=== PATIENT | female | born 1935 | race Caucasian/White ===

== ENCOUNTER → 2016-11-12 | Outpatient (CLI) | payer MEDICARE ==
[~2016-11-12] MED LIST: ALPR.25 PO; ALPR0.25 PO; AMLO10 PO; AMOX500C PO; COMMODE 3:1; CYCL1TAB29 PO; DEXA4TAB PO; FLUC100T41 PO; GLIM2TAB PO; GLYB1TAB51 PO; HYDR-3583 PO; LEVO.1 PO; LEVO100T5 PO; LORTA5 PO; MICO2%V VAGINAL; MISC-105; NEUR300C PO; OXYC1TAB36 PO; PANT20 PO; WALKER ROLLING; [UNRECOGNIZED DRUG - CODE] PO
[2016-11-12 12:52] LABS: HEMATOCRIT 41.4 % (35.0-46.0); MEAN CELL VOLUME 88.4 FL (80.0-100.0); MEAN CORPUSCULAR HEMOGLOBIN 29.4 PG (27.0-34.0); MEAN CORPUSCULAR HGB CONC 33.2 % (32.0-36.0); PLATELET COUNT 278 TH/MM3 (150-450); RED BLOOD COUNT 4.68 MIL/MM3 (4.00-5.30); RED CELL DISTRIBUTION WIDTH 17.2 % (11.6-17.2); REVIEW FLAG FINAL
[2016-11-12 13:25] LABS: HEMOGLOBIN A1a 1.7 %; HEMOGLOBIN A1b 0.9 %; HEMOGLOBIN Ao 84.4 %; HEMOGLOBIN F 1.2 %; HEMOGLOBIN LA1C 1.9 %; HEMOGLOBIN P3 4.1 %
[2016-11-12 13:26] LABS: ALKALINE PHOSPHATASE 100 U/L (45-117); ALT (GPT) 78 U/L (10-53); ANION GAP 11 MEQ/L (5-15); AST (GOT) 54 U/L (15-37); BICARBONATE 26.5 MEQ/L (21.0-32.0); BLOOD UREA NITROGEN 38 MG/DL (7-18); CHLORIDE 99 MEQ/L (98-107); FREE T4 1.29 NG/DL (0.76-1.46); GLOMERULAR FILTRATION RATE 39 ML/MIN (>89); GLUCOSE,FASTING 70 MG/DL (74-99); HDL CHOLESTEROL 38.6 MG/DL (40.0-60.0); LDL CHOLESTEROL 134 MG/DL (0-99); LDL CHOLESTEROL DIRECT 160 MG/DL (0-99); POTASSIUM 4.6 MEQ/L (3.5-5.1); SODIUM (NA) 136 MEQ/L (136-145); TOTAL BILIRUBIN ADULT 0.3 MG/DL (0.2-1.0)
== END ==
LOC: PLAB 09:35
PROVIDERS: ATTEND Family Medicine
DX: E11.9 Type 2 diabetes mellitus without complications (principal); E78.2 Mixed hyperlipidemia; I10 Essential (primary) hypertension; E03.8 Other specified hypothyroidism
CPT/HCPCS: 36415; 80053; 80061; 83036; 83721; 84439; 84443; 85027

== ENCOUNTER 2016-11-18 10:21 | Emergency (ER) | payer MEDICARE ==
[~2016-11-18 10:21] MED LIST changes: -ALPR0.25 PO; -AMLO10 PO; -AMOX500C PO; -CYCL1TAB29 PO; -DEXA4TAB PO; -GLIM2TAB PO; -HYDR-3583 PO; -LEVO100T5 PO; -NEUR300C PO; -OXYC1TAB36 PO; -PANT20 PO; -[UNRECOGNIZED DRUG - CODE] PO
[2016-11-18 10:23] VITALS: BP 225/99; PULSE 100; RESP 20; TEMP 97.2; O2SAT 97
[2016-11-18] MEDS ORDERED: [UNRECOGNIZED DRUG - CODE] PO (10:29)
[2016-11-18] MEDS ORDERED: ALPR0.25 PO (10:29)
[2016-11-18] MEDS ORDERED: AMOX500C PO (10:29)
[2016-11-18] MEDS ORDERED: LEVO100T5 PO (10:29)
[2016-11-18] MEDS ORDERED: GLIM2TAB PO (10:29)
[2016-11-18] MEDS ORDERED: HYDR-3583 PO (10:29)
[2016-11-18] MEDS ORDERED: CYCL1TAB29 PO (11:08)
[2016-11-18] MEDS ORDERED: OXYC1TAB36 PO (11:08)
--- NOTE | 2016-11-18 11:08 | PD ---
HPI Chief Complaint: Back/ Neck Pain or Injury Time Seen by Provider: 10:51 Travel History International Travel<30 days: No Contact w/Intl Traveler<30days: No Traveled to known affect area: No History of Present Illness HPI Patient presents with complaints of lower back pain. Reports a history of fractures. States she fell out of bed approximately 3 weeks ago and was evaluated and placed on pain medication for relief. Reports evaluation at [facility] for spinal injection which only worked approximately 36 hours. Reports worsening lower back pain with left sciatic pain since last night. States she is out of her pain medications. She does ambulate with a walker. She does have care available at home and family in town. PFSH Past Medical History Arthritis: Yes Asthma: No Autoimmune Disease: Yes (NON HODGKINS LYMPHOMA ) Anxiety: Yes Depression: Yes Heart Rhythm Problems: No Cancer: Yes (NON-HODGKINS LYMPHOMA) Cardiovascular Problems: No High Cholesterol: No Chemotherapy: Yes Chest Pain: No Congestive Heart Failure: No COPD: No Cerebrovascular Accident: No Diabetes: Yes Patient Takes Glucophage: Yes Diminished Hearing: No Endocrine: Yes GERD: No Genitourinary: Yes Hepatitis: No Hiatal Hernia: No Hypertension: Yes Immune Disorder: Yes Implanted Vascular Access Dvce: Yes Kidney Stones: No Medical other: Yes (BROKEN LEFT ARM) Musculoskeletal: Yes Neurologic: No Psychiatric: Yes Reproductive: No Respiratory: No Migraines: No Radiation Therapy: Yes Seizures: No Sickle Cell Disease: No Sleep Apnea: No Ulcer: No Menopausal: Yes Tubal Ligation: Yes Past Surgical History Abdominal Surgery: Yes (APPENDECTOMY) AICD: No Appendectomy: Yes Arteriovenous Shunt: No Body Medical Devices: LEFT HIP SCREWS Cardiac Surgery: No Ear Surgery: No Endocrine Surgery: No Eye Surgery: Yes (BILATERAL CATARACTS) Genitourinary Surgery: Yes (BLADDER LIFT x2 with mesh last 2009) Gynecologic Surgery: Yes (tubal ) Insulin Pump: No Joint Replacement: No Neurologic Surgery: No Oral Surgery: Yes (TONSILECTOMY) Pacemaker: No Thoracic Surgery: Yes (PORT PLACEMENT AND REMOVAL) Tonsillectomy: Yes Other Surgery: Yes (RIGHT CHEST WALL PORT IN AND OUT) Social History Alcohol Use: No Tobacco Use: No Substance Use: No Allergies-Medications (Allergen,Severity, Reaction): Coded Allergies: Sulfa (Unverified Allergy, Severe, Hives, 11/18/16) *MDRO Multi-Drug Resistant Organism (Unverified Adverse Reaction, Unknown , 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 Reported Meds & Prescriptions Reported Meds & Active Scripts Active Flexeril (Cyclobenzaprine HCl) 10 Mg Tab 5-10 Mg PO TID PRN Oxycodone-Acetaminophen 10-325 mg Tab 1 Tab PO Q6H PRN Reported Methenamine 1 Pow Pow 1 Gm PO Levothyroxine (Levothyroxine Sodium) 100 Mcg Tab 100 Mcg PO DAILY Hydrocodone-Acetaminophen 10-325 mg Tab 1 Tab PO Q4H PRN Glimepiride 2 Mg Tab 2 Mg PO DAILY Take with breakfast or first main meal Amoxicillin 500 Mg Cap 500 Mg PO PRN Alprazolam 0.25 Mg Tab 0.25 Mg PO Q4H PRN Review of Systems General / Constitutional: No: Fever Eyes: No: Visual changes HENT: No: Headaches Cardiovascular: No: Chest Pain or Discomfort Respiratory: No: Shortness of Breath Gastrointestinal: No: Abdominal Pain Genitourinary: No: Dysuria Musculoskeletal: Positive: Pain Skin: No Rash Neurologic: No: Weakness Psychiatric: No: Depression Endocrine: No: Polydipsia Hematologic/Lymphatic: No: Easy Bruising Physical Exam Narrative GENERAL: Well-nourished, well-developed patient. SKIN: Warm and dry. HEAD: Normocephalic. EYES: No scleral icterus. No injection or drainage. NECK: Supple, trachea midline. No JVD or lymphadenopathy. CARDIOVASCULAR: Regular rate and rhythm without murmurs, gallops, or rubs. RESPIRATORY: Breath sounds equal bilaterally. No accessory muscle use. GASTROINTESTINAL: Abdomen soft, non-tender, nondistended. MUSCULOSKELETAL: No cyanosis, or edema. BACK: Nontender without obvious deformity. No CVA tenderness. Examination lumbar sacral spine reveals midline tenderness with bilateral paraspinous pain radiating to the left gluteus negative straight leg raise Data Data Last Documented VS Vital Signs Date Time Temp Pulse Resp B/P Pulse Ox O2 Delivery O2 Flow Rate FiO2 11/18/16 11:50 74 20 154/98 98 11/18/16 10:23 97.2 Orders Oxycodone-Acetamin 10-325 Mg (Percocet 1 (11/18/16 11:15) Cyclobenzaprine (Flexeril) (11/18/16 11:15) MDM Medical Decision Making Medical Screen Exam Complete: Yes Emergency Medical Condition: Yes Differential Diagnosis Spinal stenosis, lumbar sacral degenerative disc disease, left sciatic pain Narrative Course Assessment and plan discussed with patient at bedside. Patient received oral pain medication and muscle relaxer with improvement of pain. Visualized ambulating with a walker Diagnosis Primary Impression: Left sciatic nerve pain Patient Instructions: Narcotic given in the ED, General Instructions Additional Instructions: Encouraged nonsteroidal anti-inflammatories warm heat gentle stretching strengthening and massage. Encouraged follow-up with PCP for further pain control, consider physical therapy Med/Other Pt SpecificInfo: Prescription(s) given Scripts Cyclobenzaprine (Flexeril)10 Mg Tab5-10 Mg PO TID PRN (MUSCLE SPASM) #20 TAB Ref 0 Prov:Higinio Romero MD 11/18/16 Oxycodone-Acetaminophen 10-325 mg Tab1 Tab PO Q6H PRN (PAIN) #20 TAB Ref 0 Prov:Higinio Romero MD 11/18/16 Disposition: 01 DISCHARGE HOME Condition: Good Higinio Romero MD Nov 18, 2016 11:08
[2016-11-18] MEDS ORDERED: CYCLOBENZAPRINE HCL 10 MG TAB PO ONE (11:15)
[2016-11-18] MEDS ORDERED: oxyCODONE/ACETAMINOPHEN 10 MG/325 MG TAB PO ONE (11:15)
[2016-11-18 11:50] VITALS: BP 154/98; PULSE 74; RESP 20; O2SAT 98
== END 2016-11-18 12:38 | disposition home or self-care (01) ==
LOC: PHED 10:21
DX: M54.32 Sciatica, left side (principal); E11.9 Type 2 diabetes mellitus without complications; I10 Essential (primary) hypertension
CPT/HCPCS: 99283

== ENCOUNTER 2016-11-21 09:28 | Inpatient (IN) | payer MEDICARE ==
[2016-11-21] VITALS (7 sets, daily range): BP systolic 130–219; BP diastolic 73–98; PULSE 82–98; RESP 16–20; TEMP 97.7–98.8; O2SAT 97–100
[~2016-11-21] VITALS: Ht 157.5 cm; Wt 56.0 kg
[~2016-11-21 09:28] MED LIST changes: -ALPR.25 PO; +ALPR0.25 PO; +AMOX500C PO; -COMMODE 3:1; +CYCL1TAB29 PO; -FLUC100T41 PO; +GLIM2TAB PO; -GLYB1TAB51 PO; +HYDR-3583 PO; -LEVO.1 PO; +LEVO100T5 PO; -LORTA5 PO; -MICO2%V VAGINAL; -MISC-105; +OXYC1TAB36 PO; -WALKER ROLLING; +[UNRECOGNIZED DRUG - CODE] PO
[2016-11-21] MEDS ORDERED: AMOX500C PO (09:39)
[2016-11-21 10:16] LABS: BASOPHIL % 0.6 % (0.0-2.0); EOSINOPHIL # 0.4 TH/MM3 (0-0.4); EOSINOPHIL % 6.1 % (0.0-4.0); HEMATOCRIT 40.2 % (35.0-46.0); LYMPH % 13.3 % (9.0-44.0); LYMPHOCYTE # 0.8 TH/MM3 (1.0-4.8); MEAN CELL VOLUME 89.7 FL (80.0-100.0); MEAN CORPUSCULAR HEMOGLOBIN 29.6 PG (27.0-34.0); MONO % 13.1 % (0.0-8.0); NEUT % 66.9 % (16.0-70.0); PLATELET COUNT 240 TH/MM3 (150-450); RED BLOOD COUNT 4.48 MIL/MM3 (4.00-5.30); RED CELL DISTRIBUTION WIDTH 17.4 % (11.6-17.2); WHITE BLOOD COUNT 5.9 TH/MM3 (4.0-11.0)
[2016-11-21 10:17] LABS: HEMO FLAGS AUTO DIFF
[2016-11-21 10:18] LABS: APTT (PATIENT) 28.5 SEC (24.3-30.1)
[2016-11-21 10:25] LABS: ACETAMINOPHEN LESS THAN 2.0 MCG/ML (10.0-30.0); ANION GAP 10 MEQ/L (5-15); BICARBONATE 22.3 MEQ/L (21.0-32.0); BLOOD UREA NITROGEN 29 MG/DL (7-18); CHLORIDE 102 MEQ/L (98-107); GLOMERULAR FILTRATION RATE 45 ML/MIN (>89); POTASSIUM 4.4 MEQ/L (3.5-5.1); SODIUM (NA) 134 MEQ/L (136-145)
--- NOTE | 2016-11-21 10:27 | PD ---
HPI Chief Complaint: Pain: Acute or Chronic Time Seen by Provider: 09:38 Travel History International Travel<30 days: No Contact w/Intl Traveler<30days: No Traveled to known affect area: No History of Present Illness HPI 81-year-old female complains of low back pain and left hip pain. Since states that she fell 4 days ago. 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 Patient has been evaluated by radiology oncologist and her personal physician and has been taking pain medications at home. Patient was seen in emergency room 2 days ago for acute exacerbation of left hip left leg pain. Patient was given prescription for oxycodone 10, dispensed 20 pills. Patient has been taking the medication without relief of the pain. Patient has 2 tablets of oxycodone left this morning. Patient denies any bladder or bowel control problem. Patient denies any focal weakness and numbness of the leg. Injury or medical record, patient was seen by radiology oncologist, pain management and her personal physician for back pain and left leg pain. Patient had MRI and PET scan done recently of the lumbar spine MRI shows new order to severe compression fracture deformity of L5 vertebral body with mass effect on S1 nerve root. New mild compression fracture deformity T12. Disc disease and central canal stenosis at L4-L5 level. PFSH Past Medical History Arthritis: Yes Asthma: No Autoimmune Disease: Yes (NON HODGKINS LYMPHOMA ) Anxiety: Yes Depression: Yes Heart Rhythm Problems: No Cancer: Yes (NON-HODGKINS LYMPHOMA) Cardiovascular Problems: Yes High Cholesterol: No Chemotherapy: Yes Chest Pain: No Congestive Heart Failure: No COPD: No Cerebrovascular Accident: No Diabetes: Yes Patient Takes Glucophage: No Diminished Hearing: No Endocrine: Yes GERD: No Genitourinary: Yes Hepatitis: No Hiatal Hernia: No Hypertension: Yes Immune Disorder: Yes Implanted Vascular Access Dvce: Yes Kidney Stones: No Medical other: Yes (BROKEN LEFT ARM) Musculoskeletal: Yes Neurologic: No Psychiatric: Yes Reproductive: No Respiratory: No Migraines: No Radiation Therapy: Yes Seizures: No Sickle Cell Disease: No Sleep Apnea: No Ulcer: No Tetanus Vaccination: > 5 Years Influenza Vaccination: Yes ?: Not Menopausal: Yes Tubal Ligation: Yes Past Surgical History Abdominal Surgery: Yes (APPENDECTOMY) AICD: No Appendectomy: Yes Arteriovenous Shunt: No Body Medical Devices: LEFT HIP SCREWS Cardiac Surgery: No Ear Surgery: No Endocrine Surgery: No Eye Surgery: Yes (BILATERAL CATARACTS) Genitourinary Surgery: Yes (BLADDER LIFT x2 with mesh last 2009) Gynecologic Surgery: Yes (tubal ) Insulin Pump: No Joint Replacement: No Neurologic Surgery: No Oral Surgery: Yes (TONSILECTOMY) Pacemaker: No Thoracic Surgery: Yes (PORT PLACEMENT AND REMOVAL) Tonsillectomy: Yes Other Surgery: Yes (RIGHT CHEST WALL PORT IN AND OUT) Social History Alcohol Use: No Tobacco Use: No Substance Use: No Allergies-Medications (Allergen,Severity, Reaction): Coded Allergies: Sulfa (Verified Allergy, Severe, Hives, 11/21/16) *MDRO Multi-Drug Resistant Organism (Verified Adverse Reaction, Unknown, ) 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 Reported Meds & Prescriptions Reported Meds & Active Scripts Active Oxycodone-Acetaminophen 10-325 mg Tab 1 Tab PO Q6H PRN Reported Amoxicillin 500 Mg Cap 500 Mg PO BID Levothyroxine (Levothyroxine Sodium) 100 Mcg Tab 100 Mcg PO DAILY Glimepiride 2 Mg Tab 2 Mg PO DAILY Take with breakfast or first main meal Alprazolam 0.25 Mg Tab 0.25 Mg PO Q4H PRN Review of Systems General / Constitutional: No: Fever Eyes: No: Visual changes HENT: No: Headaches Cardiovascular: No: Chest Pain or Discomfort Respiratory: No: Shortness of Breath Gastrointestinal: No: Abdominal Pain Genitourinary: No: Dysuria Musculoskeletal: No: Pain Skin: No Rash Neurologic: No: Weakness Psychiatric: No: Depression Endocrine: No: Polydipsia Hematologic/Lymphatic: No: Easy Bruising Physical Exam Narrative GENERAL: Well-nourished, well-developed patient. SKIN: Focused skin assessment warm/dry. HEAD: Normocephalic. EYES: No scleral icterus. No injection or drainage. NECK: Supple, trachea midline. No JVD or lymphadenopathy. CARDIOVASCULAR: Regular rate and rhythm without murmurs, gallops, or rubs. RESPIRATORY: Breath sounds equal bilaterally. No accessory muscle use. GASTROINTESTINAL: Abdomen soft, non-tender, nondistended. MUSCULOSKELETAL: No cyanosis, or edema. Patient has ordered tenderness on palpation of the left hip joint. Full range of motion the left hip. BACK: Patient has moderate tenderness on palpation mid to low lumbar area, without obvious deformity. No CVA tenderness. Neurologic exam: Patient is awake and alert oriented 3. Patient has no obvious focal neurological deficit. Data Data Last Documented VS Vital Signs Date Time Temp Pulse Resp B/P Pulse Ox O2 Delivery O2 Flow Rate FiO2 11/21/16 09:42 17 100 Room Air 11/21/16 09:30 98 11/21/16 09:30 98.0 219/98 Orders Complete Blood Count With Diff (11/21/16 09:38) Basic Metabolic Panel (Bmp) (11/21/16 09:38) Prothrombin Time / Inr (Pt) (11/21/16 09:38) Act Partial Throm Time (Ptt) (11/21/16 09:38) Iv Access Insert/Monitor (11/21/16 09:38) Ecg Monitoring (11/21/16 09:38) Oximetry (11/21/16 09:38) Tylenol (Acetaminophen) (11/21/16 09:38) Ct Hip W/O Contrast (11/21/16 ) Ct Lumb Spine W/O Contrast (11/21/16 ) Morphine Inj (Morphine Inj) (11/21/16 10:30) Ondansetron Inj (Zofran Inj) (11/21/16 10:30) Labs Laboratory Tests Test 11/21/16 09:41 White Blood Count 5.9 TH/MM3 Red Blood Count 4.48 MIL/MM3 Hemoglobin 13.2 GM/DL Hematocrit 40.2 % Mean Corpuscular Volume 89.7 FL Mean Corpuscular Hemoglobin 29.6 PG Mean Corpuscular Hemoglobin 33.0 % Concent Red Cell Distribution Width 17.4 % Platelet Count 240 TH/MM3 Mean Platelet Volume 8.1 FL Neutrophils (%) (Auto) 66.9 % Lymphocytes (%) (Auto) 13.3 % Monocytes (%) (Auto) 13.1 % Eosinophils (%) (Auto) 6.1 % Basophils (%) (Auto) 0.6 % Neutrophils # (Auto) 4.0 TH/MM3 Lymphocytes # (Auto) 0.8 TH/MM3 Monocytes # (Auto) 0.8 TH/MM3 Eosinophils # (Auto) 0.4 TH/MM3 Basophils # (Auto) 0.0 TH/MM3 CBC Comment AUTO DIFF Prothrombin Time 11.0 SEC Prothromb Time International 1.0 RATIO Ratio Activated Partial 28.5 SEC Thromboplast Time Sodium Level 134 MEQ/L Potassium Level 4.4 MEQ/L Chloride Level 102 MEQ/L Carbon Dioxide Level 22.3 MEQ/L Anion Gap 10 MEQ/L Blood Urea Nitrogen 29 MG/DL Creatinine 1.17 MG/DL Estimat Glomerular Filtration 45 ML/MIN Rate Random Glucose 161 MG/DL Calcium Level 9.8 MG/DL Acetaminophen Level LESS THAN 2.0 MCG/ML MDM Medical Decision Making Medical Screen Exam Complete: Yes Emergency Medical Condition: Yes Differential Diagnosis Differential diagnosis including fracture, dislocation, HNP, Narrative Course 81-year-old female with acute exacerbation of low back pain and left hip and left leg pain. History of recurrent follicular non-Hodgkin's lymphoma with sore last mass and fracture of lumbar spine. Diagnosis Primary Impression: Acute exacerbation of chronic low back pain Additional Impression: Fracture of lumbar spine Qualified Code: S32.050A - Closed wedge compression fracture of fifth lumbar vertebra, initial encounter Hermilo Napier MD Nov 21, 2016 10:27
[2016-11-21] MEDS ORDERED: ONDANSETRON HCL 4 MG/2 ML VIAL IV PUSH ONE (10:30)
[2016-11-21] MEDS ORDERED: MORPHINE SULFATE 4 MG/ML INJ IV PUSH ONE (10:30)
[2016-11-21] MEDS ORDERED: GLUCAGON 1 MG/ML VIAL OTHER PRN (10:45)
[2016-11-21] MEDS ORDERED: ONDANSETRON HCL 4 MG/2 ML VIAL IV PUSH PRN (10:45)
[2016-11-21] MEDS ORDERED: HYDROmorphone HCL PF 1 MG/ML VIAL IV PUSH PRN (10:45)
[2016-11-21] MEDS ORDERED: DEXTROSE 50% IN WATER 50 ML VIAL(D50) IV PUSH PRN (10:45)
[2016-11-21 10:55] LABS: BANDS 10 % (0-6); BASOPHILS 1 % (0-2); EOSINOPHILS 1 % (0-4); NEUTROPHIL # MANUAL DIFF 4.1 TH/MM3 (1.8-7.7); POLYS (SEG NEUTROPHILS) 60 % (16-70); WBC DIFF SAMPLE 100
[2016-11-21 10:56] LABS: PLATELET ESTIMATE SMEAR NORMAL (NORMAL); PLATELET MORPHOLOGY NORMAL (NORMAL); SCAN/DIFF FINAL DIFF MANUAL
[2016-11-21] MEDS: INSULIN ASPART SUPPLEMENTAL SCALE SQ SCH ×2 (11:00→15:57)
--- NOTE | 2016-11-21 11:18 | RADRPT ---
EXAM DATE/TIME: 11/21/2016 10:19 [facility] COMPARISON: No previous studies available for comparison. INDICATIONS : Fall 2 days ago. Left hip and back pain. RADIATION DOSE: 35.86 CTDIvol (mGy) MEDICAL HISTORY : Cardiovascular disease. Diabetes, Non-Hodgkin's lymphoma SURGICAL HISTORY : Appendectomy. Tubal ligation. ENCOUNTER: Initial ACUITY: 2 days PAIN SCALE: 5/10 LOCATION: Bilateral back TECHNIQUE: Volumetric scanning of the lumbar spine was performed. Multiplanar reconstructions in the sagittal, coronal and oblique axial planes were performed. Using automated exposure control and adjustment of the mA and/or kV according to patient size, radiation dose was kept as low as reasonably achievable t o obtain optimal diagnostic quality images. FINDINGS: CT scan was performed in an individual who fell two days ago. There is marked anterior wedging of T12, L4 and L5. I have no prior images available to know whether this is acute or chronic. MRI could be used to help ascertain this. T12-L1: Mild interspace ridging is present, neural foramina adequate. L1-L2: There is generalized disc bulging present. There is mild bilateral neural foramina encroachment. L2-L3: Mild interspace ridging is present, neural foramina adequate. L3-L4: There is mild canal stenosis. There is minimal bilateral neural foramina encroachment. L4-L5: Vacuum disc is evident with generalized disc bulging and degenerative changes in the facets. L5-S1: There is an area of destruction in the transverse process of L5 suspicious for a neoplastic process. Extensive osteopenia is present with generalized disc bulging. Degenerative changes are present in t he facets. Degenerative changes are seen in both SI joints. There is mild spinal stenosis. . CONCLUSION: 1. Destructive process involving the transverse process of L5 suspicious for neoplastic process. Th is could be biopsied percutaneously. Quinton Robison MD FACR on November 21, 2016 at 11:07 Board Certified Radiologist. This report was verified electronically.
--- NOTE | 2016-11-21 11:32 | RADRPT ---
EXAM DATE/TIME: 11/21/2016 10:19 [facility] COMPARISON: No previous studies available for comparison. INDICATIONS : Fall 2 days ago. Left hip and back pain. RADIATION DOSE: 13.62 CTDIvol (mGy) MEDICAL HISTORY : Cardiovascular disease. Diabetes, Non-Hodgkin's lymphoma SURGICAL HISTORY : Appendectomy. Tubal ligation. ENCOUNTER: Initial ACUITY: 2 days PAIN SCALE: 4/10 LOCATION: Left pelvis TECHNIQUE: Volumetric scanning of the hip was performed. Using automated exposure control and adjustment of the mA and/or kV according to patient size, radiation dose was kept as low as reasonably achievable to o btain optimal diagnostic quality images. 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 Patient has troch nails bilaterall y. This is causing moderate artifact. I do not see an obvious fracture or bony destruction. There is a n abnormal transverse process of L5 on the left suspicious for neoplastic process. Findings have been discussed with Dr. Napier on today's date. CONCLUSION: I do not see hip fracture although troch nails make conclusion of subtle fracture very difficult. Pl ease see above discussion. Quinton Robison MD FACR on November 21, 2016 at 11:24 Board Certified Radiologist. This report was verified electronically.
[2016-11-21] MEDS ORDERED: ACETAMINOPHEN 325 MG TAB PO PRN (12:00)
--- NOTE | 2016-11-21 12:05 | HHI.HP ---
[facility] Service [facility] Primary Care Physician Corey Das MD Admission Diagnosis lumbar spine fracture. Intractable pain. Diagnoses: (1) Fracture of lumbar spine Diagnosis: Principal Chief Complaint: low back pain Travel History International Travel<30 Days: No Contact w/Intl Traveler <30 Da: No Traveled to Known Affected Are: No History of Present Illness patient is a 81 y/o female with history of non-hodgkin's lymphoma who presented to ER with low back pain. she says that she fell about a month ago and started to have some flip pain at the time. she says that her pain has been getting worse since then. she was seen by neurosurgery about a week ago and is supposed to have a neurosurgery follow-up this week.she was seen in ER few days ago and was discharged with pain medications and muscle relaxant. she says that the pain got worse despite taking the pain medications. she had a recent f/u with her radiation oncologist and had a PET-scan and MRI of the lumbar spine which revealed T12/ L5 fracture. she says that the pain started in the back and ' shoots down' to the left leg. she has some weakness of the left leg. she denies any urine or stool incontinence. Review of Systems Constitutional: DENIES: Fever, Weight loss, Chills, Night Sweats Eyes: DENIES: Blurred vision, Diplopia, Vision loss, Double Vision Ears, nose, mouth, throat: DENIES: Tinnitus, Vertigo, Throat pain, Epistaxis Respiratory: DENIES: Apneas, Cough, Snoring, Wheezing, Hemoptysis, Sputum production, Shortness of breath Cardiovascular: DENIES: Chest pain, Palpitations, Syncope, Dyspnea on Exertion , PND, Lower Extremity Edema, Orthopnea, Claudication Gastrointestinal: DENIES: Abdominal pain, Black stools, Bloody stools, Constipation, Diarrhea, Nausea, Vomiting, Difficulty Swallowing, Anorexia Genitourinary: DENIES: Urinary frequency, Urgency, Hematuria, Dysuria Musculoskeletal: COMPLAINS OF: Back pain, DENIES: Joint pain, Muscle aches, Stiffness, Joint Swelling Integumentary: DENIES: Rash Neurologic: DENIES: Abnormal gait, Headache, Localized weakness, Paresthesias, Seizures, Speech Problems, Tremor, Poor Balance Psychiatric: DENIES: Anxiety, Confusion, Mood changes, Depression, Hallucinations, Agitation, Suicidal Ideation, Homicidal Ideation, Delusions Past Family Social History Past Medical History lymphoma diabetes mellitus hypothyroidism Past Surgical History appendectomy tubal ligation Reported Medications Amoxicillin 500 Mg Cap 500 Mg PO BID Levothyroxine (Levothyroxine Sodium) 100 Mcg Tab 100 Mcg PO DAILY Glimepiride 2 Mg Tab 2 Mg PO DAILY Take with breakfast or first main meal Alprazolam 0.25 Mg Tab 0.25 Mg PO Q4H PRN Allergies: Coded Allergies: Sulfa (Verified Allergy, Severe, Hives, 11/21/16) *MDRO Multi-Drug Resistant Organism (Verified Adverse Reaction, Unknown, ) 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 Active Ordered Medications Current Medications Morphine Sulfate (Morphine Inj) 4 mg ONCE ONCE IV PUSH Last administered on 10:39; Start 11/21/16 at 10:30; Stop 11/21/16 at 10:32; Status DC Ondansetron HCl (Zofran Inj) 4 mg ONCE ONCE IV PUSH Last administered on 10:40; Start 11/21/16 at 10:30; Stop 11/21/16 at 10:32; Status DC Enalaprilat (Vasotec Inj) 1.25 mg Q8H PRN IV PUSH SBP> OR = 180, DBP> OR = 100 ; Start 11/21/16 at 10:45 Dextrose (D50w (Vial) Inj) 25 ml UNSCH PRN IV PUSH HYPOGLYCEMIA-SEE COMMENTS; Start 11/21/16 at 10:45 Glucagon (Glucagon Inj) 1 mg UNSCH PRN OTHER HYPOGLYCEMIA-SEE COMMENTS; Start 11/21/16 at 10:45 Insulin Aspart (NovoLOG SUPPLEMENTAL SCALE) 1 ACHS SLIDING SCALE SQ ; Start at 11:00 Ondansetron HCl (Zofran Inj) 4 mg Q8HR PRN IV PUSH NAUSEA; Start 11/21/16 at 10 :45 Hydromorphone HCl (Dilaudid Pf Inj) 0.5 mg Q4H PRN IV PUSH PAIN; Start at 10:45 Family History not relevant to this presentation. Social History no smoking or drinking. Physical Exam Vital Signs Vital Signs Date Time Temp Pulse Resp B/P Pulse Ox O2 Delivery O2 Flow Rate FiO2 11/21/16 11:07 88 16 130/73 100 Room Air 11/21/16 10:44 17 11/21/16 09:42 17 100 Room Air 11/21/16 09:30 98 17 11/21/16 09:30 98.0 98 17 219/98 100 Physical Exam GENERAL: This is a well-nourished, well-developed patient, in no apparent distress. HEAD: Atraumatic. Normocephalic. No temporal or scalp tenderness. EYES: Pupils equal round and reactive. Extraocular motions intact. No scleral icterus. No injection or drainage. ENT: Nose without bleeding, purulent drainage or septal hematoma. Throat without erythema, tonsillar hypertrophy or exudate. Uvula midline. Airway patent. NECK: Trachea midline. No JVD or lymphadenopathy. Supple, nontender, no meningeal signs. CARDIOVASCULAR: Regular rate and rhythm without murmurs, gallops, or rubs. RESPIRATORY: Clear to auscultation. Breath sounds equal bilaterally. No wheezes , rales, or rhonchi. GASTROINTESTINAL: Abdomen soft, non-tender, nondistended. No hepato-splenomegaly , or palpable masses. No guarding. MUSCULOSKELETAL: Extremities without clubbing, cyanosis, or edema. No joint tenderness, effusion, or edema noted. No calf tenderness. Negative Homans sign bilaterally. NEUROLOGICAL: Awake and alert. Cranial nerves II through XII intact. Motor and sensory grossly within normal limits. Five out of 5 muscle strength in all muscle groups. Normal speech. Laboratory Laboratory Tests Test 11/21/16 09:41 White Blood Count 5.9 Red Blood Count 4.48 Hemoglobin 13.2 Hematocrit 40.2 Mean Corpuscular Volume 89.7 Mean Corpuscular Hemoglobin 29.6 Mean Corpuscular Hemoglobin 33.0 Concent Red Cell Distribution Width 17.4 Platelet Count 240 Mean Platelet Volume 8.1 Neutrophils (%) (Auto) 66.9 Lymphocytes (%) (Auto) 13.3 Monocytes (%) (Auto) 13.1 Eosinophils (%) (Auto) 6.1 Basophils (%) (Auto) 0.6 Neutrophils # (Auto) 4.0 Lymphocytes # (Auto) 0.8 Monocytes # (Auto) 0.8 Eosinophils # (Auto) 0.4 Basophils # (Auto) 0.0 CBC Comment AUTO DIFF Differential Total Cells 100 Counted Neutrophils % (Manual) 60 Band Neutrophils % 10 Lymphocytes % 13 Monocytes % 15 Eosinophils % 1 Basophils % 1 Neutrophils # (Manual) 4.1 Differential Comment FINAL DIFF MANUAL Platelet Estimate NORMAL Platelet Morphology Comment NORMAL Red Cell Morphology Comment NORMAL Prothrombin Time 11.0 Prothromb Time International 1.0 Ratio Activated Partial 28.5 Thromboplast Time Sodium Level 134 Potassium Level 4.4 Chloride Level 102 Carbon Dioxide Level 22.3 Anion Gap 10 Blood Urea Nitrogen 29 Creatinine 1.17 Estimat Glomerular Filtration 45 Rate Random Glucose 161 Calcium Level 9.8 Acetaminophen Level LESS THAN 2.0 Result Diagram: 11/21/1641 11/21/1641 Assessment and Plan Assessment and Plan A/P -history of lymphoma with T12/L5 fracture continue with pain control- will consult oncology, radiation oncology and neurosurgery -diabetes mellitus; accu-check with SSI -chronic renal insufficiency- stable- will monitor -hypothyroidism; resume levothyroxine -DVT prophylaxis; SCD's - till neurosurgery evaluation Discussed Condition With patient and ER physician. Physician Certification 2 Midnight Certification Type: Admission for Inpatient Services Order for Inpatient Services The services are ordered in accordance with Medicare regulations or non- Medicare payer requirements, as applicable. In the case of services not specified as inpatient-only, they are appropriately provided as inpatient services in accordance with the 2-midnight benchmark. Estimated LOS (days): 2 days is the estimated time the patient will need to remain in the hospital, assuming treatment plan goals are met and no additional complications. Post-Hospital Plan: Not yet determined Problem Qualifiers (1) Fracture of lumbar spine: Qualified Code: S32.050A - Closed wedge compression fracture of fifth lumbar vertebra, initial encounter Karsten Peters MD Nov 21, 2016 12:05
--- NOTE | 2016-11-21 13:10 | HHI.NSPN ---
Labs, Micro, & Vital Signs Results Date Time Temp Pulse Resp B/P Pulse Ox O2 Delivery O2 Flow Rate FiO2 11/21/16 11:07 88 16 130/73 100 Room Air 11/21/16 10:44 17 11/21/16 09:42 17 100 Room Air 11/21/16 09:30 98 17 11/21/16 09:30 98.0 98 17 219/98 100 Constitutional Vital Signs Date Time Temp Pulse Resp B/P Pulse Ox O2 Delivery O2 Flow Rate FiO2 11/21/16 11:07 88 16 130/73 100 Room Air 11/21/16 10:44 17 11/21/16 09:42 17 100 Room Air 11/21/16 09:30 98 17 11/21/16 09:30 98.0 98 17 219/98 100 Orion Carreon MD Nov 21, 2016 13:10
--- NOTE | 2016-11-21 17:07 | HHI.HP ---
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 Physical Exam Vital Signs Vital Signs Date Time Temp Pulse Resp B/P Pulse Ox O2 Delivery O2 Flow Rate FiO2 11/21/16 15:58 98.0 84 16 144/88 99 Room Air 11/21/16 14:35 97.8 82 16 150/73 100 Room Air 11/21/16 11:07 88 16 130/73 100 Room Air 11/21/16 10:44 17 11/21/16 09:42 17 100 Room Air 11/21/16 09:30 98 17 11/21/16 09:30 98.0 98 17 219/98 100 Laboratory Laboratory Tests Test 11/21/16 09:41 White Blood Count 5.9 Red Blood Count 4.48 Hemoglobin 13.2 Hematocrit 40.2 Mean Corpuscular Volume 89.7 Mean Corpuscular Hemoglobin 29.6 Mean Corpuscular Hemoglobin 33.0 Concent Red Cell Distribution Width 17.4 Platelet Count 240 Mean Platelet Volume 8.1 Neutrophils (%) (Auto) 66.9 Lymphocytes (%) (Auto) 13.3 Monocytes (%) (Auto) 13.1 Eosinophils (%) (Auto) 6.1 Basophils (%) (Auto) 0.6 Neutrophils # (Auto) 4.0 Lymphocytes # (Auto) 0.8 Monocytes # (Auto) 0.8 Eosinophils # (Auto) 0.4 Basophils # (Auto) 0.0 CBC Comment AUTO DIFF Differential Total Cells 100 Counted Neutrophils % (Manual) 60 Band Neutrophils % 10 Lymphocytes % 13 Monocytes % 15 Eosinophils % 1 Basophils % 1 Neutrophils # (Manual) 4.1 Differential Comment FINAL DIFF MANUAL Platelet Estimate NORMAL Platelet Morphology Comment NORMAL Red Cell Morphology Comment NORMAL Prothrombin Time 11.0 Prothromb Time International 1.0 Ratio Activated Partial 28.5 Thromboplast Time Sodium Level 134 Potassium Level 4.4 Chloride Level 102 Carbon Dioxide Level 22.3 Anion Gap 10 Blood Urea Nitrogen 29 Creatinine 1.17 Estimat Glomerular Filtration 45 Rate Random Glucose 161 Calcium Level 9.8 Acetaminophen Level LESS THAN 2.0 Result Diagram: 11/21/16 0941 11/21/16 0941 Orion Carreon MD Nov 21, 2016 17:07
--- NOTE | 2016-11-21 20:59 | MB ---
cc: KADEN SIMON M.D. DATE OF CONSULTATION 11/21/[address] Peters. REASON FOR CONSULTATION Oncology consulted to render opinion regarding patient with history of lymphoma admitted with increased back pain. HISTORY OF THE PRESENT ILLNESS The patient is very pleasant 81-year-old female with a history of Hodgkin lymphoma and non-Hodgkin lymphoma presented to the hospital with complaint of increased low back pain. The last some I saw her was December 2015. At that time she was found to have progression of non-Hodgkin / follicular lymphoma. She saw Dr. Stoll and was started on Rituxan and Zydelig and later maintained on Zydelig until about two weeks ago. Around September she was referred to see Dr. Hu because CT scan in August showed increased pelvic cystic mass and she started having increased left lower extremity pain. She had a repeat PET CT scan on October 24 which showed lymph node bilateral inguinal canal and right presacral area but at that time there was also a hypermetabolic lesion noted in L5. The patient stated she has increased low back pain that radiates down the left leg which has been going on for about two months. It is progressively getting worse to the point that she could not walk. Pain no longer controlled with pain medication. she has weakness and numbness of left leg. She denies any urinary or bowel incontinence. She has lost a few pounds. Denies any fever, chills, night sweat. Denies chest pain, palpitation, any shortness of breath or cough. Denies any nausea or vomiting, abdominal pain and dysuria, hematuria. PAST MEDICAL HISTORY 1. Hodgkin lymphoma treated in 2006. 2. non-Hodgkin lymphoma / follicular lymphoma as above. 3. Diabetes mellitus. 4. Hypothyroidism. 5. Osteoarthritis. 6. Osteoporosis. PAST SURGICAL HISTORY 1. Appendectomy. 2. Bilateral tubal ligation. 3. Port placement. 4. Colonoscopy. 5. Bilateral hip open reduction, internal fixation. 6. Tonsillectomy. FAMILY HISTORY Noncontributory. SOCIAL HISTORY No tobacco or alcohol use. ALLERGIES SULFA. CURRENT MEDICATIONS Levothyroxine. REVIEW OF SYSTEMS CONSTITUTIONAL: Has increased weakness and lost a few pounds. Denies any fever, chills, night sweats. EYES: Denies any blurred vision, double vision. EAR, NOSE, AND THROAT: No mouth sores or voice changes. CARDIOVASCULAR: No chest pressure, palpitations. RESPIRATORY: No shortness of breath or cough. GASTROINTESTINAL: Negative. GENITOURINARY: Negative. MUSCULOSKELETAL: As above. HEMATOLOGIC: Negative. ENDOCRINE: Negative. DERMATOLOGIC: Negative. PSYCHIATRIC: Negative. NEUROLOGICAL: As above. PHYSICAL EXAMINATION VITAL SIGNS: Afebrile. Blood pressure 144/88, O2 saturation 99% on room air. GENERAL: She is alert and oriented times three, in no acute distress. HEENT: Atraumatic, normocephalic. Pupils equal, round and reactive to light. Extraocular muscles intact. No scleral icterus. Oropharynx dry mucosa, no lesion, no thrush, no mucositis. NECK: No thyromegaly, no palpable mass. LYMPHATICS: No palpable cervical, clavicular, axillary or inguinal lymph nodes. CARDIOVASCULAR: Regular S1, S2. No murmur. LUNGS: Clear to auscultation anteriorly. ABDOMEN: Soft, nontender. I could not palpate liver or spleen. EXTREMITIES: No clubbing, cyanosis. No pitting edema. The right lower extremity looks bigger than the left lower extremity. SKIN: No rash or petechiae. NEUROLOGIC: Slight decreased weakness left lower extremity. LABORATORY DATA Reviewed. ASSESSMENT 1. Increased low back pain that radiates down the left lower extremity. This has been going on for 1-2 months and is progressively getting worse. PET scan on October 24 showed intense uptake within L5 left transverse process with associated hairline pathologic fracture. MRI of the lumbar spine showed severe compression fracture deformity of L5 with invagination of the superior inferior endplate and marrow edema. There was retropulsion with mass effect on the left S1 nerve root. There was also mild compression fracture deformity of T12. During this admission lumbar spine CT showed a destructive process involving transverse process of L5 suspicious of neoplastic process. This appeared to be causing all her symptoms. She had a history of non-Hodgkin lymphoma, currently under treatment. This lesion was not noted in the August CT but has increased over the last 2 months and appeared to be aggressive. In August she had a cystic mass in bilateral pelvic area which seems to be better on PET scan done in October. But this L5 lesion seems to have progressed. This possibly could be another primary tumor versus transformed follicular lymphoma. I will recommend getting a biopsy of this L5 lesion for further evaluation. Given that she is symptomatic I think she will benefit with the palliative radiation. She has been seen by Dr. Hu. 2. Follicular lymphoma. She was first treated with rituximab and Treanda and she finished two years of maintenance Rituxan in January of 2014. Around December of last year she was found to have progression of disease. She was then treated with and Zydelig with Rituxan and then maintained on Zydelig until a few weeks ago. CT in August showed low density masses in the retroperitoneum at the superior posterior left pelvis and the right pelvic sidewall. The PET scan in October showed these lesions were less prominent and not hypermetabolic. However, there is a hypermetabolic presacral lesion measured about 1.6 cm and the L5 hypermetabolic lesion noted as above. She was started on Rituxan and Revlimid about 2 weeks ago. She has stopped Revlimid at this time. I plan to biopsy the L5 lesion, if this turns out to be a follicular lymphoma this could be radiated to relieve her symptoms and then she could be started back on Rituxan and Revlimid and hopefully eventually we can treat her with a radioimmunotherapy like Bexxar. 3. History of Hodgkin lymphoma. She received six cycles of ABVD in 2006. She then received consolidation radiation in 2007. 4. Diabetes mellitus. 5. Hypothyroidism. 6. Osteoarthritis. 7. Osteoporosis. RECOMMENDATIONS 1. I reviewed the patient's multiple radiologic studies and had an extensive discussion with the patient as above. 2. Consult radiology to biopsy the L5 lesion. 3. The patient would likely benefit with palliative radiation to the L5 lesion after the biopsy. 4. Further treatment recommendation will depend on the biopsy result. 5. DVT prophylaxis with SCD until after the biopsy. Thank you Dr. Peters for asking me to see this patient. MD G[facility]/KARISSA /6:36 PM /8:12 PM DAPHNE
--- NOTE | 2016-11-21 22:13 | PD.CONS ---
[facility] Service neurosurg Consult Requested By Az HARLEY Reason for Consult thoracolumbar fractures Primary Care Physician Corey Das MD History of Present Illness This is a 81-year-old female with a history of Hodgkin lymphoma and non-Hodgkin lymphoma presented to the hospital with increased low back pain. Apparently she was found to have progression of non-Hodgkin / follicular lymphoma. She saw Dr. Stoll and was started on Rituxan and Zydelig and later maintained on Zydelig until two weeks ago. In September she was referred to Dr. Hu because a pelvic cystic mass and increased left lower extremity pain. She had a repeat PET CT scan on October 24 which showed lymph node bilateral inguinal canal and right presacral area but at that time there was also a hypermetabolic lesion noted in L5. She reports increased low back pain that radiates down the left leg for about two months. It is progressively getting worse to the point that she could not walk. Pain no longer controlled with medicationa. In addition she has weakness and numbness of left leg. She denies any urinary or bowel incontinence. Denies nausea or vomiting, abdominal pain and dysuria, hematuria. Neurosurgical consutation was requested Review of Systems Constitutional: COMPLAINS OF: Diaphoretic episodes, Weight loss, DENIES: Fatigue, Fever, Weight gain, Chills, Dizziness, Change in appetite, Night Sweats Endocrine: COMPLAINS OF: Abnorml menstrual pattern, DENIES: Heat/cold intolerance, Polydipsia, Polyuria, Polyphagia Eyes: DENIES: Blurred vision, Diplopia, Eye inflammation, Eye pain, Vision loss , Photosensitivity, Double Vision Ears, nose, mouth, throat: DENIES: Tinnitus, Hearing loss, Vertigo, Nasal discharge, Oral lesions, Throat pain, Hoarseness, Ear Pain, Running Nose, Epistaxis, Sinus Pain, Toothache, Odynophagia Respiratory: DENIES: Apneas, Cough, Snoring, Wheezing, Hemoptysis, Sputum production, Shortness of breath Cardiovascular: DENIES: Chest pain, Palpitations, Syncope, Dyspnea on Exertion , PND, Lower Extremity Edema, Orthopnea, Claudication Gastrointestinal: DENIES: Abdominal pain, Black stools, Bloody stools, Constipation, Diarrhea, Nausea, Vomiting, Difficulty Swallowing, Anorexia Genitourinary: DENIES: Abnormal vaginal bleeding, Dysmenorrhea, Dyspareunia, Sexual dysfunction, Urinary frequency, Urinary incontinence, Urgency, Hematuria , Dysuria, Nocturia, Vaginal discharge Musculoskeletal: COMPLAINS OF: Joint pain, Muscle aches, Back pain, DENIES: Stiffness, Joint Swelling, Neck pain Integumentary: DENIES: Abnormal pigmentation, Pruritus, Rash, Nail changes, Breast masses, Breast skin changes, Nipple discharge Hematologic/lymphatic: DENIES: Bruising, Lymphadenopathy Past Family Social History Allergies: Coded Allergies: Sulfa (Verified Allergy, Severe, Hives, 11/21/16) *MDRO Multi-Drug Resistant Organism (Verified Adverse Reaction, Unknown, ) 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 Past Medical History 1. Hodgkin lymphoma treated in 2006. 2. non-Hodgkin lymphoma / follicular lymphoma as above. 3. Diabetes mellitus. 4. Hypothyroidism. 5. Osteoarthritis. 6. Osteoporosis. Past Surgical History 1. Appendectomy. 2. Bilateral tubal ligation. 3. Port placement. 4. Colonoscopy. 5. Bilateral hip open reduction, internal fixation. 6. Tonsillectomy. Active Ordered Medications Current Medications Morphine Sulfate (Morphine Inj) 4 mg ONCE ONCE IV PUSH Last administered on 10:39; Start 11/21/16 at 10:30; Stop 11/21/16 at 10:32; Status DC Ondansetron HCl (Zofran Inj) 4 mg ONCE ONCE IV PUSH Last administered on 10:40; Start 11/21/16 at 10:30; Stop 11/21/16 at 10:32; Status DC Enalaprilat (Vasotec Inj) 1.25 mg Q8H PRN IV PUSH SBP> OR = 180, DBP> OR = 100 ; Start 11/21/16 at 10:45 Dextrose (D50w (Vial) Inj) 25 ml UNSCH PRN IV PUSH HYPOGLYCEMIA-SEE COMMENTS; Start 11/21/16 at 10:45 Glucagon (Glucagon Inj) 1 mg UNSCH PRN OTHER HYPOGLYCEMIA-SEE COMMENTS; Start 11/21/16 at 10:45 Insulin Aspart (NovoLOG SUPPLEMENTAL SCALE) 1 ACHS SLIDING SCALE SQ ; Start at 11:00 Ondansetron HCl (Zofran Inj) 4 mg Q8HR PRN IV PUSH NAUSEA; Start 11/21/16 at 10 :45 Hydromorphone HCl (Dilaudid Pf Inj) 0.5 mg Q4H PRN IV PUSH PAIN 1-5 Last administered on 11/21/16t 19:40; Start 11/21/16 at 10:45 Hydromorphone HCl (Dilaudid Pf Inj) 1 mg Q4H PRN IV PUSH PAIN 6-10; Start 11/21 at 12:00 Acetaminophen (Tylenol) 650 mg Q4H PRN PO FEVER/ HEADACHE; Start 11/21/16 at 12 :00 Alprazolam (Xanax) 0.25 mg Q4H PRN PO ANXIETY; Start 11/21/16 at 12:00 Levothyroxine Sodium (Synthroid) 100 mcg DAILY@0600 PO ; Start 11/22/16 at 06:00 Family History Noncontributory. Social History No tobacco no alcohol use. no illicit drug use Physical Exam Vital Signs Vital Signs Date Time Temp Pulse Resp B/P Pulse Ox O2 Delivery O2 Flow Rate FiO2 11/21/16 20:00 98.8 91 18 158/76 97 11/21/16 16:30 97.7 82 20 143/80 100 11/21/16 15:58 98.0 84 16 144/88 99 Room Air 11/21/16 14:35 97.8 82 16 150/73 100 Room Air 11/21/16 11:07 88 16 130/73 100 Room Air 11/21/16 10:44 17 11/21/16 09:42 17 100 Room Air 11/21/16 09:30 98 17 11/21/16 09:30 98.0 98 17 219/98 100 Laboratory Laboratory Tests Test 11/21/16 09:41 White Blood Count 5.9 Red Blood Count 4.48 Hemoglobin 13.2 Hematocrit 40.2 Mean Corpuscular Volume 89.7 Mean Corpuscular Hemoglobin 29.6 Mean Corpuscular Hemoglobin 33.0 Concent Red Cell Distribution Width 17.4 Platelet Count 240 Mean Platelet Volume 8.1 Neutrophils (%) (Auto) 66.9 Lymphocytes (%) (Auto) 13.3 Monocytes (%) (Auto) 13.1 Eosinophils (%) (Auto) 6.1 Basophils (%) (Auto) 0.6 Neutrophils # (Auto) 4.0 Lymphocytes # (Auto) 0.8 Monocytes # (Auto) 0.8 Eosinophils # (Auto) 0.4 Basophils # (Auto) 0.0 CBC Comment AUTO DIFF Differential Total Cells 100 Counted Neutrophils % (Manual) 60 Band Neutrophils % 10 Lymphocytes % 13 Monocytes % 15 Eosinophils % 1 Basophils % 1 Neutrophils # (Manual) 4.1 Differential Comment FINAL DIFF MANUAL Platelet Estimate NORMAL Platelet Morphology Comment NORMAL Red Cell Morphology Comment NORMAL Prothrombin Time 11.0 Prothromb Time International 1.0 Ratio Activated Partial 28.5 Thromboplast Time Sodium Level 134 Potassium Level 4.4 Chloride Level 102 Carbon Dioxide Level 22.3 Anion Gap 10 Blood Urea Nitrogen 29 Creatinine 1.17 Estimat Glomerular Filtration 45 Rate Random Glucose 161 Calcium Level 9.8 Acetaminophen Level LESS THAN 2.0 Result Diagram: 11/21/16 0941 11/21/16 0941 Attending Statement I have reviewed her clinical and further studies. neuro checks in a serial fashion. Recommend MRI to better evaluate her fractures Consult interventional radiology to biopsy the L5 lesion. She would likely benefit with palliative radiation to the L5 lesion after the biopsy.Will defer further recommendation will depend on the biopsy result Respiratory. pulmonary toilette, nasotracheal suction, and breathing treatments with nebulizers. PT and OT eval Nutrition. NPO Renal. monitor closely urine output, BUN and creatinine Endocrine. Monitor serial Acu checks and SSI for tight control ID monitor for signs of infection Protonix for stress ulcer prophylaxis Ap warren and SCD's for DVT prophylaxis Orion Carreon MD Nov 21, 2016 22:12
[2016-11-21] MEDS: ALPRAZolam 0.25 MG TAB PO PRN ×2 (22:55→22:56)
[2016-11-21] MEDS: HYDROmorphone HCL PF 1 MG/ML VIAL IV PUSH PRN (23:46)
[2016-11-22] VITALS (8 sets, daily range): BP systolic 104–172; BP diastolic 62–96; PULSE 78–104; RESP 16–20; TEMP 95.7–98.1; O2SAT 95–98
[2016-11-22] MEDS: HYDROmorphone HCL PF 1 MG/ML VIAL IV PUSH PRN ×2 (05:36→19:09)
[2016-11-22] MEDS: INSULIN ASPART SUPPLEMENTAL SCALE SQ SCH ×5 (05:36→22:51)
[2016-11-22] MEDS: LEVOTHYROXINE SODIUM 100 MCG TAB PO SCH (05:36)
[2016-11-22 09:30] LABS: ALKALINE PHOSPHATASE 89 U/L (45-117); ALT (GPT) 22 U/L (10-53); ANION GAP 11 MEQ/L (5-15); AST (GOT) 15 U/L (15-37); BICARBONATE 23.1 MEQ/L (21.0-32.0); BLOOD UREA NITROGEN 30 MG/DL (7-18); CHLORIDE 102 MEQ/L (98-107); GLOMERULAR FILTRATION RATE 45 ML/MIN (>89); LDH SERUM 207 U/L (84-246); POTASSIUM 3.9 MEQ/L (3.5-5.1); SODIUM (NA) 136 MEQ/L (136-145); TOTAL BILIRUBIN ADULT 0.5 MG/DL (0.2-1.0)
[2016-11-22] MEDS ORDERED: fentaNYL CITRATE 250 MCG/5 ML AMP ONE (10:11)
[2016-11-22] MEDS ORDERED: MIDAZOLAM HCL 5 MG/5 ML VIAL ONE (10:11)
--- NOTE | 2016-11-22 11:44 | RADRPT ---
EXAM DATE/TIME: 11/22/2016 10:41 [place] COMPARISON: No previous studies available for comparison. INDICATIONS : Lytic lesion L5 transverse process SEDATION TIME: 45 minutes BIOPSY SITE: L5 transvers process MEDICATION(S): 1.) 2.5 mg midazolam (Versed) IV 2.) 125 mcg fentanyl (Sublimaze) IV DEVICE(S): 1.) 16 gauge Temno core biopsy needle MEDICAL HISTORY : Lymphoma. Osteoporosis. Hypothyroidism. SURGICAL HISTORY : Appendectomy. ENCOUNTER: Initial ACUITY: 2 months PAIN SCORE: 4/10 LOCATION: Low back A total of two core specimen(s) were obtained and sent to the laboratory for pathologic evaluation. PROCEDURE: 1. CT guided bone deep biopsy. 2. Conscious sedation with continuous EKG and oximetry monitoring. 3. EKG and oximetry remained stable throughout the procedure. Prior to the procedure informed consent was obtained. Any appropriate prior imaging studies were rev iewed. Using automated exposure control and adjustment of the mA and/or kV according to patient size, radiat ion dose was kept as low as reasonably achievable to obtain optimal diagnostic quality images. The site was prepped in a sterile fashion. Full sterile technique was used, including cap, mask, mauro rile gloves and gown and a large sterile sheet. Hand hygiene and 2% chlorhexidine and/or betadine/al cohol prep was utilized per protocol for cutaneous antisepsis. The skin and subcutaneous tissues wer e infiltrated with local anesthetic solution. With CT guidance the previously identified target was localized. Biopsy was performed using the presc ribed needle as above. Adequate hemostasis was obtained with compression at the puncture site. Follow-up CT scan reveals no hemorrhage. The patient tolerated the procedure well and there were no complications. The patient was returned to the Radiology Outpatient Unit in stable condition. CONCLUSION: Uncomplicated CT guided biopsy. León Good MD on November 22, 2016 at 11:43 Board Certified Radiologist. This report was verified electronically.
--- NOTE | 2016-11-22 12:54 | HHI.PR ---
Subjective Remarks looks slightly more comfortable today. low back pain slightly better today. no new complaints. Objective Vitals Vital Signs Date Time Temp Pulse Resp B/P Pulse Ox O2 Delivery O2 Flow Rate FiO2 11/22/16 11:40 91 16 143/78 96 11/22/16 11:25 96.2 91 16 143/68 96 11/22/16 08:00 96.6 104 16 172/96 98 11/22/16 04:00 98.1 80 20 130/69 96 11/22/16 00:00 96.9 78 20 127/67 96 11/21/16 20:00 98.8 91 18 158/76 97 11/21/16 16:30 97.7 82 20 143/80 100 11/21/16 15:58 98.0 84 16 144/88 99 Room Air 11/21/16 14:35 97.8 82 16 150/73 100 Room Air I/O 11/21/16 11/21/16 11/21/16 11/22/16 11/22/16 11/22/16 07:00 15:00 23:00 07:00 15:00 23:00 Intake Total 200 ml 240 ml Balance 200 ml 240 ml Intake Oral 200 ml 240 ml # Voids 1 1 2 # Bowel Movements 0 1 0 Result Diagram: 11/21/16 0941 11/22/16 0826 Imaging Last Impressions Bone Biopsy CT 11/22/16 0600 Signed Impressions: Service Date/Time: October 10:41 - CONCLUSION: Uncomplicated CT guided biopsy. León Good MD Lumbar Spine CT 11/21/16 0000 Signed Impressions: Service Date/Time: Monday, November 21, 2016 10:19 - CONCLUSION: 1. Destructive process involving the transverse process of L5 suspicious for neoplastic process. This could be biopsied percutaneously. Quinton Robison MD FACR Lower Extremity CT 11/21/16 0000 Signed Impressions: Service Date/Time: Monday, November 21, 2016 10:19 - CONCLUSION: I do not see hip fracture although troch nails make conclusion of subtle fracture very difficult. Please see above discussion. Quinton Robison MD FACR Objective Remarks GENERAL: This is a well-nourished, well-developed patient, in no apparent distress. CARDIOVASCULAR: Regular rate and regular rhythm without murmurs, gallops, or rubs. RESPIRATORY: Clear to auscultation. Breath sounds equal bilaterally. No wheezes , rales, or rhonchi. GASTROINTESTINAL: Abdomen soft, non-tender, nondistended. Normal, active bowel sounds MUSCULOSKELETAL: Extremities without clubbing, cyanosis, or edema. NEURO: Alert & Oriented x4 to person, place, time, situation. Moves all ext x4 Procedures bone biopsy ( L5). Medications and IVs Current Medications Morphine Sulfate (Morphine Inj) 4 mg ONCE ONCE IV PUSH Last administered on 10:39; Start 11/21/16 at 10:30; Stop 11/21/16 at 10:32; Status DC Ondansetron HCl (Zofran Inj) 4 mg ONCE ONCE IV PUSH Last administered on 10:40; Start 11/21/16 at 10:30; Stop 11/21/16 at 10:32; Status DC Enalaprilat (Vasotec Inj) 1.25 mg Q8H PRN IV PUSH SBP> OR = 180, DBP> OR = 100 ; Start 11/21/16 at 10:45 Dextrose (D50w (Vial) Inj) 25 ml UNSCH PRN IV PUSH HYPOGLYCEMIA-SEE COMMENTS; Start 11/21/16 at 10:45 Glucagon (Glucagon Inj) 1 mg UNSCH PRN OTHER HYPOGLYCEMIA-SEE COMMENTS; Start 11/21/16 at 10:45 Insulin Aspart (NovoLOG SUPPLEMENTAL SCALE) 1 ACHS SLIDING SCALE SQ ; Start at 11:00 Ondansetron HCl (Zofran Inj) 4 mg Q8HR PRN IV PUSH NAUSEA; Start 11/21/16 at 10 :45 Hydromorphone HCl (Dilaudid Pf Inj) 0.5 mg Q4H PRN IV PUSH PAIN 1-5 Last administered on 11/21/16 19:40; Start 11/21/16 at 10:45 Hydromorphone HCl (Dilaudid Pf Inj) 1 mg Q4H PRN IV PUSH PAIN 6-10 Last administered on 11/22/16 05:36; Start 11/21/16 at 12:00 Acetaminophen (Tylenol) 650 mg Q4H PRN PO FEVER/ HEADACHE; Start 11/21/16 at 12 :00 Alprazolam (Xanax) 0.25 mg Q4H PRN PO ANXIETY Last administered on 11/21/16 22 :56; Start 11/21/16 at 12:00 Levothyroxine Sodium (Synthroid) 100 mcg DAILY@0600 PO Last administered on 05:36; Start 11/22/16 at 06:00 Fentanyl Citrate (fentaNYL INJ) 250 mcg STK-MED ONCE .ROUTE Last administered on 11/22/16 10:11; Start 11/22/16 at 10:11; Stop 11/22/16 at 10:12; Status DC Midazolam HCl (Versed Inj) 5 mg STK-MED ONCE .ROUTE Last administered on 10:11; Start 11/22/16 at 10:11; Stop 11/22/16 at 10:12; Status DC A/P Assessment and Plan A/P -history of lymphoma with T12/L5 fracture continue with pain control-s/p bone biopsy from L5- follow the pathology oncology,neurosurgery following- consulted radiation oncology. -diabetes mellitus; accu-check with SSI -chronic renal insufficiency- stable- will monitor -hypothyroidism; resumed levothyroxine -DVT prophylaxis; SCD's - will start lovenox soon if no other interventions planned. Karsten Peters MD Nov 22, 2016 12:54
[2016-11-22] MEDS: ACETAMINOPHEN/HYDROcodone 325 MG/7.5 MG TAB PO PRN ×3 (14:01→17:57)
[2016-11-22] MEDS ORDERED: LIDOCAINE 1%/EPINEPHrine 1:100,000 SOLN 20 ML VIAL ONE (15:20)
--- NOTE | 2016-11-22 17:49 | PD.ONC.PN ---
Subjective Subjective Remarks Late entry. Saw patient 0710. RLE pain about the same. No CP/SOB. Objective Data Date Time Temp Pulse Resp B/P Pulse Ox O2 Delivery O2 Flow Rate FiO2 11/22/16 16:00 96.8 80 18 134/80 98 11/22/16 13:30 95.7 78 18 126/74 96 11/22/16 11:40 91 16 143/78 96 11/22/16 11:25 96.2 91 16 143/68 96 11/22/16 08:00 96.6 104 16 172/96 98 11/22/16 04:00 98.1 80 20 130/69 96 11/22/16 00:00 96.9 78 20 127/67 96 11/21/16 20:00 98.8 91 18 158/76 97 11/22/16 11/22/16 11/22/16 07:00 15:00 23:00 Intake Total 480 ml Balance 480 ml Result Diagram: 11/21/16 0941 11/22/16 0826 Laboratory Results Laboratory Tests Test 11/22/16 08:26 Sodium Level 136 MEQ/L Potassium Level 3.9 MEQ/L Chloride Level 102 MEQ/L Carbon Dioxide Level 23.1 MEQ/L Anion Gap 11 MEQ/L Blood Urea Nitrogen 30 MG/DL Creatinine 1.15 MG/DL Estimat Glomerular Filtration 45 ML/MIN Rate Random Glucose 114 MG/DL Calcium Level 9.4 MG/DL Total Bilirubin 0.5 MG/DL Aspartate Amino Transf 15 U/L (AST/SGOT) Alanine Aminotransferase 22 U/L (ALT/SGPT) Alkaline Phosphatase 89 U/L Lactate Dehydrogenase 207 U/L Total Protein 6.3 GM/DL Albumin 3.2 GM/DL Imaging Studies Last 24 hours Impressions Bone Biopsy CT 11/22/16 0600 Signed Impressions: Service Date/Time: October 10:41 - CONCLUSION: Uncomplicated CT guided biopsy. León Good MD Administered Medications Medications (Trade) Dose Ordered Sig/Louisa Route PRN Reason Start Time Stop Time Status Last Admin Dose Admin Hydromorphone HCl (Dilaudid Pf Inj) 1 mg Q4H PRN IV PUSH BREAKTHROUGH PAIN 11/21/16 12:00 11/22/16 05:36 Alprazolam (Xanax) 0.25 mg Q4H PRN PO ANXIETY 11/21/16 12:00 11/21/16 22:56 Levothyroxine Sodium (Synthroid) 100 mcg DAILY@0600 PO 11/22/16 06:00 11/22/16 05:36 Acetaminophen/ Hydrocodone Bitart ([place] 7.5-325 Mg) 1 tab Q4H PRN PO PAIN < 5 11/22/16 13:00 11/22/16 15:11 Objective Remarks GENERAL: Well-nourished, well-developed patient. SKIN: Warm and dry. HEAD: Normocephalic. EYES: No scleral icterus. No injection or drainage. NECK: Supple, trachea midline. No JVD or lymphadenopathy. LYMPHATIC: No adenopathy. CARDIOVASCULAR: Regular rate and rhythm without murmurs. RESPIRATORY: Breath sounds equal bilaterally. No accessory muscle use. GASTROINTESTINAL: Abdomen soft, non-tender, nondistended. EXTREMITIES: No cyanosis, or edema. RLE/hip tenderness with movement. + numbness. MUSCULOSKELETAL: Adequate muscle tone. NEUROLOGICAL: No obvious focal deficit. Awake, alert, and oriented x3. PSYCHIATRIC: Appropriate mood and affect; insight and judgment normal. Assessment/Plan Assessment 1. Increased low back pain that radiates down the left lower extremity. This has been going on for 1-2 months and is progressively getting worse. PET scan on October 24 showed intense uptake within L5 left transverse process with associated hairline pathologic fracture. MRI of the lumbar spine showed severe compression fracture deformity of L5 with invagination of the superior inferior endplate and marrow edema. There was retropulsion with mass effect on the left S1 nerve root. There was also mild compression fracture deformity of T12. During this admission lumbar spine CT showed a destructive process involving transverse process of L5 suspicious of neoplastic process. This appeared to be causing all her symptoms. She had a history of non-Hodgkin lymphoma, currently under treatment. This lesion was not noted in the August CT but has increased over the last 2 months and appeared to be aggressive. In August she had a cystic mass in bilateral pelvic area which seems to be better on PET scan done in October. But this L5 lesion seems to have progressed. This possibly could be another primary tumor versus transformed follicular lymphoma. I will recommend getting a biopsy of this L5 lesion for further evaluation. Given that she is symptomatic I think she will benefit with the palliative radiation. She has been seen by Dr. Hu. --11/22/16 Biopsy of L5 lesion. 2. Follicular lymphoma. She was first treated with rituximab and Treanda and she finished two years of maintenance Rituxan in January of 2014. Around December of last year she was found to have progression of disease. She was then treated with and Zydelig with Rituxan and then maintained on Zydelig until a few weeks ago. CT in August showed low density masses in the retroperitoneum at the superior posterior left pelvis and the right pelvic sidewall. The PET scan in October showed these lesions were less prominent and not hypermetabolic. However, there is a hypermetabolic presacral lesion measured about 1.6 cm and the L5 hypermetabolic lesion noted as above. She was started on Rituxan and Revlimid about 2 weeks ago. She has stopped Revlimid at this time. I plan to biopsy the L5 lesion, if this turns out to be a follicular lymphoma this could be radiated to relieve her symptoms and then she could be started back on Rituxan and Revlimid and hopefully eventually we can treat her with a radioimmunotherapy like Bexxar. 3. History of Hodgkin lymphoma. She received six cycles of ABVD in 2006. She then received consolidation radiation in 2007. Plan Plan: 1. Await path of L5 lesion biopsy. 2. Await palliative XRt to L5 lesion. 3. Further treatment recommendation will depend on the biopsy result. 4. DVT prophylaxis with SCD until after the biopsy. Fredy Soni MD Nov 22, 2016 17:49
--- NOTE | 2016-11-22 18:39 | HHI.NSPN ---
Note Status Status: Progress Note Interval History Diagnosis Metastatic lymphoma Interval History This is a 81-year-old female with a history of Hodgkin lymphoma and non-Hodgkin lymphoma presented to the hospital with increased low back pain. Apparently she was found to have progression of non-Hodgkin / follicular lymphoma. She saw Dr. Stoll and was started on Rituxan and Zydelig and later maintained on Zydelig until two weeks ago. In September she was referred to Dr. Hu because a pelvic cystic mass and increased left lower extremity pain. She had a repeat PET CT scan on October 24 which showed lymph node bilateral inguinal canal and right presacral area but at that time there was also a hypermetabolic lesion noted in L5. She reports increased low back pain that radiates down the left leg for about two months. It is progressively getting worse to the point that she could not walk. Pain no longer controlled with medications. In addition she has weakness and numbness of left leg. She denies any urinary or bowel incontinence. Denies nausea or vomiting, abdominal pain and dysuria, hematuria. Neurosurgical consutation was requested 11/22. Reports persistent LLE pain Labs, Micro, & Vital Signs Results Date Time Temp Pulse Resp B/P Pulse Ox O2 Delivery O2 Flow Rate FiO2 11/22/16 16:00 96.8 80 18 134/80 98 11/22/16 13:30 95.7 78 18 126/74 96 11/22/16 11:40 91 16 143/78 96 11/22/16 11:25 96.2 91 16 143/68 96 11/22/16 08:00 96.6 104 16 172/96 98 11/22/16 04:00 98.1 80 20 130/69 96 11/22/16 00:00 96.9 78 20 127/67 96 11/21/16 20:00 98.8 91 18 158/76 97 11/22/16 07:00 Intake Total 440 ml Balance 440 ml Constitutional Vital Signs Date Time Temp Pulse Resp B/P Pulse Ox O2 Delivery O2 Flow Rate FiO2 11/22/16 16:00 96.8 80 18 134/80 98 11/22/16 13:30 95.7 78 18 126/74 96 11/22/16 11:40 91 16 143/78 96 11/22/16 11:25 96.2 91 16 143/68 96 11/22/16 08:00 96.6 104 16 172/96 98 11/22/16 04:00 98.1 80 20 130/69 96 11/22/16 00:00 96.9 78 20 127/67 96 11/21/16 20:00 98.8 91 18 158/76 97 11/22/16 07:00 Intake Total 440 ml Balance 440 ml Review of Systems/Exam Exam Ms Feng is alert, awake and oriented to time, place and person. Speech is fluent. Cranial nerve examination: pupils to be equal, round and reactive to light. Extra-ocular movements are intact. Facial motor and sensory function are normal and symmetrical. Gross hearing appears intact. Sternocleidomastoid and trapezius muscles are symmetrical. Other cranial nerves are intact. Neck is soft and supple with a good range of motion without pain. Muscle strength is normal in all muscle groups of both upper and lower extremities. Sensory examination is intact to light touch and pin prick in both the upper and lower extremities. Deep tendon reflexes are symmetrical in both upper and lower extremities. There is a bilateral plantar flexion response. Cerebellar examination is unremarkable, without deficits. Attending Statement Continue neuro checks in a serial fashion. Awaiting results/pathology of biopsy of the L5 lesion. Recommend palliative radiation to the L5 lesion after the biopsy. Respiratory.Continue pulmonary toilette, nasotracheal suction, and breathing treatments with nebulizers. PT and OT eval Nutrition. NPO Renal. Continue to monitor closely urine output, BUN and creatinine Endocrine.Continue to Monitor serial Acu checks and SSI for tight control ID Continue to monitor for signs of infection Continue Protonix for stress ulcer prophylaxis Continue Ap hosfelicia and SCD's for DVT prophylaxis Orion Carreon MD Nov 22, 2016 18:39
[2016-11-22] MEDS: ALPRAZolam 0.25 MG TAB PO PRN (22:50)
[2016-11-23] VITALS: BP 150/74; PULSE 72; RESP 18; TEMP 96.4; O2SAT 98
[2016-11-23 04:00] VITALS: BP 157/97; PULSE 81; RESP 18; TEMP 96.5; O2SAT 98
[2016-11-23] MEDS: LEVOTHYROXINE SODIUM 100 MCG TAB PO SCH (05:20)
[2016-11-23] MEDS: HYDROmorphone HCL PF 1 MG/ML VIAL IV PUSH PRN ×3 (05:30→20:36)
[2016-11-23] MEDS: INSULIN ASPART SUPPLEMENTAL SCALE SQ SCH ×4 (06:17→20:34)
[2016-11-23 08:00] VITALS: BP 192/102; PULSE 85; RESP 16; TEMP 98.1; O2SAT 100
[2016-11-23] MEDS: ACETAMINOPHEN/HYDROcodone 325 MG/7.5 MG TAB PO PRN (08:38)
[2016-11-23] MEDS ORDERED: HYDROmorphone HCL PF 1 MG/ML VIAL IV PUSH STA (09:08)
--- NOTE | 2016-11-23 11:12 | PD.ONC.PN ---
Subjective Subjective Remarks Afebrile overnight. Patient complaining of severe pain in her low back radiating down her left leg. She took a [place] this morning and she noticed no improvement in her pain. Objective Data Date Time Temp Pulse Resp B/P Pulse Ox O2 Delivery O2 Flow Rate FiO2 11/23/16 08:00 98.1 85 16 192/102 100 11/23/16 04:00 96.5 81 18 157/97 98 11/23/16 00:00 96.4 72 18 150/74 98 11/22/16 20:00 97.6 91 20 169/86 95 11/22/16 16:00 96.8 80 18 134/80 98 11/22/16 13:30 95.7 78 18 126/74 96 11/22/16 11:40 91 16 143/78 96 11/22/16 11:25 96.2 91 16 143/68 96 Result Diagram: 11/21/16 0941 11/22/16 0826 Administered Medications Medications (Trade) Dose Ordered Sig/Louisa Route PRN Reason Start Time Stop Time Status Last Admin Dose Admin Alprazolam (Xanax) 0.25 mg Q4H PRN PO ANXIETY 11/21/16 12:00 11/22/16 22:50 Levothyroxine Sodium (Synthroid) 100 mcg DAILY@0600 PO 11/22/16 06:00 11/23/16 05:20 Objective Remarks GENERAL: Elderly female, lying in bed, crying and moaning in pain. SKIN: Warm and dry. HEAD: Normocephalic. EYES: No injection or drainage. NECK: Supple, trachea midline. CARDIOVASCULAR: Regular rate and rhythm RESPIRATORY: Breath sounds equal bilaterally. No accessory muscle use. GASTROINTESTINAL: Abdomen soft, non-tender, nondistended. EXTREMITIES: No cyanosis NEUROLOGICAL: awake and alert, normal speech. Assessment/Plan Problem List: (1) Fracture of lumbar spine Status: Acute Plan: --Increased low back pain radiating down the LLE 1-2 months, progressively getting worse. --PET scan, 10/24, showed intense uptake within L5 left transverse process with associated hairline pathologic fracture. --MRI lumbar spine showed severe compression fracture deformity of L5 with invagination of the superior inferior endplate and marrow edema. +retropulsion with mass effect on the left S1 nerve root. +mild compression fracture deformity of T12. --CT lumbar spine showed destructive process involving transverse process of L5 suspicious of neoplastic process. This appeared to be causing all her symptoms. -- could be another primary tumor versus transformed follicular lymphoma. awaiting pathology from biopsy done on 11/22. (2) Pain management Status: Acute Plan: --currently on PO dilaudid and IV dilaudid --will likely need a long acting pain medication (3) Non-Hodgkin lymphoma Status: Chronic Plan: --first treated with rituximab and Treanda --finished two years of maintenance Rituxan in January of 2014. --December 2015-->found to have progression of disease. treated with and Zydelig with Rituxan and then maintained on Zydelig --2016: CT showed low density masses in the retroperitoneum at the superior posterior left pelvis and the right pelvic sidewall. The --October 2016: PET scan showed these lesions were less prominent and not hypermetabolic. +hypermetabolic presacral lesion measured about 1.6 cm and the L5 hypermetabolic lesion. She --started on Rituxan and Revlimid about 2 weeks ago. --if this turns out to be a follicular lymphoma this could be radiated to relieve her symptoms and then she could be started back on Rituxan and Revlimid and hopefully eventually we can treat her with a radioimmunotherapy like Bexxar. Assessment 81y/o female with h/o follicular and hodgkin's lymphoma. admitted with severe lower back pain, awaiting pathology from biopsy -History of Hodgkin lymphoma. She received six cycles of ABVD in 2006. She then received consolidation radiation in 2007. Plan 1. stop [place]--these are not helping her pain and she has been tolerating the IV dilaudid 2. start PO dilaudid 4mg every 3 hours as needed. 3. await pathology from biopsy Attending Statement The exam, history, and the medical decision-making described in the above note were completed with the assistance of the mid-level provider. I reviewed and agree with the findings presented. I attest that I had a [id number] encounter with the patient on the same day, and personally performed and documented my assessment and findings in the medical record. Still has left LE pain. Will add long acting morphine in the morning. Path is still pending. Patient has decided to have palliative XRT, Discussed case with , patient can likely start XRT early next week. Problem Qualifiers (1) Fracture of lumbar spine: Qualified Code: S32.050A - Closed wedge compression fracture of fifth lumbar vertebra, initial encounter (2) Non-Hodgkin lymphoma: Ledy Sneed Nov 23, 2016 11:12 Fredy Soni MD Nov 23, 2016 18:51
[2016-11-23] MEDS: HYDROmorphone HCL 4 MG TAB PO PRN ×2 (11:24→17:32)
--- NOTE | 2016-11-23 11:40 | HHI.PR ---
Subjective Remarks resting in no acute distress. however complaining of moderate to severe pain to the lower back. no other complaints. Objective Vitals Vital Signs Date Time Temp Pulse Resp B/P Pulse Ox O2 Delivery O2 Flow Rate FiO2 11/23/16 08:00 98.1 85 16 192/102 100 11/23/16 04:00 96.5 81 18 157/97 98 11/23/16 00:00 96.4 72 18 150/74 98 11/22/16 20:00 97.6 91 20 169/86 95 11/22/16 16:00 96.8 80 18 134/80 98 11/22/16 13:30 95.7 78 18 126/74 96 11/22/16 11:40 91 16 143/78 96 I/O 11/22/16 11/22/16 11/22/16 11/23/16 11/23/16 11/23/16 07:00 15:00 23:00 07:00 15:00 23:00 Intake Total 480 ml 240 ml Balance 480 ml 240 ml Intake Oral 480 ml 240 ml # Voids 5 1 2 # Bowel Movements 0 0 Result Diagram: 11/21/16 0941 11/22/16 0826 Imaging Last Impressions Bone Biopsy CT 11/22/16 0600 Signed Impressions: Service Date/Time: October 10:41 - CONCLUSION: Uncomplicated CT guided biopsy. León Good MD Lumbar Spine CT 11/21/16 0000 Signed Impressions: Service Date/Time: Monday, November 21, 2016 10:19 - CONCLUSION: 1. Destructive process involving the transverse process of L5 suspicious for neoplastic process. This could be biopsied percutaneously. Quinton Robison MD FACR Lower Extremity CT 11/21/16 0000 Signed Impressions: Service Date/Time: Monday, November 21, 2016 10:19 - CONCLUSION: I do not see hip fracture although troch nails make conclusion of subtle fracture very difficult. Please see above discussion. Quinton Robison MD FACR Objective Remarks GENERAL: This is a well-nourished, well-developed patient, in no apparent distress. CARDIOVASCULAR: Regular rate and regular rhythm without murmurs, gallops, or rubs. RESPIRATORY: Clear to auscultation. Breath sounds equal bilaterally. No wheezes , rales, or rhonchi. GASTROINTESTINAL: Abdomen soft, non-tender, nondistended. Normal, active bowel sounds MUSCULOSKELETAL: Extremities without clubbing, cyanosis, or edema. NEURO: Alert & Oriented x4 to person, place, time, situation. Moves all ext x4 Procedures bone biopsy ( L5). Medications and IVs Current Medications Morphine Sulfate (Morphine Inj) 4 mg ONCE ONCE IV PUSH Last administered on 10:39; Start 11/21/16 at 10:30; Stop 11/21/16 at 10:32; Status DC Ondansetron HCl (Zofran Inj) 4 mg ONCE ONCE IV PUSH Last administered on 10:40; Start 11/21/16 at 10:30; Stop 11/21/16 at 10:32; Status DC Enalaprilat (Vasotec Inj) 1.25 mg Q8H PRN IV PUSH SBP> OR = 180, DBP> OR = 100 ; Start 11/21/16 at 10:45 Dextrose (D50w (Vial) Inj) 25 ml UNSCH PRN IV PUSH HYPOGLYCEMIA-SEE COMMENTS; Start 11/21/16 at 10:45 Glucagon (Glucagon Inj) 1 mg UNSCH PRN OTHER HYPOGLYCEMIA-SEE COMMENTS; Start 11/21/16 at 10:45 Insulin Aspart (NovoLOG SUPPLEMENTAL SCALE) 1 ACHS SLIDING SCALE SQ ; Start at 11:00 Ondansetron HCl (Zofran Inj) 4 mg Q8HR PRN IV PUSH NAUSEA; Start 11/21/16 at 10 :45 Hydromorphone HCl (Dilaudid Pf Inj) 0.5 mg Q4H PRN IV PUSH PAIN 1-5 Last administered on 11/21/16 19:40; Start 11/21/16 at 10:45; Stop 11/22/16 at 12:56 ; Status DC Hydromorphone HCl (Dilaudid Pf Inj) 1 mg Q4H PRN IV PUSH BREAKTHROUGH PAIN Last administered on 11/23/16 05:30; Start 11/21/16 at 12:00; Stop 11/23/16 at 09:14; Status DC Acetaminophen (Tylenol) 650 mg Q4H PRN PO FEVER/ HEADACHE; Start 11/21/16 at 12 :00 Alprazolam (Xanax) 0.25 mg Q4H PRN PO ANXIETY Last administered on 11/22/16 22 :50; Start 11/21/16 at 12:00 Levothyroxine Sodium (Synthroid) 100 mcg DAILY@0600 PO Last administered on 05:20; Start 11/22/16 at 06:00 Fentanyl Citrate (fentaNYL INJ) 250 mcg STK-MED ONCE .ROUTE Last administered on 11/22/16 10:11; Start 11/22/16 at 10:11; Stop 11/22/16 at 10:12; Status DC Midazolam HCl (Versed Inj) 5 mg STK-MED ONCE .ROUTE Last administered on 10:11; Start 11/22/16 at 10:11; Stop 11/22/16 at 10:12; Status DC Acetaminophen/ Hydrocodone Bitart ([place] 7.5-325 Mg) 1 tab Q4H PRN PO PAIN < 5 Last administered on 11/22/16 15:11; Start 11/22/16 at 13:00; Stop 11/23/16 at 09:14; Status DC Acetaminophen/ Hydrocodone Bitart ([place] 7.5-325 Mg) 2 tab Q4H PRN PO PAIN > 5 Last administered on 11/23/16 08:38; Start 11/22/16 at 13:00; Stop 11/23/16 at 09:14; Status DC Lidocaine/ Epinephrine (Xylocaine-Epi 1%-1:100,000 Inj) 20 ml STK-MED ONCE .ROUTE Last administered on 11/22/16 15:20; Start 11/22/16 at 15:20; Stop at 15:21; Status DC Hydromorphone HCl (Dilaudid Pf Inj) 0.5 mg STAT STAT IV PUSH Last administered on 11/23/16 09:16; Start 11/23/16 at 09:08; Stop 11/23/16 at 09:12 ; Status DC Hydromorphone HCl (Dilaudid Pf Inj) 1 mg Q3HR PRN IV PUSH PAIN SCALE 9 TO 10; Start 11/23/16 at 11:00 Hydromorphone HCl (Dilaudid) 4 mg Q3H PRN PO pain1-8 Last administered on 11:24; Start 11/23/16 at 09:15 A/P Assessment and Plan A/P -history of lymphoma with T12/L5 fracture continue with pain control-s/p bone biopsy from L5- follow the pathology oncology,neurosurgery following- consulted radiation oncology. consult PT/OT. -diabetes mellitus; accu-check with SSI -chronic renal insufficiency- stable- will monitor -hypothyroidism; resumed levothyroxine -DVT prophylaxis; SCD's - d/w oncology. Karsten Peters MD Nov 23, 2016 11:40
[2016-11-23] MEDS ORDERED: MAGNESIUM HYDROXIDE SUSP 30 ML CUP PO PRN (11:45)
--- NOTE | 2016-11-23 11:56 | HHI.NSPN ---
History Chief Complaint: Left leg pain. Interval History This is a 81-year-old female with a history of Hodgkin lymphoma and non-Hodgkin lymphoma presented to the hospital with increased low back pain. Apparently she was found to have progression of non-Hodgkin / follicular lymphoma. She saw Dr. Stoll and was started on Rituxan and Zydelig and later maintained on Zydelig until two weeks ago. In September she was referred to Dr. Hu because a pelvic cystic mass and increased left lower extremity pain. She had a repeat PET CT scan on October 24 which showed lymph node bilateral inguinal canal and right presacral area but at that time there was also a hypermetabolic lesion noted in L5. She reports increased low back pain that radiates down the left leg for about two months. It is progressively getting worse to the point that she could not walk. Pain no longer controlled with medications. In addition she has weakness and numbness of left leg. She denies any urinary or bowel incontinence. Denies nausea or vomiting, abdominal pain and dysuria, hematuria. Neurosurgical consutation was requested 11/22. Reports persistent LLE pain 11/23/16: Pt awake and alert. Complains of pain radiating into left lateral leg to the toes with associated paresthesias. States it feels like a nerve. Review of Systems General: Negative for: fever, chills, insomnia Respiratory: Negative for: shortness of breath, cough, sputum Cardiovascular: Negative for: chest pain Gastrointestinal: Negative for: nausea, vomitting, diarrhea, constipation Exam Results Vital Signs Date Time Temp Pulse Resp B/P Pulse Ox O2 Delivery O2 Flow Rate FiO2 11/23/16 08:00 98.1 85 16 192/102 100 11/21/16 15:58 Room Air Intake and Output 11/22/16 11/22/16 11/23/16 08:00 16:00 00:00 Intake Total 480 ml 240 ml Balance 480 ml 240 ml Physical Examination Resp: CTA bilaterally Heart: NSR no murmurs Abd: Soft positive bs Skin: No cyanosis or erythema Muscle: Moves LEs with good strength Neuro: Pt awake and alert. Follows commands. Speech clear and appropriate. Lab, Micro, Other Results Last Impressions Bone Biopsy CT 11/22/16 0600 Signed Impressions: Service Date/Time: October 10:41 - CONCLUSION: Uncomplicated CT guided biopsy. León Good MD Lumbar Spine CT 11/21/16 0000 Signed Impressions: Service Date/Time: Monday, November 21, 2016 10:19 - CONCLUSION: 1. Destructive process involving the transverse process of L5 suspicious for neoplastic process. This could be biopsied percutaneously. Quinton Robison MD FACR Lower Extremity CT 11/21/16 0000 Signed Impressions: Service Date/Time: Monday, November 21, 2016 10:19 - CONCLUSION: I do not see hip fracture although troch nails make conclusion of subtle fracture very difficult. Please see above discussion. Quinton Robison MD FACR 11/22/16 11/22/16 11/23/16 15:00 23:00 07:00 Intake Total 480 ml 240 ml Balance 480 ml 240 ml Intake Oral 480 ml 240 ml # Voids 5 1 2 # Bowel Movements 0 0 Medical Decision Making Impression and Plan A: 81 y/o FM with a history of Hodgkin Lymphoma s/p L5 lesion CT guided biopsy. Pathology pending P: Continue to monitor Continue with current care. Start Gabapentin 300mg bid. Alex Escobar Nov 23, 2016 11:56
[2016-11-23 12:00] VITALS: BP 127/76; PULSE 84; RESP 18; TEMP 96.7; O2SAT 99
[2016-11-23] MEDS: DOCUSATE SODIUM 100 MG CAP PO SCH ×2 (12:41→20:34)
[2016-11-23] MEDS: GABAPENTIN 300 MG CAP PO SCH ×2 (12:41→20:34)
[2016-11-23 16:00] VITALS: BP 144/77; PULSE 83; RESP 18; TEMP 97.1; O2SAT 99
[2016-11-23 20:00] VITALS: BP 138/76; PULSE 82; RESP 18; TEMP 98.1; O2SAT 96
[2016-11-23] MEDS: ALPRAZolam 0.25 MG TAB PO PRN (20:34)
[2016-11-24] VITALS: BP 132/78; PULSE 77; RESP 18; TEMP 98; O2SAT 96
[2016-11-24 04:00] VITALS: BP 161/76; PULSE 82; RESP 18; TEMP 96.2; O2SAT 90
[2016-11-24] MEDS: INSULIN ASPART SUPPLEMENTAL SCALE SQ SCH ×4 (05:41→21:00)
[2016-11-24] MEDS: LEVOTHYROXINE SODIUM 100 MCG TAB PO SCH (05:41)
[2016-11-24] MEDS: DOCUSATE SODIUM 100 MG CAP PO SCH ×2 (08:14→22:04)
[2016-11-24] MEDS: GABAPENTIN 300 MG CAP PO SCH ×2 (08:14→22:05)
[2016-11-24 08:15] VITALS: BP 154/78; PULSE 85; RESP 18; TEMP 97.7; O2SAT 97
[2016-11-24] MEDS: HYDROmorphone HCL PF 1 MG/ML VIAL IV PUSH PRN ×4 (08:15→22:06)
[2016-11-24] MEDS: MORPHINE SULFATE 15 MG CONTROLLED RELEASE TAB PO SCH ×2 (09:05→22:04)
[2016-11-24] MEDS ORDERED: cefTRIAXone INJ 1,000 MG in SODIUM CHLORIDE 0.9% INJ 100 ML IV ONE (09:30)
--- NOTE | 2016-11-24 09:51 | HHI.NSPN ---
History Chief Complaint: Left leg pain. Interval History This is a 81-year-old female with a history of Hodgkin lymphoma and non-Hodgkin lymphoma presented to the hospital with increased low back pain. Apparently she was found to have progression of non-Hodgkin / follicular lymphoma. She saw Dr. Stoll and was started on Rituxan and Zydelig and later maintained on Zydelig until two weeks ago. In September she was referred to Dr. Hu because a pelvic cystic mass and increased left lower extremity pain. She had a repeat PET CT scan on October 24 which showed lymph node bilateral inguinal canal and right presacral area but at that time there was also a hypermetabolic lesion noted in L5. She reports increased low back pain that radiates down the left leg for about two months. It is progressively getting worse to the point that she could not walk. Pain no longer controlled with medications. In addition she has weakness and numbness of left leg. She denies any urinary or bowel incontinence. Denies nausea or vomiting, abdominal pain and dysuria, hematuria. Neurosurgical consutation was requested 11/22. Reports persistent LLE pain 11/23/16: Pt awake and alert. Complains of pain radiating into left lateral leg to the toes with associated paresthesias. States it feels like a nerve. 11/24: Pt complains of left lateral leg pain to the toes with associated numbness and paresthesias. Difficulty walking secondary to her pain. Review of Systems General: Negative for: fever, chills, insomnia Respiratory: Negative for: shortness of breath, cough, sputum Cardiovascular: Negative for: chest pain Gastrointestinal: Negative for: nausea, vomitting, diarrhea, constipation Exam Results Vital Signs Date Time Temp Pulse Resp B/P Pulse Ox O2 Delivery O2 Flow Rate FiO2 11/24/16 08:15 97.7 85 18 154/78 97 11/21/16 15:58 Room Air Intake and Output 11/23/16 11/23/16 11/24/16 08:00 16:00 00:00 Intake Total 240 ml Balance 240 ml Physical Examination Resp: CTA bilaterally Heart: NSR no murmurs Abd: Soft positive bs Skin: No cyanosis or erythema Muscle: Moves LEs with good strength Neuro: Pt awake and alert. Follows commands. Speech clear and appropriate. Lab, Micro, Other Results Last Impressions Bone Biopsy CT 11/22/16 0600 Signed Impressions: Service Date/Time: October 10:41 - CONCLUSION: Uncomplicated CT guided biopsy. León Good MD Lumbar Spine CT 11/21/16 0000 Signed Impressions: Service Date/Time: Monday, November 21, 2016 10:19 - CONCLUSION: 1. Destructive process involving the transverse process of L5 suspicious for neoplastic process. This could be biopsied percutaneously. Quinton Robison MD FACR Lower Extremity CT 11/21/16 0000 Signed Impressions: Service Date/Time: Monday, November 21, 2016 10:19 - CONCLUSION: I do not see hip fracture although troch nails make conclusion of subtle fracture very difficult. Please see above discussion. Quinton Robison MD FACR 11/23/16 11/23/16 11/24/16 15:00 23:00 07:00 Intake Total 240 ml Balance 240 ml Intake Oral 240 ml # Voids 3 2 Medical Decision Making Impression and Plan A: 81 y/o FM with a history of Hodgkin Lymphoma s/p L5 lesion CT guided biopsy. Pathology pending P: Continue to monitor Continue with current care. Continue with Gabapentin 300mg bid. Alex Escobar Nov 24, 2016 09:51
--- NOTE | 2016-11-24 10:23 | PD.ONC.PN ---
Subjective Subjective Remarks Afebrile overnight. still has low back pain, sharp, radiating down left leg. Patient states pain is much better controlled today. No BM in at least three days. Objective Data Date Time Temp Pulse Resp B/P Pulse Ox O2 Delivery O2 Flow Rate FiO2 11/24/16 08:15 97.7 85 18 154/78 97 11/24/16 04:00 96.2 82 18 161/76 90 11/24/16 00:00 98.0 77 18 132/78 96 11/23/16 20:00 98.1 82 18 138/76 96 11/23/16 16:00 97.1 83 18 144/77 99 11/23/16 12:00 96.7 84 18 127/76 99 Result Diagram: 11/21/1694011/22/1626 Administered Medications Medications (Trade) Dose Ordered Sig/Louisa Route PRN Reason Start Time Stop Time Status Last Admin Dose Admin Alprazolam (Xanax) 0.25 mg Q4H PRN PO ANXIETY 11/21/16 12:00 11/23/16 20:34 Levothyroxine Sodium (Synthroid) 100 mcg DAILY@0600 PO 11/22/16 06:00 11/24/16 05:41 Hydromorphone HCl (Dilaudid Pf Inj) 1 mg Q3HR PRN IV PUSH PAIN SCALE 9 TO 10 11/23/16 11:00 11/24/16 08:15 Hydromorphone HCl (Dilaudid) 4 mg Q3H PRN PO pain1-8 11/23/16 09:15 11/23/16 17:32 Docusate Sodium (Colace) 100 mg BID PO 11/23/16 13:00 11/24/16 08:14 Gabapentin (Neurontin) 300 mg BID PO 11/23/16 12:00 11/24/16 08:14 Morphine Sulfate (Oramorph Sr) 15 mg Q12HR PO 11/24/16 09:00 11/24/16 09:05 Objective Remarks GENERAL: Elderly female, supine in bed, appears comfortable. SKIN: Warm and dry. HEAD: Normocephalic. EYES: No injection or drainage. NECK: Supple, trachea midline. CARDIOVASCULAR: Regular rate and rhythm RESPIRATORY: Breath sounds equal bilaterally. No accessory muscle use. GASTROINTESTINAL: Abdomen soft, non-tender, nondistended. EXTREMITIES: No cyanosis NEUROLOGICAL: awake and alert, normal speech. able to move extremities Assessment/Plan Problem List: (1) Fracture of lumbar spine Status: Acute Plan: --Increased low back pain radiating down the LLE 1-2 months, progressively getting worse. --PET scan, 10/24, showed intense uptake within L5 left transverse process with associated hairline pathologic fracture. --MRI lumbar spine showed severe compression fracture deformity of L5 with invagination of the superior inferior endplate and marrow edema. +retropulsion with mass effect on the left S1 nerve root. +mild compression fracture deformity of T12. --CT lumbar spine showed destructive process involving transverse process of L5 suspicious of neoplastic process. This appeared to be causing all her symptoms. -- could be another primary tumor versus transformed follicular lymphoma. awaiting pathology from biopsy done on 11/22. (2) Pain management Status: Acute Plan: --currently on PO dilaudid and IV dilaudid + Oramorph started 11/24 (3) Non-Hodgkin lymphoma Status: Chronic Plan: --first treated with rituximab and Treanda --finished two years of maintenance Rituxan in January of 2014. --December 2015-->found to have progression of disease. treated with and Zydelig with Rituxan and then maintained on Zydelig --2016: CT showed low density masses in the retroperitoneum at the superior posterior left pelvis and the right pelvic sidewall. The --October 2016: PET scan showed these lesions were less prominent and not hypermetabolic. +hypermetabolic presacral lesion measured about 1.6 cm and the L5 hypermetabolic lesion. She --started on Rituxan and Revlimid about 2 weeks ago. --if this turns out to be a follicular lymphoma this could be radiated to relieve her symptoms and then she could be started back on Rituxan and Revlimid and hopefully eventually we can treat her with a radioimmunotherapy like Bexxar. Assessment 81y/o female with h/o follicular and hodgkin's lymphoma. admitted with severe lower back pain, awaiting pathology from biopsy -History of Hodgkin lymphoma. She received six cycles of ABVD in 2006. She then received consolidation radiation in 2007. Plan 1. start oramorph 15mg PO BID. continue dilaudid for breakthrough 2. give Relistor for constipation. continue stool softener. 3. await pathology 4. check u/a for foul smelling urine. give rocephin 1g IV. Attending Statement The exam, history, and the medical decision-making described in the above note were completed with the assistance of the mid-level provider. I reviewed and agree with the findings presented. I attest that I had a hydp-by-aovm encounter with the patient on the same day, and personally performed and documented my assessment and findings in the medical record. Left hip pain the same. Start oromorph. Path pending. Continue to titrate pain meds. XRT next week. Problem Qualifiers (1) Fracture of lumbar spine: Qualified Code: S32.050A - Closed wedge compression fracture of fifth lumbar vertebra, initial encounter (2) Non-Hodgkin lymphoma: Ledy Sneed Nov 24, 2016 10:23 Fredy Soni MD Nov 24, 2016 12:39
[2016-11-24] MEDS ORDERED: METHYLNALTREXONE BROMIDE 12 MG/0.6 ML VIAL SQ ONE (10:30)
--- NOTE | 2016-11-24 11:44 | HHI.PR ---
Subjective Remarks is comfortable. pain is controlled. no BM. d/w the RN and no acute issues over night. Objective Vitals Vital Signs Date Time Temp Pulse Resp B/P Pulse Ox O2 Delivery O2 Flow Rate FiO2 11/24/16 08:15 97.7 85 18 154/78 97 11/24/16 04:00 96.2 82 18 161/76 90 11/24/16 00:00 98.0 77 18 132/78 96 11/23/16 20:00 98.1 82 18 138/76 96 11/23/16 16:00 97.1 83 18 144/77 99 11/23/16 12:00 96.7 84 18 127/76 99 I/O 11/23/16 11/23/16 11/23/16 11/24/16 11/24/16 11/24/16 07:00 15:00 23:00 07:00 15:00 23:00 Intake Total 240 ml Balance 240 ml Intake Oral 240 ml # Voids 2 3 2 Result Diagram: 11/21/16 0941 11/22/16 0826 Imaging Last Impressions Bone Biopsy CT 11/22/16 0600 Signed Impressions: Service Date/Time: October 10:41 - CONCLUSION: Uncomplicated CT guided biopsy. León Good MD Lumbar Spine CT 11/21/16 0000 Signed Impressions: Service Date/Time: Monday, November 21, 2016 10:19 - CONCLUSION: 1. Destructive process involving the transverse process of L5 suspicious for neoplastic process. This could be biopsied percutaneously. Quinton Robison MD FACR Lower Extremity CT 11/21/16 0000 Signed Impressions: Service Date/Time: Monday, November 21, 2016 10:19 - CONCLUSION: I do not see hip fracture although troch nails make conclusion of subtle fracture very difficult. Please see above discussion. Quinton Robison MD FACR Objective Remarks GENERAL: This is a well-nourished, well-developed patient, in no apparent distress. CARDIOVASCULAR: Regular rate and regular rhythm without murmurs, gallops, or rubs. RESPIRATORY: Clear to auscultation. Breath sounds equal bilaterally. No wheezes , rales, or rhonchi. GASTROINTESTINAL: Abdomen soft, non-tender, nondistended. Normal, active bowel sounds MUSCULOSKELETAL: Extremities without clubbing, cyanosis, or edema. NEURO: Alert & Oriented x4 to person, place, time, situation. Moves all ext x4 Procedures bone biopsy ( L5). Medications and IVs Current Medications Morphine Sulfate (Morphine Inj) 4 mg ONCE ONCE IV PUSH Last administered on 10:39; Start 11/21/16 at 10:30; Stop 11/21/16 at 10:32; Status DC Ondansetron HCl (Zofran Inj) 4 mg ONCE ONCE IV PUSH Last administered on 10:40; Start 11/21/16 at 10:30; Stop 11/21/16 at 10:32; Status DC Enalaprilat (Vasotec Inj) 1.25 mg Q8H PRN IV PUSH SBP> OR = 180, DBP> OR = 100 ; Start 11/21/16 at 10:45 Dextrose (D50w (Vial) Inj) 25 ml UNSCH PRN IV PUSH HYPOGLYCEMIA-SEE COMMENTS; Start 11/21/16 at 10:45 Glucagon (Glucagon Inj) 1 mg UNSCH PRN OTHER HYPOGLYCEMIA-SEE COMMENTS; Start 11/21/16 at 10:45 Insulin Aspart (NovoLOG SUPPLEMENTAL SCALE) 1 ACHS SLIDING SCALE SQ ; Start at 11:00 Ondansetron HCl (Zofran Inj) 4 mg Q8HR PRN IV PUSH NAUSEA; Start 11/21/16 at 10 :45 Hydromorphone HCl (Dilaudid Pf Inj) 0.5 mg Q4H PRN IV PUSH PAIN 1-5 Last administered on 11/21/16 19:40; Start 11/21/16 at 10:45; Stop 11/22/16 at 12:56 ; Status DC Hydromorphone HCl (Dilaudid Pf Inj) 1 mg Q4H PRN IV PUSH BREAKTHROUGH PAIN Last administered on 11/23/16 05:30; Start 11/21/16 at 12:00; Stop 11/23/16 at 09:14; Status DC Acetaminophen (Tylenol) 650 mg Q4H PRN PO FEVER/ HEADACHE; Start 11/21/16 at 12 :00 Alprazolam (Xanax) 0.25 mg Q4H PRN PO ANXIETY Last administered on 11/23/16 20 :34; Start 11/21/16 at 12:00 Levothyroxine Sodium (Synthroid) 100 mcg DAILY@0600 PO Last administered on 11/24 05:41; Start 11/22/16 at 06:00 Fentanyl Citrate (fentaNYL INJ) 250 mcg STK-MED ONCE .ROUTE Last administered on 11/22/16 10:11; Start 11/22/16 at 10:11; Stop 11/22/16 at 10:12; Status DC Midazolam HCl (Versed Inj) 5 mg STK-MED ONCE .ROUTE Last administered on 10:11; Start 11/22/16 at 10:11; Stop 11/22/16 at 10:12; Status DC Acetaminophen/ Hydrocodone Bitart ([place] 7.5-325 Mg) 1 tab Q4H PRN PO PAIN < 5 Last administered on 11/22/16 15:11; Start 11/22/16 at 13:00; Stop 11/23/16 at 09:14; Status DC Acetaminophen/ Hydrocodone Bitart ([place] 7.5-325 Mg) 2 tab Q4H PRN PO PAIN > 5 Last administered on 11/23/16 08:38; Start 11/22/16 at 13:00; Stop 11/23/16 at 09:14; Status DC Lidocaine/ Epinephrine (Xylocaine-Epi 1%-1:100,000 Inj) 20 ml STK-MED ONCE .ROUTE Last administered on 11/22/16 15:20; Start 11/22/16 at 15:20; Stop at 15:21; Status DC Hydromorphone HCl (Dilaudid Pf Inj) 0.5 mg STAT STAT IV PUSH Last administered on 11/23/16 09:16; Start 11/23/16 at 09:08; Stop 11/23/16 at 09:12 ; Status DC Hydromorphone HCl (Dilaudid Pf Inj) 1 mg Q3HR PRN IV PUSH PAIN SCALE 9 TO 10 Last administered on 11/24/16 08:15; Start 11/23/16 at 11:00 Hydromorphone HCl (Dilaudid) 4 mg Q3H PRN PO pain1-8 Last administered on 17:32; Start 11/23/16 at 09:15 Magnesium Hydroxide (Milk Of Magnesia Liq) 30 ml DAILY PRN PO CONSTIPATION; Start 11/23/16 at 11:45 Docusate Sodium (Colace) 100 mg BID PO Last administered on 11/24/16 08:14; Start 11/23/16 at 13:00 Gabapentin (Neurontin) 300 mg BID PO Last administered on 11/24/16 08:14; Start 11/23/16 at 12:00 Morphine Sulfate 15 mg 15 mg Q12HR PO Last administered on 11/24/16 09:05; Start 11/24/16 at 09:00 Ceftriaxone Sodium/Sodium Chloride (Rocephin Inj/NS Inj) 100 ml @ 200 mls/hr ONCE ONCE IV Last administered on 11/24/16 09:43; Start 11/24/16 at 09:30; Stop 11/24/16 at 09:59; Status DC Methylnaltrexone [place] (Relistor Inj) 12 mg ONCE ONCE SQ ; Start 11/24/16 at 10:30; Stop 11/24/16 at 10:31; Status DC A/P Assessment and Plan A/P -history of lymphoma with T12/L5 fracture continue with pain control; started on oral morphine with prn dilaudid-s/p bone biopsy from L5- follow the pathology oncology,neurosurgery following- consulted radiation oncology. consult PT/OT. -diabetes mellitus; accu-check with SSI -chronic renal insufficiency- stable- will monitor -hypothyroidism; resumed levothyroxine -DVT prophylaxis; SCD's - d/w oncology. Karsten Peters MD Nov 24, 2016 11:44
[2016-11-24 12:35] VITALS: BP 128/65; PULSE 84; RESP 17; TEMP 97.5; O2SAT 99
[2016-11-24 13:23] LABS: BACTERIA, URINE MANY /hpf; BLOOD, URINE MOD (NEG); GLUCOSE,URINE NEG (NEG); KETONE, URINE NEG (NEG); MUCUS URINE FEW /lpf (OCC); PH, URINE 6.5 (5.0-8.5); SQUAMOUS EPITHELIAL CELL URINE 4 /hpf (0-5); TRANSITIONAL EPI CELLS, URINE 1 /hpf; URINE COLOR YELLOW (YELLW/STRAW)
[2016-11-24 13:30] LABS: COMMENT (UR) CULTURE INDICATED; CULTURE IF INDICATED CULTURE INDICATED; NITRITE,URINE POS (NEG)
[2016-11-24 15:34] VITALS: BP 140/62; PULSE 85; RESP 18; TEMP 98.1; O2SAT 94
[2016-11-24 20:00] VITALS: BP 136/73; PULSE 83; RESP 18; TEMP 98.8; O2SAT 96
[2016-11-24] MEDS: ALPRAZolam 0.25 MG TAB PO PRN (22:05)
[2016-11-25] VITALS: BP 227/124; PULSE 103; RESP 21; TEMP 97.9; O2SAT 99
[2016-11-25] MEDS: HYDROmorphone HCL 4 MG TAB PO PRN ×3 (00:15→09:45)
[2016-11-25] MEDS: ENALAPRILAT 1.25 MG/ML VIAL IV PUSH PRN (00:16)
[2016-11-25] MEDS: HYDROmorphone HCL PF 1 MG/ML VIAL IV PUSH PRN (01:19)
[2016-11-25 04:00] VITALS: BP 111/66; PULSE 76; RESP 20; TEMP 97; O2SAT 97
[2016-11-25] MEDS: LEVOTHYROXINE SODIUM 100 MCG TAB PO SCH (06:26)
[2016-11-25] MEDS: INSULIN ASPART SUPPLEMENTAL SCALE SQ SCH ×4 (06:34→20:11)
[2016-11-25] MEDS: DOCUSATE SODIUM 100 MG CAP PO SCH ×2 (07:58→20:05)
[2016-11-25] MEDS: GABAPENTIN 300 MG CAP PO SCH ×3 (07:59→17:08)
[2016-11-25] MEDS: MORPHINE SULFATE 15 MG CONTROLLED RELEASE TAB PO SCH (07:59)
[2016-11-25 08:04] VITALS: BP 100/57; PULSE 78; RESP 18; TEMP 95.8; O2SAT 97
--- NOTE | 2016-11-25 09:33 | HHI.NSPN ---
History Chief Complaint: Left leg pain. Interval History This is a 81-year-old female with a history of Hodgkin lymphoma and non-Hodgkin lymphoma presented to the hospital with increased low back pain. Apparently she was found to have progression of non-Hodgkin / follicular lymphoma. She saw Dr. Stoll and was started on Rituxan and Zydelig and later maintained on Zydelig until two weeks ago. In September she was referred to Dr. Hu because a pelvic cystic mass and increased left lower extremity pain. She had a repeat PET CT scan on October 24 which showed lymph node bilateral inguinal canal and right presacral area but at that time there was also a hypermetabolic lesion noted in L5. She reports increased low back pain that radiates down the left leg for about two months. It is progressively getting worse to the point that she could not walk. Pain no longer controlled with medications. In addition she has weakness and numbness of left leg. She denies any urinary or bowel incontinence. Denies nausea or vomiting, abdominal pain and dysuria, hematuria. Neurosurgical consutation was requested 11/22. Reports persistent LLE pain 11/23/16: Pt awake and alert. Complains of pain radiating into left lateral leg to the toes with associated paresthesias. States it feels like a nerve. 11/24: Pt complains of left lateral leg pain to the toes with associated numbness and paresthesias. Difficulty walking secondary to her pain. 11/25/16: Pt complains of left lateral leg pain to the toes with associated numbness and paresthesias. Pt states she cannot walk secondary to her pain. Review of Systems General: Negative for: fever, chills, insomnia Respiratory: Negative for: shortness of breath, cough, sputum Cardiovascular: Negative for: chest pain Gastrointestinal: Negative for: nausea, vomitting, diarrhea, constipation Exam Results Vital Signs Date Time Temp Pulse Resp B/P Pulse Ox O2 Delivery O2 Flow Rate FiO2 11/25/16 08:04 95.8 78 18 100/57 97 11/21/16 15:58 Room Air Intake and Output 11/24/16 11/24/16 11/25/16 08:00 16:00 00:00 Intake Total 480 ml 0 ml Balance 480 ml 0 ml Physical Examination Resp: CTA bilaterally Heart: NSR no murmurs Abd: Soft positive bs Skin: No cyanosis or erythema Muscle: Moves LEs with good strength Neuro: Pt awake and alert. Follows commands. Speech clear and appropriate. Lab, Micro, Other Results Last Impressions Bone Biopsy CT 11/22/16 0600 Signed Impressions: Service Date/Time: October 10:41 - CONCLUSION: Uncomplicated CT guided biopsy. León Good MD Lumbar Spine CT 11/21/16 0000 Signed Impressions: Service Date/Time: Monday, November 21, 2016 10:19 - CONCLUSION: 1. Destructive process involving the transverse process of L5 suspicious for neoplastic process. This could be biopsied percutaneously. Quinton Robison MD FACR Lower Extremity CT 11/21/16 0000 Signed Impressions: Service Date/Time: Monday, November 21, 2016 10:19 - CONCLUSION: I do not see hip fracture although troch nails make conclusion of subtle fracture very difficult. Please see above discussion. Quinton Robison MD FACR Laboratory Tests Test 11/24/16 12:00 Urine Color YELLOW Urine Turbidity HAZY Urine pH 6.5 Urine Specific [place] 1.013 Urine Protein TRACE mg/dL Urine Glucose (UA) NEG mg/dL Urine Ketones NEG mg/dL Urine Occult Blood MOD Urine Nitrite POS Urine Bilirubin NEG Urine Urobilinogen LESS THAN 2.0 MG/DL Urine Leukocyte Esterase LARGE Urine RBC 20 /hpf Urine WBC 20 /hpf Urine WBC Clumps RARE Urine Squamous Epithelial 4 /hpf Cells Urine Transitional Epithelial 1 /hpf Cells Urine Bacteria MANY /hpf Urine Mucus FEW /lpf Microscopic Urinalysis Comment CULTURE INDICATED 11/24/16 11/24/16 11/25/16 15:00 23:00 07:00 Intake Total 480 ml 0 ml 0 ml Balance 480 ml 0 ml 0 ml Intake Oral 480 ml 0 ml 0 ml # Voids 4 0 # Bowel Movements 0 Medical Decision Making Impression and Plan A: 81 y/o FM with a history of Hodgkin Lymphoma s/p L5 lesion CT guided biopsy. Pathology pending P: Continue to monitor Continue with current care. Increase Gabapentin to 300mg tid. Alex Escobar Nov 25, 2016 09:33
--- NOTE | 2016-11-25 10:25 | HHI.PR ---
Subjective Remarks resting comfortably in no distress. pain is somewhat worse than yesterday. no BM yet. no other new complaints. d/w the RN. Objective Vitals Vital Signs Date Time Temp Pulse Resp B/P Pulse Ox O2 Delivery O2 Flow Rate FiO2 11/25/16 08:04 95.8 78 18 100/57 97 11/25/16 04:00 97.0 76 20 111/66 97 11/25/16 00:00 97.9 103 21 227/124 99 11/24/16 20:00 98.8 83 18 136/73 96 11/24/16 15:34 98.1 85 18 140/62 94 11/24/16 12:35 97.5 84 17 128/65 99 I/O 11/24/16 11/24/16 11/24/16 11/25/16 11/25/16 11/25/16 07:00 15:00 23:00 07:00 15:00 23:00 Intake Total 480 ml 0 ml 0 ml Balance 480 ml 0 ml 0 ml Intake Oral 480 ml 0 ml 0 ml # Voids 2 4 0 # Bowel Movements 0 Result Diagram: 11/21/16 0941 11/22/16 0826 Imaging Last Impressions Bone Biopsy CT 11/22/16 0600 Signed Impressions: Service Date/Time: October 10:41 - CONCLUSION: Uncomplicated CT guided biopsy. León Good MD Lumbar Spine CT 11/21/16 0000 Signed Impressions: Service Date/Time: Monday, November 21, 2016 10:19 - CONCLUSION: 1. Destructive process involving the transverse process of L5 suspicious for neoplastic process. This could be biopsied percutaneously. Quinton Robison MD FACR Lower Extremity CT 11/21/16 0000 Signed Impressions: Service Date/Time: Monday, November 21, 2016 10:19 - CONCLUSION: I do not see hip fracture although troch nails make conclusion of subtle fracture very difficult. Please see above discussion. Quinton Robison MD FACR Objective Remarks GENERAL: This is a well-nourished, well-developed patient, in no apparent distress. CARDIOVASCULAR: Regular rate and regular rhythm without murmurs, gallops, or rubs. RESPIRATORY: Clear to auscultation. Breath sounds equal bilaterally. No wheezes , rales, or rhonchi. GASTROINTESTINAL: Abdomen soft, non-tender, nondistended. Normal, active bowel sounds MUSCULOSKELETAL: Extremities without clubbing, cyanosis, or edema. NEURO: Alert & Oriented x4 to person, place, time, situation. Moves all ext x4 Procedures bone biopsy ( L5). Medications and IVs Current Medications Morphine Sulfate (Morphine Inj) 4 mg ONCE ONCE IV PUSH Last administered on 10:39; Start 11/21/16 at 10:30; Stop 11/21/16 at 10:32; Status DC Ondansetron HCl (Zofran Inj) 4 mg ONCE ONCE IV PUSH Last administered on 10:40; Start 11/21/16 at 10:30; Stop 11/21/16 at 10:32; Status DC Enalaprilat (Vasotec Inj) 1.25 mg Q8H PRN IV PUSH SBP> OR = 180, DBP> OR = 100 Last administered on 11/25/16 00:16; Start 11/21/16 at 10:45 Dextrose (D50w (Vial) Inj) 25 ml UNSCH PRN IV PUSH HYPOGLYCEMIA-SEE COMMENTS; Start 11/21/16 at 10:45 Glucagon (Glucagon Inj) 1 mg UNSCH PRN OTHER HYPOGLYCEMIA-SEE COMMENTS; Start 11/21/16 at 10:45 Insulin Aspart (NovoLOG SUPPLEMENTAL SCALE) 1 ACHS SLIDING SCALE SQ ; Start at 11:00 Ondansetron HCl (Zofran Inj) 4 mg Q8HR PRN IV PUSH NAUSEA; Start 11/21/16 at 10 :45 Hydromorphone HCl (Dilaudid Pf Inj) 0.5 mg Q4H PRN IV PUSH PAIN 1-5 Last administered on 11/21/16 19:40; Start 11/21/16 at 10:45; Stop 11/22/16 at 12:56 ; Status DC Hydromorphone HCl (Dilaudid Pf Inj) 1 mg Q4H PRN IV PUSH BREAKTHROUGH PAIN Last administered on 11/23/16 05:30; Start 11/21/16 at 12:00; Stop 11/23/16 at 09:14; Status DC Acetaminophen (Tylenol) 650 mg Q4H PRN PO FEVER/ HEADACHE; Start 11/21/16 at 12 :00 Alprazolam (Xanax) 0.25 mg Q4H PRN PO ANXIETY Last administered on 11/24/16 22: 05; Start 11/21/16 at 12:00 Levothyroxine Sodium (Synthroid) 100 mcg DAILY@0600 PO Last administered on 11/25 06:26; Start 11/22/16 at 06:00 Fentanyl Citrate (fentaNYL INJ) 250 mcg STK-MED ONCE .ROUTE Last administered on 11/22/16 10:11; Start 11/22/16 at 10:11; Stop 11/22/16 at 10:12; Status DC Midazolam HCl (Versed Inj) 5 mg STK-MED ONCE .ROUTE Last administered on 10:11; Start 11/22/16 at 10:11; Stop 11/22/16 at 10:12; Status DC Acetaminophen/ Hydrocodone Bitart ([place] 7.5-325 Mg) 1 tab Q4H PRN PO PAIN < 5 Last administered on 11/22/16 15:11; Start 11/22/16 at 13:00; Stop 11/23/16 at 09:14; Status DC Acetaminophen/ Hydrocodone Bitart ([place] 7.5-325 Mg) 2 tab Q4H PRN PO PAIN > 5 Last administered on 11/23/16 08:38; Start 11/22/16 at 13:00; Stop 11/23/16 at 09:14; Status DC Lidocaine/ Epinephrine (Xylocaine-Epi 1%-1:100,000 Inj) 20 ml STK-MED ONCE .ROUTE Last administered on 11/22/16 15:20; Start 11/22/16 at 15:20; Stop at 15:21; Status DC Hydromorphone HCl (Dilaudid Pf Inj) 0.5 mg STAT STAT IV PUSH Last administered on 11/23/16 09:16; Start 11/23/16 at 09:08; Stop 11/23/16 at 09:12 ; Status DC Hydromorphone HCl (Dilaudid Pf Inj) 1 mg Q3HR PRN IV PUSH PAIN SCALE 9 TO 10 Last administered on 11/25/16 01:19; Start 11/23/16 at 11:00 Hydromorphone HCl (Dilaudid) 4 mg Q3H PRN PO pain1-8 Last administered on 09:45; Start 11/23/16 at 09:15 Magnesium Hydroxide (Milk Of Magnesia Liq) 30 ml DAILY PRN PO CONSTIPATION; Start 11/23/16 at 11:45 Docusate Sodium (Colace) 100 mg BID PO Last administered on 11/25/16 07:58; Start 11/23/16 at 13:00 Gabapentin (Neurontin) 300 mg BID PO Last administered on 11/25/16 07:59; Start 11/23/16 at 12:00; Stop 11/25/16 at 09:35; Status DC Morphine Sulfate 15 mg 15 mg Q12HR PO Last administered on 11/25/16 07:59; Start 11/24/16 at 09:00 Ceftriaxone Sodium/Sodium Chloride (Rocephin Inj/NS Inj) 100 ml @ 200 mls/hr ONCE ONCE IV Last administered on 11/24/16 09:43; Start 11/24/16 at 09:30; Stop 11/24/16 at 09:59; Status DC Methylnaltrexone [place] (Relistor Inj) 12 mg ONCE ONCE SQ Last administered on 11/24/16 12:04; Start 11/24/16 at 10:30; Stop 11/24/16 at 10:31; Status DC Gabapentin (Neurontin) 300 mg TID PO ; Start 11/25/16 at 13:00 A/P Assessment and Plan A/P -history of lymphoma with T12/L5 fracture continue with pain control; started on oral morphine with prn dilaudid-s/p bone biopsy from L5- follow the pathology oncology,neurosurgery following- consulted radiation oncology. consulted PT/OT. -UTI; start on Cipro -diabetes mellitus; accu-check with SSI -chronic renal insufficiency- stable- will monitor -hypothyroidism; resumed levothyroxine -DVT prophylaxis; SCD's - d/w oncology. Karsten Peters MD Nov 25, 2016 10:25
--- NOTE | 2016-11-25 10:44 | PD.ONC.PN ---
Subjective Subjective Remarks Afebrile overnight. Patient did not have BM yesterday. She had too much pain to sit on bedside commode and was not able to have BM in bedpan. She continues to have a lot of pain in the low back radiating down the left leg. The pain is improved with dilaudid. Objective Data Date Time Temp Pulse Resp B/P Pulse Ox O2 Delivery O2 Flow Rate FiO2 11/25/16 08:04 95.8 78 18 100/57 97 11/25/16 04:00 97.0 76 20 111/66 97 11/25/16 00:00 97.9 103 21 227/124 99 11/24/16 20:00 98.8 83 18 136/73 96 11/24/16 15:34 98.1 85 18 140/62 94 11/24/16 12:35 97.5 84 17 128/65 99 11/25/16 11/25/16 11/25/16 07:00 15:00 23:00 Intake Total 0 ml Balance 0 ml Result Diagram: 11/21/16 0941 11/22/16 0826 Laboratory Results Laboratory Tests Test 11/24/16 12:00 Urine Color YELLOW Urine Turbidity HAZY Urine pH 6.5 Urine Specific [place] 1.013 Urine Protein TRACE mg/dL Urine Glucose (UA) NEG mg/dL Urine Ketones NEG mg/dL Urine Occult Blood MOD Urine Nitrite POS Urine Bilirubin NEG Urine Urobilinogen LESS THAN 2.0 MG/DL Urine Leukocyte Esterase LARGE Urine RBC 20 /hpf Urine WBC 20 /hpf Urine WBC Clumps RARE Urine Squamous Epithelial 4 /hpf Cells Urine Transitional Epithelial 1 /hpf Cells Urine Bacteria MANY /hpf Urine Mucus FEW /lpf Microscopic Urinalysis Comment CULTURE INDICATED Culture Results Microbiology Date/Time Procedure Status Source Growth 11/24/16 12:00 Urine Culture - Final Complete Urine Clean Catch 10-50,000 CFU/ML MIXED LAINEY... Administered Medications Medications (Trade) Dose Ordered Sig/Louisa Route PRN Reason Start Time Stop Time Status Last Admin Dose Admin Enalaprilat (Vasotec Inj) 1.25 mg Q8H PRN IV PUSH SBP> OR = 180, DBP> OR = 100 11/21/16 10:45 11/25/16 00:16 Alprazolam (Xanax) 0.25 mg Q4H PRN PO ANXIETY 11/21/16 12:00 11/24/16 22:05 Levothyroxine Sodium (Synthroid) 100 mcg DAILY@0600 PO 11/22/16 06:00 11/25/16 06:26 Hydromorphone HCl (Dilaudid Pf Inj) 1 mg Q3HR PRN IV PUSH PAIN SCALE 9 TO 10 11/23/16 11:00 11/25/16 01:19 Hydromorphone HCl (Dilaudid) 4 mg Q3H PRN PO pain1-8 11/23/16 09:15 11/25/16 09:45 Docusate Sodium (Colace) 100 mg BID PO 11/23/16 13:00 11/25/16 07:58 Morphine Sulfate (Oramorph Sr) 15 mg Q12HR PO 11/24/16 09:00 11/25/16 07:59 Objective Remarks GENERAL: Elderly female, supine in bed, tearful, overwhelmed, in pain. SKIN: Warm and dry. HEAD: Normocephalic. EYES: No injection or drainage. NECK: Supple, trachea midline. CARDIOVASCULAR: Regular rate and rhythm RESPIRATORY: Breath sounds equal bilaterally. No accessory muscle use. GASTROINTESTINAL: Abdomen soft, non-tender, nondistended. EXTREMITIES: No cyanosis NEUROLOGICAL: AOx3, normal speech. Assessment/Plan Problem List: (1) Fracture of lumbar spine Status: Acute Plan: --Increased low back pain radiating down the LLE 1-2 months, progressively getting worse. --PET scan, 10/24, showed intense uptake within L5 left transverse process with associated hairline pathologic fracture. --MRI lumbar spine showed severe compression fracture deformity of L5 with invagination of the superior inferior endplate and marrow edema. +retropulsion with mass effect on the left S1 nerve root. +mild compression fracture deformity of T12. --CT lumbar spine showed destructive process involving transverse process of L5 suspicious of neoplastic process. This appeared to be causing all her symptoms. -- could be another primary tumor versus transformed follicular lymphoma. awaiting pathology from biopsy done on 11/22. (2) Pain management Status: Acute Plan: --currently on PO dilaudid and IV dilaudid + Oramorph started 11/24 and increased to 30mg PO BID on 11/25 (3) Non-Hodgkin lymphoma Status: Chronic Plan: --first treated with rituximab and Treanda --finished two years of maintenance Rituxan in January of 2014. --December 2015-->found to have progression of disease. treated with and Zydelig with Rituxan and then maintained on Zydelig --2016: CT showed low density masses in the retroperitoneum at the superior posterior left pelvis and the right pelvic sidewall. The --October 2016: PET scan showed these lesions were less prominent and not hypermetabolic. +hypermetabolic presacral lesion measured about 1.6 cm and the L5 hypermetabolic lesion. She --started on Rituxan and Revlimid about 2 weeks ago. --if this turns out to be a follicular lymphoma this could be radiated to relieve her symptoms and then she could be started back on Rituxan and Revlimid and hopefully eventually we can treat her with a radioimmunotherapy like Bexxar. Assessment 81y/o female with h/o follicular and hodgkin's lymphoma. admitted with severe lower back pain, awaiting pathology from biopsy -History of Hodgkin lymphoma. She received six cycles of ABVD in 2006. She then received consolidation radiation in 2007. Plan 1.increase oramorph to 30mg PO BID. continue dilaudid for breakthrough 2. give MoM today for constipation. 3. await pathology Attending Statement The exam, history, and the medical decision-making described in the above note were completed with the assistance of the mid-level provider. I reviewed and agree with the findings presented. I attest that I had a [id number] encounter with the patient on the same day, and personally performed and documented my assessment and findings in the medical record. Still has LLE pain. Continue to titrate morphine. Discussed with , can start XRT tomorrow if the fliming does not change. Path is still pending. Problem Qualifiers (1) Fracture of lumbar spine: Qualified Code: S32.050A - Closed wedge compression fracture of fifth lumbar vertebra, initial encounter (2) Non-Hodgkin lymphoma: Ledy Sneed Nov 25, 2016 10:43 Fredy Soni MD Nov 25, 2016 12:04
[2016-11-25] MEDS ORDERED: MORPHINE SULFATE 15 MG CONTROLLED RELEASE TAB PO ONE (10:45)
[2016-11-25 12:07] VITALS: BP 106/59; PULSE 77; RESP 18; TEMP 96.3; O2SAT 97
[2016-11-25] MEDS: CIPROFLOXACIN 500 MG TAB PO SCH (12:40)
[2016-11-25 16:00] VITALS: BP 114/63; PULSE 81; RESP 18; TEMP 96.5; O2SAT 100
[2016-11-25 20:00] VITALS: BP 139/58; PULSE 83; RESP 18; TEMP 98.6; O2SAT 98
[2016-11-25] MEDS: MORPHINE SULFATE 30 MG CONTROLLED RELEASE TAB PO SCH (20:05)
[2016-11-26] VITALS: BP 142/81; PULSE 83; RESP 18; TEMP 98.6; O2SAT 97
[2016-11-26] MEDS: CIPROFLOXACIN 500 MG TAB PO SCH ×3 (00:56→22:08)
[2016-11-26] MEDS: HYDROmorphone HCL 4 MG TAB PO PRN ×3 (00:57→10:38)
[2016-11-26] MEDS: ALPRAZolam 0.25 MG TAB PO PRN (00:57)
[2016-11-26 04:00] VITALS: BP 120/76; PULSE 83; RESP 18; TEMP 96; O2SAT 98
[2016-11-26] MEDS: LEVOTHYROXINE SODIUM 100 MCG TAB PO SCH (06:35)
[2016-11-26] MEDS: INSULIN ASPART SUPPLEMENTAL SCALE SQ SCH ×4 (06:37→21:00)
[2016-11-26 08:13] VITALS: BP 125/67; PULSE 86; RESP 20; TEMP 97.1; O2SAT 95
[2016-11-26] MEDS: DOCUSATE SODIUM 100 MG CAP PO SCH ×2 (08:29→22:08)
[2016-11-26] MEDS: GABAPENTIN 300 MG CAP PO SCH ×3 (08:29→17:29)
[2016-11-26] MEDS: MORPHINE SULFATE 30 MG CONTROLLED RELEASE TAB PO SCH ×2 (08:29→22:08)
--- NOTE | 2016-11-26 10:40 | HHI.PR ---
Subjective Remarks in no acute distress. says that when she doesn't move the pain is mild but gets worse with moving. no BM yet. no other complaints. Objective Vitals Vital Signs Date Time Temp Pulse Resp B/P Pulse Ox O2 Delivery O2 Flow Rate FiO2 11/26/16 08:13 97.1 86 20 125/67 95 11/26/16 04:00 96.0 83 18 120/76 98 11/26/16 00:00 98.6 83 18 142/81 97 11/25/16 20:00 98.6 83 18 139/58 98 11/25/16 16:00 96.5 81 18 114/63 100 11/25/16 12:07 96.3 77 18 106/59 97 I/O 11/25/16 11/25/16 11/25/16 11/26/16 11/26/16 11/26/16 07:00 15:00 23:00 07:00 15:00 23:00 Intake Total 0 ml 100 ml Balance 0 ml 100 ml Intake Oral 0 ml 100 ml # Voids 0 2 Result Diagram: 11/22/16 0826 Imaging Last Impressions Bone Biopsy CT 11/22/16 0600 Signed Impressions: Service Date/Time: October 10:41 - CONCLUSION: Uncomplicated CT guided biopsy. León Good MD Lumbar Spine CT 11/21/16 0000 Signed Impressions: Service Date/Time: Monday, November 21, 2016 10:19 - CONCLUSION: 1. Destructive process involving the transverse process of L5 suspicious for neoplastic process. This could be biopsied percutaneously. Quinton Robison MD FACR Lower Extremity CT 11/21/16 0000 Signed Impressions: Service Date/Time: Monday, November 21, 2016 10:19 - CONCLUSION: I do not see hip fracture although troch nails make conclusion of subtle fracture very difficult. Please see above discussion. Quinton Robison MD FACR Objective Remarks GENERAL: This is a well-nourished, well-developed patient, in no apparent distress. CARDIOVASCULAR: Regular rate and regular rhythm without murmurs, gallops, or rubs. RESPIRATORY: Clear to auscultation. Breath sounds equal bilaterally. No wheezes , rales, or rhonchi. GASTROINTESTINAL: Abdomen soft, non-tender, nondistended. Normal, active bowel sounds MUSCULOSKELETAL: Extremities without clubbing, cyanosis, or edema. NEURO: Alert & Oriented x4 to person, place, time, situation. Moves all ext x4 Procedures bone biopsy ( L5). Medications and IVs Current Medications Morphine Sulfate (Morphine Inj) 4 mg ONCE ONCE IV PUSH Last administered on 10:39; Start 11/21/16 at 10:30; Stop 11/21/16 at 10:32; Status DC Ondansetron HCl (Zofran Inj) 4 mg ONCE ONCE IV PUSH Last administered on 10:40; Start 11/21/16 at 10:30; Stop 11/21/16 at 10:32; Status DC Enalaprilat (Vasotec Inj) 1.25 mg Q8H PRN IV PUSH SBP> OR = 180, DBP> OR = 100 Last administered on 11/25/16 00:16; Start 11/21/16 at 10:45 Dextrose (D50w (Vial) Inj) 25 ml UNSCH PRN IV PUSH HYPOGLYCEMIA-SEE COMMENTS; Start 11/21/16 at 10:45 Glucagon (Glucagon Inj) 1 mg UNSCH PRN OTHER HYPOGLYCEMIA-SEE COMMENTS; Start 11/21/16 at 10:45 Insulin Aspart (NovoLOG SUPPLEMENTAL SCALE) 1 ACHS SLIDING SCALE SQ ; Start at 11:00 Ondansetron HCl (Zofran Inj) 4 mg Q8HR PRN IV PUSH NAUSEA; Start 11/21/16 at 10 :45 Hydromorphone HCl (Dilaudid Pf Inj) 0.5 mg Q4H PRN IV PUSH PAIN 1-5 Last administered on 11/21/16 19:40; Start 11/21/16 at 10:45; Stop 11/22/16 at 12:56 ; Status DC Hydromorphone HCl (Dilaudid Pf Inj) 1 mg Q4H PRN IV PUSH BREAKTHROUGH PAIN Last administered on 11/23/16 05:30; Start 11/21/16 at 12:00; Stop 11/23/16 at 09:14; Status DC Acetaminophen (Tylenol) 650 mg Q4H PRN PO FEVER/ HEADACHE; Start 11/21/16 at 12 :00 Alprazolam (Xanax) 0.25 mg Q4H PRN PO ANXIETY Last administered on 11/26/16 00: 57; Start 11/21/16 at 12:00 Levothyroxine Sodium (Synthroid) 100 mcg DAILY@0600 PO Last administered on 11/26 06:35; Start 11/22/16 at 06:00 Fentanyl Citrate (fentaNYL INJ) 250 mcg STK-MED ONCE .ROUTE Last administered on 11/22/16 10:11; Start 11/22/16 at 10:11; Stop 11/22/16 at 10:12; Status DC Midazolam HCl (Versed Inj) 5 mg STK-MED ONCE .ROUTE Last administered on 10:11; Start 11/22/16 at 10:11; Stop 11/22/16 at 10:12; Status DC Acetaminophen/ Hydrocodone Bitart ([place] 7.5-325 Mg) 1 tab Q4H PRN PO PAIN < 5 Last administered on 11/22/16 15:11; Start 11/22/16 at 13:00; Stop 11/23/16 at 09:14; Status DC Acetaminophen/ Hydrocodone Bitart ([place] 7.5-325 Mg) 2 tab Q4H PRN PO PAIN > 5 Last administered on 11/23/16 08:38; Start 11/22/16 at 13:00; Stop 11/23/16 at 09:14; Status DC Lidocaine/ Epinephrine (Xylocaine-Epi 1%-1:100,000 Inj) 20 ml STK-MED ONCE .ROUTE Last administered on 11/22/16 15:20; Start 11/22/16 at 15:20; Stop at 15:21; Status DC Hydromorphone HCl (Dilaudid Pf Inj) 0.5 mg STAT STAT IV PUSH Last administered on 11/23/16 09:16; Start 11/23/16 at 09:08; Stop 11/23/16 at 09:12 ; Status DC Hydromorphone HCl (Dilaudid Pf Inj) 1 mg Q3HR PRN IV PUSH PAIN SCALE 9 TO 10 Last administered on 11/25/16 01:19; Start 11/23/16 at 11:00 Hydromorphone HCl (Dilaudid) 4 mg Q3H PRN PO pain1-8 Last administered on 06:35; Start 11/23/16 at 09:15 Magnesium Hydroxide (Milk Of Magnesia Liq) 30 ml DAILY PRN PO CONSTIPATION; Start 11/23/16 at 11:45 Docusate Sodium (Colace) 100 mg BID PO Last administered on 11/26/16 08:29; Start 11/23/16 at 13:00 Gabapentin (Neurontin) 300 mg BID PO Last administered on 11/25/16 07:59; Start 11/23/16 at 12:00; Stop 11/25/16 at 09:35; Status DC Morphine Sulfate 15 mg 15 mg Q12HR PO Last administered on 11/25/16 07:59; Start 11/24/16 at 09:00; Stop 11/25/16 at 10:42; Status DC Ceftriaxone Sodium/Sodium Chloride (Rocephin Inj/NS Inj) 100 ml @ 200 mls/hr ONCE ONCE IV Last administered on 11/24/16 09:43; Start 11/24/16 at 09:30; Stop 11/24/16 at 09:59; Status DC Methylnaltrexone [place] (Relistor Inj) 12 mg ONCE ONCE SQ Last administered on 11/24/16 12:04; Start 11/24/16 at 10:30; Stop 11/24/16 at 10:31; Status DC Gabapentin (Neurontin) 300 mg TID PO Last administered on 11/26/16 08:29; Start 11/25/16 at 13:00 Ciprofloxacin (Cipro) 500 mg Q12H PO Last administered on 11/26/16 00:56; Start 11/25/16 at 11:00 Morphine Sulfate (Oramorph Sr) 15 mg ONCE ONCE PO Last administered on 12:39; Start 11/25/16 at 10:45; Stop 11/25/16 at 10:47; Status DC Morphine Sulfate (Oramorph Sr) 30 mg Q12HR PO Last administered on 11/26/16 08: 29; Start 11/25/16 at 21:00 A/P Assessment and Plan A/P -history of lymphoma with T12/L5 fracture continue with pain control; started on neurontin, oral morphine with prn dilaudid-s/p bone biopsy from L5- follow the pathology oncology,neurosurgery following- consulted radiation oncology. consulted PT/OT. -UTI; continue Cipro -diabetes mellitus; accu-check with SSI -chronic renal insufficiency- stable- will monitor -hypothyroidism; resumed levothyroxine -DVT prophylaxis; SCD's - Discharge Planning when pain is better controlled and cleared by oncology and neurosurgery. Karsten Peters MD Nov 26, 2016 10:40 Karsten Peters MD Nov 26, 2016 10:40
--- NOTE | 2016-11-26 11:17 | PD.ONC.PN ---
Subjective Subjective Remarks Afebrile overnight. Patient resting comfortably. She states her pain is well controlled and she feels very good today. She feels like she will have a BM today. Objective Data Date Time Temp Pulse Resp B/P Pulse Ox O2 Delivery O2 Flow Rate FiO2 11/26/16 08:13 97.1 86 20 125/67 95 11/26/16 04:00 96.0 83 18 120/76 98 11/26/16 00:00 98.6 83 18 142/81 97 11/25/16 20:00 98.6 83 18 139/58 98 11/25/16 16:00 96.5 81 18 114/63 100 11/25/16 12:07 96.3 77 18 106/59 97 11/26/16 11/26/16 11/26/16 07:00 15:00 23:00 Intake Total 100 ml Balance 100 ml Result Diagram: 11/22/16 0826 Culture Results Microbiology Date/Time Procedure Status Source Growth 11/24/16 12:00 Urine Culture - Final Complete Urine Clean Catch 10-50,000 CFU/ML MIXED LAINEY... Administered Medications Medications (Trade) Dose Ordered Sig/Louisa Route PRN Reason Start Time Stop Time Status Last Admin Dose Admin Enalaprilat (Vasotec Inj) 1.25 mg Q8H PRN IV PUSH SBP> OR = 180, DBP> OR = 100 11/21/16 10:45 11/25/16 00:16 Alprazolam (Xanax) 0.25 mg Q4H PRN PO ANXIETY 11/21/16 12:00 11/26/16 00:57 Levothyroxine Sodium (Synthroid) 100 mcg DAILY@0600 PO 11/22/16 06:00 11/26/16 06:35 Hydromorphone HCl (Dilaudid Pf Inj) 1 mg Q3HR PRN IV PUSH PAIN SCALE 9 TO 10 11/23/16 11:00 11/25/16 01:19 Hydromorphone HCl (Dilaudid) 4 mg Q3H PRN PO pain1-8 11/23/16 09:15 11/26/16 10:38 Docusate Sodium (Colace) 100 mg BID PO 11/23/16 13:00 11/26/16 08:29 Gabapentin (Neurontin) 300 mg TID PO 11/25/16 13:00 11/26/16 08:29 Ciprofloxacin (Cipro) 500 mg Q12H PO 11/25/16 11:00 12/01/16 08:00 11/26/16 10:38 Morphine Sulfate (Oramorph Sr) 30 mg Q12HR PO 11/25/16 21:00 11/26/16 08:29 Objective Remarks GENERAL: Elderly female, lying in bed, in nad. SKIN: Warm and dry. HEAD: Normocephalic. EYES: No injection or drainage. NECK: Supple, trachea midline. CARDIOVASCULAR: Regular rate and rhythm RESPIRATORY: Breath sounds equal bilaterally. No accessory muscle use. GASTROINTESTINAL: Abdomen soft, non-tender, nondistended. EXTREMITIES: No cyanosis NEUROLOGICAL: AOX3. moving extremities. normal speech. Assessment/Plan Problem List: (1) Fracture of lumbar spine Status: Acute Plan: -- could be another primary tumor versus transformed follicular lymphoma . awaiting pathology from biopsy done on 11/22. --PET scan, 10/24, showed intense uptake within L5 left transverse process with associated hairline pathologic fracture. --MRI lumbar spine showed severe compression fracture deformity of L5 with invagination of the superior inferior endplate and marrow edema. +retropulsion with mass effect on the left S1 nerve root. +mild compression fracture deformity of T12. --CT lumbar spine showed destructive process involving transverse process of L5 suspicious of neoplastic process. This appeared to be causing all her symptoms. (2) Pain management Status: Acute Plan: --currently on PO dilaudid and IV dilaudid + Oramorph started 11/24 and increased to 30mg PO BID on 11/25 (3) Non-Hodgkin lymphoma Status: Chronic Plan: --if this turns out to be a follicular lymphoma -->could be radiated to relieve her symptoms and then she could be started back on Rituxan and Revlimid and hopefully eventually we can treat her with a radioimmunotherapy like Bexxar. History: --first treated with rituximab and Treanda --finished two years of maintenance Rituxan in January of 2014. --December 2015-->found to have progression of disease. treated with and Zydelig with Rituxan and then maintained on Zydelig --2016: CT showed low density masses in the retroperitoneum at the superior posterior left pelvis and the right pelvic sidewall. The --October 2016: PET scan showed these lesions were less prominent and not hypermetabolic. +hypermetabolic presacral lesion measured about 1.6 cm and the L5 hypermetabolic lesion. She --started on Rituxan and Revlimid about 2 weeks ago. Assessment 81y/o female with h/o follicular and hodgkin's lymphoma. admitted with severe lower back pain, awaiting pathology from biopsy -History of Hodgkin lymphoma. She received six cycles of ABVD in 2006. She then received consolidation radiation in 2007. Plan 1. continue pain management with oramorph and dilaudid. she seems to be tolerating these medications very well 2. await pathology 3. plan to start XRT as soon as planning finished by radiation--possibly today. Attending Statement The exam, history, and the medical decision-making described in the above note were completed with the assistance of the mid-level provider. I reviewed and agree with the findings presented. I attest that I had a [id number] encounter with the patient on the same day, and personally performed and documented my assessment and findings in the medical record. Pain better controlled. Path pending. Await palliative XRT. Continue supportive care. Problem Qualifiers (1) Fracture of lumbar spine: Qualified Code: S32.050A - Closed wedge compression fracture of fifth lumbar vertebra, initial encounter (2) Non-Hodgkin lymphoma: Ledy Sneed Nov 26, 2016 11:17 Fredy Soni MD Nov 26, 2016 17:26
[2016-11-26 12:08] VITALS: BP 125/71; PULSE 86; RESP 20; TEMP 97; O2SAT 95
[2016-11-26 15:42] VITALS: BP 121/61; PULSE 86; RESP 20; TEMP 97.3; O2SAT 95
--- NOTE | 2016-11-26 16:08 | HHI.NSPN ---
(Eva Ring) Note Status Status: Progress Note (Eav Ring) Interval History Interval History This is a 81-year-old female with a history of Hodgkin lymphoma and non-Hodgkin lymphoma presented to the hospital with increased low back pain. Apparently she was found to have progression of non-Hodgkin / follicular lymphoma. She saw Dr. Stoll and was started on Rituxan and Zydelig and later maintained on Zydelig until two weeks ago. In September she was referred to Dr. Hu because a pelvic cystic mass and increased left lower extremity pain. She had a repeat PET CT scan on October 24 which showed lymph node bilateral inguinal canal and right presacral area but at that time there was also a hypermetabolic lesion noted in L5. She reports increased low back pain that radiates down the left leg for about two months. It is progressively getting worse to the point that she could not walk. Pain no longer controlled with medications. In addition she has weakness and numbness of left leg. She denies any urinary or bowel incontinence. Denies nausea or vomiting, abdominal pain and dysuria, hematuria. Neurosurgical consultation was requested 11/22. Reports persistent LLE pain 11/23/16: Pt awake and alert. Complains of pain radiating into left lateral leg to the toes with associated paresthesias. States it feels like a nerve. 11/24: Pt complains of left lateral leg pain to the toes with associated numbness and paresthesias. Difficulty walking secondary to her pain. 11/25/16: Pt complains of left lateral leg pain to the toes with associated numbness and paresthesias. Pt states she cannot walk secondary to her pain. 11/26: patient seen this am during rounds. patient reports none to minimal back and leg pain when laying down, this however worsens when she starts to move or ambulate. spine bone biopsy pending. denies new neuro symptoms. (Eva Ring) Labs, Micro, & Vital Signs Results Date Time Temp Pulse Resp B/P Pulse Ox O2 Delivery O2 Flow Rate FiO2 11/26/16 12:08 97.0 86 20 125/71 95 11/26/16 08:13 97.1 86 20 125/67 95 11/26/16 04:00 96.0 83 18 120/76 98 11/26/16 00:00 98.6 83 18 142/81 97 11/25/16 20:00 98.6 83 18 139/58 98 11/25/16 16:00 96.5 81 18 114/63 100 11/26/16 07:00 Intake Total 100 ml Balance 100 ml Constitutional Vital Signs Date Time Temp Pulse Resp B/P Pulse Ox O2 Delivery O2 Flow Rate FiO2 11/26/16 12:08 97.0 86 20 125/71 95 11/26/16 08:13 97.1 86 20 125/67 95 11/26/16 04:00 96.0 83 18 120/76 98 11/26/16 00:00 98.6 83 18 142/81 97 11/25/16 20:00 98.6 83 18 139/58 98 11/25/16 16:00 96.5 81 18 114/63 100 11/26/16 07:00 Intake Total 100 ml Balance 100 ml (Eva Ring) Review of Systems/Exam Exam Alert, oriented. Speech is fluent. Follows commands well. Neck: soft, supple CN: pupils equal, facial motor symmetric Motor: moves major muscle groups of both upper and lower extremities well Skin: no cyanosis or erythema (Eva Ring) Medications Current Medications Current Medications Medications (Trade) Dose Ordered Sig/Louisa Route PRN Reason Start Time Stop Time Status Last Admin Dose Admin Enalaprilat (Vasotec Inj) 1.25 mg Q8H PRN IV PUSH SBP> OR = 180, DBP> OR = 100 11/21/16 10:45 11/25/16 00:16 Dextrose (D50w (Vial) Inj) 25 ml UNSCH PRN IV PUSH HYPOGLYCEMIA-SEE COMMENTS 11/21/16 10:45 Glucagon (Glucagon Inj) 1 mg UNSCH PRN OTHER HYPOGLYCEMIA-SEE COMMENTS 11/21/16 10:45 Ondansetron HCl (Zofran Inj) 4 mg Q8HR PRN IV PUSH NAUSEA 11/21/16 10:45 Acetaminophen (Tylenol) 650 mg Q4H PRN PO FEVER/ HEADACHE 11/21/16 12:00 Alprazolam (Xanax) 0.25 mg Q4H PRN PO ANXIETY 11/21/16 12:00 11/26/16 00:57 Levothyroxine Sodium (Synthroid) 100 mcg DAILY@0600 PO 11/22/16 06:00 11/26/16 06:35 Hydromorphone HCl (Dilaudid Pf Inj) 1 mg Q3HR PRN IV PUSH PAIN SCALE 9 TO 10 11/23/16 11:00 11/25/16 01:19 Hydromorphone HCl (Dilaudid) 4 mg Q3H PRN PO pain1-8 11/23/16 09:15 11/26/16 10:38 Magnesium Hydroxide (Milk Of Magnesia Liq) 30 ml DAILY PRN PO CONSTIPATION 11/23/16 11:45 Docusate Sodium (Colace) 100 mg BID PO 11/23/16 13:00 11/26/16 08:29 Gabapentin (Neurontin) 300 mg TID PO 11/25/16 13:00 11/26/16 13:30 Ciprofloxacin (Cipro) 500 mg Q12H PO 11/25/16 11:00 12/01/16 08:00 11/26/16 10:38 Morphine Sulfate (Oramorph Sr) 30 mg Q12HR PO 11/25/16 21:00 11/26/16 08:29 (Eva Ring) Medical Decision Making MDM Remarks 81 y/o female with L5 lesion s/p CT guided biopsy (Eva Ring) Plan Plan Remarks cont current care cont nonop mgt, recommend radiation tx lumbar brace was offered but was declined will sign off, call prn (Eva Ring) Attending Statement The exam, history, and the medical decision-making described in the above note were completed with the assistance of the mid-level provider. I reviewed and agree with the findings presented. I attest that I had a [id number] encounter with the patient on the same day, and personally performed and documented my assessment and findings in the medical record. (Orion Carreon MD) Eva Ring Nov 26, 2016 16:08 Orion Carreon MD Nov 26, 2016 21:17 Orion Carreon MD Nov 26, 2016 21:17
[2016-11-26 20:27] VITALS: BP 142/73; PULSE 93; RESP 18; TEMP 98.8; O2SAT 97
[2016-11-27 01:27] VITALS: BP 93/55; PULSE 95; RESP 18; TEMP 98.7; O2SAT 93
[2016-11-27 04:35] VITALS: BP 128/69; PULSE 88; RESP 16; TEMP 97.9; O2SAT 96
[2016-11-27] MEDS: LEVOTHYROXINE SODIUM 100 MCG TAB PO SCH (05:51)
[2016-11-27] MEDS: INSULIN ASPART SUPPLEMENTAL SCALE SQ SCH ×4 (07:00→21:00)
[2016-11-27] MEDS: DOCUSATE SODIUM 100 MG CAP PO SCH ×2 (07:38→21:28)
[2016-11-27] MEDS: GABAPENTIN 300 MG CAP PO SCH ×3 (07:38→16:16)
[2016-11-27] MEDS: HYDROmorphone HCL 4 MG TAB PO PRN (07:38)
[2016-11-27 08:26] VITALS: BP 147/78; PULSE 91; RESP 18; TEMP 97; O2SAT 96
[2016-11-27] MEDS: MORPHINE SULFATE 30 MG CONTROLLED RELEASE TAB PO SCH ×2 (08:57→21:29)
[2016-11-27] MEDS: CIPROFLOXACIN 500 MG TAB PO SCH ×2 (12:19→22:20)
[2016-11-27 15:00] VITALS: BP 121/76; PULSE 95; RESP 16; TEMP 98.9; O2SAT 94
--- NOTE | 2016-11-27 15:00 | PD.ONC.PN ---
Subjective Subjective Remarks Afebrile overnight. Patient went for radiation but states she got nauseated and vomited. She still has persistent pain in her left low back radiating down the left leg, but the pain does improve with pain medications. Objective Data Date Time Temp Pulse Resp B/P Pulse Ox O2 Delivery O2 Flow Rate FiO2 11/27/16 08:26 97.0 91 18 147/78 96 11/27/16 04:35 97.9 88 16 128/69 96 11/27/16 01:27 98.7 95 18 93/55 93 11/26/16 20:27 98.8 93 18 142/73 97 11/26/16 15:42 97.3 86 20 121/61 95 11/27/16 11/27/16 11/27/16 07:00 15:00 23:00 Intake Total 240 ml Balance 240 ml Administered Medications Medications (Trade) Dose Ordered Sig/Louisa Route PRN Reason Start Time Stop Time Status Last Admin Dose Admin Enalaprilat (Vasotec Inj) 1.25 mg Q8H PRN IV PUSH SBP> OR = 180, DBP> OR = 100 11/21/16 10:45 11/25/16 00:16 Ondansetron HCl (Zofran Inj) 4 mg Q8HR PRN IV PUSH NAUSEA 11/21/16 10:45 11/27/16 08:30 Alprazolam (Xanax) 0.25 mg Q4H PRN PO ANXIETY 11/21/16 12:00 11/26/16 00:57 Levothyroxine Sodium (Synthroid) 100 mcg DAILY@0600 PO 11/22/16 06:00 11/27/16 05:51 Hydromorphone HCl (Dilaudid Pf Inj) 1 mg Q3HR PRN IV PUSH PAIN SCALE 9 TO 10 11/23/16 11:00 11/25/16 01:19 Hydromorphone HCl (Dilaudid) 4 mg Q3H PRN PO pain1-8 11/23/16 09:15 11/27/16 07:38 Docusate Sodium (Colace) 100 mg BID PO 11/23/16 13:00 11/27/16 07:38 Gabapentin (Neurontin) 300 mg TID PO 11/25/16 13:00 11/27/16 12:19 Ciprofloxacin (Cipro) 500 mg Q12H PO 11/25/16 11:00 12/01/16 08:00 11/27/16 12:19 Morphine Sulfate (Oramorph Sr) 30 mg Q12HR PO 11/25/16 21:00 11/27/16 08:57 Objective Remarks GENERAL: Elderly female, upright in bed, eating lunch SKIN: Warm and dry. HEAD: Normocephalic. EYES: No injection or drainage. NECK: Supple, trachea midline. CARDIOVASCULAR: Regular rate and rhythm RESPIRATORY: Breath sounds equal bilaterally. No accessory muscle use. GASTROINTESTINAL: Abdomen soft, non-tender, nondistended. EXTREMITIES: No cyanosis NEUROLOGICAL: Awake and alert, normal speech. 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 --PET scan, 10/24, showed intense uptake within L5 left transverse process with associated hairline pathologic fracture. --MRI lumbar spine showed severe compression fracture deformity of L5 with invagination of the superior inferior endplate and marrow edema. +retropulsion with mass effect on the left S1 nerve root. +mild compression fracture deformity of T12. --CT lumbar spine showed destructive process involving transverse process of L5 suspicious of neoplastic process. This appeared to be causing all her symptoms. (2) Pain management Status: Acute Plan: --currently on PO dilaudid and IV dilaudid + Oramorph started 11/24 and increased to 30mg PO BID on 11/25 --radiation to spine started 11/26/16 (3) Non-Hodgkin lymphoma Status: Chronic Plan: --if this turns out to be a follicular lymphoma -->could be radiated to relieve her symptoms and then she could be started back on Rituxan and Revlimid and hopefully eventually we can treat her with a radioimmunotherapy like Bexxar. History: --first treated with rituximab and Treanda --finished two years of maintenance Rituxan in January of 2014. --December 2015-->found to have progression of disease. treated with and Zydelig with Rituxan and then maintained on Zydelig --2016: CT showed low density masses in the retroperitoneum at the superior posterior left pelvis and the right pelvic sidewall. The --October 2016: PET scan showed these lesions were less prominent and not hypermetabolic. +hypermetabolic presacral lesion measured about 1.6 cm and the L5 hypermetabolic lesion. She --started on Rituxan and Revlimid about 2 weeks ago. Assessment 81y/o female with h/o follicular and hodgkin's lymphoma. admitted with severe lower back pain, awaiting pathology from biopsy -History of Hodgkin lymphoma. She received six cycles of ABVD in 2006. She then received consolidation radiation in 2007. Plan 1. continue XRT + pain management 2. will discuss pathology further with pathologist and then discuss treatment options with patient. Attending Statement The exam, history, and the medical decision-making described in the above note were completed with the assistance of the mid-level provider. I reviewed and agree with the findings presented. I attest that I had a [id number] encounter with the patient on the same day, and personally performed and documented my assessment and findings in the medical record. Pain better controlled but morphine is making her more tired and forgetful. Discussed her pathology with pathologist at the tumor board. I have also discussed with patient and her daughter Katlin over the phone. 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 She is receiving palliative XRT to her back to hopefully relieve some of her pain. However, she will also need systemic chemotherapy if she wants to be aggressive with treatment. Patient has told me that she does not want to be aggressive with treatment. Her daughter is going to talk to her more about her wish. If she wants treatment, can consider RICE or R-ESHAP but she likely will experience significant side effect. Problem Qualifiers (1) Non-Hodgkin lymphoma: Ledy Sneed Nov 27, 2016 15:00 Fredy Soni MD Nov 27, 2016 18:19
--- NOTE | 2016-11-27 18:05 | HHI.PR ---
Subjective Remarks Follow-up for pathologic fracture in a patient with history of lymphoma. Patient is currently doing well. No fever or chills. Patient underwent radiation therapy today. Objective Vitals Vital Signs Date Time Temp Pulse Resp B/P Pulse Ox O2 Delivery O2 Flow Rate FiO2 11/27/16 15:00 98.9 95 16 121/76 94 11/27/16 08:26 97.0 91 18 147/78 96 11/27/16 04:35 97.9 88 16 128/69 96 11/27/16 01:27 98.7 95 18 93/55 93 11/26/16 20:27 98.8 93 18 142/73 97 I/O 11/26/16 11/26/16 11/26/16 11/27/16 11/27/16 11/27/16 07:00 15:00 23:00 07:00 15:00 23:00 Intake Total 100 ml 240 ml Balance 100 ml 240 ml Intake Oral 100 ml 240 ml IV Total 0 ml # Voids 2 3 3 1 1 # Bowel Movements 1 0 Imaging Last Impressions Bone Biopsy CT 11/22/16 0600 Signed Impressions: Service Date/Time: October 10:41 - CONCLUSION: Uncomplicated CT guided biopsy. León Good MD Lumbar Spine CT 11/21/16 0000 Signed Impressions: Service Date/Time: Monday, November 21, 2016 10:19 - CONCLUSION: 1. Destructive process involving the transverse process of L5 suspicious for neoplastic process. This could be biopsied percutaneously. Quinton Robison MD FACR Lower Extremity CT 11/21/16 0000 Signed Impressions: Service Date/Time: Monday, November 21, 2016 10:19 - CONCLUSION: I do not see hip fracture although troch nails make conclusion of subtle fracture very difficult. Please see above discussion. Quinton Robison MD FACR Objective Remarks GENERAL: Alert, NAD. SKIN: Warm and dry. HEAD: Normocephalic. EYES: No scleral icterus. No injection or drainage. NECK: Supple, trachea midline. No JVD or lymphadenopathy. CARDIOVASCULAR: Regular rate and rhythm without murmurs, gallops, or rubs. RESPIRATORY: Breath sounds equal bilaterally. No accessory muscle use. GASTROINTESTINAL: Abdomen soft, non-tender, nondistended. MUSCULOSKELETAL: No cyanosis, or edema. BACK: Nontender without obvious deformity. No CVA tenderness. Procedures bone biopsy ( L5). A/P Problem List: (1) Fracture of lumbar spine ICD Code: S32.009A Status: Acute Assessment and Plan Ms. Feng is an 81-year-old female with a history of Hodgkin's lymphoma and non- Hodgkin lymphoma presented to the emergency department due to increased low back pain. - T12/L5 pathologic fracture. 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 - oncology,neurosurgery following- consulted radiation oncology. - consulted PT/OT. - Oncology has discussed with patient. Patient's daughter will discuss further with patient. - UTI; continue Cipro - diabetes mellitus; accu-check with SSI - chronic renal insufficiency- stable- will monitor - hypothyroidism; resumed levothyroxine Full code. SCDs. Discussed with Oncology PA. Problem Qualifiers (1) Fracture of lumbar spine: Qualified Code: S32.050A - Closed wedge compression fracture of fifth lumbar vertebra, initial encounter Renaldo Larsen DO Nov 27, 2016 18:05
[2016-11-27] MEDS: HYDROmorphone HCL PF 1 MG/ML VIAL IV PUSH PRN (19:15)
[2016-11-27 20:00] VITALS: BP 156/76; PULSE 91; RESP 16; TEMP 97.2; O2SAT 98
[2016-11-27] MEDS: DEXAMETHASONE 4 MG TAB PO SCH (21:28)
[2016-11-28] VITALS: BP 129/70; PULSE 88; RESP 16; TEMP 97.2; O2SAT 94
[2016-11-28 04:04] VITALS: BP 128/72; PULSE 85; RESP 18; TEMP 97.1; O2SAT 95
[2016-11-28] MEDS: LEVOTHYROXINE SODIUM 100 MCG TAB PO SCH ×2 (05:44→06:00)
[2016-11-28] MEDS: INSULIN ASPART SUPPLEMENTAL SCALE SQ SCH ×4 (06:25→21:00)
[2016-11-28 08:32] VITALS: BP 149/94; PULSE 84; RESP 16; TEMP 97.2; O2SAT 94
[2016-11-28] MEDS: DOCUSATE SODIUM 100 MG CAP PO SCH (09:07)
[2016-11-28] MEDS: DEXAMETHASONE 4 MG TAB PO SCH ×2 (09:07→22:19)
[2016-11-28] MEDS: GABAPENTIN 300 MG CAP PO SCH ×3 (09:07→16:48)
[2016-11-28] MEDS: PANTOPRAZOLE SOD 20 MG DELAYED RELEASE TAB PO SCH (09:07)
[2016-11-28] MEDS: MORPHINE SULFATE 30 MG CONTROLLED RELEASE TAB PO SCH (09:08)
[2016-11-28 11:00] VITALS: BP 138/78; PULSE 81; RESP 16; TEMP 97.3; O2SAT 94
[2016-11-28] MEDS: CIPROFLOXACIN 500 MG TAB PO SCH ×2 (11:04→22:19)
--- NOTE | 2016-11-28 11:49 | PD.ONC.PN ---
Subjective Subjective Remarks Afebrile overnight. She is very comfortable but confused. She tells me she slept "somewhere else,' last night and just came back to this floor. I am concerned this may be due to the pain medications she has been receiving. Objective Data Date Time Temp Pulse Resp B/P Pulse Ox O2 Delivery O2 Flow Rate FiO2 11/28/16 08:32 97.2 84 16 149/94 94 11/28/16 04:04 97.1 85 18 128/72 95 11/28/16 00:00 97.2 88 16 129/70 94 11/27/16 20:00 97.2 91 16 156/76 98 11/27/16 15:00 98.9 95 16 121/76 94 Administered Medications Medications (Trade) Dose Ordered Sig/Louisa Route PRN Reason Start Time Stop Time Status Last Admin Dose Admin Enalaprilat (Vasotec Inj) 1.25 mg Q8H PRN IV PUSH SBP> OR = 180, DBP> OR = 100 11/21/16 10:45 11/25/16 00:16 Ondansetron HCl (Zofran Inj) 4 mg Q8HR PRN IV PUSH NAUSEA 11/21/16 10:45 11/27/16 08:30 Alprazolam (Xanax) 0.25 mg Q4H PRN PO ANXIETY 11/21/16 12:00 11/26/16 00:57 Levothyroxine Sodium (Synthroid) 100 mcg DAILY@0600 PO 11/22/16 06:00 11/27/16 05:51 Hydromorphone HCl (Dilaudid Pf Inj) 1 mg Q3HR PRN IV PUSH PAIN SCALE 9 TO 10 11/23/16 11:00 11/27/16 19:15 Hydromorphone HCl (Dilaudid) 4 mg Q3H PRN PO pain1-8 11/23/16 09:15 11/27/16 07:38 Docusate Sodium (Colace) 100 mg BID PO 11/23/16 13:00 11/28/16 09:07 Gabapentin (Neurontin) 300 mg TID PO 11/25/16 13:00 11/28/16 11:04 Ciprofloxacin (Cipro) 500 mg Q12H PO 11/25/16 11:00 12/01/16 08:00 11/28/16 11:04 Morphine Sulfate (Oramorph Sr) 30 mg Q12HR PO 11/25/16 21:00 11/28/16 09:08 Dexamethasone (Decadron) 4 mg Q12HR PO 11/27/16 21:00 11/28/16 09:07 Pantoprazole Sodium (Protonix) 20 mg DAILY PO 11/28/16 09:00 11/28/16 09:07 Objective Remarks GENERAL: Elderly female, supine in bed in [facility]. SKIN: Warm and dry. HEAD: Normocephalic. EYES: No injection or drainage. NECK: Supple, trachea midline. CARDIOVASCULAR: Regular rate and rhythm RESPIRATORY: Breath sounds equal bilaterally. No accessory muscle use. GASTROINTESTINAL: Abdomen soft, non-tender, nondistended. EXTREMITIES: No cyanosis NEUROLOGICAL: Awake and alert, normal speech. oriented to self and knows she is at [facility] but confused about which floor she is/was on. 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 d/w patient treatment options, she does not wish to be aggressive. we will consult palliative care to have them help her make decisions regarding goals of care, especially as she is getting more confused. her healthcare surrogate is her daughter, Katlin. --PET scan, 10/24, showed intense uptake within L5 left transverse process with associated hairline pathologic fracture. --MRI lumbar spine showed severe compression fracture deformity of L5 with invagination of the superior inferior endplate and marrow edema. +retropulsion with mass effect on the left S1 nerve root. +mild compression fracture deformity of T12. --CT lumbar spine showed destructive process involving transverse process of L5 suspicious of neoplastic process. This appeared to be causing all her symptoms. (2) Pain management Status: Acute Plan: --11/28: I am reducing her oramorph back to 15mg PO BID, reducing her breakthrough dilaudid to 0.5mg IV or 2mg PO as her confusion seems to be worsening. we can certainly titrate these back up if needed. --radiation to spine started 11/26/16 (3) Non-Hodgkin lymphoma Status: Chronic Plan: History: --first treated with rituximab and Treanda --finished two years of maintenance Rituxan in January of 2014. --December 2015-->found to have progression of disease. treated with and Zydelig with Rituxan and then maintained on Zydelig --2016: CT showed low density masses in the retroperitoneum at the superior posterior left pelvis and the right pelvic sidewall. The --October 2016: PET scan showed these lesions were less prominent and not hypermetabolic. +hypermetabolic presacral lesion measured about 1.6 cm and the L5 hypermetabolic lesion. She --started on Rituxan and Revlimid about 2 weeks ago. Assessment 81y/o female with h/o follicular and hodgkin's lymphoma. admitted with severe lower back pain, awaiting pathology from biopsy -History of Hodgkin lymphoma. She received six cycles of ABVD in 2006. She then received consolidation radiation in 2007. Plan 1. consult palliative care 2. continue XRT 3. supportive care Attending Statement The exam, history, and the medical decision-making described in the above note were completed with the assistance of the mid-level provider. I reviewed and agree with the findings presented. I attest that I had a [id number] encounter with the patient on the same day, and personally performed and documented my assessment and findings in the medical record. Pain is better controlled. Was confused when I woke her up in the morning but easily redirected. Extensive discussion with her and her daughter Katlin at the bedside. We went over the diagnosis and treatment options. She is currently receiving palliative XRT to L5. I told her she will need systemic chemotherapy if she wants to be aggressive with treatment. I told them she can still go into remission with systemic chemotherapy. We can consider treating her with R- ICE or R-ESHAP. She does not want aggressive chemotherapy. We briefly talked about hospice but they are not ready. She will talked to her family and decide later. Will decrease her morphine if pain is better. Will consult palliative care meds. Problem Qualifiers (1) Non-Hodgkin lymphoma: Ledy Sneed Nov 28, 2016 11:49 Fredy Soni MD Nov 28, 2016 13:23
--- NOTE | 2016-11-28 13:36 | PD.CONS ---
Consult Service Palliative Care . Consult Requested By JONATHAN Murray/ Dr. Soni. . Primary Care Physician Corey Das MD . Reason for Consultation a. To assist with evaluation and management of symptoms including: pain, constipation, weakness. b. To assist medical decision maker(s) with: better understanding of current medical conditions; weighing benefits/burdens of medical treatment options; making medical treatment decisions. . HPI History of Present Illness Ms. Feng is an 81 year old female with past medical history of non-Hodgkins lymphoma, diabetes, hypothyroidism, anxiety, depression and chronic back pain. Notes indicate history of chronic, recurrent low back pain and left leg pain due to history of follicular non-Hodgkins lymphoma/ psoas mass. Patient has been followed by Dr. Stoll, medical oncologist getting recent treatment with Rituxan and Zydelig. In September she was evaluated by Dr. Hu for pelvic cystic mass and left LE pain. PET/CT done 10/24/16 revealed bilateral inguinal lymph nodes and right presacral region and hypermetabolic lesion of L5. She was in ER 2 days prior with acute exacerbation of left leg/hip pain, DC with Oxycodone 10mg without relief. Patient had MRI lumbar spine done prior to admission that revealed moderate to severe compression fracture deformity of L5 vertebral body with mass effect on S1 nerve root, new mild compression fracture deformity T12, disc disease and central canal stenosis at L4-L5 level. She apparently had been seen by neurosurgery with plans for follow up with neurosurgery and radiation oncology. Patient presented to [facility] Emergency Department on 11/21/16 via [facility] for evaluation of low back and left hip pain after a fall prior. Upon arrival CT of Lumbar spine revealed destructive process involving the transverse process of L5 suspicious for neoplastic process. CT of left lower extremity did not identify any fracture. Neurosurgery, Dr. Carreon and Medical Oncologist, Dr. Soni were consulted with recommendation for biopsy and radiation consult. CT directed bone biopsy of L5 was performed on 11/22/16 pathology positive large B- cell lymphoma. Dr. Hu, radiation oncology was consulted and palliative radiation to spine was started on 11/26/16. Patient is reportedly confused, team feels possibly due to pain meds. Pain regimen recently included Oramorph 30 mg PO every 12 hours (started 11/25/16) and Hydromorphone 4mg PO every 3 hours PRN BTP rated 1-8 (has had 2 doses in the past 24 hours) or Hydromorphone 1mg IV every 3 hours PRN BTP rate 9-10 (has had 1 dose in the past 24 hours). She is bedbound due to fracture. Oncology notes indicate patient may be eligible for additional chemotherapy upon DC. It appears her pain medication has been decreased today (11/28/16) to Oramorph 15 mg every 12 hours ATC and Hydromorphone 2mg PO every 3 hours PRN BTP rated 1-8 or Hydromorphone 0.5 mg IV every 3 hours PRN BTP rate 9-10. 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 . Function/Cognitive Trajectory Patient has had increased weakness and falls (about 5 falls reported) in the past month or so. Decreased energy and appetite. . Review of Systems Constitutional: COMPLAINS OF: Fatigue, Weight loss, Change in appetite ( decreased), Pain, Generalized weakness Eyes: COMPLAINS OF: Blurred vision (wears glasses) Respiratory: DENIES: Apneas, Cough, Snoring, Wheezing, Hemoptysis, Sputum production, Shortness of breath Gastrointestinal: COMPLAINS OF: Constipation, Nausea, Anorexia Musculoskeletal: COMPLAINS OF: Back pain Hematologic/Lymphatics: COMPLAINS OF: Bruising Neurologic: COMPLAINS OF: Abnormal gait (due to old right hip surgery), Localized weakness (LLE, leg was "just giving out" ), Paresthesias, Poor Balance (frequent falls) Psychiatric: COMPLAINS OF: Anxiety, Depression ( 8 months ago and situational due to disease progression) Past Family Social History Coded Allergies: Sulfa (Verified Allergy, Severe, Hives, 11/21/16) *MDRO Multi-Drug Resistant Organism (Verified Adverse Reaction, Unknown, ) 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 Past Medical History Hogkins Lymphoma treated in 2006 with 6 cycles ABVD and consolidation radiation 2007 . non-Hodgkins lymphoma/ follicular lymphoma Diabetes mellitus Hypothyroidism Osteoarthritis Osteoporosis Anxiety Depression History of broken left arm . Past Surgical History Appendectomy Tubal ligation Right Port Placement and removal Colonoscopy Bilateral hip surgery Tonsillectomy Bilateral cataract surgery Bladder lift x 2 with mesh placement 2009. . Reported Medications Reported Medications Amoxicillin 500 Mg Cap 500 Mg PO BID Levothyroxine (Levothyroxine Sodium) 100 Mcg Tab 100 Mcg PO DAILY Glimepiride 2 Mg Tab 2 Mg PO DAILY Take with breakfast or first main meal Alprazolam 0.25 Mg Tab 0.25 Mg PO Q4H PRN . Current Medications Medications (Trade) Dose Ordered Sig/Louisa Route Start Time Stop Time Status Last Admin (Vasotec Inj) 1.25 mg Q8H PRN IV PUSH 11/21/16 10:45 11/25/16 00:16 (D50w (Vial) Inj) 25 ml UNSCH PRN IV PUSH 11/21/16 10:45 (Glucagon Inj) 1 mg UNSCH PRN OTHER 11/21/16 10:45 (Zofran Inj) 4 mg Q8HR PRN IV PUSH 11/21/16 10:45 11/27/16 08:30 (Tylenol) 650 mg Q4H PRN PO 11/21/16 12:00 (Xanax) 0.25 mg Q4H PRN PO 11/21/16 12:00 11/26/16 00:57 (Synthroid) 100 mcg DAILY@0600 PO 11/22/16 06:00 11/27/16 05:51 (Dilaudid Pf Inj) 1 mg Q3HR PRN IV PUSH 11/23/16 11:00 11/27/16 19:15 (Dilaudid) 4 mg Q3H PRN PO 11/23/16 09:15 11/27/16 07:38 (Milk Of Magnesia Liq) 30 ml DAILY PRN PO 11/23/16 11:45 (Colace) 100 mg BID PO 11/23/16 13:00 11/28/16 09:07 (Neurontin) 300 mg TID PO 11/25/16 13:00 11/28/16 09:07 (Cipro) 500 mg Q12H PO 11/25/16 11:00 12/01/16 08:00 11/27/16 22:20 (Oramorph Sr) 30 mg Q12HR PO 11/25/16 21:00 11/28/16 09:08 (Decadron) 4 mg Q12HR PO 11/27/16 21:00 11/28/16 09:07 (Protonix) 20 mg DAILY PO 11/28/16 09:00 11/28/16 09:07 . Family History Mother age 93. Father age 78. Brother of pancreatic cancer. Substance Use Tobacco: Never smoked. Alcohol: none. Prescription med abuse: none. Illicits: none. . Psychosocial History . Has 4 sons and 2 daughters. 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 Lives alone, supported by her children and her neighbor, Danna. . Spiritual/Cultural Factors Oriental Orthodox lilly. . Living Will: Copy in medical record Health Care Surrogate: Copy in medical record Date completed: 08/21/2016 . Health Care Surrogate(s): Primary Health Care Surrogate: Katlin Sim 1st alternate HCS: Tito Gaffney 2nd alternate: Greg Dailey . Documented care wishes: 5 wishes on chart with hand written instructions stating "no life support - do not try to keep me alive. No feeding tube, No CPR, surgery, blood transfusions, dialysis or anything to keep me alive." . Today's verbally stated goals: Desires continued aggressive care (palliative radiation to spine) short of NO CODE for now. She is very realistic and has a good understanding of disease process and that cancer is not curable. . Family/friends goals: Friend, Danna at bedside. Palliative care number provided to patient and her friend. Offered family meeting and advised she could provide her children with my number should they have medical questions. . Ethical and Legal Issues Patient is currently capacitated to make her own decisions. Should she lose capacity she has designated her daughter, Katlin Sim as primary health care surrogate. . Physical Exam Vital Signs Date Time Temp Pulse Resp B/P Pulse Ox O2 Delivery O2 Flow Rate FiO2 11/28/16 08:32 97.2 84 16 149/94 94 11/28/16 04:04 97.1 85 18 128/72 95 11/28/16 00:00 97.2 88 16 129/70 94 11/27/16 20:00 97.2 91 16 156/76 98 11/27/16 15:00 98.9 95 16 121/76 94 11/27/16 11/28/16 19:00 07:00 Intake Total 240 ml 200 ml Balance 240 ml 200 ml Intake Oral 240 ml 200 ml IV Total 0 ml # Voids 2 4 Exam CONSTITUTIONAL/GENERAL: This is an adequately nourished patient, in no apparent distress. SKIN: No jaundice, rashes, or lesions. Ecchymoses on upper extremities. No wounds seen anteriorly. Skin temperature appropriate. Not diaphoretic. HEAD: Atraumatic. Normocephalic. EYES: Pupils equal and round and reactive. Extraocular motions intact. No scleral icterus. No injection or drainage. Fundi not examined. ENT: Hearing grossly normal. Nose without bleeding or purulent drainage. Throat without visible erythema, exudates, masses, or lesions. NECK: Trachea midline. Supple, nontender. No palpable thyroid enlargement or nodularity. CARDIOVASCULAR: Regular rate and rhythm without murmurs, gallops, or rubs. No JVD. Peripheral pulses symmetric. RESPIRATORY/CHEST: Symmetric, unlabored respirations. Clear to auscultation. Breath sounds equal bilaterally. No wheezes, rales, or rhonchi. GASTROINTESTINAL: Abdomen soft, non-tender, nondistended. No hepato-splenomegaly , or palpable masses. No guarding. Bowel sounds present. GENITOURINARY: Without palpable bladder distension. Bryan catheter in place. MUSCULOSKELETAL: Extremities without clubbing, cyanosis, or edema. Bilateral LE weakness. Able to life right leg off bed a few inches. Unable to lift left foot off bed, wiggles toes slightly. No mottling or clubbing. LYMPHATICS: No palpable cervical or supraclavicular adenopathy. NEUROLOGICAL: Awake and alert. Follows commands. Cognitively sharp. PSYCHIATRIC: Intermittent anxiety. No hallucinations or other psychotic thought process. . Diagnostic Tests Microbiology Microbiology Date/Time Procedure Status Source Growth 11/24/16 12:00 Urine Culture - Final Complete Urine Clean Catch 10-50,000 CFU/ML MIXED LAINEY... . Imaging Last Impressions Bone Biopsy CT 11/22/16 0600 Signed Impressions: Service Date/Time: October 10:41 - CONCLUSION: Uncomplicated CT guided biopsy. León Good MD Lumbar Spine CT 11/21/16 0000 Signed Impressions: Service Date/Time: Monday, November 21, 2016 10:19 - CONCLUSION: 1. Destructive process involving the transverse process of L5 suspicious for neoplastic process. This could be biopsied percutaneously. Quinton Robison MD FACR Lower Extremity CT 11/21/16 0000 Signed Impressions: Service Date/Time: Monday, November 21, 2016 10:19 - CONCLUSION: I do not see hip fracture although troch nails make conclusion of subtle fracture very difficult. Please see above discussion. Quinton Robison MD FACR . Patient/Family Conference Present at Family Conference: Met with patient and her friend, Danna at bedside. . Family Conference Time (mins): 60 Family Conference Location: Bedside Issues Discussed: * Palliative care role, purpose, approach * Additional medical, psychosocial, and spiritual history * Patients general health, functional status, and cognitive changes in the months leading up to the current hospitalization * Patient/family understanding of the current medical problems * Patient/family understanding of prognosis * Patients goals of care as best understood from advance directives and/or conversations and/or values * Current medical treatment options and benefits/burdens of those options * Likely scenarios comparing ongoing aggressive care with a transition to comfort measures only * Questions answered to the best of my ability * Palliative care contact information provided Assessment and Plan Disease Oriented Problem List: (1) Fracture of lumbar spine (2) Non-Hodgkin lymphoma (3) Pain management (4) Acute exacerbation of chronic low back pain (5) Hypothyroidism (6) Diabetes mellitus Symptom Scale: (1) Pain 0-10 Scale: 4 (2) Weakness 0-10 Scale: Unable to quantify (3) Anxiety 0-10 Scale: 0 Pertinent Non-Medical Issues Psychosocial: . Has 4 sons and 2 daughters. Spiritual: Oriental Orthodox lilly. Legal: Notes indicate written advanced directives. Ethical issues impacting care: No known concerns at this time. . Important Contacts * Katlin Gasca, Daughter: [phone] . Prognosis Patient with progressive lymphoma that is not curable, now with pathologic fracture of L5 getting palliative radiation (20 planned tx) now bedbound. Unlikely she will be able to walk again. May be a candidate for palliative chemotherapy in the future per oncology depending on course. . Code Status: No Code Plan * Patient is currently capacitated to make her own health care decisions. Living Will (5 wishes) on chart with designated health care surrogate, daughter Katlin Sim. [place] DNR completed per pt request 11/28/16. * NO CODE - [place] DNR on chart to go with patient upon DC. * Palliative care met with patient and friend, Danna at bedside. She desires NO CODE, she signed [place] DNR. Patient wants to complete palliative radiation to spine , hopeful (though realistic) about potentially getting chemo in the future. She understands she will likely require placement upon DC. * SYMPTOMS: Back pain: due to progressive lymphoma and L5 pathologic fracture. On Oramorph 15mg PO every 12 hours and PRN Dilaudid. Will monitor need and effect. Patient feels meds are adequate at this time. Anxiety: Intermittent, denies today. Weakness: due to pathologic spine fracture secondary to lymphoma/ disease progression. Constipation: No BM in 3 days per pt report. DC Colace. Added Senna-S 1 PO BID. PRN MOM available, encouraged use. * Palliative care number provided. * Palliative care will continue to follow to assist with symptom management and further clarification of goals as needed. Thank you for the opportunity to participate in the care of Ms. Feng. Attestation To help prompt me to consider important information that might be impacting today's encounter and assessment, information from prior notes written by myself or my colleagues may have been "brought forward" into today's note. My signature on this note, however, is an attestation that I personally performed the exam, history, and/or decision-making noted today, and, unless otherwise indicated, the interactions with patient, family, and staff as well as the review of records all occurred today. I also attest that the listed assessment and stated plan reflect my best clinical judgment today based on the combination of historical information, prior notes, and today's exam/ interactions. When time spent is documented, it refers only to time spent today by the signer, or if indicated, combined time spent today by collaborating physician/nurse practitioner. . SHARON TORRES Nov 28, 2016 12:07
[2016-11-28 16:00] VITALS: BP 136/68; PULSE 83; RESP 16; TEMP 97.8; O2SAT 97
--- NOTE | 2016-11-28 17:49 | HHI.PR ---
Subjective Remarks Follow-up for pathologic fracture in a patient with history of lymphoma. Ms. Feng is feeling much better today. Pain is well controlled. No fever, chills. Tolerated radiation well. Objective Vitals Vital Signs Date Time Temp Pulse Resp B/P Pulse Ox O2 Delivery O2 Flow Rate FiO2 11/28/16 16:00 97.8 83 16 136/68 97 11/28/16 11:00 97.3 81 16 138/78 94 11/28/16 08:32 97.2 84 16 149/94 94 11/28/16 04:04 97.1 85 18 128/72 95 11/28/16 00:00 97.2 88 16 129/70 94 11/27/16 20:00 97.2 91 16 156/76 98 I/O 11/27/16 11/27/16 11/27/16 11/28/16 11/28/16 11/28/16 07:00 15:00 23:00 07:00 15:00 23:00 Intake Total 240 ml 200 ml 240 ml 240 ml Balance 240 ml 200 ml 240 ml 240 ml Intake Oral 240 ml 200 ml 240 ml 240 ml IV Total 0 ml # Voids 3 1 3 2 1 1 # Bowel Movements 0 Objective Remarks GENERAL: Alert, NAD. SKIN: Warm and dry. HEAD: Normocephalic. EYES: No scleral icterus. No injection or drainage. NECK: Supple, trachea midline. No JVD or lymphadenopathy. CARDIOVASCULAR: Regular rate and rhythm without murmurs, gallops, or rubs. RESPIRATORY: Breath sounds equal bilaterally. No accessory muscle use. GASTROINTESTINAL: Abdomen soft, non-tender, nondistended. MUSCULOSKELETAL: No cyanosis, or edema. BACK: Nontender without obvious deformity. No CVA tenderness. Procedures bone biopsy ( L5). A/P Problem List: (1) Fracture of lumbar spine ICD Code: S32.009A Status: Acute Assessment and Plan Ms. Feng is an 81-year-old female with a history of Hodgkin's lymphoma and non- Hodgkin lymphoma presented to the emergency department due to increased low back pain. - T12/L5 pathologic fracture. 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 - oncology,neurosurgery following- consulted radiation oncology. - consulted PT/OT. - Oncology discussed with patient regarding treatments if desired and side effects. - Expect prolonged hospitalization while patient is receiving radiation treatments. - UTI; continue Cipro - diabetes mellitus; accu-check with SSI. Glucose well controlled. Goal 140-180 while in the hospital. - chronic renal insufficiency- stable- will monitor - hypothyroidism; resumed levothyroxine Full code. SCDs. Discussed with Oncology PA. Problem Qualifiers (1) Fracture of lumbar spine: Qualified Code: S32.050A - Closed wedge compression fracture of fifth lumbar vertebra, initial encounter Renaldo Larsen DO Nov 28, 2016 5:49 pm
[2016-11-28 20:00] VITALS: BP 121/65; PULSE 83; RESP 20; TEMP 98.1; O2SAT 92
[2016-11-28] MEDS: MORPHINE SULFATE 15 MG CONTROLLED RELEASE TAB PO SCH (22:17)
[2016-11-28] MEDS: DOCUSATE SODIUM 50 MG/SENNA 8.6 MG TAB PO SCH (22:20)
[2016-11-29] VITALS: BP 139/72; PULSE 87; RESP 18; TEMP 97.7; O2SAT 94
[2016-11-29 04:00] VITALS: BP 146/98; PULSE 82; RESP 20; TEMP 97.6; O2SAT 96
[2016-11-29] MEDS: LEVOTHYROXINE SODIUM 100 MCG TAB PO SCH (06:44)
[2016-11-29] MEDS: INSULIN ASPART SUPPLEMENTAL SCALE SQ SCH ×4 (06:45→22:19)
[2016-11-29 07:40] VITALS: BP 143/72; PULSE 71; RESP 18; TEMP 97.2; O2SAT 98
[2016-11-29] MEDS: DEXAMETHASONE 4 MG TAB PO SCH ×2 (09:52→22:18)
[2016-11-29] MEDS: MORPHINE SULFATE 15 MG CONTROLLED RELEASE TAB PO SCH (09:52)
[2016-11-29] MEDS: PANTOPRAZOLE SOD 20 MG DELAYED RELEASE TAB PO SCH (09:52)
[2016-11-29] MEDS: DOCUSATE SODIUM 50 MG/SENNA 8.6 MG TAB PO SCH ×2 (09:52→22:18)
[2016-11-29] MEDS: GABAPENTIN 300 MG CAP PO SCH ×3 (09:52→16:28)
--- NOTE | 2016-11-29 11:38 | PD.ONC.PN ---
Subjective Subjective Remarks Afebrile overnight. Patient lethargic/confused. She doesn't remember some of the events of yesterday. she does remember meeting with palliative care and getting radiation. Reports her pain is well controlled and she is comfortable. Objective Data Date Time Temp Pulse Resp B/P Pulse Ox O2 Delivery O2 Flow Rate FiO2 11/29/16 07:40 97.2 71 18 143/72 98 11/29/16 04:00 97.6 82 20 146/98 96 11/29/16 00:00 97.7 87 18 139/72 94 11/28/16 23:17 16 11/28/16 20:00 98.1 83 20 121/65 92 11/28/16 16:00 97.8 83 16 136/68 97 Administered Medications Medications (Trade) Dose Ordered Sig/Louisa Route PRN Reason Start Time Stop Time Status Last Admin Dose Admin Enalaprilat (Vasotec Inj) 1.25 mg Q8H PRN IV PUSH SBP> OR = 180, DBP> OR = 100 11/21/16 10:45 11/25/16 00:16 Ondansetron HCl (Zofran Inj) 4 mg Q8HR PRN IV PUSH NAUSEA 11/21/16 10:45 11/27/16 08:30 Alprazolam (Xanax) 0.25 mg Q4H PRN PO ANXIETY 11/21/16 12:00 11/26/16 00:57 Levothyroxine Sodium (Synthroid) 100 mcg DAILY@0600 PO 11/22/16 06:00 11/29/16 06:44 Gabapentin (Neurontin) 300 mg TID PO 11/25/16 13:00 11/29/16 09:52 Ciprofloxacin (Cipro) 500 mg Q12H PO 11/25/16 11:00 12/01/16 08:00 11/28/16 22:19 Dexamethasone (Decadron) 4 mg Q12HR PO 11/27/16 21:00 11/29/16 09:52 Pantoprazole Sodium (Protonix) 20 mg DAILY PO 11/28/16 09:00 11/29/16 09:52 Morphine Sulfate (Oramorph Sr) 15 mg Q12HR PO 11/28/16 21:00 11/28/16 22:17 Senna/Docusate Sodium (Treasure-Colace) 1 tab BID PO 11/28/16 21:00 11/29/16 09:52 Objective Remarks GENERAL: Elderly female, lying in bed, resting. SKIN: Warm and dry. HEAD: Normocephalic. EYES: No injection or drainage. NECK: Supple, trachea midline. CARDIOVASCULAR: Regular rate and rhythm RESPIRATORY: Breath sounds equal bilaterally. No accessory muscle use. GASTROINTESTINAL: Abdomen soft, non-tender, nondistended. EXTREMITIES: No cyanosis NEUROLOGICAL: Awake and alert, normal speech. lethargic. 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 currently receiving radiation. she has been offered chemotherapy but at this point does not want to be that aggressive. --PET scan, 10/24, showed intense uptake within L5 left transverse process with associated hairline pathologic fracture. --MRI lumbar spine showed severe compression fracture deformity of L5 with invagination of the superior inferior endplate and marrow edema. +retropulsion with mass effect on the left S1 nerve root. +mild compression fracture deformity of T12. --CT lumbar spine showed destructive process involving transverse process of L5 suspicious of neoplastic process. This appeared to be causing all her symptoms. (2) Pain management Status: Acute Plan: --11/29: placed oramorph on hold due to her lethargy today. will continue PRN doses of pain medications only --radiation to spine started 11/26/16 (3) Non-Hodgkin lymphoma Status: Chronic Plan: History: --first treated with rituximab and Treanda --finished two years of maintenance Rituxan in January of 2014. --December 2015-->found to have progression of disease. treated with and Zydelig with Rituxan and then maintained on Zydelig --2016: CT showed low density masses in the retroperitoneum at the superior posterior left pelvis and the right pelvic sidewall. The --October 2016: PET scan showed these lesions were less prominent and not hypermetabolic. +hypermetabolic presacral lesion measured about 1.6 cm and the L5 hypermetabolic lesion. She --started on Rituxan and Revlimid about 2 weeks ago. (4) Confusion Status: Acute Plan: --pain medication delirium vs d/t UTI vs. d/t cipro Assessment 81y/o female with h/o follicular and hodgkin's lymphoma. admitted with severe lower back pain, awaiting pathology from biopsy -History of Hodgkin lymphoma. She received six cycles of ABVD in 2006. She then received consolidation radiation in 2007. Plan 1. continue XRT 2. supportive care Attending Statement The exam, history, and the medical decision-making described in the above note were completed with the assistance of the mid-level provider. I reviewed and agree with the findings presented. I attest that I had a [id number] encounter with the patient on the same day, and personally performed and documented my assessment and findings in the medical record. Hip pain is better controlled. Still forgetful maybe due to pain meds. Continue to titrate pain meds. She will continue XRT. She again told me she does not want aggressive chemotherapy at this time. Appreciate palliative care meds. Problem Qualifiers (1) Non-Hodgkin lymphoma: Ledy Sneed Nov 29, 2016 11:38 Fredy Soni MD Nov 29, 2016 14:24
[2016-11-29 12:16] VITALS: BP 146/71; PULSE 71; RESP 18; TEMP 96.5; O2SAT 97
[2016-11-29] MEDS: CIPROFLOXACIN 500 MG TAB PO SCH (13:23)
[2016-11-29 16:33] VITALS: BP 140/65; PULSE 82; RESP 18; TEMP 96.1; O2SAT 99
--- NOTE | 2016-11-29 17:25 | HHI.PR ---
Subjective Remarks Follow-up for pathologic fracture in a patient with history of lymphoma. Ms. Feng is doing well. Daughter at bedside. Patient wants to consider hospice but wants to know if she can continue radiation therapy. Daughter also mentions about possible SNF placement and continue radiation. Patient was living by herself and she can arrange daily help. Objective Vitals Vital Signs Date Time Temp Pulse Resp B/P Pulse Ox O2 Delivery O2 Flow Rate FiO2 11/29/16 16:33 96.1 82 18 140/65 99 11/29/16 12:16 96.5 71 18 146/71 97 11/29/16 07:40 97.2 71 18 143/72 98 11/29/16 04:00 97.6 82 20 146/98 96 11/29/16 00:00 97.7 87 18 139/72 94 11/28/16 23:17 16 11/28/16 20:00 98.1 83 20 121/65 92 I/O 11/28/16 11/28/16 11/28/16 11/29/16 11/29/16 11/29/16 07:00 15:00 23:00 07:00 15:00 23:00 Intake Total 200 ml 240 ml 480 ml 0 ml 120 ml Balance 200 ml 240 ml 480 ml 0 ml 120 ml Intake Oral 200 ml 240 ml 480 ml 0 ml 120 ml # Voids 2 1 2 1 # Bowel Movements 0 0 Imaging Last Impressions Bone Biopsy CT 11/22/16 0600 Signed Impressions: Service Date/Time: October 10:41 - CONCLUSION: Uncomplicated CT guided biopsy. León Good MD Lumbar Spine CT 11/21/16 0000 Signed Impressions: Service Date/Time: Monday, November 21, 2016 10:19 - CONCLUSION: 1. Destructive process involving the transverse process of L5 suspicious for neoplastic process. This could be biopsied percutaneously. Quinton Robison MD FACR Lower Extremity CT 11/21/16 0000 Signed Impressions: Service Date/Time: Monday, November 21, 2016 10:19 - CONCLUSION: I do not see hip fracture although troch nails make conclusion of subtle fracture very difficult. Please see above discussion. Quinton Robison MD FACR Objective Remarks GENERAL: Alert, NAD. SKIN: Warm and dry. HEAD: Normocephalic. EYES: No scleral icterus. No injection or drainage. NECK: Supple, trachea midline. No JVD or lymphadenopathy. CARDIOVASCULAR: Regular rate and rhythm without murmurs, gallops, or rubs. RESPIRATORY: Breath sounds equal bilaterally. No accessory muscle use. GASTROINTESTINAL: Abdomen soft, non-tender, nondistended. MUSCULOSKELETAL: No cyanosis, or edema. BACK: Nontender without obvious deformity. No CVA tenderness. Procedures bone biopsy ( L5). A/P Problem List: (1) Fracture of lumbar spine ICD Code: S32.009A Status: Acute Assessment and Plan Ms. Feng is an 81-year-old female with a history of Hodgkin's lymphoma and non- Hodgkin lymphoma presented to the emergency department due to increased low back pain. - T12/L5 pathologic fracture. 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 - oncology,neurosurgery following- consulted radiation oncology. - consulted PT/OT. - Oncology discussed with patient regarding treatments if desired and side effects. - Patient and family wants to explore hospice vs SNF but want to know if radiation can be continued. - Discussed with CM regarding SNF. Will consult hospice if they will allow radiation therapy to continue. - Will consult hospice. - UTI; continue Cipro - diabetes mellitus; accu-check with SSI. Glucose well controlled. Goal 140-180 while in the hospital. - chronic renal insufficiency- stable- will monitor - hypothyroidism; resumed levothyroxine Full code. SCDs. Discussed with Oncology PA. Problem Qualifiers (1) Fracture of lumbar spine: Qualified Code: S32.050A - Closed wedge compression fracture of fifth lumbar vertebra, initial encounter Renaldo Larsen DO Nov 29, 2016 5:25 pm
[2016-11-29] MEDS: HYDROmorphone HCL 2 MG TAB PO PRN (18:50)
[2016-11-29 20:00] VITALS: BP 124/58; PULSE 78; RESP 18; TEMP 98.9; O2SAT 93
--- NOTE | 2016-11-29 20:18 | HHI.HCPN ---
Reason for visit a. To assist with evaluation and management of symptoms including: pain, constipation, weakness. b. To assist medical decision maker(s) with: better understanding of current medical conditions; weighing benefits/burdens of medical treatment options; making medical treatment decisions. . Subjective/Interval History Patient seen and examined in room. 2 daughters and one son present during a portion of my visit. Patient is awake and alert, remembers me from my visit on 11/28/16. She is able to recall our conversation, reports to her family our conversation regarding CODE STATUS and other parts for conversation. Family reports that patient has now decided to forgo aggressive chemotherapy treatment of lymphoma. She does however wish to continue palliative radiation to her spine for pain control purposes. She is interested in hospice services, if able to complete radiation while on hospice. Lengthy conversation with the patient and her family regarding radiation oncology plan for 20 radiation treatments, family was unaware that this many treatments had been planned. Discussed the possible limitation of hospice services given the prolonged course of radiation treatment planned. I have advised the family that I will speak with Dr. Hu, radiation oncologist to determine if the number of treatments could be decreased (possibly by increasing the dose of radiation) and still effectively treat her pain. After speaking with radiation oncology I will also speak with hospice nuclear medical tech to determine if hospice and radiation will be possible. Patient is interested in hospice care center placement for management of pain. She reports that [facility] hospice she heard is the best and would like to consider them as her 1st option. I agreed to follow up on 11/30/16 with answers to these questions and further clarification of treatment goals. Palliative care numbers provided to family and their very appreciative. Patient completed 3 of 20 planned radiation treatments to L5. It appears since my visit on 11/28/16 the patient had increased lethargy again this morning and oral long-acting morphine has been discontinued. Patient reports that she is feeling more pain most notably in her left hip area. She is uncertain if this is related to increased movement versus decrease and subsequent discontinuation of Oramorph. I've advised her to continue to use PRN Dilaudid overnight. She does not want to restart the Oramorph at this time , will consider free initiation of long-acting pain medicine in a.m. if her pain increases overnight. Patient also remains on dexamethasone 4 mg PO every 12 hours. She has had one dose of Dilaudid 2 mg PO and no IV Dilaudid today. She also remains on gabapentin 300 mg PO TID. LBM 11/27/16, started. Colace 1 PO BID on 11/28/16. No new labs or imaging today. Palliative care will follow-up with patient/ family and 11/30/16 for further clarification of treatment plan/hospice options. . Family/friend interactions see interval note. Advance Directives Living Will: Copy in medical record Health Care Surrogate: Copy in medical record Advance Directive Specifics Date completed: 08/21/2016 . Health Care Surrogate(s): Primary Health Care Surrogate: Katlin Sim 1st alternate HCS: Tito Gaffney 2nd alternate: Greg Dailey . Documented care wishes: 5 wishes on chart with hand written instructions stating "no life support - do not try to keep me alive. No feeding tube, No CPR, surgery, blood transfusions, dialysis or anything to keep me alive." . Significant change in goals: NO CODE. Patient desires comfort focused care with hospice support, though wants to continue palliative radiation to the spine. Care will attempt to speak with radiation oncology and hospice nuclear medical tech to determine options in this regard. . Objective Vital Signs Date Time Temp Pulse Resp B/P Pulse Ox O2 Delivery O2 Flow Rate FiO2 11/29/16 16:33 96.1 82 18 140/65 99 11/29/16 12:16 96.5 71 18 146/71 97 11/29/16 07:40 97.2 71 18 143/72 98 11/29/16 04:00 97.6 82 20 146/98 96 11/29/16 00:00 97.7 87 18 139/72 94 11/28/16 23:17 16 Intake & Output 11/29/16 11/29/16 07:00 19:00 Intake Total 240 ml 120 ml Balance 240 ml 120 ml Intake Oral 240 ml 120 ml # Voids 2 # Bowel Movements 0 Physical Exam CONSTITUTIONAL/GENERAL: This is an adequately nourished patient, in no apparent distress. SKIN: No jaundice, rashes, or lesions. Ecchymoses on upper extremities. No wounds seen anteriorly. Skin temperature appropriate. Not diaphoretic. EYES: Pupils equal and round and reactive. Extraocular motions intact. No scleral icterus. No injection or drainage. Fundi not examined. ENT: Hearing grossly normal. Nose without bleeding or purulent drainage. Throat without visible erythema, exudates, masses, or lesions. CARDIOVASCULAR: Regular rate and rhythm without murmurs, gallops, or rubs. No JVD. Peripheral pulses symmetric. RESPIRATORY/CHEST: Symmetric, unlabored respirations. Clear to auscultation. Breath sounds equal bilaterally. No wheezes, rales, or rhonchi. GASTROINTESTINAL: Abdomen soft, non-tender, nondistended. No hepato-splenomegaly , or palpable masses. No guarding. Bowel sounds present. GENITOURINARY: Without palpable bladder distension. Bryan catheter in place. MUSCULOSKELETAL: Extremities without clubbing, cyanosis, or edema. Bilateral LE weakness. Able to life right leg off bed a few inches. Unable to lift left foot off bed, wiggles toes slightly. No mottling or clubbing. NEUROLOGICAL: Awake and alert. Follows commands. Cognitively sharp. . Diagnostic Tests Imaging Last Impressions Bone Biopsy CT 11/22/16 0600 Signed Impressions: Service Date/Time: October 10:41 - CONCLUSION: Uncomplicated CT guided biopsy. León Good MD Lumbar Spine CT 11/21/16 0000 Signed Impressions: Service Date/Time: Monday, November 21, 2016 10:19 - CONCLUSION: 1. Destructive process involving the transverse process of L5 suspicious for neoplastic process. This could be biopsied percutaneously. Quinton Robison MD FACR Lower Extremity CT 11/21/16 0000 Signed Impressions: Service Date/Time: Monday, November 21, 2016 10:19 - CONCLUSION: I do not see hip fracture although troch nails make conclusion of subtle fracture very difficult. Please see above discussion. Quinton Robison MD FACR . Procedures * 11/22/16 CT directed bone biopsy L5 pathology positive large B cell lymphoma, non- germinal center type. Assessment and Plan Disease Oriented Problem List: (1) Fracture of lumbar spine (2) Non-Hodgkin lymphoma (3) Pain management (4) Acute exacerbation of chronic low back pain (5) Hypothyroidism (6) Diabetes mellitus Symptom Scale: (1) Pain 0-10 Scale: 4 (2) Weakness 0-10 Scale: Unable to quantify (3) Anxiety 0-10 Scale: 0 Pertinent Non-Medical Issues Psychosocial: . Has 4 sons and 2 daughters. Spiritual: Scientology lilly. Legal: Notes indicate written advanced directives. Ethical issues impacting care: No known concerns at this time. . Important Contacts * Katlin Gasca, Daughter: [phone] . Prognosis Patient with progressive lymphoma that is not curable, now with pathologic fracture of L5 getting palliative radiation (20 planned tx) now bedbound. Unlikely she will be able to walk again. May be a candidate for palliative chemotherapy in the future per oncology depending on course. . Code Status: No Code Plan * Patient is currently capacitated to make her own health care decisions. Living Will (5 wishes) on chart with designated health care surrogate, daughter Katlin Sim. [place] DNR completed per pt request 11/28/16. * NO CODE - [place] DNR on chart to go with patient upon DC. * 11/29/16: Palliative care met with patient and 3/6 children at bedside. Patient desires comfort focused care with hospice support, though wants to continue palliative radiation to the spine. Care will attempt to speak with radiation oncology and hospice nuclear medical tech to determine options in this regard. * SYMPTOMS: Back pain: due to progressive lymphoma and L5 pathologic fracture. Oramorph 15mg PO every 12 hours was stopped 11/29/16 and PRN Dilaudid. I am concerned that she will have additional pain crisis in the coming day (s) with discontinuation of long-acting pain medication. Encouraged use of PRN Dilaudid overnight. We'll reevaluate pain in a.m., per patient's request and make further recommendations at that time. Anxiety: Intermittent, denies today. Weakness: due to pathologic spine fracture secondary to lymphoma/ disease progression. Constipation: No BM in 3 days per pt report. DC Colace. Added Senna -S 1 PO BID. PRN MOM available, encouraged use. * Palliative care number provided. * Palliative care will continue to follow to assist with symptom management and further clarification of goals as needed. . Attestation To help prompt me to consider important information that might be impacting today's encounter and assessment, information from prior notes written by myself or my colleagues may have been "brought forward" into today's note. My signature on this note, however, is an attestation that I personally performed the exam, history, and/or decision-making noted today, and, unless otherwise indicated, the interactions with patient, family, and staff as well as the review of records all occurred today. I also attest that the listed assessment and stated plan reflect my best clinical judgment today based on the combination of historical information, prior notes, and today's exam/ interactions. When time spent is documented, it refers only to time spent today by the signer, or if indicated, combined time spent today by collaborating physician/nurse practitioner. SHARON TORRES Nov 29, 2016 20:18
[2016-11-29] MEDS: ALPRAZolam 0.25 MG TAB PO PRN (22:18)
[2016-11-30] VITALS: BP 137/67; PULSE 69; RESP 20; TEMP 96.4; O2SAT 94
[2016-11-30] MEDS: CIPROFLOXACIN 500 MG TAB PO SCH ×3 (01:55→21:15)
[2016-11-30 04:00] VITALS: BP 159/83; PULSE 73; RESP 20; TEMP 96.1; O2SAT 97
[2016-11-30] MEDS: LEVOTHYROXINE SODIUM 100 MCG TAB PO SCH (07:00)
[2016-11-30] MEDS: INSULIN ASPART SUPPLEMENTAL SCALE SQ SCH ×3 (07:01→16:00)
[2016-11-30 08:19] VITALS: BP 150/75; PULSE 66; RESP 20; TEMP 97.2; O2SAT 97
[2016-11-30] MEDS: GABAPENTIN 300 MG CAP PO SCH ×3 (09:57→17:15)
[2016-11-30] MEDS: DEXAMETHASONE 4 MG TAB PO SCH ×2 (09:57→21:15)
[2016-11-30] MEDS: DOCUSATE SODIUM 50 MG/SENNA 8.6 MG TAB PO SCH ×2 (09:58→21:15)
[2016-11-30] MEDS: PANTOPRAZOLE SOD 20 MG DELAYED RELEASE TAB PO SCH (09:58)
[2016-11-30] MEDS: HYDROmorphone HCL 2 MG TAB PO PRN ×2 (10:07→12:48)
--- NOTE | 2016-11-30 10:35 | PD.ONC.PN ---
Subjective Subjective Remarks Afebrile overnight. Patient resting. Complaining of pain in her back down her left leg. Waiting on pain meds. No BM in a few days. Objective Data Date Time Temp Pulse Resp B/P Pulse Ox O2 Delivery O2 Flow Rate FiO2 11/30/16 08:19 97.2 66 20 150/75 97 11/30/16 04:00 96.1 73 20 159/83 97 11/30/16 00:00 96.4 69 20 137/67 94 11/29/16 20:00 98.9 78 18 124/58 93 11/29/16 16:33 96.1 82 18 140/65 99 11/29/16 12:16 96.5 71 18 146/71 97 Administered Medications Medications (Trade) Dose Ordered Sig/Louisa Route PRN Reason Start Time Stop Time Status Last Admin Dose Admin Enalaprilat (Vasotec Inj) 1.25 mg Q8H PRN IV PUSH SBP> OR = 180, DBP> OR = 100 11/21/16 10:45 11/25/16 00:16 Ondansetron HCl (Zofran Inj) 4 mg Q8HR PRN IV PUSH NAUSEA 11/21/16 10:45 11/27/16 08:30 Alprazolam (Xanax) 0.25 mg Q4H PRN PO ANXIETY 11/21/16 12:00 11/29/16 22:18 Levothyroxine Sodium (Synthroid) 100 mcg DAILY@0600 PO 11/22/16 06:00 11/30/16 07:00 Gabapentin (Neurontin) 300 mg TID PO 11/25/16 13:00 11/30/16 09:57 Ciprofloxacin (Cipro) 500 mg Q12H PO 11/25/16 11:00 12/01/16 08:00 11/30/16 10:06 Dexamethasone (Decadron) 4 mg Q12HR PO 11/27/16 21:00 11/30/16 09:57 Pantoprazole Sodium (Protonix) 20 mg DAILY PO 11/28/16 09:00 11/30/16 09:58 Hydromorphone HCl (Dilaudid) 2 mg Q3H PRN PO pain1-8 11/28/16 12:15 11/30/16 10:07 Morphine Sulfate (Oramorph Sr) 15 mg Q12HR PO 11/28/16 21:00 Hold 11/28/16 22:17 Senna/Docusate Sodium (Treasure-Colace) 1 tab BID PO 11/28/16 21:00 11/30/16 09:58 Objective Remarks GENERAL: Elderly female, supine in bed, much more alert today. SKIN: Warm and dry. HEAD: Normocephalic. EYES: No injection or drainage. NECK: Supple, trachea midline. CARDIOVASCULAR: Regular rate and rhythm RESPIRATORY: Breath sounds equal bilaterally. No accessory muscle use. GASTROINTESTINAL: Abdomen soft, non-tender, nondistended. EXTREMITIES: No cyanosis NEUROLOGICAL: Awake and alert, normal speech. 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 currently receiving radiation. she has been offered chemotherapy but at this point does not want to be that aggressive. --PET scan, 10/24, showed intense uptake within L5 left transverse process with associated hairline pathologic fracture. --MRI lumbar spine showed severe compression fracture deformity of L5 with invagination of the superior inferior endplate and marrow edema. +retropulsion with mass effect on the left S1 nerve root. +mild compression fracture deformity of T12. --CT lumbar spine showed destructive process involving transverse process of L5 suspicious of neoplastic process. This appeared to be causing all her symptoms. (2) Pain management Status: Acute Plan: --oramorph on hold. continue PRN doses of pain medications only --radiation to spine started 11/26/16 (3) Non-Hodgkin lymphoma Status: Chronic Plan: History: --first treated with rituximab and Treanda --finished two years of maintenance Rituxan in January of 2014. --December 2015-->found to have progression of disease. treated with and Zydelig with Rituxan and then maintained on Zydelig --2016: CT showed low density masses in the retroperitoneum at the superior posterior left pelvis and the right pelvic sidewall. The --October 2016: PET scan showed these lesions were less prominent and not hypermetabolic. +hypermetabolic presacral lesion measured about 1.6 cm and the L5 hypermetabolic lesion. She --started on Rituxan and Revlimid about 2 weeks ago. (4) Confusion Status: Acute Plan: --pain medication delirium vs d/t UTI vs. d/t cipro Assessment 81y/o female with h/o follicular and hodgkin's lymphoma. admitted with severe lower back pain, awaiting pathology from biopsy -History of Hodgkin lymphoma. She received six cycles of ABVD in 2006. She then received consolidation radiation in 2007. Plan 1. continue XRT until hospice 2. lactulose for constipation 3. continue PRN dilaudid Attending Statement The exam, history, and the medical decision-making described in the above note were completed with the assistance of the mid-level provider. I reviewed and agree with the findings presented. I attest that I had a [id number] encounter with the patient on the same day, and personally performed and documented my assessment and findings in the medical record. Feeling better. Pain improving even without morphine. Discussed diagnosis again and treatment options. She does not think she wants chemo but she is still thinking over her options. Continue supportive care. Problem Qualifiers (1) Non-Hodgkin lymphoma: Ledy Sneed Nov 30, 2016 10:35 Fredy Soni MD Nov 30, 2016 19:33
[2016-11-30] MEDS ORDERED: LACTULOSE SYRUP 20 GM/30 ML CUP PO ONE (11:00)
[2016-11-30 16:28] VITALS: BP 175/77; PULSE 71; RESP 20; TEMP 95.4; O2SAT 96
--- NOTE | 2016-11-30 16:45 | HHI.PR ---
Subjective Remarks Follow-up for pathologic fracture in a patient with history of lymphoma. Patient is currently doing well. No acute concerns. Denies any chest pain, shortness of breath, fever or chills. Hospice already saw patient. Patient and family is waiting to hear from hospice regarding possibility of continuing radiation therapy as a hospice patient. Objective Vitals Vital Signs Date Time Temp Pulse Resp B/P Pulse Ox O2 Delivery O2 Flow Rate FiO2 11/30/16 16:28 95.4 71 20 175/77 96 11/30/16 08:19 97.2 66 20 150/75 97 11/30/16 04:00 96.1 73 20 159/83 97 11/30/16 00:00 96.4 69 20 137/67 94 11/29/16 20:00 98.9 78 18 124/58 93 I/O 11/29/16 11/29/16 11/29/16 11/30/16 11/30/16 11/30/16 07:00 15:00 23:00 07:00 15:00 23:00 Intake Total 0 ml 120 ml 240 ml 720 ml Balance 0 ml 120 ml 240 ml 720 ml Intake Oral 0 ml 120 ml 240 ml 720 ml # Voids 1 1 0 2 # Bowel Movements 0 0 0 Objective Remarks GENERAL: Alert, NAD. SKIN: Warm and dry. HEAD: Normocephalic. EYES: No scleral icterus. No injection or drainage. NECK: Supple, trachea midline. No JVD or lymphadenopathy. CARDIOVASCULAR: Regular rate and rhythm without murmurs, gallops, or rubs. RESPIRATORY: Breath sounds equal bilaterally. No accessory muscle use. GASTROINTESTINAL: Abdomen soft, non-tender, nondistended. MUSCULOSKELETAL: No cyanosis, or edema. BACK: Nontender without obvious deformity. No CVA tenderness. Procedures bone biopsy ( L5). A/P Problem List: (1) Fracture of lumbar spine ICD Code: S32.009A Status: Acute Assessment and Plan Ms. Feng is an 81-year-old female with a history of Hodgkin's lymphoma and non- Hodgkin lymphoma presented to the emergency department due to increased low back pain. - T12/L5 pathologic fracture. 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 - oncology,neurosurgery following- consulted radiation oncology. - consulted PT/OT. - Oncology discussed with patient regarding treatments if desired and side effects. - Patient and family wants to explore hospice vs SNF but want to know if radiation can be continued. - Discussed with CM regarding SNF. Will consult hospice if they will allow radiation therapy to continue. - Waiting to get further formation from hospice regarding radiation therapy. - UTI; continue Cipro - diabetes mellitus; accu-check with SSI. Glucose well controlled. Goal 140-180 while in the hospital. - chronic renal insufficiency- stable- will monitor - hypothyroidism; resumed levothyroxine Full code. SCDs. Discussed with Oncology PA. Problem Qualifiers (1) Fracture of lumbar spine: Qualified Code: S32.050A - Closed wedge compression fracture of fifth lumbar vertebra, initial encounter Renaldo Larsen DO Nov 30, 2016 4:45 pm
--- NOTE | 2016-11-30 18:37 | HHI.HCPN ---
Reason for visit a. To assist with evaluation and management of symptoms including: pain, constipation, weakness. b. To assist medical decision maker(s) with: better understanding of current medical conditions; weighing benefits/burdens of medical treatment options; making medical treatment decisions. . Subjective/Interval History Patient seen and examined in room. No family at bedside. Prior to this visit lengthy discussion with Dr. Hu, radiation oncologist and Dr. Polanco medical technologist blood bank of [facility], [facility] medical oncology. In review of radiation plan of care Dr. Hu indicates that he is unable to increase the dose decrease the number of treatments as the patient has had prior radiation in the area where she is currently receiving radiation to the spine. He indicates that he may not be able to relieve pain with radiation alone, but kyphoplasty may be needed for stability of pathologic fracture. Dr. Polanco does not feel that the patient can be admitted to hospice services at this time given the plan of 20 radiation treatments Presented information regarding radiation therapy and hospice to the patient. She is not yet ready to consider transition to comfort focused care with hospice support. She would like to continue palliative radiation at this time. She verbalizes that she knows that her condition may change and that she may elect to discontinue radiation at any time. She certainly understands why hospice is unable to admit to hospice at this time. I've advised her that the palliative care team will continue to follow throughout her hospital course to assist with pain management. Patient is awake and alert. Remembers me from prior visits and my previous conversations. She reports pain in the back and left hip area again. She feels that her pain is currently adequately controlled with PRN Dilaudid. She does not want to restart long-acting morphine at this time as she feels comfortable with the current plan of care. She indicates that she does not want to use all of the medications at one time she knows that her pain will likely continue to get worse in the future and feels comfortable with PRN Dilaudid for now. She understands that she can notify the palliative care team or any medical team members should she change her mind. Patient requests follow up visit on 12/03/16 for pain reassessment, in the meantime she will continue PRN Dilaudid. She has had 3 doses of PRN Dilaudid 2mg PO in the past 24 hours. Afebrile. Intermittent hypertension. No new labs or imaging. . Family/friend interactions see interval note. Advance Directives Living Will: Copy in medical record Health Care Surrogate: Copy in medical record Advance Directive Specifics Date completed: 08/21/2016 . Health Care Surrogate(s): Primary Health Care Surrogate: Katlin Sim 1st alternate HCS: Tito Gaffney 2nd alternate: Greg Dailey . Documented care wishes: 5 wishes on chart with hand written instructions stating "no life support - do not try to keep me alive. No feeding tube, No CPR, surgery, blood transfusions, dialysis or anything to keep me alive." . Significant change in goals: NO CODE. Patient unable to enroll in Hospice at this time. She has elected to continue palliative radiation to spine for now. She understands hospice can be elected once radiation is completed. Palliative care will continue to follow to assist with symptom management. . Objective Vital Signs Date Time Temp Pulse Resp B/P Pulse Ox O2 Delivery O2 Flow Rate FiO2 11/30/16 16:28 95.4 71 20 175/77 96 11/30/16 08:19 97.2 66 20 150/75 97 11/30/16 04:00 96.1 73 20 159/83 97 11/30/16 00:00 96.4 69 20 137/67 94 11/29/16 20:00 98.9 78 18 124/58 93 Intake & Output 11/30/16 11/30/16 07:00 19:00 Intake Total 240 ml 720 ml Balance 240 ml 720 ml Intake Oral 240 ml 720 ml # Voids 1 2 # Bowel Movements 0 Physical Exam CONSTITUTIONAL/GENERAL: This is an adequately nourished patient, in no apparent distress. SKIN: No jaundice, rashes, or lesions. Ecchymoses on upper extremities. No wounds seen anteriorly. Skin temperature appropriate. Not diaphoretic. EYES: Pupils equal and round and reactive. Extraocular motions intact. No scleral icterus. No injection or drainage. Fundi not examined. ENT: Hearing grossly normal. Nose without bleeding or purulent drainage. Throat without visible erythema, exudates, masses, or lesions. CARDIOVASCULAR: Regular rate and rhythm without murmurs, gallops, or rubs. No JVD. Peripheral pulses symmetric. RESPIRATORY/CHEST: Symmetric, unlabored respirations. Clear to auscultation. Breath sounds equal bilaterally. No wheezes, rales, or rhonchi. GASTROINTESTINAL: Abdomen soft, non-tender, nondistended. No hepato-splenomegaly , or palpable masses. No guarding. Bowel sounds present. GENITOURINARY: Without palpable bladder distension. Bryan catheter in place. MUSCULOSKELETAL: Extremities without clubbing, cyanosis, or edema. Bilateral LE weakness. Able to life right leg off bed a few inches. Unable to lift left foot off bed, wiggles toes slightly. No mottling or clubbing. NEUROLOGICAL: Awake and alert. Follows commands. Cognitively sharp. . Diagnostic Tests Imaging Last Impressions Bone Biopsy CT 11/22/16 0600 Signed Impressions: Service Date/Time: October 10:41 - CONCLUSION: Uncomplicated CT guided biopsy. León Good MD Lumbar Spine CT 11/21/16 0000 Signed Impressions: Service Date/Time: Monday, November 21, 2016 10:19 - CONCLUSION: 1. Destructive process involving the transverse process of L5 suspicious for neoplastic process. This could be biopsied percutaneously. Quinton Robison MD FACR Lower Extremity CT 11/21/16 0000 Signed Impressions: Service Date/Time: Monday, November 21, 2016 10:19 - CONCLUSION: I do not see hip fracture although troch nails make conclusion of subtle fracture very difficult. Please see above discussion. Quinton Robison MD FACR Procedures * 11/22/16 CT directed bone biopsy L5 pathology positive large B cell lymphoma, non- germinal center type. Assessment and Plan Disease Oriented Problem List: (1) Fracture of lumbar spine (2) Non-Hodgkin lymphoma (3) Pain management (4) Acute exacerbation of chronic low back pain (5) Hypothyroidism (6) Diabetes mellitus Symptom Scale: (1) Pain 0-10 Scale: 3 (2) Weakness 0-10 Scale: Unable to quantify (3) Anxiety 0-10 Scale: 0 Pertinent Non-Medical Issues Psychosocial: . Has 4 sons and 2 daughters. Spiritual: Islam lilly. Legal: Notes indicate written advanced directives. Ethical issues impacting care: No known concerns at this time. . Important Contacts * Katlin Gasca, Daughter: [phone] . Prognosis Patient with progressive lymphoma that is not curable, now with pathologic fracture of L5 getting palliative radiation (20 planned tx) now bedbound. Unlikely she will be able to walk again. May be a candidate for palliative chemotherapy in the future per oncology depending on course. . Code Status: No Code Plan * Patient is currently capacitated to make her own health care decisions. Living Will (5 wishes) on chart with designated health care surrogate, daughter Katlin Sim. [place] DNR completed per pt request 11/28/16. * NO CODE - [place] DNR on chart to go with patient upon DC. * 11/30/16: Palliative care met with patient. Spoke with Dr. Hu he is unable to decrease number of XRT tx or increase dose as pt has previously had XRT to this area. Discussed with Dr. Polanco, he is unable to accept pt on hospice until after completion of palliative XRT. Patient unable to enroll in Hospice at this time. She has elected to continue palliative radiation to spine for now. She understands hospice can be elected once radiation is completed. Palliative care will continue to follow to assist with symptom management. Discussed with Hospice nurse, palliative care will notify when hospice services may be needed. * SYMPTOMS: Back pain: due to progressive lymphoma and L5 pathologic fracture. Oramorph 15mg PO every 12 hours was stopped 11/29/16 and PRN Dilaudid. I am concerned that she will have additional pain crisis in the coming day (s) with discontinuation of long-acting pain medication. Encouraged use of PRN Dilaudid overnight. We'll reevaluate pain in a.m., per patient's request and make further recommendations at that time. Anxiety: Intermittent, denies today. Weakness: due to pathologic spine fracture secondary to lymphoma/ disease progression. Constipation: No BM in 3 days per pt report. DC Colace. Added Senna -S 1 PO BID. PRN MOM available, encouraged use. * Palliative care will continue to follow to assist with symptom management and further clarification of goals as needed. . Attestation To help prompt me to consider important information that might be impacting today's encounter and assessment, information from prior notes written by myself or my colleagues may have been "brought forward" into today's note. My signature on this note, however, is an attestation that I personally performed the exam, history, and/or decision-making noted today, and, unless otherwise indicated, the interactions with patient, family, and staff as well as the review of records all occurred today. I also attest that the listed assessment and stated plan reflect my best clinical judgment today based on the combination of historical information, prior notes, and today's exam/ interactions. When time spent is documented, it refers only to time spent today by the signer, or if indicated, combined time spent today by collaborating physician/nurse practitioner. SHARON TORRES Nov 30, 2016 18:37
[2016-11-30 20:40] VITALS: BP 166/77; PULSE 69; RESP 16; TEMP 97.6; O2SAT 97
[2016-11-30] MEDS: ALPRAZolam 0.25 MG TAB PO PRN (21:15)
[2016-11-30] MEDS: NYSTAT/DIPHENHY/LIDO MOUTHWASH (Adult) 120ML SWISH-SWAL SCH (21:15)
[2016-12-01 00:26] VITALS: BP 165/79; PULSE 66; RESP 16; TEMP 97.6; O2SAT 97
[2016-12-01 05:08] VITALS: BP 173/85; PULSE 70; RESP 17; TEMP 97.6; O2SAT 95
[2016-12-01] MEDS: LEVOTHYROXINE SODIUM 100 MCG TAB PO SCH (05:34)
[2016-12-01] MEDS: HYDROmorphone HCL 2 MG TAB PO PRN ×2 (05:34→09:29)
[2016-12-01 08:00] VITALS: BP 193/89; PULSE 70; RESP 17; TEMP 96.4; O2SAT 97
[2016-12-01] MEDS: GABAPENTIN 300 MG CAP PO SCH ×3 (09:29→18:38)
[2016-12-01] MEDS: DOCUSATE SODIUM 50 MG/SENNA 8.6 MG TAB PO SCH ×2 (09:29→20:49)
[2016-12-01] MEDS: DEXAMETHASONE 4 MG TAB PO SCH ×2 (09:29→20:49)
[2016-12-01] MEDS: NYSTAT/DIPHENHY/LIDO MOUTHWASH (Adult) 120ML SWISH-SWAL SCH ×4 (09:30→20:50)
[2016-12-01] MEDS: PANTOPRAZOLE SOD 20 MG DELAYED RELEASE TAB PO SCH (09:30)
[2016-12-01 12:00] VITALS: BP 159/76; PULSE 69; RESP 17; TEMP 96; O2SAT 98
[2016-12-01 16:00] VITALS: BP 162/84; PULSE 71; RESP 18; TEMP 98.6; O2SAT 96
[2016-12-01] MEDS ORDERED: BISACODYL 10 MG SUPP RECTAL PRN (16:15)
[2016-12-01] MEDS: ALPRAZolam 0.25 MG TAB PO PRN (20:49)
--- NOTE | 2016-12-01 21:23 | HHI.PR ---
Subjective Remarks Follow-up for pathologic fracture in a patient with history of lymphoma. Ms. Feng is doing well. If she goes with hospice, patient will not be able to continue radiation treatments. She has no acute concerns. She would like to continue glucose check only twice a day. Her blood glucose has been well controlled in the hospital. Objective Vitals Vital Signs Date Time Temp Pulse Resp B/P Pulse Ox O2 Delivery O2 Flow Rate FiO2 12/01/16 16:00 98.6 71 18 162/84 96 12/01/16 12:00 96.0 69 17 159/76 98 12/01/16 10:29 19 12/01/16 08:00 96.4 70 17 193/89 97 12/01/16 05:08 97.6 70 17 173/85 95 12/01/16 00:26 97.6 66 16 165/79 97 I/O 11/30/16 11/30/16 11/30/16 12/01/16 12/01/16 12/01/16 07:00 15:00 23:00 07:00 15:00 23:00 Intake Total 840 ml 120 ml 780 ml Balance 840 ml 120 ml 780 ml Intake Oral 840 ml 120 ml 780 ml # Voids 0 3 1 3 # Bowel Movements 0 0 Imaging Last Impressions Bone Biopsy CT 11/22/16 0600 Signed Impressions: Service Date/Time: October 10:41 - CONCLUSION: Uncomplicated CT guided biopsy. León Good MD Lumbar Spine CT 11/21/16 0000 Signed Impressions: Service Date/Time: Monday, November 21, 2016 10:19 - CONCLUSION: 1. Destructive process involving the transverse process of L5 suspicious for neoplastic process. This could be biopsied percutaneously. Quinton Robison MD FACR Lower Extremity CT 11/21/16 0000 Signed Impressions: Service Date/Time: Monday, November 21, 2016 10:19 - CONCLUSION: I do not see hip fracture although troch nails make conclusion of subtle fracture very difficult. Please see above discussion. Quinton Robison MD FACR Objective Remarks GENERAL: Alert, NAD. SKIN: Warm and dry. HEAD: Normocephalic. EYES: No scleral icterus. No injection or drainage. NECK: Supple, trachea midline. No JVD or lymphadenopathy. CARDIOVASCULAR: Regular rate and rhythm without murmurs, gallops, or rubs. RESPIRATORY: Breath sounds equal bilaterally. No accessory muscle use. GASTROINTESTINAL: Abdomen soft, non-tender, nondistended. MUSCULOSKELETAL: No cyanosis, or edema. BACK: Nontender without obvious deformity. No CVA tenderness. Procedures bone biopsy ( L5). A/P Problem List: (1) Fracture of lumbar spine ICD Code: S32.009A Status: Acute Assessment and Plan Ms. Feng is an 81-year-old female with a history of Hodgkin's lymphoma and non- Hodgkin lymphoma presented to the emergency department due to increased low back pain. - T12/L5 pathologic fracture. 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 - oncology,neurosurgery following- consulted radiation oncology. - consulted PT/OT. - Oncology discussed with patient regarding treatments if desired and side effects. - Discussed with CM regarding SNF. - Hospice cannot accept patient while patient is receiving radiation treatments. - UTI - received Cipro. - diabetes mellitus - well controlled. Will check blood glucose BID. - chronic renal insufficiency- stable- will monitor - hypothyroidism; resumed levothyroxine DNR. Start heparin SQ for DVT prophylaxis. Problem Qualifiers (1) Fracture of lumbar spine: Qualified Code: S32.050A - Closed wedge compression fracture of fifth lumbar vertebra, initial encounter Renaldo Larsen DO Dec 01, 2016 21:23
[2016-12-01 21:40] VITALS: BP 160/83; PULSE 80; RESP 17; TEMP 97.1; O2SAT 93
[2016-12-01] MEDS ORDERED: ENOXAPARIN SODIUM 40 MG/0.4 ML SYRINGE SQ SCH (22:00)
[2016-12-02] VITALS: BP 154/80; PULSE 81; RESP 17; TEMP 97.7; O2SAT 94
[2016-12-02 04:30] VITALS: BP 160/97; PULSE 74; RESP 17; TEMP 97.1; O2SAT 97
[2016-12-02] MEDS: LEVOTHYROXINE SODIUM 100 MCG TAB PO SCH (05:03)
[2016-12-02] MEDS: HYDROmorphone HCL 2 MG TAB PO PRN ×5 (06:23→21:02)
[2016-12-02 08:00] VITALS: BP 175/85; PULSE 70; RESP 17; TEMP 95.4; O2SAT 94
[2016-12-02] MEDS: DOCUSATE SODIUM 50 MG/SENNA 8.6 MG TAB PO SCH ×2 (08:20→21:00)
[2016-12-02] MEDS: GABAPENTIN 300 MG CAP PO SCH ×3 (08:20→18:28)
[2016-12-02] MEDS: DEXAMETHASONE 4 MG TAB PO SCH ×2 (08:21→21:02)
[2016-12-02] MEDS: PANTOPRAZOLE SOD 20 MG DELAYED RELEASE TAB PO SCH (08:21)
[2016-12-02] MEDS: ENOXAPARIN SODIUM 40 MG/0.4 ML SYRINGE SQ SCH (08:28)
[2016-12-02] MEDS: NYSTAT/DIPHENHY/LIDO MOUTHWASH (Adult) 120ML SWISH-SWAL SCH ×4 (08:31→21:00)
--- NOTE | 2016-12-02 11:16 | HHI.PR ---
Subjective Remarks Follow-up for pathologic fracture in a patient with history of lymphoma. Ms. Feng is doing well. However, she complains of not being very comfortable in the bed. Her leg hurts. Also, she has not had any bowel movement yet despite laxative use. Objective Vitals Vital Signs Date Time Temp Pulse Resp B/P Pulse Ox O2 Delivery O2 Flow Rate FiO2 12/02/16 08:00 95.4 70 17 175/85 94 12/02/16 04:30 97.1 74 17 160/97 97 12/02/16 00:00 97.7 81 17 154/80 94 12/01/16 21:40 97.1 80 17 160/83 93 12/01/16 16:00 98.6 71 18 162/84 96 12/01/16 12:00 96.0 69 17 159/76 98 I/O 12/01/16 12/01/16 12/01/16 12/02/16 12/02/16 12/02/16 07:00 15:00 23:00 07:00 15:00 23:00 Intake Total 120 ml 780 ml 750 ml 500 ml Output Total 0 ml Balance 120 ml 780 ml 750 ml 500 ml Intake Oral 120 ml 780 ml 750 ml 500 ml Output Urine Total 0 ml # Voids 1 3 1 # Bowel Movements 0 0 0 Imaging Last Impressions Bone Biopsy CT 11/22/16 0600 Signed Impressions: Service Date/Time: October 10:41 - CONCLUSION: Uncomplicated CT guided biopsy. León Good MD Lumbar Spine CT 11/21/16 0000 Signed Impressions: Service Date/Time: Monday, November 21, 2016 10:19 - CONCLUSION: 1. Destructive process involving the transverse process of L5 suspicious for neoplastic process. This could be biopsied percutaneously. Quinton Robison MD FACR Lower Extremity CT 11/21/16 0000 Signed Impressions: Service Date/Time: Monday, November 21, 2016 10:19 - CONCLUSION: I do not see hip fracture although troch nails make conclusion of subtle fracture very difficult. Please see above discussion. Quinton Robison MD FACR Objective Remarks GENERAL: Alert, NAD. SKIN: Warm and dry. HEAD: Normocephalic. EYES: No scleral icterus. No injection or drainage. NECK: Supple, trachea midline. No JVD or lymphadenopathy. CARDIOVASCULAR: Regular rate and rhythm without murmurs, gallops, or rubs. RESPIRATORY: Breath sounds equal bilaterally. No accessory muscle use. GASTROINTESTINAL: Abdomen soft, non-tender, nondistended. MUSCULOSKELETAL: No cyanosis, or edema. BACK: Nontender without obvious deformity. No CVA tenderness. Procedures bone biopsy ( L5). A/P Problem List: (1) Fracture of lumbar spine ICD Code: S32.009A Status: Acute Assessment and Plan Ms. Feng is an 81-year-old female with a history of Hodgkin's lymphoma and non- Hodgkin lymphoma presented to the emergency department due to increased low back pain. - T12/L5 pathologic fracture. 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 - oncology,neurosurgery following- consulted radiation oncology. - consulted PT/OT. - Oncology discussed with patient regarding treatments if desired and side effects. - Discussed with CM regarding SNF. - Hospice cannot accept patient while patient is receiving radiation treatments. - Constipation - Suppository was used. If it does not work, we will try Fleet Enema today. - Will use GoLytely if needed. - UTI - received Cipro. - diabetes mellitus - well controlled. Will check blood glucose BID. - chronic renal insufficiency- stable- will monitor - hypothyroidism; resumed levothyroxine DNR. Heparin SQ. Problem Qualifiers (1) Fracture of lumbar spine: Qualified Code: S32.050A - Closed wedge compression fracture of fifth lumbar vertebra, initial encounter Renaldo Larsen DO Dec 02, 2016 11:16
[2016-12-02 12:00] VITALS: BP 164/88; PULSE 81; RESP 18; TEMP 97.8; O2SAT 95
[2016-12-02] MEDS ORDERED: SOD PHOSPHATE/SOD BIPHOSPHATE (ADULT) ENEMA 133ML PR ONE (14:00)
[2016-12-02 16:00] VITALS: BP 182/88; PULSE 76; RESP 19; TEMP 98.8; O2SAT 96
[2016-12-02 20:45] VITALS: BP 157/83; PULSE 75; RESP 17; TEMP 98.7; O2SAT 96
[2016-12-02] MEDS: ALPRAZolam 0.25 MG TAB PO PRN (21:00)
[2016-12-03 00:50] VITALS: BP 149/88; PULSE 67; RESP 19; TEMP 97.7; O2SAT 95
[2016-12-03] MEDS: LEVOTHYROXINE SODIUM 100 MCG TAB PO SCH (05:20)
[2016-12-03 06:45] VITALS: BP 140/80; PULSE 69; RESP 18; TEMP 97.8; O2SAT 96
[2016-12-03 08:00] VITALS: BP 164/81; PULSE 66; RESP 16; TEMP 97; O2SAT 97
[2016-12-03] MEDS: NYSTAT/DIPHENHY/LIDO MOUTHWASH (Adult) 120ML SWISH-SWAL SCH ×6 (09:00→21:04)
[2016-12-03] MEDS: GABAPENTIN 300 MG CAP PO SCH ×3 (09:24→17:52)
[2016-12-03] MEDS: DOCUSATE SODIUM 50 MG/SENNA 8.6 MG TAB PO SCH ×2 (09:24→21:02)
[2016-12-03] MEDS: DEXAMETHASONE 4 MG TAB PO SCH ×2 (09:24→21:00)
[2016-12-03] MEDS: ENOXAPARIN SODIUM 40 MG/0.4 ML SYRINGE SQ SCH (09:25)
[2016-12-03] MEDS: PANTOPRAZOLE SOD 20 MG DELAYED RELEASE TAB PO SCH (09:25)
--- NOTE | 2016-12-03 11:41 | PD.ONC.PN ---
Subjective Subjective Remarks Afebrile overnight. Patient resting comfortably with family at bedside. Had bowel movement today. Objective Data Date Time Temp Pulse Resp B/P Pulse Ox O2 Delivery O2 Flow Rate FiO2 12/03/16 08:00 66 16 164/81 97 12/03/16 06:45 97.8 69 18 140/80 96 12/03/16 00:50 97.7 67 19 149/88 95 12/02/16 20:45 98.7 75 17 157/83 96 12/02/16 16:00 98.8 76 19 182/88 96 12/02/16 12:00 97.8 81 18 164/88 95 12/03/16 12/03/16 12/03/16 07:00 15:00 23:00 Intake Total 200 ml Balance 200 ml Administered Medications Medications (Trade) Dose Ordered Sig/Louisa Route PRN Reason Start Time Stop Time Status Last Admin Dose Admin Enalaprilat (Vasotec Inj) 1.25 mg Q8H PRN IV PUSH SBP> OR = 180, DBP> OR = 100 11/21/16 10:45 11/25/16 00:16 Ondansetron HCl (Zofran Inj) 4 mg Q8HR PRN IV PUSH NAUSEA 11/21/16 10:45 11/27/16 08:30 Alprazolam (Xanax) 0.25 mg Q4H PRN PO ANXIETY 11/21/16 12:00 12/02/16 21:00 Levothyroxine Sodium (Synthroid) 100 mcg DAILY@0600 PO 11/22/16 06:00 12/03/16 05:20 Magnesium Hydroxide (Milk Of Magnesia Liq) 30 ml DAILY PRN PO CONSTIPATION 11/23/16 11:45 12/01/16 18:38 Gabapentin (Neurontin) 300 mg TID PO 11/25/16 13:00 12/03/16 09:24 Dexamethasone (Decadron) 4 mg Q12HR PO 11/27/16 21:00 12/03/16 09:24 Pantoprazole Sodium (Protonix) 20 mg DAILY PO 11/28/16 09:00 12/03/16 09:25 Hydromorphone HCl (Dilaudid) 2 mg Q3H PRN PO pain1-8 11/28/16 12:15 12/02/16 21:02 Morphine Sulfate (Oramorph Sr) 15 mg Q12HR PO 11/28/16 21:00 Hold 11/28/16 22:17 Senna/Docusate Sodium (Treasure-Colace) 1 tab BID PO 11/28/16 21:00 12/03/16 09:24 Multi-Ingredient Mouthwash/Gargle (Magic Mouthwash Adult Liq) 10 ml QID SWISH-SWAL 11/30/16 21:00 12/01/16 18:39 Bisacodyl (Dulcolax Supp) 10 mg DAILY PRN RECTAL CONSTIPATION 12/01/16 16:15 12/02/16 10:21 Enoxaparin Sodium (Lovenox Inj) 40 mg DAILY SQ 12/02/16 09:00 12/03/16 09:25 Objective Remarks GENERAL: Elderly female, lying in bed in nad SKIN: Warm and dry. HEAD: Normocephalic. EYES: No injection or drainage. NECK: Supple, trachea midline. CARDIOVASCULAR: Regular rate and rhythm RESPIRATORY: Breath sounds equal bilaterally. No accessory muscle use. GASTROINTESTINAL: Abdomen soft, non-tender, nondistended. EXTREMITIES: No cyanosis NEUROLOGICAL: Awake and alert, normal speech. moving all extremities. 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 currently receiving radiation. she has been offered chemotherapy but at this point does not want to be that aggressive. --PET scan, 10/24, showed intense uptake within L5 left transverse process with associated hairline pathologic fracture. --MRI lumbar spine showed severe compression fracture deformity of L5 with invagination of the superior inferior endplate and marrow edema. +retropulsion with mass effect on the left S1 nerve root. +mild compression fracture deformity of T12. --CT lumbar spine showed destructive process involving transverse process of L5 suspicious of neoplastic process. This appeared to be causing all her symptoms. (2) Pain management Status: Acute Plan: --PRN Dilaudid --radiation to spine started 11/26/16 (3) Non-Hodgkin lymphoma Status: Chronic Plan: History: --first treated with rituximab and Treanda --finished two years of maintenance Rituxan in January of 2014. --December 2015-->found to have progression of disease. treated with and Zydelig with Rituxan and then maintained on Zydelig --2016: CT showed low density masses in the retroperitoneum at the superior posterior left pelvis and the right pelvic sidewall. The --October 2016: PET scan showed these lesions were less prominent and not hypermetabolic. +hypermetabolic presacral lesion measured about 1.6 cm and the L5 hypermetabolic lesion. She --started on Rituxan and Revlimid about 2 weeks ago. Assessment 81y/o female with h/o follicular and hodgkin's lymphoma. admitted with severe lower back pain -History of Hodgkin lymphoma. She received six cycles of ABVD in 2006. She then received consolidation radiation in 2007. Plan 1. continue XRT until hospice 2. PRN dilaudid 3. supportive care Attending Statement The exam, history, and the medical decision-making described in the above note were completed with the assistance of the mid-level provider. I reviewed and agree with the findings presented. I attest that I had a vztn-[id number] encounter with the patient on the same day, and personally performed and documented my assessment and findings in the medical record. Still weak. LLE pain controlled. Had BM. She did not want anymore aggressive treatment with chemotherapy. She will continue and will likely go to hospice. Problem Qualifiers (1) Non-Hodgkin lymphoma: Ledy Sneed Dec 03, 2016 11:40 Fredy Soni MD Dec 03, 2016 15:08
[2016-12-03 12:00] VITALS: BP 140/78; PULSE 79; RESP 16; TEMP 97.5; O2SAT 97
[2016-12-03 16:00] VITALS: BP 150/81; PULSE 80; RESP 16; TEMP 97.8; O2SAT 98
[2016-12-03 20:00] VITALS: BP 174/83; PULSE 70; RESP 18; TEMP 96.2; O2SAT 98
[2016-12-03] MEDS: ALPRAZolam 0.25 MG TAB PO PRN (21:02)
[2016-12-03] MEDS: HYDROmorphone HCL 2 MG TAB PO PRN (21:02)
--- NOTE | 2016-12-03 23:41 | HHI.PR ---
Subjective Remarks Follow-up for pathologic fracture in a patient with history of lymphoma. Patient is doing well, happy with her bed. No fever, chills. Had BM. Objective Vitals Vital Signs Date Time Temp Pulse Resp B/P Pulse Ox O2 Delivery O2 Flow Rate FiO2 12/03/16 20:00 96.2 70 18 174/83 98 12/03/16 16:00 97.8 80 16 150/81 98 12/03/16 12:00 97.5 79 16 140/78 97 12/03/16 08:00 97.0 66 16 164/81 97 12/03/16 06:45 97.8 69 18 140/80 96 12/03/16 00:50 97.7 67 19 149/88 95 I/O 12/02/16 12/02/16 12/02/16 12/03/16 12/03/16 12/03/16 07:00 15:00 23:00 07:00 15:00 23:00 Intake Total 500 ml 360 ml 1325 ml 200 ml 720 ml Balance 500 ml 360 ml 1325 ml 200 ml 720 ml Intake Oral 500 ml 360 ml 1325 ml 200 ml 720 ml # Voids 1 4 4 3 1 2 # Bowel Movements 0 1 0 0 1 Objective Remarks GENERAL: Alert, NAD. SKIN: Warm and dry. HEAD: Normocephalic. EYES: No scleral icterus. No injection or drainage. NECK: Supple, trachea midline. No JVD or lymphadenopathy. CARDIOVASCULAR: Regular rate and rhythm without murmurs, gallops, or rubs. RESPIRATORY: Breath sounds equal bilaterally. No accessory muscle use. GASTROINTESTINAL: Abdomen soft, non-tender, nondistended. MUSCULOSKELETAL: No cyanosis, or edema. BACK: Nontender without obvious deformity. No CVA tenderness. Procedures bone biopsy ( L5). A/P Problem List: (1) Fracture of lumbar spine ICD Code: S32.009A Status: Acute Assessment and Plan Ms. Feng is an 81-year-old female with a history of Hodgkin's lymphoma and non- Hodgkin lymphoma presented to the emergency department due to increased low back pain. - T12/L5 pathologic fracture. 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 - oncology,neurosurgery following- consulted radiation oncology. - consulted PT/OT. - Oncology discussed with patient regarding treatments if desired and side effects. - Discussed with CM regarding SNF. - Hospice cannot accept patient while patient is receiving radiation treatments. - Constipation - resolved. Continue to use Laxatives PRN. - UTI - received Cipro. - diabetes mellitus - well controlled. Will check blood glucose BID. - chronic renal insufficiency- stable- will monitor - hypothyroidism; resumed levothyroxine DNR. Heparin SQ. Problem Qualifiers (1) Fracture of lumbar spine: Qualified Code: S32.050A - Closed wedge compression fracture of fifth lumbar vertebra, initial encounter Renaldo Larsen DO Dec 03, 2016 23:41
[2016-12-04] VITALS (7 sets, daily range): BP systolic 116–182; BP diastolic 60–92; PULSE 66–78; RESP 18–20; TEMP 96–98.7; O2SAT 97–100
[2016-12-04] MEDS: ALPRAZolam 0.25 MG TAB PO PRN ×2 (04:52→22:13)
[2016-12-04] MEDS: LEVOTHYROXINE SODIUM 100 MCG TAB PO SCH (04:52)
[2016-12-04] MEDS: HYDROmorphone HCL 2 MG TAB PO PRN ×3 (04:52→22:14)
[2016-12-04] MEDS: ENALAPRILAT 1.25 MG/ML VIAL IV PUSH PRN (05:11)
[2016-12-04] MEDS: NYSTAT/DIPHENHY/LIDO MOUTHWASH (Adult) 120ML SWISH-SWAL SCH ×4 (08:04→21:00)
[2016-12-04] MEDS: HYDROmorphone HCL PF 1 MG/ML VIAL IV PUSH PRN ×2 (08:11→11:51)
[2016-12-04] MEDS: ENOXAPARIN SODIUM 40 MG/0.4 ML SYRINGE SQ SCH (08:13)
[2016-12-04] MEDS: GABAPENTIN 300 MG CAP PO SCH ×3 (08:18→17:46)
[2016-12-04] MEDS: DEXAMETHASONE 4 MG TAB PO SCH ×2 (08:18→22:12)
[2016-12-04] MEDS: DOCUSATE SODIUM 50 MG/SENNA 8.6 MG TAB PO SCH ×2 (08:18→22:13)
[2016-12-04] MEDS: PANTOPRAZOLE SOD 20 MG DELAYED RELEASE TAB PO SCH (08:18)
--- NOTE | 2016-12-04 11:52 | PD.ONC.PN ---
Subjective Subjective Remarks Afebrile overnight. Patient states she continues to have pain in her low back. She didn't take as much dilaudid yesterday which may have worsened her pain today. Objective Data Date Time Temp Pulse Resp B/P Pulse Ox O2 Delivery O2 Flow Rate FiO2 12/04/16 08:00 96.1 66 20 130/70 100 12/04/16 04:58 182/92 Automatic Cuff 12/04/16 04:00 96.0 66 18 171/89 99 12/04/16 00:15 96.0 70 18 178/90 99 12/03/16 20:00 96.2 70 18 174/83 98 12/03/16 16:00 97.8 80 16 150/81 98 12/03/16 12:00 97.5 79 16 140/78 97 Administered Medications Medications (Trade) Dose Ordered Sig/Louisa Route PRN Reason Start Time Stop Time Status Last Admin Dose Admin Enalaprilat (Vasotec Inj) 1.25 mg Q8H PRN IV PUSH SBP> OR = 180, DBP> OR = 100 11/21/16 10:45 12/04/16 05:11 Ondansetron HCl (Zofran Inj) 4 mg Q8HR PRN IV PUSH NAUSEA 11/21/16 10:45 11/27/16 08:30 Alprazolam (Xanax) 0.25 mg Q4H PRN PO ANXIETY 11/21/16 12:00 12/04/16 04:52 Levothyroxine Sodium (Synthroid) 100 mcg DAILY@0600 PO 11/22/16 06:00 12/04/16 04:52 Magnesium Hydroxide (Milk Of Magnesia Liq) 30 ml DAILY PRN PO CONSTIPATION 11/23/16 11:45 12/01/16 18:38 Gabapentin (Neurontin) 300 mg TID PO 11/25/16 13:00 12/04/16 08:18 Dexamethasone (Decadron) 4 mg Q12HR PO 11/27/16 21:00 12/04/16 08:18 Pantoprazole Sodium (Protonix) 20 mg DAILY PO 11/28/16 09:00 12/04/16 08:18 Hydromorphone HCl (Dilaudid) 2 mg Q3H PRN PO pain1-8 11/28/16 12:15 12/04/16 04:52 Hydromorphone HCl (Dilaudid Pf Inj) 0.5 mg Q3HR PRN IV PUSH PAIN SCALE 9 TO 10 11/28/16 11:30 12/04/16 08:11 Morphine Sulfate (Oramorph Sr) 15 mg Q12HR PO 11/28/16 21:00 Hold 11/28/16 22:17 Senna/Docusate Sodium (Treasure-Colace) 1 tab BID PO 11/28/16 21:00 12/04/16 08:18 Multi-Ingredient Mouthwash/Gargle (Magic Mouthwash Adult Liq) 10 ml QID SWISH-SWAL 11/30/16 21:00 12/01/16 18:39 Bisacodyl (Dulcolax Supp) 10 mg DAILY PRN RECTAL CONSTIPATION 12/01/16 16:15 12/02/16 10:21 Enoxaparin Sodium (Lovenox Inj) 40 mg DAILY SQ 12/02/16 09:00 12/04/16 08:13 Objective Remarks GENERAL: Elderly female, supine in bed, resting comfortably SKIN: Warm and dry. HEAD: Normocephalic. EYES: No injection or drainage. NECK: Supple, trachea midline. CARDIOVASCULAR: Regular rate and rhythm RESPIRATORY: Breath sounds equal bilaterally. No accessory muscle use. GASTROINTESTINAL: Abdomen soft, non-tender, nondistended. EXTREMITIES: No cyanosis NEUROLOGICAL: Awake and alert, normal speech. able to move her extremities. 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 currently receiving radiation. she has been offered chemotherapy but at this point does not want to be that aggressive. --PET scan, 10/24, showed intense uptake within L5 left transverse process with associated hairline pathologic fracture. --MRI lumbar spine showed severe compression fracture deformity of L5 with invagination of the superior inferior endplate and marrow edema. +retropulsion with mass effect on the left S1 nerve root. +mild compression fracture deformity of T12. --CT lumbar spine showed destructive process involving transverse process of L5 suspicious of neoplastic process. This appeared to be causing all her symptoms. (2) Pain management Status: Acute Plan: --PRN Dilaudid --radiation to spine started 11/26/16 (3) Non-Hodgkin lymphoma Status: Chronic Plan: History: --first treated with rituximab and Treanda --finished two years of maintenance Rituxan in January of 2014. --December 2015-->found to have progression of disease. treated with and Zydelig with Rituxan and then maintained on Zydelig --2016: CT showed low density masses in the retroperitoneum at the superior posterior left pelvis and the right pelvic sidewall. The --October 2016: PET scan showed these lesions were less prominent and not hypermetabolic. +hypermetabolic presacral lesion measured about 1.6 cm and the L5 hypermetabolic lesion. She --started on Rituxan and Revlimid about 2 weeks ago. Assessment 81y/o female with h/o follicular and hodgkin's lymphoma. admitted with severe lower back pain -History of Hodgkin lymphoma. She received six cycles of ABVD in 2006. She then received consolidation radiation in 2007. Plan 1. continue XRT until hospice 2. PRN dilaudid 3. ask PT to get patient out of bed into chair--may improve her pain. Attending Statement The exam, history, and the medical decision-making described in the above note were completed with the assistance of the mid-level provider. I reviewed and agree with the findings presented. I attest that I had a [id number] encounter with the patient on the same day, and personally performed and documented my assessment and findings in the medical record. Has more hip pain when she tries not to take the dilaudid. +BM. Continue XRT. Consult PT. Problem Qualifiers (1) Non-Hodgkin lymphoma: Ledy Sneed Dec 04, 2016 11:52 Fredy Soni MD Dec 04, 2016 17:22
--- NOTE | 2016-12-04 17:55 | HHI.PR ---
Subjective Remarks Follow-up for pathologic fracture in a patient with history of lymphoma. Patient is currently doing well. She reports constipation symptoms much improved with morning prune juice. No fever, chills. Objective Vitals Vital Signs Date Time Temp Pulse Resp B/P Pulse Ox O2 Delivery O2 Flow Rate FiO2 12/04/16 16:00 97.6 71 20 117/60 97 Manual Cuff/Palpation 12/04/16 12:00 96.2 76 18 116/69 100 12/04/16 08:00 96.1 66 20 130/70 100 12/04/16 04:58 182/92 Automatic Cuff 12/04/16 04:00 96.0 66 18 171/89 99 12/04/16 00:15 96.0 70 18 178/90 99 12/03/16 20:00 96.2 70 18 174/83 98 I/O 12/03/16 12/03/16 12/03/16 12/04/16 12/04/16 12/04/16 07:00 15:00 23:00 07:00 15:00 23:00 Intake Total 200 ml 720 ml Balance 200 ml 720 ml Intake Oral 200 ml 720 ml # Voids 3 1 2 1 # Bowel Movements 0 1 0 Imaging Last Impressions Bone Biopsy CT 11/22/16 0600 Signed Impressions: Service Date/Time: October 10:41 - CONCLUSION: Uncomplicated CT guided biopsy. León Good MD Lumbar Spine CT 11/21/16 0000 Signed Impressions: Service Date/Time: Monday, November 21, 2016 10:19 - CONCLUSION: 1. Destructive process involving the transverse process of L5 suspicious for neoplastic process. This could be biopsied percutaneously. Quinton Robison MD FACR Lower Extremity CT 11/21/16 0000 Signed Impressions: Service Date/Time: Monday, November 21, 2016 10:19 - CONCLUSION: I do not see hip fracture although troch nails make conclusion of subtle fracture very difficult. Please see above discussion. Quinton Robison MD FACR Objective Remarks GENERAL: Alert, NAD. SKIN: Warm and dry. HEAD: Normocephalic. EYES: No scleral icterus. No injection or drainage. NECK: Supple, trachea midline. No JVD or lymphadenopathy. CARDIOVASCULAR: Regular rate and rhythm without murmurs, gallops, or rubs. RESPIRATORY: Breath sounds equal bilaterally. No accessory muscle use. GASTROINTESTINAL: Abdomen soft, non-tender, nondistended. MUSCULOSKELETAL: No cyanosis, or edema. BACK: Nontender without obvious deformity. No CVA tenderness. Procedures bone biopsy ( L5). A/P Problem List: (1) Fracture of lumbar spine ICD Code: S32.009A Status: Acute Assessment and Plan Ms. Feng is an 81-year-old female with a history of Hodgkin's lymphoma and non- Hodgkin lymphoma presented to the emergency department due to increased low back pain. - T12/L5 pathologic fracture. 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 - oncology,neurosurgery following- consulted radiation oncology. - consulted PT/OT. - Oncology discussed with patient regarding treatments if desired and side effects. - Discussed with CM regarding SNF. - Hospice cannot accept patient while patient is receiving radiation treatments. - Constipation - resolved. Continue to use Laxatives PRN. - UTI - received Cipro. - diabetes mellitus - well controlled. Will stop checking blood glucose check BID. - chronic renal insufficiency- stable- will monitor - hypothyroidism; resumed levothyroxine DNR. Heparin SQ. Problem Qualifiers (1) Fracture of lumbar spine: Qualified Code: S32.050A - Closed wedge compression fracture of fifth lumbar vertebra, initial encounter Renaldo Larsen DO Dec 04, 2016 17:55
--- NOTE | 2016-12-04 19:15 | HHI.HCPN ---
Reason for visit a. To assist with evaluation and management of symptoms including: pain, constipation, weakness. b. To assist medical decision maker(s) with: better understanding of current medical conditions; weighing benefits/burdens of medical treatment options; making medical treatment decisions. . (SHARON TORRES) Subjective/Interval History Patient seen and examined in room. No family at bedside. Patient is awake and alert, she is lying flat in bed. She reports continued, worsening pain in left hip area. Rate 6/10, describes as a sharp throbbing pain. She reports adequate relief with PRN Dilaudid PO or IV. She indicates she has been trying "not to take it and now her pain is worse." I offered long acting meds, she declined for now. She has only had 2 PRN doses in the past 24 hours. She feels PRN Dilaudid works, she just has to take it. I encouraged PRN use and she agrees. She does not want me to make any adjustments at this time. She has completed palliative radiation treatments to spine for pain control, was re-simulated today due to weight loss. She has had continued constipation. LBM 12/03/16, she has continued to need additional prune juice and oatmeal. I will increase Senna-S to 2 PO BID, she agrees this would help. No new imaging or labs. She reports continued good appetite, but does not like the hospital food. Pressure sore on left heel, about 2 cm diameter redness peripherally and purple in center, no open areas, floated heels. Will consult wound care, requested every 2 hour turning. Spoke with APPLIANCE SERVICER, nurse and patient about need to turn pt and float heels as she is unable to lift left LE off bed. She had a great deal of difficulty turning herself in bed given lumbar metastases. . (SHARON TORRES) Advance Directives Living Will: Copy in medical record Health Care Surrogate: Copy in medical record (SHARON TORRES) Advance Directive Specifics Date completed: 08/21/2016 . Health Care Surrogate(s): Primary Health Care Surrogate: Katlin Sim 1st alternate HCS: Tito Gaffney 2nd alternate: Greg Dailey . Documented care wishes: 5 wishes on chart with hand written instructions stating "no life support - do not try to keep me alive. No feeding tube, No CPR, surgery, blood transfusions, dialysis or anything to keep me alive." . Significant change in goals: NO CODE - [place] DNR on chart. Continue palliative radiation to spine, will consider hospice when XRT complete. . (SHARON TORRES) Objective Vital Signs Date Time Temp Pulse Resp B/P Pulse Ox O2 Delivery O2 Flow Rate FiO2 12/04/16 16:00 97.6 71 20 117/60 97 Manual Cuff/Palpation 12/04/16 12:00 96.2 76 18 116/69 100 12/04/16 08:00 96.1 66 20 130/70 100 12/04/16 04:58 182/92 Automatic Cuff 12/04/16 04:00 96.0 66 18 171/89 99 12/04/16 00:15 96.0 70 18 178/90 99 12/03/16 20:00 96.2 70 18 174/83 98 Intake & Output 12/04/16 12/04/16 07:00 19:00 # Voids 2 1 # Bowel Movements 1 0 Physical Exam CONSTITUTIONAL/GENERAL: This is an adequately nourished patient, in no apparent distress. SKIN: No jaundice, rashes, or lesions. Ecchymoses on upper extremities. Pressure sore on left heel, about 2cm diameter redness peripherally and purple in center. Skin temperature appropriate. Not diaphoretic. EYES: Pupils equal and round and reactive. Extraocular motions intact. No scleral icterus. No injection or drainage. Fundi not examined. ENT: Hearing grossly normal. Nose without bleeding or purulent drainage. Throat without visible erythema, exudates, masses, or lesions. CARDIOVASCULAR: Regular rate and rhythm without murmurs, gallops, or rubs. No JVD. Peripheral pulses symmetric. RESPIRATORY/CHEST: Symmetric, unlabored respirations. Clear to auscultation. Breath sounds equal bilaterally. No wheezes, rales, or rhonchi. GASTROINTESTINAL: Abdomen soft, non-tender, nondistended. No hepato-splenomegaly , or palpable masses. No guarding. Bowel sounds present. GENITOURINARY: Without palpable bladder distension. Bryan catheter in place. MUSCULOSKELETAL: Extremities without clubbing, cyanosis, or edema. Bilateral LE weakness. Able to life right leg off bed a few inches. Unable to lift left foot off bed, wiggles toes slightly. No mottling or clubbing. NEUROLOGICAL: Awake and alert. Follows commands. Cognitively sharp. . (SHARON TORRES) Diagnostic Tests Imaging Last Impressions Bone Biopsy CT 11/22/16 0600 Signed Impressions: Service Date/Time: October 10:41 - CONCLUSION: Uncomplicated CT guided biopsy. León Good MD Lumbar Spine CT 11/21/16 0000 Signed Impressions: Service Date/Time: Monday, November 21, 2016 10:19 - CONCLUSION: 1. Destructive process involving the transverse process of L5 suspicious for neoplastic process. This could be biopsied percutaneously. Quinton Robison MD FACR Lower Extremity CT 11/21/16 0000 Signed Impressions: Service Date/Time: Monday, November 21, 2016 10:19 - CONCLUSION: I do not see hip fracture although troch nails make conclusion of subtle fracture very difficult. Please see above discussion. Quinton Robison MD FACR Procedures * 11/22/16 CT directed bone biopsy L5 pathology positive large B cell lymphoma, non- germinal center type. (SHARON TORRES) Assessment and Plan Disease Oriented Problem List: (1) Fracture of lumbar spine (2) Non-Hodgkin lymphoma (3) Pain management (4) Acute exacerbation of chronic low back pain (5) Hypothyroidism (6) Diabetes mellitus Symptom Scale: (1) Pain 0-10 Scale: 6 (2) Weakness 0-10 Scale: Unable to quantify (3) Anxiety 0-10 Scale: 0 Pertinent Non-Medical Issues Psychosocial: . Has 4 sons and 2 daughters. Spiritual: Yazdanism lilly. Legal: Notes indicate written advanced directives. Ethical issues impacting care: No known concerns at this time. . Important Contacts * Katlin Gasca, Daughter: [phone] . Prognosis Patient with progressive lymphoma that is not curable, now with pathologic fracture of L5 getting palliative radiation (20 planned tx) now bedbound. Unlikely she will be able to walk again. May be a candidate for palliative chemotherapy in the future per oncology depending on course. . Code Status: No Code Plan * Patient is currently capacitated to make her own health care decisions. Living Will (5 wishes) on chart with designated health care surrogate, daughter Katlin Sim. [place] DNR completed per pt request 11/28/16. * NO [facility] [place] - [place] DNR on chart to go with patient upon DC. * 11/30/16: Palliative care met with patient. Spoke with Dr. Hu he is unable to decrease number of XRT tx or increase dose as pt has previously had XRT to this area. Discussed with Dr. Polanco, he is unable to accept pt on hospice until after completion of palliative XRT. Patient unable to enroll in Hospice at this time. She has elected to continue palliative radiation to spine for now. She understands hospice can be elected once radiation is completed. Palliative care will continue to follow to assist with symptom management. Discussed with Hospice nurse, palliative care will notify when hospice services may be needed. * 12/03/16: Spoke with patient, she desires continued radiation treatments to spine. She does not want me to adjust pain meds at this time. Encouraged PRN Dilaudid to control pain. * SYMPTOMS: Back pain: due to progressive lymphoma and L5 pathologic fracture. Oramorph 15mg PO every 12 hours was stopped 11/29/16, on PRN Dilaudid with relief. Encouraged use of PRN Dilaudid. Anxiety: Intermittent, denies today. Has PRN Xanax. Weakness: due to pathologic spine fracture secondary to lymphoma / disease progression. Constipation: LBM 12/03/16. Increased Senna-S 2 PO BID. * Palliative care will continue to follow to assist with symptom management and further clarification of goals as needed. . (SHARON TORRES) Attestation To help prompt me to consider important information that might be impacting today's encounter and assessment, information from prior notes written by myself or my colleagues may have been "brought forward" into today's note. My signature on this note, however, is an attestation that I personally performed the exam, history, and/or decision-making noted today, and, unless otherwise indicated, the interactions with patient, family, and staff as well as the review of records all occurred today. I also attest that the listed assessment and stated plan reflect my best clinical judgment today based on the combination of historical information, prior notes, and today's exam/ interactions. When time spent is documented, it refers only to time spent today by the signer, or if indicated, combined time spent today by collaborating physician/nurse practitioner. (SHARON TORRES) Collaborating MD Comments . Chart reviewed. Cased discussed with palliative care PRECISION LENS GENERATOR. Above PRECISION LENS GENERATOR note reviewed and I concur. . (Archie Polanco MD) SHARON TORRES Dec 04, 2016 19:15 Archie Polanco MD January 21, 2017 14:55
[2016-12-05] VITALS (7 sets, daily range): BP systolic 121–197; BP diastolic 62–92; PULSE 63–67; RESP 18–20; TEMP 95.7–97.7; O2SAT 97–100
[2016-12-05] MEDS: LEVOTHYROXINE SODIUM 100 MCG TAB PO SCH (08:34)
[2016-12-05] MEDS: PANTOPRAZOLE SOD 20 MG DELAYED RELEASE TAB PO SCH (08:34)
[2016-12-05] MEDS: DEXAMETHASONE 4 MG TAB PO SCH ×2 (08:34→22:25)
[2016-12-05] MEDS: GABAPENTIN 300 MG CAP PO SCH ×3 (08:34→18:03)
[2016-12-05] MEDS: DOCUSATE SODIUM 50 MG/SENNA 8.6 MG TAB PO SCH ×2 (08:35→21:00)
[2016-12-05] MEDS: NYSTAT/DIPHENHY/LIDO MOUTHWASH (Adult) 120ML SWISH-SWAL SCH ×4 (08:36→21:00)
[2016-12-05] MEDS: ENALAPRILAT 1.25 MG/ML VIAL IV PUSH PRN ×2 (08:36→18:04)
[2016-12-05] MEDS: ENOXAPARIN SODIUM 40 MG/0.4 ML SYRINGE SQ SCH (08:36)
[2016-12-05] MEDS: HYDROmorphone HCL PF 1 MG/ML VIAL IV PUSH PRN (08:36)
--- NOTE | 2016-12-05 10:28 | HHI.PR ---
Subjective Remarks Follow-up for pathologic fracture in a patient with history of lymphoma. Patient is doing well. No fever, chills. Tolerating diet well. Left heel stage 1 wound is not painful. Objective Vitals Vital Signs Date Time Temp Pulse Resp B/P Pulse Ox O2 Delivery O2 Flow Rate FiO2 12/05/16 08:00 96.0 64 20 197/92 100 12/05/16 04:00 96.5 67 18 159/76 99 12/05/16 00:00 97.1 65 18 141/83 97 12/04/16 20:00 98.7 78 18 151/71 97 12/04/16 16:00 97.6 71 20 117/60 97 Manual Cuff/Palpation 12/04/16 12:00 96.2 76 18 116/69 100 I/O 12/04/16 12/04/16 12/04/16 12/05/16 12/05/16 12/05/16 07:00 15:00 23:00 07:00 15:00 23:00 Intake Total 300 ml 350 ml Balance 300 ml 350 ml Intake Oral 300 ml 350 ml # Voids 1 1 2 # Bowel Movements 0 Imaging Last Impressions Bone Biopsy CT 11/22/16 0600 Signed Impressions: Service Date/Time: October 10:41 - CONCLUSION: Uncomplicated CT guided biopsy. León Good MD Lumbar Spine CT 11/21/16 0000 Signed Impressions: Service Date/Time: Monday, November 21, 2016 10:19 - CONCLUSION: 1. Destructive process involving the transverse process of L5 suspicious for neoplastic process. This could be biopsied percutaneously. Quinton Robison MD FACR Lower Extremity CT 11/21/16 0000 Signed Impressions: Service Date/Time: Monday, November 21, 2016 10:19 - CONCLUSION: I do not see hip fracture although troch nails make conclusion of subtle fracture very difficult. Please see above discussion. Quinton Robison MD FACR Objective Remarks GENERAL: Alert, NAD. SKIN: Warm and dry. HEAD: Normocephalic. EYES: No scleral icterus. No injection or drainage. NECK: Supple, trachea midline. No JVD or lymphadenopathy. CARDIOVASCULAR: Regular rate and rhythm without murmurs, gallops, or rubs. RESPIRATORY: Breath sounds equal bilaterally. No accessory muscle use. GASTROINTESTINAL: Abdomen soft, non-tender, nondistended. MUSCULOSKELETAL: No cyanosis, or edema. BACK: Nontender without obvious deformity. No CVA tenderness. Procedures bone biopsy ( L5). A/P Problem List: (1) Fracture of lumbar spine ICD Code: S32.009A Status: Acute Assessment and Plan Ms. Feng is an 81-year-old female with a history of Hodgkin's lymphoma and non- Hodgkin lymphoma presented to the emergency department due to increased low back pain. - T12/L5 pathologic fracture. 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 - oncology,neurosurgery following- consulted radiation oncology. - consulted PT/OT. - Oncology discussed with patient regarding treatments if desired and side effects. - Discussed with CM regarding SNF. - Hospice cannot accept patient while patient is receiving radiation treatments. - Constipation - resolved. Continue to use Laxatives PRN. Milk of Mag, Prune juice. If needed, we can give her GoLytely. - UTI - received Cipro. - diabetes mellitus - well controlled. - chronic renal insufficiency- stable- will monitor - hypothyroidism; resumed levothyroxine DNR. Heparin SQ. Problem Qualifiers (1) Fracture of lumbar spine: Qualified Code: S32.050A - Closed wedge compression fracture of fifth lumbar vertebra, initial encounter Renaldo Larsen DO Dec 05, 2016 10:27
[2016-12-05] MEDS: HYDROmorphone HCL 2 MG TAB PO PRN ×2 (12:35→22:24)
--- NOTE | 2016-12-05 13:25 | PD.ONC.PN ---
Subjective Subjective Remarks Afebrile overnight. Pt resting in bed in no distress. She has her legs elevated and states that this feels better on her back. She recently took something for pain. Objective Data Date Time Temp Pulse Resp B/P Pulse Ox O2 Delivery O2 Flow Rate FiO2 12/05/16 12:15 95.7 67 20 135/64 98 12/05/16 08:00 96.0 64 20 197/92 100 12/05/16 04:00 96.5 67 18 159/76 99 12/05/16 00:00 97.1 65 18 141/83 97 12/04/16 20:00 98.7 78 18 151/71 97 12/04/16 16:00 97.6 71 20 117/60 97 Manual Cuff/Palpation 12/05/16 12/05/16 12/05/16 07:00 15:00 23:00 Intake Total 350 ml Balance 350 ml Administered Medications Medications (Trade) Dose Ordered Sig/Louisa Route PRN Reason Start Time Stop Time Status Last Admin Dose Admin Enalaprilat (Vasotec Inj) 1.25 mg Q8H PRN IV PUSH SBP> OR = 180, DBP> OR = 100 11/21/16 10:45 12/05/16 08:36 Ondansetron HCl (Zofran Inj) 4 mg Q8HR PRN IV PUSH NAUSEA 11/21/16 10:45 11/27/16 08:30 Alprazolam (Xanax) 0.25 mg Q4H PRN PO ANXIETY 11/21/16 12:00 12/04/16 22:13 Levothyroxine Sodium (Synthroid) 100 mcg DAILY@0600 PO 11/22/16 06:00 12/05/16 08:34 Magnesium Hydroxide (Milk Of Magnesia Liq) 30 ml DAILY PRN PO CONSTIPATION 11/23/16 11:45 12/01/16 18:38 Gabapentin (Neurontin) 300 mg TID PO 11/25/16 13:00 12/05/16 12:34 Dexamethasone (Decadron) 4 mg Q12HR PO 11/27/16 21:00 12/05/16 08:34 Pantoprazole Sodium (Protonix) 20 mg DAILY PO 11/28/16 09:00 12/05/16 08:34 Hydromorphone HCl (Dilaudid) 2 mg Q3H PRN PO pain1-8 11/28/16 12:15 12/05/16 12:35 Hydromorphone HCl (Dilaudid Pf Inj) 0.5 mg Q3HR PRN IV PUSH PAIN SCALE 9 TO 10 11/28/16 11:30 12/05/16 08:36 Morphine Sulfate (Oramorph Sr) 15 mg Q12HR PO 11/28/16 21:00 Hold 11/28/16 22:17 Multi-Ingredient Mouthwash/Gargle (Magic Mouthwash Adult Liq) 10 ml QID SWISH-SWAL 11/30/16 21:00 12/01/16 18:39 Bisacodyl (Dulcolax Supp) 10 mg DAILY PRN RECTAL CONSTIPATION 12/01/16 16:15 12/02/16 10:21 Enoxaparin Sodium (Lovenox Inj) 40 mg DAILY SQ 12/02/16 09:00 12/05/16 08:36 Senna/Docusate Sodium (Treasure-Colace) 2 tab BID PO 12/04/16 21:00 12/05/16 08:35 Objective Remarks GENERAL: Elderly female, supine in bed, resting comfortably SKIN: Warm and dry. HEAD: Normocephalic. EYES: No injection or drainage. NECK: Supple, trachea midline. CARDIOVASCULAR: Regular rate and rhythm RESPIRATORY: Breath sounds equal bilaterally. No accessory muscle use. GASTROINTESTINAL: Abdomen soft, non-tender, nondistended. EXTREMITIES: No cyanosis. No edema. NEUROLOGICAL: Awake and alert, normal speech. Able to move her extremities. 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 currently receiving radiation. she has been offered chemotherapy but at this point does not want to be that aggressive. --PET scan, 10/24, showed intense uptake within L5 left transverse process with associated hairline pathologic fracture. --MRI lumbar spine showed severe compression fracture deformity of L5 with invagination of the superior inferior endplate and marrow edema. +retropulsion with mass effect on the left S1 nerve root. +mild compression fracture deformity of T12. --CT lumbar spine showed destructive process involving transverse process of L5 suspicious of neoplastic process. This appeared to be causing all her symptoms. (2) Pain management Status: Acute Plan: --PRN Dilaudid --radiation to spine started 11/26/16 (3) Non-Hodgkin lymphoma Status: Chronic Plan: History: --first treated with rituximab and Treanda --finished two years of maintenance Rituxan in January of 2014. --December 2015-->found to have progression of disease. treated with and Zydelig with Rituxan and then maintained on Zydelig --2016: CT showed low density masses in the retroperitoneum at the superior posterior left pelvis and the right pelvic sidewall. The --October 2016: PET scan showed these lesions were less prominent and not hypermetabolic. +hypermetabolic presacral lesion measured about 1.6 cm and the L5 hypermetabolic lesion. She --started on Rituxan and Revlimid about 2 weeks ago. Assessment 81y/o female with h/o follicular and hodgkin's lymphoma. admitted with severe lower back pain -History of Hodgkin lymphoma. She received six cycles of ABVD in 2006. She then received consolidation radiation in 2007. Plan 1. Continue XRT; total 19 treatments planned, last one planned for 12/26. 2. Pt discussing with palliative care; deciding which Hospice to go to. 3. PT seeing pt. 4. On prn Dilaudid. Pain much more controlled today. Attending Statement The exam, history, and the medical decision-making described in the above note were completed with the assistance of the mid-level provider. I reviewed and agree with the findings presented. I attest that I had a [id number] encounter with the patient on the same day, and personally performed and documented my assessment and findings in the medical record. Still has left hip /leg pain, difficult for her to sit up. She does not want to increase pain meds for now b/c it cause drowsiness and confusion. Continue XRT. She is likely going to opt for hospice. Problem Qualifiers (1) Non-Hodgkin lymphoma: Sangeeta Almaraz Dec 05, 2016 13:25 Fredy Soni MD Dec 05, 2016 17:09
--- NOTE | 2016-12-05 17:59 | HHI.HCPN ---
Reason for visit a. To assist with evaluation and management of symptoms including: pain, constipation, weakness. b. To assist medical decision maker(s) with: better understanding of current medical conditions; weighing benefits/burdens of medical treatment options; making medical treatment decisions. . (SHARON TORRES) Subjective/Interval History Patient seen and examined in room. Son and his girlfriend at bedside. Patient awake and alert. She reports pain in left hip, leg and back are better today because "she is taking her medicine." Rate 5/10, describes as a sharp throbbing pain. She reports adequate relief with PRN Dilaudid PO or IV. She has had 2 doses today. Her bowels are moving again, LBM 12/05/16. She appreciates our conversations yesterday encouraging use of meds stating she feels much better today. Vital signs stable. . (SHARON TORRES) Advance Directives Living Will: Copy in medical record Health Care Surrogate: Copy in medical record (SHARON TORRES) Advance Directive Specifics Date completed: 08/21/2016 . Health Care Surrogate(s): Primary Health Care Surrogate: Katlin Sim 1st alternate HCS: Tito Gaffney 2nd alternate: Greg Dailey . Documented care wishes: 5 wishes on chart with hand written instructions stating "no life support - do not try to keep me alive. No feeding tube, No CPR, surgery, blood transfusions, dialysis or anything to keep me alive." . Significant change in goals: NO CODE. Continue radiation, plan for hospice upon completion of XRT. . (SHARON TORRES) Objective Vital Signs Date Time Temp Pulse Resp B/P Pulse Ox O2 Delivery O2 Flow Rate FiO2 12/05/16 16:00 95.8 63 20 172/74 100 12/05/16 12:15 95.7 67 20 135/64 98 12/05/16 08:00 96.0 64 20 197/92 100 12/05/16 04:00 96.5 67 18 159/76 99 12/05/16 00:00 97.1 65 18 141/83 97 12/04/16 20:00 98.7 78 18 151/71 97 Intake & Output 12/05/16 12/05/16 07:00 19:00 Intake Total 650 ml Balance 650 ml Intake Oral 650 ml # Voids 3 2 # Bowel Movements 1 Physical Exam CONSTITUTIONAL/GENERAL: This is an adequately nourished patient, in no apparent distress. SKIN: No jaundice, rashes, or lesions. Ecchymoses on upper extremities. Pressure sore on left heel, about 2 cm diameter redness peripherally and purple in center. Skin temperature appropriate. Not diaphoretic. EYES: Pupils equal and round and reactive. Extraocular motions intact. No scleral icterus. No injection or drainage. Fundi not examined. CARDIOVASCULAR: Regular rate and rhythm without murmurs, gallops, or rubs. No JVD. Peripheral pulses symmetric. RESPIRATORY/CHEST: Symmetric, unlabored respirations. Clear to auscultation. Breath sounds equal bilaterally. No wheezes, rales, or rhonchi. GASTROINTESTINAL: Abdomen soft, non-tender, nondistended. No hepato-splenomegaly , or palpable masses. No guarding. Bowel sounds present. GENITOURINARY: Without palpable bladder distension. Bryan catheter in place. MUSCULOSKELETAL: Extremities without clubbing, cyanosis, or edema. Bilateral LE weakness. Able to life right leg off bed a few inches. Unable to lift left foot off bed, wiggles toes slightly. No mottling or clubbing. NEUROLOGICAL: Awake and alert. Follows commands. Cognitively sharp. . ([facility] TORRES [facility]) Diagnostic Tests Imaging Last Impressions Bone Biopsy CT 11/22/16 0600 Signed Impressions: Service Date/Time: October 10:41 - CONCLUSION: Uncomplicated CT guided biopsy. León Good MD Lumbar Spine CT 11/21/16 0000 Signed Impressions: Service Date/Time: Monday, November 21, 2016 10:19 - CONCLUSION: 1. Destructive process involving the transverse process of L5 suspicious for neoplastic process. This could be biopsied percutaneously. Quinton Robison MD FACR Lower Extremity CT 11/21/16 0000 Signed Impressions: Service Date/Time: Monday, November 21, 2016 10:19 - CONCLUSION: I do not see hip fracture although troch nails make conclusion of subtle fracture very difficult. Please see above discussion. Quinton Robison MD FACR Procedures * 11/22/16 CT directed bone biopsy L5 pathology positive large B cell lymphoma, non- germinal center type. (SHARON TORRES) Assessment and Plan Disease Oriented Problem List: (1) Fracture of lumbar spine (2) Non-Hodgkin lymphoma (3) Pain management (4) Acute exacerbation of chronic low back pain (5) Hypothyroidism (6) Diabetes mellitus Symptom Scale: (1) Pain 0-10 Scale: 5 (2) Weakness 0-10 Scale: Unable to quantify (3) Anxiety 0-10 Scale: 0 Pertinent Non-Medical Issues Psychosocial: . Has 4 sons and 2 daughters. Spiritual: Mu-Is[employer] lilly. Legal: Notes indicate written advanced directives. Ethical issues impacting care: No known concerns at this time. . Important Contacts * Katlin Gasca, Daughter: [phone] . Prognosis Patient with progressive lymphoma that is not curable, now with pathologic fracture of L5 getting palliative radiation (20 planned tx) now bedbound. Unlikely she will be able to walk again. May be a candidate for palliative chemotherapy in the future per oncology depending on course. . Code Status: No Code Plan * Patient is currently capacitated to make her own health care decisions. Living Will (5 wishes) on chart with designated health care surrogate, daughter Katlin Sim. [place] DNR completed per pt request 11/28/16. * NO [facility] [place] - [place] DNR on chart to go with patient upon DC. * 11/30/16: Palliative care met with patient. Spoke with Dr. Hu he is unable to decrease number of XRT tx or increase dose as pt has previously had XRT to this area. Discussed with Dr. Polanco, he is unable to accept pt on hospice until after completion of palliative XRT. Patient unable to enroll in Hospice at this time. She has elected to continue palliative radiation to spine for now. She understands hospice can be elected once radiation is completed. Palliative care will continue to follow to assist with symptom management. Discussed with Hospice nurse, palliative care will notify when hospice services may be needed. * 12/05/16: Spoke with patient, she desires continued radiation treatments to spine, plan for hospice upon DC after XRT complete. Pain relieved with use of PRN Dilaudid, will continue to monitor. Feels better today. * SYMPTOMS: Back pain: due to progressive lymphoma and L5 pathologic fracture. Oramorph 15mg PO every 12 hours was stopped 11/29/16, on PRN Dilaudid with relief. Encouraged use of PRN Dilaudid. Anxiety: Intermittent, denies today. Has PRN Xanax. Weakness: due to pathologic spine fracture secondary to lymphoma / disease progression. Constipation: LBM 12/05/16. On Senna-S 2 PO BID. * Palliative care will continue to follow to assist with symptom management and further clarification of goals as needed. . (SHARON TORRES) Attestation To help prompt me to consider important information that might be impacting today's encounter and assessment, information from prior notes written by myself or my colleagues may have been "brought forward" into today's note. My signature on this note, however, is an attestation that I personally performed the exam, history, and/or decision-making noted today, and, unless otherwise indicated, the interactions with patient, family, and staff as well as the review of records all occurred today. I also attest that the listed assessment and stated plan reflect my best clinical judgment today based on the combination of historical information, prior notes, and today's exam/ interactions. When time spent is documented, it refers only to time spent today by the signer, or if indicated, combined time spent today by collaborating physician/nurse practitioner. (SHARON TORRES) Collaborating MD Comments . Chart reviewed. Cased discussed with palliative care WHEEL ALIGNER. Above WHEEL ALIGNER note reviewed and I concur. . (Archie Polanco MD) SHARON TORRES Dec 05, 2016 17:59 Archie Polanco MD January 21, 2017 15:06
[2016-12-05] MEDS: ALPRAZolam 0.25 MG TAB PO PRN (22:25)
[2016-12-06] VITALS (7 sets, daily range): BP systolic 149–170; BP diastolic 76–83; PULSE 55–79; RESP 18–20; TEMP 96.8–97.2; O2SAT 96–100
[2016-12-06] MEDS: LEVOTHYROXINE SODIUM 100 MCG TAB PO SCH (05:42)
[2016-12-06] MEDS: NYSTAT/DIPHENHY/LIDO MOUTHWASH (Adult) 120ML SWISH-SWAL SCH ×3 (09:00→21:00)
[2016-12-06] MEDS: GABAPENTIN 300 MG CAP PO SCH ×3 (09:18→19:03)
[2016-12-06] MEDS: PANTOPRAZOLE SOD 20 MG DELAYED RELEASE TAB PO SCH (09:18)
[2016-12-06] MEDS: DEXAMETHASONE 4 MG TAB PO SCH ×2 (09:18→21:42)
[2016-12-06] MEDS: ENOXAPARIN SODIUM 40 MG/0.4 ML SYRINGE SQ SCH (09:19)
[2016-12-06] MEDS: HYDROmorphone HCL PF 1 MG/ML VIAL IV PUSH PRN (09:20)
[2016-12-06] MEDS: DOCUSATE SODIUM 50 MG/SENNA 8.6 MG TAB PO SCH ×2 (14:16→21:00)
--- NOTE | 2016-12-06 15:05 | HHI.PR ---
Subjective Remarks Follow-up for pathologic fracture in a patient with history of lymphoma. Patient is doing well. However, she complains that her bed is not operating properly and as a result she is in significant pain. No fever, chills. Tolerating diet well. Objective Vitals Vital Signs Date Time Temp Pulse Resp B/P Pulse Ox O2 Delivery O2 Flow Rate FiO2 12/06/16 11:43 96.9 60 18 151/83 99 12/06/16 08:57 96.9 55 18 151/79 99 12/06/16 04:00 96.8 65 20 155/78 96 12/06/16 01:00 151/78 12/06/16 00:00 97.2 62 20 166/82 98 12/06/16 00:00 97.2 62 20 166/82 98 12/05/16 20:00 97.7 63 20 121/62 98 12/05/16 18:35 148/76 12/05/16 16:00 95.8 63 20 172/74 100 I/O 12/05/16 12/05/16 12/05/16 12/06/16 12/06/16 12/06/16 06:59 14:59 22:59 06:59 14:59 22:59 Intake Total 350 ml Balance 350 ml Intake Oral 350 ml # Voids 2 2 0 0 1 # Bowel Movements 1 1 0 1 Imaging Last Impressions Bone Biopsy CT 11/22/16 0600 Signed Impressions: Service Date/Time: October 10:41 - CONCLUSION: Uncomplicated CT guided biopsy. León Good MD Lumbar Spine CT 11/21/16 0000 Signed Impressions: Service Date/Time: Monday, November 21, 2016 10:19 - CONCLUSION: 1. Destructive process involving the transverse process of L5 suspicious for neoplastic process. This could be biopsied percutaneously. Quinton Robison MD FACR Lower Extremity CT 11/21/16 0000 Signed Impressions: Service Date/Time: Monday, November 21, 2016 10:19 - CONCLUSION: I do not see hip fracture although troch nails make conclusion of subtle fracture very difficult. Please see above discussion. Quinton Robison MD FACR Objective Remarks GENERAL: Alert, NAD. SKIN: Warm and dry. HEAD: Normocephalic. EYES: No scleral icterus. No injection or drainage. NECK: Supple, trachea midline. No JVD or lymphadenopathy. CARDIOVASCULAR: Regular rate and rhythm without murmurs, gallops, or rubs. RESPIRATORY: Breath sounds equal bilaterally. No accessory muscle use. GASTROINTESTINAL: Abdomen soft, non-tender, nondistended. MUSCULOSKELETAL: No cyanosis, or edema. BACK: Nontender without obvious deformity. No CVA tenderness. Procedures bone biopsy ( L5). A/P Problem List: (1) Fracture of lumbar spine ICD Code: S32.009A Status: Acute Assessment and Plan Ms. Feng is an 81-year-old female with a history of Hodgkin's lymphoma and non- Hodgkin lymphoma presented to the emergency department due to increased low back pain. - T12/L5 pathologic fracture. 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 - oncology,neurosurgery following- consulted radiation oncology. - consulted PT/OT. - Continue radiation therapy. Medical oncology is following. - Hospice cannot accept patient while patient is receiving radiation treatments. - Once adequate radiation therapy performed, patient can likely be discharged to hospice. - Constipation - resolved. Continue to use Laxatives PRN. Milk of Mag, Prune juice. If needed, we can give her GoLytely. - UTI - received Cipro. - diabetes mellitus - well controlled. Patient prefers not to check blood glucose. - chronic renal insufficiency- stable - hypothyroidism; resumed levothyroxine DNR. Lovenox. Problem Qualifiers (1) Fracture of lumbar spine: Qualified Code: S32.050A - Closed wedge compression fracture of fifth lumbar vertebra, initial encounter Renaldo Larsen DO Dec 06, 2016 15:05
--- NOTE | 2016-12-06 16:25 | HHI.HCPN ---
Reason for visit a. To assist with evaluation and management of symptoms including: pain, constipation, weakness. b. To assist medical decision maker(s) with: better understanding of current medical conditions; weighing benefits/burdens of medical treatment options; making medical treatment decisions. . (SHARON TORRES) Subjective/Interval History Patient seen and examined in room. Daughter, Katlin at bedside. Patient awake and alert. She reports pain in left hip, leg and back were bad this morning because her bed broke. Pain has since improved. She has only had Dilaudid 0.5mg IV x 1 dose this morning. She reports relief when she gets the meds. She is trying to ask for meds at first sign of pain. She does not want me to make any pain medication adjustments at this time. She rates pain 3/10 during my visit. Vital signs stable. Bowels are moving. No new labs or imaging. Spoke with radiation oncology office they indicate she will be restarting palliative radiation in Saturday12/10/16 at 11:15am with plan for 15 more treatments. . Family/friend interactions See interval note. . (SHARON TORRES) Advance Directives Living Will: Copy in medical record Health Care Surrogate: Copy in medical record (SHARON TORRES) Advance Directive Specifics Date completed: 08/21/2016 . Health Care Surrogate(s): Primary Health Care Surrogate: Katlin Sim 1st alternate HCS: Tito Gaffney 2nd alternate: Greg Dailey . Documented care wishes: 5 wishes on chart with hand written instructions stating "no life support - do not try to keep me alive. No feeding tube, No CPR, surgery, blood transfusions, dialysis or anything to keep me alive." . Significant change in goals: NO CODE. Plan for continued palliative radiation, will transition o hospice once radiation complete. . (SHARON TORRES) Objective Vital Signs Date Time Temp Pulse Resp B/P Pulse Ox O2 Delivery O2 Flow Rate FiO2 12/06/16 11:43 96.9 60 18 151/83 99 12/06/16 08:57 96.9 55 18 151/79 99 12/06/16 04:00 96.8 65 20 155/78 96 12/06/16 01:00 151/78 12/06/16 00:00 97.2 62 20 166/82 98 12/06/16 00:00 97.2 62 20 166/82 98 12/05/16 20:00 97.7 63 20 121/62 98 12/05/16 18:35 148/76 Intake & Output 12/06/16 12/06/16 07:00 19:00 # Voids 0 1 # Bowel Movements 1 1 Physical Exam CONSTITUTIONAL/GENERAL: This is an adequately nourished patient, in no apparent distress. SKIN: No jaundice, rashes, or lesions. Ecchymoses on upper extremities. Pressure sore on left heel, about 2 cm diameter redness peripherally and purple in center. Skin temperature appropriate. Not diaphoretic. CARDIOVASCULAR: Regular rate and rhythm without murmurs, gallops, or rubs. No JVD. Peripheral pulses symmetric. RESPIRATORY/CHEST: Symmetric, unlabored respirations. Clear to auscultation. Breath sounds equal bilaterally. No wheezes, rales, or rhonchi. GASTROINTESTINAL: Abdomen soft, non-tender, nondistended. No hepato-splenomegaly , or palpable masses. No guarding. Bowel sounds present. GENITOURINARY: Without palpable bladder distension. Bryan catheter in place. MUSCULOSKELETAL: Extremities without clubbing, cyanosis, or edema. Bilateral LE weakness. Able to life right leg off bed a few inches. Unable to lift left foot off bed, wiggles toes slightly. No mottling or clubbing. NEUROLOGICAL: Awake and alert. Follows commands. Cognitively sharp. . ([facility]) Diagnostic Tests Procedures * 11/22/16 CT directed bone biopsy L5 pathology positive large B cell lymphoma, non- germinal center type. ([facility]) Assessment and Plan Disease Oriented Problem List: (1) Fracture of lumbar spine (2) Non-Hodgkin lymphoma (3) Pain management (4) Acute exacerbation of chronic low back pain (5) Hypothyroidism (6) Diabetes mellitus Symptom Scale: (1) Pain 0-10 Scale: 3 (2) Weakness 0-10 Scale: Unable to quantify (3) Constipation 0-10 Scale: 0 Pertinent Non-Medical Issues Psychosocial: . Has 4 sons and 2 daughters. Spiritual: Muslim lilly. Legal: Notes indicate written advanced directives. Ethical issues impacting care: No known concerns at this time. . Important Contacts * Katlin Gasca, Daughter: [phone] . Prognosis Patient with progressive lymphoma that is not curable, now with pathologic fracture of L5 getting palliative radiation (20 planned tx) now bedbound. Unlikely she will be able to walk again. May be a candidate for palliative chemotherapy in the future per oncology depending on course. . Code Status: No Code Plan * Patient is currently capacitated to make her own health care decisions. Living Will (5 wishes) on chart with designated health care surrogate, daughter Katlin Sim. [place] DNR completed per pt request 11/28/16. * NO CODE - [place] DNR on chart to go with patient upon DC. * 11/30/16: Palliative care met with patient. Spoke with Dr. Hu he is unable to decrease number of XRT tx or increase dose as pt has previously had XRT to this area. Discussed with Dr. Polanco, he is unable to accept pt on hospice until after completion of palliative XRT. Patient unable to enroll in Hospice at this time. She has elected to continue palliative radiation to spine for now. She understands hospice can be elected once radiation is completed. Palliative care will continue to follow to assist with symptom management. Discussed with Hospice nurse, palliative care will notify when hospice services may be needed. * 12/06/16: Spoke with patient and her daughter (Katlin), she desires continued radiation treatments to spine, plan for hospice upon DC after XRT complete. Pain relieved with use of PRN Dilaudid, does not want med adjustments at this time. will continue to monitor. Spoke with radiation oncology office they indicate she will be restarting palliative radiation in Saturday12/10/16 at 11: 15am with plan for 15 more treatments. * SYMPTOMS: Back pain: due to progressive lymphoma and L5 pathologic fracture. Oramorph 15mg PO every 12 hours was stopped 11/29/16, on PRN Dilaudid with relief. Encouraged use of PRN Dilaudid. Anxiety: Intermittent, denies today. Has PRN Xanax. Weakness: due to pathologic spine fracture secondary to lymphoma / disease progression. Constipation: LBM 12/06/16. On Senna-S 2 PO BID. * Palliative care will continue to follow to assist with symptom management and further clarification of goals as needed. . (SHARON TORRES) Attestation To help prompt me to consider important information that might be impacting today's encounter and assessment, information from prior notes written by myself or my colleagues may have been "brought forward" into today's note. My signature on this note, however, is an attestation that I personally performed the exam, history, and/or decision-making noted today, and, unless otherwise indicated, the interactions with patient, family, and staff as well as the review of records all occurred today. I also attest that the listed assessment and stated plan reflect my best clinical judgment today based on the combination of historical information, prior notes, and today's exam/ interactions. When time spent is documented, it refers only to time spent today by the signer, or if indicated, combined time spent today by collaborating physician/nurse practitioner. . (SHARON TORRES) Collaborating MD Comments . Chart reviewed. Cased discussed with palliative care BOREMATIC OPERATOR. Above BOREMATIC OPERATOR note reviewed and I concur. . (Archie Polanco MD) SHARON TORRES Dec 06, 2016 16:25 Archie Polanco MD January 21, 2017 15:12
--- NOTE | 2016-12-06 17:14 | PD.ONC.PN ---
Subjective Subjective Remarks Left hip/leg pain better controlled. No CP/SOB. Objective Data Date Time Temp Pulse Resp B/P Pulse Ox O2 Delivery O2 Flow Rate FiO2 12/06/16 17:02 96.9 79 18 170/82 100 12/06/16 11:43 96.9 60 18 151/83 99 12/06/16 08:57 96.9 55 18 151/79 99 12/06/16 04:00 96.8 65 20 155/78 96 12/06/16 01:00 151/78 12/06/16 00:00 97.2 62 20 166/82 98 12/06/16 00:00 97.2 62 20 166/82 98 12/05/16 20:00 97.7 63 20 121/62 98 12/05/16 18:35 148/76 12/06/16 12/06/16 12/06/16 07:00 15:00 23:00 Intake Total 480 ml Balance 480 ml Administered Medications Medications (Trade) Dose Ordered Sig/Louisa Route PRN Reason Start Time Stop Time Status Last Admin Dose Admin Enalaprilat (Vasotec Inj) 1.25 mg Q8H PRN IV PUSH SBP> OR = 180, DBP> OR = 100 11/21/16 10:45 12/05/16 18:04 Ondansetron HCl (Zofran Inj) 4 mg Q8HR PRN IV PUSH NAUSEA 11/21/16 10:45 11/27/16 08:30 Alprazolam (Xanax) 0.25 mg Q4H PRN PO ANXIETY 11/21/16 12:00 12/05/16 22:25 Levothyroxine Sodium (Synthroid) 100 mcg DAILY@0600 PO 11/22/16 06:00 12/06/16 05:42 Magnesium Hydroxide (Milk Of Magnesia Liq) 30 ml DAILY PRN PO CONSTIPATION 11/23/16 11:45 12/01/16 18:38 Gabapentin (Neurontin) 300 mg TID PO 11/25/16 13:00 12/06/16 14:17 Dexamethasone (Decadron) 4 mg Q12HR PO 11/27/16 21:00 12/06/16 09:18 Pantoprazole Sodium (Protonix) 20 mg DAILY PO 11/28/16 09:00 12/06/16 09:18 Hydromorphone HCl (Dilaudid) 2 mg Q3H PRN PO pain1-8 11/28/16 12:15 12/05/16 22:24 Hydromorphone HCl (Dilaudid Pf Inj) 0.5 mg Q3HR PRN IV PUSH PAIN SCALE 9 TO 10 11/28/16 11:30 12/06/16 09:20 Morphine Sulfate (Oramorph Sr) 15 mg Q12HR PO 11/28/16 21:00 Hold 11/28/16 22:17 Multi-Ingredient Mouthwash/Gargle (Magic Mouthwash Adult Liq) 10 ml QID SWISH-SWAL 11/30/16 21:00 12/01/16 18:39 Bisacodyl (Dulcolax Supp) 10 mg DAILY PRN RECTAL CONSTIPATION 12/01/16 16:15 12/02/16 10:21 Enoxaparin Sodium (Lovenox Inj) 40 mg DAILY SQ 12/02/16 09:00 12/06/16 09:19 Senna/Docusate Sodium (Treasure-Colace) 2 tab BID PO 12/04/16 21:00 12/06/16 14:16 Objective Remarks GENERAL: Well-nourished, well-developed patient.Weak SKIN: Warm and dry. HEAD: Normocephalic. EYES: No scleral icterus. No injection or drainage. NECK: Supple, trachea midline. No JVD or lymphadenopathy. LYMPHATIC: No adenopathy. CARDIOVASCULAR: Regular rate and rhythm without murmurs. RESPIRATORY: Breath sounds equal bilaterally. No accessory muscle use. GASTROINTESTINAL: Abdomen soft, non-tender, nondistended. EXTREMITIES: No cyanosis, or edema. MUSCULOSKELETAL: Adequate muscle tone. Difficult to move left LE due to pain. NEUROLOGICAL: No obvious focal deficit. Awake, alert, and oriented x3. PSYCHIATRIC: Appropriate mood and affect; insight and judgment normal. 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 currently receiving radiation. she has been offered chemotherapy but at this point does not want to be that aggressive. --PET scan, 10/24, showed intense uptake within L5 left transverse process with associated hairline pathologic fracture. --MRI lumbar spine showed severe compression fracture deformity of L5 with invagination of the superior inferior endplate and marrow edema. +retropulsion with mass effect on the left S1 nerve root. +mild compression fracture deformity of T12. --CT lumbar spine showed destructive process involving transverse process of L5 suspicious of neoplastic process. This appeared to be causing all her symptoms. (2) Pain management Status: Acute Plan: --PRN Dilaudid --radiation to spine started 11/26/16 (3) Non-Hodgkin lymphoma Status: Chronic Plan: History: --first treated with rituximab and Treanda --finished two years of maintenance Rituxan in January of 2014. --December 2015-->found to have progression of disease. treated with and Zydelig with Rituxan and then maintained on Zydelig --2016: CT showed low density masses in the retroperitoneum at the superior posterior left pelvis and the right pelvic sidewall. The --October 2016: PET scan showed these lesions were less prominent and not hypermetabolic. +hypermetabolic presacral lesion measured about 1.6 cm and the L5 hypermetabolic lesion. She --started on Rituxan and Revlimid about 2 weeks ago. Assessment 81y/o female with h/o follicular and hodgkin's lymphoma. admitted with severe lower back pain -History of Hodgkin lymphoma. She received six cycles of ABVD in 2006. She then received consolidation radiation in 2007. Plan 1. Continue XRT; total 19 treatments planned, last one planned for 12/26. 2. Pt discussing with palliative care; deciding which Hospice to go to. 3. PT seeing pt. 4. Pt does not want to increase pain meds at this time.. Problem Qualifiers (1) Non-Hodgkin lymphoma: Fredy Soni MD Dec 06, 2016 17:14
[2016-12-06] MEDS: HYDROmorphone HCL 2 MG TAB PO PRN (19:10)
[2016-12-06] MEDS: ALPRAZolam 0.25 MG TAB PO PRN (21:42)
[2016-12-07] VITALS: BP 159/74; PULSE 61; RESP 18; TEMP 96.3; O2SAT 96
[2016-12-07] MEDS: HYDROmorphone HCL 2 MG TAB PO PRN ×3 (02:52→20:45)
[2016-12-07 04:00] VITALS: BP 140/72; PULSE 63; RESP 18; TEMP 95.1; O2SAT 96
[2016-12-07] MEDS: LEVOTHYROXINE SODIUM 100 MCG TAB PO SCH (05:11)
[2016-12-07 08:00] VITALS: BP 185/82; PULSE 59; RESP 18; TEMP 97.1; O2SAT 98
[2016-12-07] MEDS: GABAPENTIN 300 MG CAP PO SCH ×3 (08:24→18:06)
[2016-12-07] MEDS: PANTOPRAZOLE SOD 20 MG DELAYED RELEASE TAB PO SCH (08:25)
[2016-12-07] MEDS: DOCUSATE SODIUM 50 MG/SENNA 8.6 MG TAB PO SCH ×2 (08:25→20:46)
[2016-12-07] MEDS: NYSTAT/DIPHENHY/LIDO MOUTHWASH (Adult) 120ML SWISH-SWAL SCH ×4 (08:25→20:46)
[2016-12-07] MEDS: DEXAMETHASONE 4 MG TAB PO SCH ×2 (08:25→20:46)
[2016-12-07] MEDS: ENOXAPARIN SODIUM 40 MG/0.4 ML SYRINGE SQ SCH (08:25)
--- NOTE | 2016-12-07 08:39 | PD.ONC.PN ---
Subjective Subjective Remarks Left leg pain about the same. Difficulty moving and sitting due to pain. Objective Data Date Time Temp Pulse Resp B/P Pulse Ox O2 Delivery O2 Flow Rate FiO2 12/07/16 04:00 95.1 63 18 140/72 96 12/07/16 00:00 96.3 61 18 159/74 96 12/06/16 20:00 97.2 70 18 149/76 98 12/06/16 17:02 96.9 79 18 170/82 100 12/06/16 11:43 96.9 60 18 151/83 99 12/06/16 08:57 96.9 55 18 151/79 99 12/07/16 12/07/16 12/07/16 07:00 15:00 23:00 Intake Total 120 ml Balance 120 ml Administered Medications Medications (Trade) Dose Ordered Sig/Louisa Route PRN Reason Start Time Stop Time Status Last Admin Dose Admin Enalaprilat (Vasotec Inj) 1.25 mg Q8H PRN IV PUSH SBP> OR = 180, DBP> OR = 100 11/21/16 10:45 12/05/16 18:04 Ondansetron HCl (Zofran Inj) 4 mg Q8HR PRN IV PUSH NAUSEA 11/21/16 10:45 11/27/16 08:30 Alprazolam (Xanax) 0.25 mg Q4H PRN PO ANXIETY 11/21/16 12:00 12/06/16 21:42 Levothyroxine Sodium (Synthroid) 100 mcg DAILY@0600 PO 11/22/16 06:00 12/07/16 05:11 Magnesium Hydroxide (Milk Of Magnesia Liq) 30 ml DAILY PRN PO CONSTIPATION 11/23/16 11:45 12/01/16 18:38 Gabapentin (Neurontin) 300 mg TID PO 11/25/16 13:00 12/07/16 08:24 Dexamethasone (Decadron) 4 mg Q12HR PO 11/27/16 21:00 12/07/16 08:25 Pantoprazole Sodium (Protonix) 20 mg DAILY PO 11/28/16 09:00 12/07/16 08:25 Hydromorphone HCl (Dilaudid) 2 mg Q3H PRN PO pain1-8 11/28/16 12:15 12/07/16 08:25 Hydromorphone HCl (Dilaudid Pf Inj) 0.5 mg Q3HR PRN IV PUSH PAIN SCALE 9 TO 10 11/28/16 11:30 12/06/16 09:20 Morphine Sulfate (Oramorph Sr) 15 mg Q12HR PO 11/28/16 21:00 Hold 11/28/16 22:17 Multi-Ingredient Mouthwash/Gargle (Magic Mouthwash Adult Liq) 10 ml QID SWISH-SWAL 11/30/16 21:00 12/01/16 18:39 Bisacodyl (Dulcolax Supp) 10 mg DAILY PRN RECTAL CONSTIPATION 12/01/16 16:15 12/02/16 10:21 Enoxaparin Sodium (Lovenox Inj) 40 mg DAILY SQ 12/02/16 09:00 12/07/16 08:25 Senna/Docusate Sodium (Treasure-Colace) 2 tab BID PO 12/04/16 21:00 12/07/16 08:25 Objective Remarks GENERAL: Well-nourished, well-developed patient.Weak SKIN: Warm and dry. HEAD: Normocephalic. EYES: No scleral icterus. No injection or drainage. NECK: Supple, trachea midline. No JVD or lymphadenopathy. LYMPHATIC: No adenopathy. CARDIOVASCULAR: Regular rate and rhythm without murmurs. RESPIRATORY: Breath sounds equal bilaterally. No accessory muscle use. GASTROINTESTINAL: Abdomen soft, non-tender, nondistended. EXTREMITIES: No cyanosis, or edema. MUSCULOSKELETAL: Adequate muscle tone. NEUROLOGICAL: No obvious focal deficit. Awake, alert, and oriented x3. PSYCHIATRIC: Appropriate mood and affect; insight and judgment normal. 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 currently receiving radiation. she has been offered chemotherapy but at this point does not want to be that aggressive. --PET scan, 10/24, showed intense uptake within L5 left transverse process with associated hairline pathologic fracture. --MRI lumbar spine showed severe compression fracture deformity of L5 with invagination of the superior inferior endplate and marrow edema. +retropulsion with mass effect on the left S1 nerve root. +mild compression fracture deformity of T12. --CT lumbar spine showed destructive process involving transverse process of L5 suspicious of neoplastic process. This appeared to be causing all her symptoms. (2) Pain management Status: Acute Plan: --PRN Dilaudid --radiation to spine started 11/26/16 (3) Non-Hodgkin lymphoma Status: Chronic Plan: History: --first treated with rituximab and Treanda --finished two years of maintenance Rituxan in January of 2014. --December 2015-->found to have progression of disease. treated with and Zydelig with Rituxan and then maintained on Zydelig --2016: CT showed low density masses in the retroperitoneum at the superior posterior left pelvis and the right pelvic sidewall. The --October 2016: PET scan showed these lesions were less prominent and not hypermetabolic. +hypermetabolic presacral lesion measured about 1.6 cm and the L5 hypermetabolic lesion. She --started on Rituxan and Revlimid about 2 weeks ago. Assessment 81y/o female with h/o follicular and hodgkin's lymphoma. admitted with severe lower back pain -History of Hodgkin lymphoma. She received six cycles of ABVD in 2006. She then received consolidation radiation in 2007. Plan 1. Continue XRT; total 19 treatments planned, last one planned for 12/26. 2. Pt discussing with palliative care; deciding which Hospice to go to. 3. Continue PT 4. Pt does not want to increase pain meds at this time.. 5. Consider reducing decadron on Saturday. Problem Qualifiers (1) Non-Hodgkin lymphoma: Fredy Soni MD Dec 07, 2016 08:39
--- NOTE | 2016-12-07 11:13 | HHI.PR ---
Subjective Remarks appears comfortable but severe left hip pain to left leg - burning sensation no incontinence Objective Vitals Vital Signs Date Time Temp Pulse Resp B/P Pulse Ox O2 Delivery O2 Flow Rate FiO2 12/07/16 08:00 97.1 59 18 185/82 98 12/07/16 04:00 95.1 63 18 140/72 96 12/07/16 00:00 96.3 61 18 159/74 96 12/06/16 20:00 97.2 70 18 149/76 98 12/06/16 17:02 96.9 79 18 170/82 100 12/06/16 11:43 96.9 60 18 151/83 99 I/O 12/06/16 12/06/16 12/06/16 12/07/16 12/07/16 12/07/16 07:00 15:00 23:00 07:00 15:00 23:00 Intake Total 840 ml 120 ml Balance 840 ml 120 ml Intake Oral 840 ml 120 ml # Voids 0 1 5 2 # Bowel Movements 0 1 Imaging Last Impressions Bone Biopsy CT 11/22/16 0600 Signed Impressions: Service Date/Time: October 10:41 - CONCLUSION: Uncomplicated CT guided biopsy. León Good MD Lumbar Spine CT 11/21/16 0000 Signed Impressions: Service Date/Time: Monday, November 21, 2016 10:19 - CONCLUSION: 1. Destructive process involving the transverse process of L5 suspicious for neoplastic process. This could be biopsied percutaneously. Quinton Robison MD FACR Lower Extremity CT 11/21/16 0000 Signed Impressions: Service Date/Time: Monday, November 21, 2016 10:19 - CONCLUSION: I do not see hip fracture although troch nails make conclusion of subtle fracture very difficult. Please see above discussion. Quniton Robison MD FACR Objective Remarks awake and alert lungs clear regular rhythm abdomen soft, nontender extremities- left leg limited with pain, able to move toes equally, grossly sensory intact Procedures bone biopsy ( L5). A/P Problem List: (1) Fracture of lumbar spine ICD Code: S32.009A Status: Acute Assessment and Plan Ms. Feng is an 81-year-old female with a history of Hodgkin's lymphoma and non- Hodgkin lymphoma presented to the emergency department due to increased low back pain. - T12/L5 pathologic fracture. 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 - oncology,neurosurgery following- consulted radiation oncology. - ongoing PT- limited by pain - Continue radiation therapy -total 19 treatments. Medical oncology is following. - Hospice cannot accept patient while patient is receiving radiation treatments. - Once adequate radiation therapy performed, patient can likely be discharged to hospice. - Constipation - resolved. Continue to use Laxatives PRN. Milk of Mag, Prune juice. If needed, we can give her GoLytely. - UTI - received Cipro. - diabetes mellitus - well controlled. Patient prefers not to check blood glucose. - chronic renal insufficiency- stable - hypothyroidism; resumed levothyroxine DNR. Lovenox. Problem Qualifiers (1) Fracture of lumbar spine: Qualified Code: S32.050A - Closed wedge compression fracture of fifth lumbar vertebra, initial encounter Stephani Pepe MD Dec 07, 2016 11:13
[2016-12-07 12:00] VITALS: BP 165/77; PULSE 65; RESP 16; TEMP 97.1; O2SAT 100
[2016-12-07 16:00] VITALS: BP 185/80; PULSE 75; RESP 18; TEMP 98.1; O2SAT 92
[2016-12-07 20:00] VITALS: BP 180/81; PULSE 67; RESP 18; TEMP 95.7; O2SAT 100
[2016-12-07] MEDS: ALPRAZolam 0.25 MG TAB PO PRN (20:45)
[2016-12-08] VITALS (8 sets, daily range): BP systolic 125–197; BP diastolic 59–90; PULSE 60–69; RESP 18–20; TEMP 95.6–97.6; O2SAT 96–100
[2016-12-08] MEDS: ENALAPRILAT 1.25 MG/ML VIAL IV PUSH PRN (01:18)
[2016-12-08] MEDS: LEVOTHYROXINE SODIUM 100 MCG TAB PO SCH (05:15)
[2016-12-08] MEDS: HYDROmorphone HCL 2 MG TAB PO PRN ×3 (05:15→21:08)
[2016-12-08] MEDS: NYSTAT/DIPHENHY/LIDO MOUTHWASH (Adult) 120ML SWISH-SWAL SCH ×4 (09:00→21:00)
[2016-12-08] MEDS: DEXAMETHASONE 4 MG TAB PO SCH ×2 (09:26→21:08)
[2016-12-08] MEDS: PANTOPRAZOLE SOD 20 MG DELAYED RELEASE TAB PO SCH (09:26)
[2016-12-08] MEDS: GABAPENTIN 300 MG CAP PO SCH ×3 (09:26→17:01)
[2016-12-08] MEDS: DOCUSATE SODIUM 50 MG/SENNA 8.6 MG TAB PO SCH ×2 (09:26→21:08)
[2016-12-08] MEDS: ENOXAPARIN SODIUM 40 MG/0.4 ML SYRINGE SQ SCH (09:27)
--- NOTE | 2016-12-08 17:24 | HHI.PR ---
Subjective Remarks awake and alert mild left lower extremity weakness on exam Objective Vitals Vital Signs Date Time Temp Pulse Resp B/P Pulse Ox O2 Delivery O2 Flow Rate FiO2 12/08/16 16:45 97.5 68 20 168/72 99 12/08/16 16:06 97.5 68 20 168/72 99 12/08/16 11:43 95.6 64 20 125/59 100 12/08/16 08:15 97.0 60 20 140/77 99 12/08/16 04:00 97.6 63 18 147/69 97 12/08/16 03:00 95.6 61 18 168/77 96 12/08/16 00:00 95.6 67 18 197/90 96 12/07/16 20:00 95.7 67 18 180/81 100 I/O 12/07/16 12/07/16 12/07/16 12/08/16 12/08/16 12/08/16 07:00 15:00 23:00 07:00 15:00 23:00 Intake Total 120 ml 0 ml 120 ml Output Total 250 ml Balance 120 ml -250 ml 120 ml Intake Oral 120 ml 120 ml IV Total 0 ml Output Urine Total 250 ml # Voids 2 1 2 # Bowel Movements 1 Imaging Last Impressions Bone Biopsy CT 11/22/16 0600 Signed Impressions: Service Date/Time: October 10:41 - CONCLUSION: Uncomplicated CT guided biopsy. León Good MD Lumbar Spine CT 11/21/16 0000 Signed Impressions: Service Date/Time: Monday, November 21, 2016 10:19 - CONCLUSION: 1. Destructive process involving the transverse process of L5 suspicious for neoplastic process. This could be biopsied percutaneously. Quinton Robison MD FACR Lower Extremity CT 11/21/16 0000 Signed Impressions: Service Date/Time: Monday, November 21, 2016 10:19 - CONCLUSION: I do not see hip fracture although troch nails make conclusion of subtle fracture very difficult. Please see above discussion. Quinton Robison MD FACR Objective Remarks awake and alert lungs clear regular rhythm abdomen soft, nontender extremities- left leg limited with pain, able to move toes equally, grossly sensory intact Procedures bone biopsy ( L5). A/P Problem List: (1) Fracture of lumbar spine ICD Code: S32.009A Status: Acute Assessment and Plan Ms. Feng is an 81-year-old female with a history of Hodgkin's lymphoma and non- Hodgkin lymphoma presented to the emergency department due to increased low back pain. - T12/L5 pathologic fracture. 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 - oncology,neurosurgery following- consulted radiation oncology. - ongoing PT- limited by pain - Continue radiation therapy -total 19 treatments. Medical oncology is following. - Hospice cannot accept patient while patient is receiving radiation treatments. - Once adequate radiation therapy performed, patient can likely be discharged to hospice. - Constipation - resolved. Continue to use Laxatives PRN. Milk of Mag, Prune juice. If needed, we can give her GoLytely. - UTI - received Cipro. - diabetes mellitus - well controlled. Patient prefers not to check blood glucose. requested to change to regular - chronic renal insufficiency- stable - hypothyroidism; resumed levothyroxine DNR. Lovenox. Problem Qualifiers (1) Fracture of lumbar spine: Qualified Code: S32.050A - Closed wedge compression fracture of fifth lumbar vertebra, initial encounter Stephani Pepe MD Dec 08, 2016 17:24
[2016-12-08] MEDS: ALPRAZolam 0.25 MG TAB PO PRN (21:11)
[2016-12-09] VITALS: BP 146/79; PULSE 63; RESP 20; TEMP 97; O2SAT 99
[2016-12-09 04:00] VITALS: BP 182/84; PULSE 64; RESP 20; TEMP 96; O2SAT 98
[2016-12-09] MEDS: LEVOTHYROXINE SODIUM 100 MCG TAB PO SCH (05:25)
[2016-12-09] MEDS: ENALAPRILAT 1.25 MG/ML VIAL IV PUSH PRN (05:26)
[2016-12-09 08:41] VITALS: BP 157/70; PULSE 54; RESP 20; TEMP 96.3; O2SAT 98
[2016-12-09] MEDS: ENOXAPARIN SODIUM 40 MG/0.4 ML SYRINGE SQ SCH (09:00)
[2016-12-09] MEDS: NYSTAT/DIPHENHY/LIDO MOUTHWASH (Adult) 120ML SWISH-SWAL SCH ×4 (09:00→21:00)
[2016-12-09] MEDS: DEXAMETHASONE 4 MG TAB PO SCH ×2 (09:16→21:46)
[2016-12-09] MEDS: PANTOPRAZOLE SOD 20 MG DELAYED RELEASE TAB PO SCH (09:19)
[2016-12-09] MEDS: GABAPENTIN 300 MG CAP PO SCH ×3 (09:19→17:25)
[2016-12-09] MEDS: DOCUSATE SODIUM 50 MG/SENNA 8.6 MG TAB PO SCH ×2 (09:19→21:00)
[2016-12-09] MEDS: HYDROmorphone HCL 2 MG TAB PO PRN ×3 (09:20→21:46)
[2016-12-09] MEDS: HYDROmorphone HCL PF 1 MG/ML VIAL IV PUSH PRN (09:28)
[2016-12-09 12:40] VITALS: BP 127/64; PULSE 65; RESP 20; TEMP 96.4; O2SAT 98
--- NOTE | 2016-12-09 14:18 | HHI.PR ---
Subjective Remarks feels stronger- left lower extremity weakness persists but better compared to yesterday feels impacted stool - rectum- voiding spontaneously- no incontinence Objective Vitals Vital Signs Date Time Temp Pulse Resp B/P Pulse Ox O2 Delivery O2 Flow Rate FiO2 12/09/16 12:40 96.4 65 20 127/64 98 12/09/16 08:41 96.3 54 20 157/70 98 12/09/16 04:00 96.0 64 20 182/84 98 12/09/16 00:00 97.0 63 20 146/79 99 12/08/16 20:00 97.6 69 20 147/66 99 12/08/16 16:45 97.5 68 20 168/72 99 12/08/16 16:06 97.5 68 20 168/72 99 I/O 12/08/16 12/08/16 12/08/16 12/09/16 12/09/16 12/09/16 07:00 15:00 23:00 07:00 15:00 23:00 Intake Total 120 ml 480 ml 60 ml Balance 120 ml 480 ml 60 ml Intake Oral 120 ml 480 ml 60 ml # Voids 1 2 1 1 # Bowel Movements 1 0 Imaging Last Impressions Bone Biopsy CT 11/22/16 0600 Signed Impressions: Service Date/Time: October 10:41 - CONCLUSION: Uncomplicated CT guided biopsy. León Good MD Lumbar Spine CT 11/21/16 0000 Signed Impressions: Service Date/Time: Monday, November 21, 2016 10:19 - CONCLUSION: 1. Destructive process involving the transverse process of L5 suspicious for neoplastic process. This could be biopsied percutaneously. Quinton Robison MD FACR Lower Extremity CT 11/21/16 0000 Signed Impressions: Service Date/Time: Monday, November 21, 2016 10:19 - CONCLUSION: I do not see hip fracture although troch nails make conclusion of subtle fracture very difficult. Please see above discussion. Quinton Robison MD FACR Objective Remarks awake and alert lungs clear regular rhythm abdomen soft, nontender extremities- left LE improved knee flexion but still limited- about 45 degress, foot and toes- movement much improved gross sensory intact RLE- 5/5 Procedures bone biopsy ( L5). A/P Problem List: (1) Fracture of lumbar spine ICD Code: S32.009A Status: Acute Assessment and Plan Ms. Feng is an 81-year-old female with a history of Hodgkin's lymphoma and non- Hodgkin lymphoma presented to the emergency department due to increased low back pain. - T12/L5 pathologic fracture. 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 - oncology,neurosurgery following- consulted radiation oncology. - ongoing PT- showing progress - Continue radiation therapy -total 19 treatments. Medical oncology is following. - Hospice cannot accept patient while patient is receiving radiation treatments. - Once adequate radiation therapy performed, patient can likely be discharged to hospice. XRT till 12/27 on Decadron - Constipation - improved. Continue to use Laxatives PRN. Milk of Mag, Prune juice. digital manual disimpaction today- d/w aide - UTI - received Cipro. - diabetes mellitus - well controlled. Patient prefers not to check blood glucose. requested to change to regular diet - chronic renal insufficiency- stable - hypothyroidism; on levothyroxine DNR. Lovenox. Problem Qualifiers (1) Fracture of lumbar spine: Qualified Code: S32.050A - Closed wedge compression fracture of fifth lumbar vertebra, initial encounter Stephani Pepe MD Dec 09, 2016 14:18
[2016-12-09 17:15] VITALS: BP 136/68; PULSE 73; RESP 20; TEMP 98.5; O2SAT 100
[2016-12-09 20:00] VITALS: BP 150/67; PULSE 71; RESP 20; TEMP 97; O2SAT 98
[2016-12-09] MEDS: ALPRAZolam 0.25 MG TAB PO PRN (21:46)
[2016-12-10 04:00] VITALS: BP 134/95; PULSE 60; RESP 20; TEMP 96; O2SAT 98
[2016-12-10] MEDS: LEVOTHYROXINE SODIUM 100 MCG TAB PO SCH (07:04)
[2016-12-10 08:00] VITALS: BP 164/76; PULSE 63; RESP 19; TEMP 97.4; O2SAT 99
[2016-12-10] MEDS: HYDROmorphone HCL 2 MG TAB PO PRN (08:44)
[2016-12-10] MEDS: DOCUSATE SODIUM 50 MG/SENNA 8.6 MG TAB PO SCH ×2 (08:45→22:57)
[2016-12-10] MEDS: GABAPENTIN 300 MG CAP PO SCH ×3 (08:45→17:33)
[2016-12-10] MEDS: DEXAMETHASONE 4 MG TAB PO SCH ×2 (08:45→22:56)
[2016-12-10] MEDS: PANTOPRAZOLE SOD 20 MG DELAYED RELEASE TAB PO SCH (08:45)
[2016-12-10] MEDS: ENOXAPARIN SODIUM 40 MG/0.4 ML SYRINGE SQ SCH (08:46)
--- NOTE | 2016-12-10 08:58 | HHI.PR ---
Subjective Remarks manual disimpaction done yesterday- marked relief pain controlled no nausea or vomiting- fair appetite no urinary incontinence Objective Vitals Vital Signs Date Time Temp Pulse Resp B/P Pulse Ox O2 Delivery O2 Flow Rate FiO2 12/10/16 08:00 97.4 63 19 164/76 99 12/10/16 04:00 96.0 60 20 134/95 98 12/09/16 20:00 97.0 71 20 150/67 98 12/09/16 17:15 98.5 73 20 136/68 100 12/09/16 12:40 96.4 65 20 127/64 98 I/O 12/09/16 12/09/16 12/09/16 12/10/16 12/10/16 12/10/16 07:00 15:00 23:00 07:00 15:00 23:00 Intake Total 60 ml 480 ml 240 ml 120 ml Balance 60 ml 480 ml 240 ml 120 ml Intake Oral 60 ml 480 ml 240 ml 120 ml # Voids 1 2 1 1 # Bowel Movements 0 1 1 0 Imaging Last Impressions Bone Biopsy CT 11/22/16 0600 Signed Impressions: Service Date/Time: October 10:41 - CONCLUSION: Uncomplicated CT guided biopsy. León Good MD Lumbar Spine CT 11/21/16 0000 Signed Impressions: Service Date/Time: Monday, November 21, 2016 10:19 - CONCLUSION: 1. Destructive process involving the transverse process of L5 suspicious for neoplastic process. This could be biopsied percutaneously. Quinton Robison MD FACR Lower Extremity CT 11/21/16 0000 Signed Impressions: Service Date/Time: Monday, November 21, 2016 10:19 - CONCLUSION: I do not see hip fracture although troch nails make conclusion of subtle fracture very difficult. Please see above discussion. Quinton Robison MD FACR Objective Remarks awake and alert lungs clear regular rhythm abdomen soft, nontender extremities- motor exam- - moves toes freely- slight improvement on flexion movement gross sensory intact Procedures bone biopsy ( L5). A/P Problem List: (1) Fracture of lumbar spine ICD Code: S32.009A Status: Acute Assessment and Plan Ms. Feng is an 81-year-old female with a history of Hodgkin's lymphoma and non- Hodgkin lymphoma presented to the emergency department due to increased low back pain. - T12/L5 pathologic fracture. 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 - oncology,neurosurgery following- radiation oncology ff- total 19 treatment sessions till 12/27 - ongoing PT- showing progress - Hospice cannot accept patient while patient is receiving radiation treatments. - Once adequate radiation therapy performed, patient can likely be discharged to hospice. XRT till 12/27 on Decadron- per Oncology- tapering - Constipation - improved. Continue to use Laxatives PRN. Milk of Mag, Prune juice. S/P digital manual disimpaction 12/09- with relief - UTI -S/P Cipro. - diabetes mellitus - well controlled. Patient prefers not to check blood glucose. requested to change to regular diet - chronic renal insufficiency- stable - hypothyroidism; on levothyroxine DNR. Lovenox. Problem Qualifiers (1) Fracture of lumbar spine: Qualified Code: S32.050A - Closed wedge compression fracture of fifth lumbar vertebra, initial encounter Stephani Pepe MD Dec 10, 2016 08:58
[2016-12-10] MEDS: NYSTAT/DIPHENHY/LIDO MOUTHWASH (Adult) 120ML SWISH-SWAL SCH ×2 (09:00→13:00)
--- NOTE | 2016-12-10 09:40 | PD.ONC.PN ---
Subjective Subjective Remarks Afebrile overnight. Patient c/o pain in her low back radiating down her left leg. She is resuming XRT today. She states her plan continues to be to finish radiation and then go to hospice. Objective Data Date Time Temp Pulse Resp B/P Pulse Ox O2 Delivery O2 Flow Rate FiO2 12/10/16 08:00 97.4 63 19 164/76 99 12/10/16 04:00 96.0 60 20 134/95 98 12/09/16 20:00 97.0 71 20 150/67 98 12/09/16 17:15 98.5 73 20 136/68 100 12/09/16 12:40 96.4 65 20 127/64 98 12/10/16 12/10/16 12/10/16 07:00 15:00 23:00 Intake Total 120 ml Balance 120 ml Administered Medications Medications (Trade) Dose Ordered Sig/Louisa Route PRN Reason Start Time Stop Time Status Last Admin Dose Admin Enalaprilat (Vasotec Inj) 1.25 mg Q8H PRN IV PUSH SBP> OR = 180, DBP> OR = 100 11/21/16 10:45 12/09/16 05:26 Ondansetron HCl (Zofran Inj) 4 mg Q8HR PRN IV PUSH NAUSEA 11/21/16 10:45 11/27/16 08:30 Alprazolam (Xanax) 0.25 mg Q4H PRN PO ANXIETY 11/21/16 12:00 12/09/16 21:46 Levothyroxine Sodium (Synthroid) 100 mcg DAILY@0600 PO 11/22/16 06:00 12/10/16 07:04 Magnesium Hydroxide (Milk Of Magnesia Liq) 30 ml DAILY PRN PO CONSTIPATION 11/23/16 11:45 12/01/16 18:38 Gabapentin (Neurontin) 300 mg TID PO 11/25/16 13:00 12/10/16 08:45 Dexamethasone (Decadron) 4 mg Q12HR PO 11/27/16 21:00 12/10/16 08:45 Pantoprazole Sodium (Protonix) 20 mg DAILY PO 11/28/16 09:00 12/10/16 08:45 Hydromorphone HCl (Dilaudid) 2 mg Q3H PRN PO pain1-8 11/28/16 12:15 12/10/16 08:44 Hydromorphone HCl (Dilaudid Pf Inj) 0.5 mg Q3HR PRN IV PUSH PAIN SCALE 9 TO 10 11/28/16 11:30 12/09/16 09:28 Morphine Sulfate (Oramorph Sr) 15 mg Q12HR PO 11/28/16 21:00 Hold 11/28/16 22:17 Multi-Ingredient Mouthwash/Gargle (Magic Mouthwash Adult Liq) 10 ml QID SWISH-SWAL 11/30/16 21:00 12/01/16 18:39 Bisacodyl (Dulcolax Supp) 10 mg DAILY PRN RECTAL CONSTIPATION 12/01/16 16:15 12/02/16 10:21 Enoxaparin Sodium (Lovenox Inj) 40 mg DAILY SQ 12/02/16 09:00 12/10/16 08:46 Senna/Docusate Sodium (Treasure-Colace) 2 tab BID PO 12/04/16 21:00 12/10/16 08:45 Objective Remarks GENERAL: Elderly female, sitting up in bed in [facility]. SKIN: Warm and dry. HEAD: Normocephalic. EYES: No injection or drainage. NECK: Supple, trachea midline. CARDIOVASCULAR: Regular rate and rhythm. RESPIRATORY: Breath sounds equal bilaterally. No accessory muscle use. GASTROINTESTINAL: Abdomen soft, non-tender, nondistended. EXTREMITIES: No cyanosis. NEUROLOGICAL: Awake and alert, normal speech. able to move her extremities. 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 currently receiving radiation. she has been offered chemotherapy but at this point does not want to be that aggressive. --PET scan, 10/24, showed intense uptake within L5 left transverse process with associated hairline pathologic fracture. --MRI lumbar spine showed severe compression fracture deformity of L5 with invagination of the superior inferior endplate and marrow edema. +retropulsion with mass effect on the left S1 nerve root. +mild compression fracture deformity of T12. --CT lumbar spine showed destructive process involving transverse process of L5 suspicious of neoplastic process. This appeared to be causing all her symptoms. (2) Pain management Status: Acute Plan: --PRN Dilaudid --radiation to spine started 11/26/16 (3) Non-Hodgkin lymphoma Status: Chronic Plan: History: --first treated with rituximab and Treanda --finished two years of maintenance Rituxan in January of 2014. --December 2015-->found to have progression of disease. treated with and Zydelig with Rituxan and then maintained on Zydelig --2016: CT showed low density masses in the retroperitoneum at the superior posterior left pelvis and the right pelvic sidewall. The --October 2016: PET scan showed these lesions were less prominent and not hypermetabolic. +hypermetabolic presacral lesion measured about 1.6 cm and the L5 hypermetabolic lesion. She --started on Rituxan and Revlimid about 2 weeks ago. Assessment 81y/o female with h/o follicular and hodgkin's lymphoma. admitted with severe lower back pain -History of Hodgkin lymphoma. She received six cycles of ABVD in 2006. She then received consolidation radiation in 2007. Plan 1. continue radiation. when radiation complete, plan is to go to hospice 2. continue pain management 3. reduce Decadron to 2mg PO bid Attending Statement The exam, history, and the medical decision-making described in the above note were completed with the assistance of the mid-level provider. I reviewed and agree with the findings presented. I attest that I had a [id number] encounter with the patient on the same day, and personally performed and documented my assessment and findings in the medical record. Still has left hip /leg pain. Continue radiation. She has long discussion with her family over the weekend and has some questions regarding chemotherapy option. We rediscussed chemotherapy but she does not think that she would want chemotherapy even though her daughter wants her to try. Problem Qualifiers (1) Non-Hodgkin lymphoma: Ledy Sneed Dec 10, 2016 09:40 Fredy Soni MD Dec 10, 2016 17:18
[2016-12-10 12:00] VITALS: BP 138/77; PULSE 70; RESP 18; TEMP 97.9; O2SAT 96
[2016-12-10 16:00] VITALS: BP 117/76; PULSE 78; RESP 17; TEMP 98; O2SAT 99
[2016-12-10] MEDS: HYDROmorphone HCL PF 1 MG/ML VIAL IV PUSH PRN ×2 (19:30→22:52)
[2016-12-10 20:00] VITALS: BP_SYST 188; BP_SYST 212; BP_DIAS 104; BP_DIAS 78; PULSE 75; RESP 18; TEMP 96.3; O2SAT 98
[2016-12-11] MEDS: LEVOTHYROXINE SODIUM 100 MCG TAB PO SCH (05:06)
[2016-12-11] MEDS: HYDROmorphone HCL PF 1 MG/ML VIAL IV PUSH PRN ×5 (05:07→20:54)
[2016-12-11 08:00] VITALS: BP 162/88; PULSE 61; RESP 20; TEMP 96.4; O2SAT 99
[2016-12-11] MEDS: ENOXAPARIN SODIUM 40 MG/0.4 ML SYRINGE SQ SCH (09:00)
[2016-12-11] MEDS: DOCUSATE SODIUM 50 MG/SENNA 8.6 MG TAB PO SCH ×2 (09:08→20:53)
[2016-12-11] MEDS: GABAPENTIN 300 MG CAP PO SCH ×3 (09:09→17:24)
[2016-12-11] MEDS: PANTOPRAZOLE SOD 20 MG DELAYED RELEASE TAB PO SCH (09:09)
[2016-12-11] MEDS: DEXAMETHASONE 4 MG TAB PO SCH ×2 (09:09→20:53)
--- NOTE | 2016-12-11 10:26 | PD.ONC.PN ---
Subjective Subjective Remarks Afebrile overnight. Patient complaining of abdominal pain/discomfort. She had bowel disimpaction on Saturday and attributes the pain to that. Continues to have her chronic low back pain radiating down the left leg. Objective Data Date Time Temp Pulse Resp B/P Pulse Ox O2 Delivery O2 Flow Rate FiO2 12/11/16 08:00 96.4 61 20 162/88 99 Automatic Cuff 12/10/16 20:00 96.3 75 18 212/104 98 12/10/16 20:00 188/78 12/10/16 16:00 98.0 78 17 117/76 99 12/10/16 12:00 97.9 70 18 138/77 96 Administered Medications Medications (Trade) Dose Ordered Sig/Louisa Route PRN Reason Start Time Stop Time Status Last Admin Dose Admin Enalaprilat (Vasotec Inj) 1.25 mg Q8H PRN IV PUSH SBP> OR = 180, DBP> OR = 100 11/21/16 10:45 12/09/16 05:26 Ondansetron HCl (Zofran Inj) 4 mg Q8HR PRN IV PUSH NAUSEA 11/21/16 10:45 11/27/16 08:30 Alprazolam (Xanax) 0.25 mg Q4H PRN PO ANXIETY 11/21/16 12:00 12/09/16 21:46 Levothyroxine Sodium (Synthroid) 100 mcg DAILY@0600 PO 11/22/16 06:00 12/11/16 05:06 Magnesium Hydroxide (Milk Of Magnesia Liq) 30 ml DAILY PRN PO CONSTIPATION 11/23/16 11:45 12/01/16 18:38 Gabapentin (Neurontin) 300 mg TID PO 11/25/16 13:00 12/11/16 09:09 Pantoprazole Sodium (Protonix) 20 mg DAILY PO 11/28/16 09:00 12/11/16 09:09 Hydromorphone HCl (Dilaudid) 2 mg Q3H PRN PO pain1-8 11/28/16 12:15 12/10/16 08:44 Hydromorphone HCl (Dilaudid Pf Inj) 0.5 mg Q3HR PRN IV PUSH PAIN SCALE 9 TO 10 11/28/16 11:30 12/11/16 09:24 Morphine Sulfate (Oramorph Sr) 15 mg Q12HR PO 11/28/16 21:00 Hold 11/28/16 22:17 Multi-Ingredient Mouthwash/Gargle (Magic Mouthwash Adult Liq) 10 ml QID SWISH-SWAL 11/30/16 21:00 12/01/16 18:39 Bisacodyl (Dulcolax Supp) 10 mg DAILY PRN RECTAL CONSTIPATION 12/01/16 16:15 12/02/16 10:21 Enoxaparin Sodium (Lovenox Inj) 40 mg DAILY SQ 12/02/16 09:00 12/10/16 08:46 Senna/Docusate Sodium (Treasure-Colace) 2 tab BID PO 12/04/16 21:00 12/11/16 09:08 Dexamethasone (Decadron) 2 mg Q12HR PO 12/10/16 21:00 12/11/16 09:09 Objective Remarks GENERAL: Elderly female, supine in bed. SKIN: Warm and dry. HEAD: Normocephalic. EYES: No injection or drainage. NECK: Supple, trachea midline. CARDIOVASCULAR: Regular rate and rhythm. RESPIRATORY: Breath sounds equal bilaterally. No accessory muscle use. GASTROINTESTINAL: Abdomen soft, mildly tender throughout. EXTREMITIES: No cyanosis. NEUROLOGICAL: aox3. normal speech. moving extremities. facial movements symmetric. 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 currently receiving radiation. she has been offered chemotherapy but at this point does not want to be that aggressive. --PET scan, 10/24, showed intense uptake within L5 left transverse process with associated hairline pathologic fracture. --MRI lumbar spine showed severe compression fracture deformity of L5 with invagination of the superior inferior endplate and marrow edema. +retropulsion with mass effect on the left S1 nerve root. +mild compression fracture deformity of T12. --CT lumbar spine showed destructive process involving transverse process of L5 suspicious of neoplastic process. This appeared to be causing all her symptoms. (2) Pain management Status: Acute Plan: --PRN Dilaudid --radiation to spine started 11/26/16 (3) Non-Hodgkin lymphoma Status: Chronic Plan: History: --first treated with rituximab and Treanda --finished two years of maintenance Rituxan in January of 2014. --December 2015-->found to have progression of disease. treated with and Zydelig with Rituxan and then maintained on Zydelig --2016: CT showed low density masses in the retroperitoneum at the superior posterior left pelvis and the right pelvic sidewall. The --October 2016: PET scan showed these lesions were less prominent and not hypermetabolic. +hypermetabolic presacral lesion measured about 1.6 cm and the L5 hypermetabolic lesion. She --started on Rituxan and Revlimid about 2 weeks ago. Assessment 81y/o female with h/o follicular and hodgkin's lymphoma. admitted with severe lower back pain -History of Hodgkin lymphoma. She received six cycles of ABVD in 2006. She then received consolidation radiation in 2007. Plan 1. CT ab/pelvis today 2. check renal function before CT ab/pelvis 3. urinalysis 4. continue pain management. Attending Statement The exam, history, and the medical decision-making described in the above note were completed with the assistance of the mid-level provider. I reviewed and agree with the findings presented. I attest that I had a [id number] encounter with the patient on the same day, and personally performed and documented my assessment and findings in the medical record. More lower abdominal pain and left hip/leg pain. No CP/SOB. Will get CT abdomen and pelvis. Check U/A. Continue XRT and supportive care. Problem Qualifiers (1) Non-Hodgkin lymphoma: Ledy Sneed Dec 11, 2016 10:25 Fredy Soni MD Dec 11, 2016 14:18
[2016-12-11 10:38] LABS: AUTOMATED NEUTROPHIL # 12.4 TH/MM3 (1.8-7.7); BASOPHIL % 0.3 % (0.0-2.0); EOSINOPHIL % 0.1 % (0.0-4.0); HEMATOCRIT 43.3 % (35.0-46.0); LYMPH % 3.4 % (9.0-44.0); LYMPHOCYTE # 0.5 TH/MM3 (1.0-4.8); MEAN CELL VOLUME 90.4 FL (80.0-100.0); MEAN CORPUSCULAR HEMOGLOBIN 30.2 PG (27.0-34.0); MEAN CORPUSCULAR HGB CONC 33.4 % (32.0-36.0); MONO % 8.5 % (0.0-8.0); NEUT % 87.7 % (16.0-70.0); PLATELET COUNT 272 TH/MM3 (150-450); RED BLOOD COUNT 4.78 MIL/MM3 (4.00-5.30); RED CELL DISTRIBUTION WIDTH 17.9 % (11.6-17.2); WHITE BLOOD COUNT 14.1 TH/MM3 (4.0-11.0)
[2016-12-11 10:39] LABS: HEMO FLAGS AUTO DIFF
[2016-12-11 10:56] LABS: ALKALINE PHOSPHATASE 80 U/L (45-117); ALT (GPT) 24 U/L (10-53); ANION GAP 9 MEQ/L (5-15); AST (GOT) 12 U/L (15-37); BICARBONATE 26.8 MEQ/L (21.0-32.0); BLOOD UREA NITROGEN 39 MG/DL (7-18); CHLORIDE 95 MEQ/L (98-107); GLOMERULAR FILTRATION RATE 64 ML/MIN (>89); POTASSIUM 4.2 MEQ/L (3.5-5.1); SODIUM (NA) 131 MEQ/L (136-145); TOTAL BILIRUBIN ADULT 0.5 MG/DL (0.2-1.0)
[2016-12-11 11:07] LABS: PLATELET ESTIMATE SMEAR NORMAL (NORMAL); PLATELET MORPHOLOGY NORMAL (NORMAL); SCAN/DIFF AUTO DIFF CONFIRMED
[2016-12-11 12:00] VITALS: BP 161/79; PULSE 74; RESP 20; TEMP 96.9; O2SAT 98
--- NOTE | 2016-12-11 13:05 | HHI.PR ---
Subjective Remarks complains of rectal pain- feels like a hemorrhoids Objective Vitals Vital Signs Date Time Temp Pulse Resp B/P Pulse Ox O2 Delivery O2 Flow Rate FiO2 12/11/16 12:00 96.9 74 20 161/79 98 12/11/16 08:00 96.4 61 20 162/88 99 Automatic Cuff 12/10/16 20:00 96.3 75 18 212/104 98 12/10/16 20:00 188/78 12/10/16 16:00 98.0 78 17 117/76 99 I/O 12/10/16 12/10/16 12/10/16 12/11/16 12/11/16 12/11/16 06:59 14:59 22:59 06:59 14:59 22:59 Intake Total 120 ml Balance 120 ml Intake Oral 120 ml # Voids 1 1 4 # Bowel Movements 0 1 Result Diagram: 12/11/16 1015 12/11/16 1015 Imaging Last Impressions Bone Biopsy CT 11/22/16 0600 Signed Impressions: Service Date/Time: October 10:41 - CONCLUSION: Uncomplicated CT guided biopsy. León Good MD Lumbar Spine CT 11/21/16 0000 Signed Impressions: Service Date/Time: Monday, November 21, 2016 10:19 - CONCLUSION: 1. Destructive process involving the transverse process of L5 suspicious for neoplastic process. This could be biopsied percutaneously. Quinton Robison MD FACR Lower Extremity CT 11/21/16 0000 Signed Impressions: Service Date/Time: Monday, November 21, 2016 10:19 - CONCLUSION: I do not see hip fracture although troch nails make conclusion of subtle fracture very difficult. Please see above discussion. Quinton Robison MD FACR Objective Remarks awake and alert lungs clear regular rhythm abdomen soft, nontender rectal exam- impactal stools on opening- manual disimpaction done extremities- motor exam- - moves toes freely- +improvement on flexion movement gross sensory intact Procedures bone biopsy ( L5). A/P Problem List: (1) Fracture of lumbar spine ICD Code: S32.009A Status: Acute Assessment and Plan Ms. Feng is an 81-year-old female with a history of Hodgkin's lymphoma and non- Hodgkin lymphoma presented to the emergency department due to increased low back pain. - T12/L5 pathologic fracture. 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 - oncology,neurosurgery following- radiation oncology ff- total 19 treatment sessions till 12/27 - ongoing PT- showing progress - Hospice cannot accept patient while patient is receiving radiation treatments. - Once adequate radiation therapy performed, patient can likely be discharged to hospice. XRT till 12/27 on Decadron- per Oncology- tapering - Constipation- Manual disimpaction 12/11 - large amount of hard stools S/P digital manual disimpaction 12/09- increase regimen - UTI -S/P Cipro. - diabetes mellitus - well controlled. Patient prefers not to check blood glucose. requested to change to regular diet - chronic renal insufficiency- stable - hypothyroidism; on levothyroxine DNR. Lovenox. Problem Qualifiers (1) Fracture of lumbar spine: Qualified Code: S32.050A - Closed wedge compression fracture of fifth lumbar vertebra, initial encounter Stephani Pepe MD Dec 11, 2016 13:05
[2016-12-11 16:00] VITALS: BP 161/82; PULSE 69; RESP 20; TEMP 96.9; O2SAT 99
[2016-12-11] MEDS ORDERED: IOHEXOL 350 MG/ML 10 ML VIAL (for RAD DIAG) IV ONE (17:12)
--- NOTE | 2016-12-11 18:22 | RADRPT ---
EXAM DATE/TIME: 12/11/2016 16:55 [facility] COMPARISON: CT LUMBAR SPINE W/O CONTRAST, November 21, 2016, 10:19. INDICATIONS : Abdomen pain. History of Hodgkins Lymphoma. IV CONTRAST: 96 cc Omnipaque 350 (iohexol) IV ORAL CONTRAST: No oral contrast ingested. RADIATION DOSE: 9.96 CTDIvol (mGy) MEDICAL HISTORY : Diabetes mellitus type 2. Lymphoma. SURGICAL HISTORY : Appendectomy. Tubal ligation. ENCOUNTER: Initial ACUITY: 1 day PAIN SCALE: 10/10 LOCATION: Bilateral abdomen TECHNIQUE: Volumetric scanning of the abdomen and pelvis was performed. Using automated exposure control and ad justment of the mA and/or kV according to patient size, radiation dose was kept as low as reasonably achievable to obtain optimal diagnostic quality images. FINDINGS: Comparison is lumbar spine CT from November 21. Again seen is bony destruction of L5 the left transverse process. There is also evidence for a pathologic fracture of L5 vertebral body with depression centr ally to moderate degree. Remote appearing mild to moderate compression deformity present at L4 and mi ld endplate depressions also present at L3, L2 and L1. There is previously fixation of both proximal femora. Lung bases are clear. No acute findings identified in the liver, spleen, adrenals, kidneys are or castillo creas. The right kidney is atrophic and scarred. No calcified gallstones. There is moderate constipation involving the transverse colon and to a lesser extent in the left colo n. A 2.9 cm infrarenal abdominal aortic aneurysm with some displaced intimal calcification possibly from prior localized dissection or ulcerated plaque. Appearance is similar to recent lumbar spine CT. CONCLUSION: 1. Destruction left transverse process of L5 recently biopsied. There is also a moderate pathologic f racture of L5 vertebral body. Other fractures of the lumbar spine appear chronic. There is diffuse os teopenia. 2. Moderate to severe constipation of the transverse colon and to lesser extent the left colon. 3. No metastatic disease identified to the abdominal viscera. No retroperitoneal adenopathy. 4. Moderate coronary calcifications. Previous susana fixation proximal femora. Scarring and atrophy righ t kidney. 5. 2.9 cm abdominal aortic aneurysm as above. Roque Nelson MD on December 11, 2016 at 18:13 Board Certified Radiologist. This report was verified electronically.
[2016-12-11 20:00] VITALS: BP 154/69; PULSE 72; RESP 18; TEMP 96.6; O2SAT 98
[2016-12-12] VITALS: BP 138/73; PULSE 76; RESP 18; TEMP 97.2; O2SAT 98
[2016-12-12 04:00] VITALS: BP 162/82; PULSE 69; RESP 18; TEMP 95.7; O2SAT 93
[2016-12-12] MEDS: HYDROmorphone HCL PF 1 MG/ML VIAL IV PUSH PRN ×5 (06:13→21:19)
[2016-12-12] MEDS: LEVOTHYROXINE SODIUM 100 MCG TAB PO SCH (06:16)
[2016-12-12] MEDS: ALPRAZolam 0.25 MG TAB PO PRN ×2 (06:26→21:18)
[2016-12-12] MEDS: HYDROmorphone HCL 2 MG TAB PO PRN (06:35)
[2016-12-12 08:00] VITALS: BP 161/82; PULSE 95; RESP 16; TEMP 96; O2SAT 100
[2016-12-12] MEDS: MAGNESIUM HYDROXIDE SUSP 30 ML CUP PO SCH ×2 (09:00→21:18)
[2016-12-12] MEDS: DEXAMETHASONE 4 MG TAB PO SCH ×2 (09:00→21:19)
[2016-12-12] MEDS: NYSTAT/DIPHENHY/LIDO MOUTHWASH (Adult) 120ML SWISH-SWAL SCH ×4 (09:00→21:19)
[2016-12-12] MEDS: ENOXAPARIN SODIUM 40 MG/0.4 ML SYRINGE SQ SCH (09:00)
[2016-12-12] MEDS: MORPHINE SULFATE 15 MG CONTROLLED RELEASE TAB PO SCH ×2 (09:00→21:18)
[2016-12-12] MEDS: POLYETHYLENE GLYCOL 17 GM PKG PO SCH (09:00)
[2016-12-12] MEDS: PANTOPRAZOLE SOD 20 MG DELAYED RELEASE TAB PO SCH (09:00)
[2016-12-12] MEDS: GABAPENTIN 300 MG CAP PO SCH ×3 (09:00→17:39)
[2016-12-12] MEDS: LACTULOSE SYRUP 20 GM/30 ML CUP PO SCH (10:08)
[2016-12-12] MEDS: DOCUSATE SODIUM 50 MG/SENNA 8.6 MG TAB PO SCH ×2 (10:09→21:18)
--- NOTE | 2016-12-12 10:50 | PD.ONC.PN ---
Subjective Subjective Remarks Afebrile overnight. Patient states she had some increased pain in her back last night after needing to use the bedpan. She is requesting increased pain medication. Objective Data Date Time Temp Pulse Resp B/P Pulse Ox O2 Delivery O2 Flow Rate FiO2 12/12/16 08:00 96.0 95 16 161/82 100 12/12/16 04:00 95.7 69 18 162/82 93 12/12/16 00:00 97.2 76 18 138/73 98 12/11/16 20:00 96.6 72 18 154/69 98 12/11/16 16:00 96.9 69 20 161/82 99 12/11/16 12:00 96.9 74 20 161/79 98 12/12/16 12/12/16 12/12/16 07:00 15:00 23:00 Intake Total 300 ml Balance 300 ml Result Diagram: 12/11/16 1015 12/11/16 1015 Administered Medications Medications (Trade) Dose Ordered Sig/Louisa Route PRN Reason Start Time Stop Time Status Last Admin Dose Admin Enalaprilat (Vasotec Inj) 1.25 mg Q8H PRN IV PUSH SBP> OR = 180, DBP> OR = 100 11/21/16 10:45 12/09/16 05:26 Ondansetron HCl (Zofran Inj) 4 mg Q8HR PRN IV PUSH NAUSEA 11/21/16 10:45 11/27/16 08:30 Alprazolam (Xanax) 0.25 mg Q4H PRN PO ANXIETY 11/21/16 12:00 12/12/16 06:26 Levothyroxine Sodium (Synthroid) 100 mcg DAILY@0600 PO 11/22/16 06:00 12/12/16 06:16 Gabapentin (Neurontin) 300 mg TID PO 11/25/16 13:00 12/11/16 17:24 Pantoprazole Sodium (Protonix) 20 mg DAILY PO 11/28/16 09:00 12/11/16 09:09 Hydromorphone HCl (Dilaudid) 2 mg Q3H PRN PO PAIN SCALE 1 TO 5 11/28/16 12:15 12/12/16 06:35 Hydromorphone HCl (Dilaudid Pf Inj) 0.5 mg Q3HR PRN IV PUSH PAIN SCALE 6 TO 8 11/28/16 11:30 12/12/16 09:57 Multi-Ingredient Mouthwash/Gargle (Magic Mouthwash Adult Liq) 10 ml QID SWISH-SWAL 11/30/16 21:00 12/01/16 18:39 Bisacodyl (Dulcolax Supp) 10 mg DAILY PRN RECTAL CONSTIPATION 12/01/16 16:15 12/02/16 10:21 Enoxaparin Sodium (Lovenox Inj) 40 mg DAILY SQ 12/02/16 09:00 12/10/16 08:46 Senna/Docusate Sodium (Treasure-Colace) 2 tab BID PO 12/04/16 21:00 12/12/16 10:09 Dexamethasone (Decadron) 2 mg Q12HR PO 12/10/16 21:00 12/11/16 20:53 Lactulose (Lactulose Liq) 30 ml DAILY PO 12/12/16 09:00 12/12/16 10:08 Objective Remarks GENERAL: Elderly female, lying in bed in nad SKIN: Warm and dry. HEAD: Normocephalic. EYES: No injection or drainage. NECK: Supple, trachea midline. CARDIOVASCULAR: Regular rate and rhythm. RESPIRATORY: Breath sounds equal bilaterally. No accessory muscle use. GASTROINTESTINAL: Abdomen soft, non-tender EXTREMITIES: No cyanosis. NEUROLOGICAL: awake and alert, normal speech. moving extremities. 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 currently receiving radiation. she has been offered chemotherapy but at this point does not want to be that aggressive. --PET scan, 10/24, showed intense uptake within L5 left transverse process with associated hairline pathologic fracture. --MRI lumbar spine showed severe compression fracture deformity of L5 with invagination of the superior inferior endplate and marrow edema. +retropulsion with mass effect on the left S1 nerve root. +mild compression fracture deformity of T12. --CT lumbar spine showed destructive process involving transverse process of L5 suspicious of neoplastic process. This appeared to be causing all her symptoms. (2) Pain management Status: Acute Plan: --Oramorph + PRN Dilaudid --radiation to spine started 11/26/16 (3) Non-Hodgkin lymphoma Status: Chronic Plan: History: --first treated with rituximab and Treanda --finished two years of maintenance Rituxan in January of 2014. --December 2015-->found to have progression of disease. treated with and Zydelig with Rituxan and then maintained on Zydelig --2016: CT showed low density masses in the retroperitoneum at the superior posterior left pelvis and the right pelvic sidewall. The --October 2016: PET scan showed these lesions were less prominent and not hypermetabolic. +hypermetabolic presacral lesion measured about 1.6 cm and the L5 hypermetabolic lesion. She --started on Rituxan and Revlimid about 2 weeks ago. Assessment 81y/o female with h/o follicular and hodgkin's lymphoma. admitted with severe lower back pain -History of Hodgkin lymphoma. She received six cycles of ABVD in 2006. She then received consolidation radiation in 2007. Plan 1. Oramorph resumed. monitor for sedation. will increase IV dilaudid to 1mg for 9/10 or 10/10 pain 2. Add Lactulose to bowel regimen. 3. continue XRT Attending Statement The exam, history, and the medical decision-making described in the above note were completed with the assistance of the mid-level provider. I reviewed and agree with the findings presented. I attest that I had a [id number] encounter with the patient on the same day, and personally performed and documented my assessment and findings in the medical record.Stated that she had pain last night because she did not get the dose on time. She is comfortable this afternoon. Had BM. Reviewed CT with pt. There is still L5 destructive lesion but the inguinal adenopathy has improved. CT also showed constipation. Started lactulose. Continue XRT and supportive care. Problem Qualifiers (1) Non-Hodgkin lymphoma: Ledy Sneed Dec 12, 2016 10:50 Fredy Soni MD Dec 12, 2016 17:10
[2016-12-12 12:00] VITALS: BP 150/81; PULSE 72; RESP 16; TEMP 96.7; O2SAT 98
--- NOTE | 2016-12-12 14:11 | HHI.PR ---
Subjective Remarks comfortable with current pain and bowel regimen had a good BM today Objective Vitals Vital Signs Date Time Temp Pulse Resp B/P Pulse Ox O2 Delivery O2 Flow Rate FiO2 12/12/16 12:00 96.7 72 16 150/81 98 12/12/16 08:00 96.0 95 16 161/82 100 12/12/16 04:00 95.7 69 18 162/82 93 12/12/16 00:00 97.2 76 18 138/73 98 12/11/16 20:00 96.6 72 18 154/69 98 12/11/16 16:00 96.9 69 20 161/82 99 I/O 12/11/16 12/11/16 12/11/16 12/12/16 12/12/16 12/12/16 07:00 15:00 23:00 07:00 15:00 23:00 Intake Total 300 ml Balance 300 ml Intake Oral 300 ml # Voids 4 1 3 # Bowel Movements 1 1 Result Diagram: 12/11/16 1015 12/11/16 1015 Imaging Last Impressions Abdomen/Pelvis CT 12/11/16 0000 Signed Impressions: Service Date/Time: Sunday, December 11, 2016 16:55 - CONCLUSION: 1. Destruction left transverse process of L5 recently biopsied. There is also a moderate pathologic fracture of L5 vertebral body. Other fractures of the lumbar spine appear chronic. There is diffuse osteopenia. 2. Moderate to severe constipation of the transverse colon and to lesser extent the left colon. 3. No metastatic disease identified to the abdominal viscera. No retroperitoneal adenopathy. 4. Moderate coronary calcifications. Previous susana fixation proximal femora. Scarring and atrophy right kidney. 5. 2.9 cm abdominal aortic aneurysm as above. Roque Nelson MD Bone Biopsy CT 11/22/16 0600 Signed Impressions: Service Date/Time: October 10:41 - CONCLUSION: Uncomplicated CT guided biopsy. León Good MD Lumbar Spine CT 11/21/16 0000 Signed Impressions: Service Date/Time: Monday, November 21, 2016 10:19 - CONCLUSION: 1. Destructive process involving the transverse process of L5 suspicious for neoplastic process. This could be biopsied percutaneously. Quinton Robison MD FACR Lower Extremity CT 11/21/16 0000 Signed Impressions: Service Date/Time: Monday, November 21, 2016 10:19 - CONCLUSION: I do not see hip fracture although troch nails make conclusion of subtle fracture very difficult. Please see above discussion. Quinton Robison MD FACR Objective Remarks awake and alert lungs clear regular rhythm abdomen soft, nontender extremities- motor exam- - moves toes freely- +improvement on flexion movement gross sensory intact Procedures bone biopsy ( L5). A/P Problem List: (1) Fracture of lumbar spine ICD Code: S32.009A Status: Acute Assessment and Plan Ms. Feng is an 81-year-old female with a history of Hodgkin's lymphoma and non- Hodgkin lymphoma presented to the emergency department due to increased low back pain. - T12/L5 pathologic fracture. 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 - oncology,neurosurgery following- radiation oncology ff- total 19 treatment sessions till 12/27 - ongoing PT- showing progress - Hospice cannot accept patient while patient is receiving radiation treatments. - Once adequate radiation therapy performed, patient can likely be discharged to hospice. XRT till 12/27 on Decadron- per Oncology- tapering - Constipation- Manual disimpaction 12/11 - large amount of hard stools S/P digital manual disimpaction 12/09- increase regimen - UTI -S/P Cipro. - diabetes mellitus - well controlled. Patient prefers not to check blood glucose. requested to change to regular diet - chronic renal insufficiency- stable - hypothyroidism; on levothyroxine DNR. Lovenox. under Hospice- DNR Problem Qualifiers (1) Fracture of lumbar spine: Qualified Code: S32.050A - Closed wedge compression fracture of fifth lumbar vertebra, initial encounter Stephani Pepe MD Dec 12, 2016 14:10
[2016-12-12 16:00] VITALS: BP 137/76; PULSE 70; RESP 17; TEMP 97; O2SAT 99
--- NOTE | 2016-12-12 18:42 | HHI.HCPN ---
Reason for visit a. To assist with evaluation and management of symptoms including: pain, constipation, weakness. b. To assist medical decision maker(s) with: better understanding of current medical conditions; weighing benefits/burdens of medical treatment options; making medical treatment decisions. . Subjective/Interval History Patient seen and examined in room. No family at bedside. Patient awake and alert , ordering her dinner via phone when I arrive. She reports pain in back and left hip, leg and back were bad overnight, improing today. Rates pain 4-8 throughout the day today. Long acting Morphine ( Oramorph 15 mg PO every 12 hours) has been ordered but patient refused dose. She has had Dilaudid 2mg PO x 1 dose in 24 hours (= 8mg oral Morphine equivalent ). Dilaudid 0.5mg IV x 5 doses in 24 hours (= 50mg oral Morphine equivalent). Long discussion with patient regarding pain medication and use. I asked her why she did not take the ordered Morphine, she said she is not sure she needed it. I reviewed the potential benefit of long acting pain control especially when she feels her pain increases the times she has to wait for nurses to bring meds. She wants to try the Morphine and understands she will need to take it consistently (not PRN) for adequate pain relief. Advised she will still need PRN Dilaudid more frequently until the Morphine takes full effect in 48 -72 hours. Will continue to monitor. Advised also to continue daily bowel regimen due to spinal disease and increasing pain medication and bedbound status. Vital signs stable. LBM 12/13/16. WBC 14.1. CT abdomen/ pelvis reveals destruction of left transverse process, moderate pathologic fracture L5 vertebral body, other fractures of lumbar spine appear chronic, diffuse osteopenia, moderate to severe constipation, no mets disease in abdominal viscera, no retroperitoneal adenopathy, moderate coronary calcifications, previous susana fixation of proximal femora, scarring and atrophy right kidney, 2.9cm AAA. Restarted palliative radiation to spine on 12/10/16, 04/14 treatments complete. Patient desires to continue palliative radiation as she tells me Dr. Soni told her she should. She was previously considering stopping and transition to hospice when she talked to Ledy Sneed earlier today. Plan for now to continue XRT with plan for transition to hospice after XRT complete. . . Advance Directives Living Will: Copy in medical record Health Care Surrogate: Copy in medical record Advance Directive Specifics Date completed: 08/21/2016 . Health Care Surrogate(s): Primary Health Care Surrogate: Katlin Sim 1st alternate HCS: Tito Gaffney 2nd alternate: Greg Dailey . Documented care wishes: 5 wishes on chart with hand written instructions stating "no life support - do not try to keep me alive. No feeding tube, No CPR, surgery, blood transfusions, dialysis or anything to keep me alive." . Significant change in goals: NO CODE. Continue palliative XRT with transition to comfort with hospice after XRT complete. . Objective Vital Signs Date Time Temp Pulse Resp B/P Pulse Ox O2 Delivery O2 Flow Rate FiO2 12/12/16 16:00 97.0 70 17 137/76 99 12/12/16 12:00 96.7 72 16 150/81 98 12/12/16 08:00 96.0 95 16 161/82 100 12/12/16 04:00 95.7 69 18 162/82 93 12/12/16 00:00 97.2 76 18 138/73 98 12/11/16 20:00 96.6 72 18 154/69 98 Intake & Output 12/12/16 12/12/16 07:00 19:00 Intake Total 300 ml 360 ml Balance 300 ml 360 ml Intake Oral 300 ml 360 ml # Voids 3 2 # Bowel Movements 1 1 Physical Exam CONSTITUTIONAL/GENERAL: This is an adequately nourished patient, in no apparent distress. SKIN: Pressure sore on left heel, not visualized today. Skin temperature appropriate. Not diaphoretic. CARDIOVASCULAR: Regular rate and rhythm without murmur. RESPIRATORY/CHEST: Symmetric, unlabored respirations. Clear to auscultation. GASTROINTESTINAL: Abdomen soft, non-tender, nondistended. No guarding. Bowel sounds present. GENITOURINARY: Without palpable bladder distension. MUSCULOSKELETAL: Extremities without clubbing, cyanosis, or edema. Bilateral LE weakness. Able to lift right leg off bed a few inches. Unable to lift left foot off bed, wiggles toes slightly. No mottling or clubbing. NEUROLOGICAL: Awake and alert. Follows commands. Cognitively sharp. . Diagnostic Tests Laboratory Laboratory Tests Test 12/11/16 10:15 White Blood Count 14.1 TH/MM3 (4.0-11.0) Red Blood Count 4.78 MIL/MM3 (4.00-5.30) Hemoglobin 14.4 GM/DL (11.6-15.3) Hematocrit 43.3 % (35.0-46.0) Mean Corpuscular Volume 90.4 FL (80.0-100.0) Mean Corpuscular Hemoglobin 30.2 PG (27.0-34.0) Mean Corpuscular Hemoglobin 33.4 % Concent (32.0-36.0) Red Cell Distribution Width 17.9 % (11.6-17.2) Platelet Count 272 TH/MM3 (150-450) Mean Platelet Volume 8.5 FL (7.0-11.0) Neutrophils (%) (Auto) 87.7 % (16.0-70.0) Lymphocytes (%) (Auto) 3.4 % (9.0-44.0) Monocytes (%) (Auto) 8.5 % (0.0-8.0) Eosinophils (%) (Auto) 0.1 % (0.0-4.0) Basophils (%) (Auto) 0.3 % (0.0-2.0) Neutrophils # (Auto) 12.4 TH/MM3 (1.8-7.7) Lymphocytes # (Auto) 0.5 TH/MM3 (1.0-4.8) Monocytes # (Auto) 1.2 TH/MM3 (0-0.9) Eosinophils # (Auto) 0.0 TH/MM3 (0-0.4) Basophils # (Auto) 0.0 TH/MM3 (0-0.2) CBC Comment AUTO DIFF Differential Comment AUTO DIFF CONFIRMED Platelet Estimate NORMAL (NORMAL) Platelet Morphology Comment NORMAL (NORMAL) Sodium Level 131 MEQ/L (136-145) Potassium Level 4.2 MEQ/L (3.5-5.1) Chloride Level 95 MEQ/L (98-107) Carbon Dioxide Level 26.8 MEQ/L (21.0-32.0) Anion Gap 9 MEQ/L (5-15) Blood Urea Nitrogen 39 MG/DL (7-18) Creatinine 0.85 MG/DL (0.50-1.00) Estimat Glomerular Filtration 64 ML/MIN (>89) Rate Random Glucose 239 MG/DL (74-106) Calcium Level 8.8 MG/DL (8.5-10.1) Total Bilirubin 0.5 MG/DL (0.2-1.0) Aspartate Amino Transf 12 U/L (15-37) (AST/SGOT) Alanine Aminotransferase 24 U/L (10-53) (ALT/SGPT) Alkaline Phosphatase 80 U/L (45-117) Total Protein 6.1 GM/DL (6.4-8.2) Albumin 3.1 GM/DL (3.4-5.0) Result Diagram: 12/11/16 1015 12/11/16 1015 Imaging Last Impressions Abdomen/Pelvis CT 12/11/16 0000 Signed Impressions: Service Date/Time: Sunday, December 11, 2016 16:55 - CONCLUSION: 1. Destruction left transverse process of L5 recently biopsied. There is also a moderate pathologic fracture of L5 vertebral body. Other fractures of the lumbar spine appear chronic. There is diffuse osteopenia. 2. Moderate to severe constipation of the transverse colon and to lesser extent the left colon. 3. No metastatic disease identified to the abdominal viscera. No retroperitoneal adenopathy. 4. Moderate coronary calcifications. Previous susana fixation proximal femora. Scarring and atrophy right kidney. 5. 2.9 cm abdominal aortic aneurysm as above. Roque Nelson MD Bone Biopsy CT 11/22/16 0600 Signed Impressions: Service Date/Time: October 10:41 - CONCLUSION: Uncomplicated CT guided biopsy. León Good MD Lumbar Spine CT 11/21/16 0000 Signed Impressions: Service Date/Time: Monday, November 21, 2016 10:19 - CONCLUSION: 1. Destructive process involving the transverse process of L5 suspicious for neoplastic process. This could be biopsied percutaneously. Quinton Robison MD FACR Lower Extremity CT 11/21/16 0000 Signed Impressions: Service Date/Time: Monday, November 21, 2016 10:19 - CONCLUSION: I do not see hip fracture although troch nails make conclusion of subtle fracture very difficult. Please see above discussion. Quinton Robison MD FACR . Procedures * 11/22/16 CT directed bone biopsy L5 pathology positive large B cell lymphoma, non- germinal center type. Assessment and Plan Disease Oriented Problem List: (1) Fracture of lumbar spine (2) Non-Hodgkin lymphoma (3) Pain management (4) Acute exacerbation of chronic low back pain (5) Hypothyroidism (6) Diabetes mellitus Symptom Scale: (1) Pain 0-10 Scale: 4 (2) Weakness 0-10 Scale: Unable to quantify (3) Constipation 0-10 Scale: Unable to quantify Comment: PERRY 12/12/16 Pertinent Non-Medical Issues Psychosocial: . Has 4 sons and 2 daughters. Spiritual: Roman [employer] lilly. Legal: Notes indicate written advanced directives. Ethical issues impacting care: No known concerns at this time. . Important Contacts * Katlin Gasca, Daughter: [phone] . Prognosis Patient with progressive lymphoma that is not curable, now with pathologic fracture of L5 getting palliative radiation (20 planned tx) now bedbound. Unlikely she will be able to walk again. May be a candidate for palliative chemotherapy in the future per oncology depending on course. . Code Status: No Code Plan * Patient is currently capacitated to make her own health care decisions. Living Will (5 wishes) on chart with designated health care surrogate, daughter Katlin Sim. [place] DNR completed per pt request 11/28/16. * NO CODE - [place] DNR on chart to go with patient upon DC. * 11/30/16: Palliative care met with patient. Spoke with Dr. Hu he is unable to decrease number of XRT tx or increase dose as pt has previously had XRT to this area. Discussed with Dr. Polanco, he is unable to accept pt on hospice until after completion of palliative XRT. Patient unable to enroll in Hospice at this time. She has elected to continue palliative radiation to spine for now. She understands hospice can be elected once radiation is completed. Palliative care will continue to follow to assist with symptom management. Discussed with Hospice nurse, palliative care will notify when hospice services may be needed. * 12/12/16: Spoke with patient, she desires continued radiation treatments to spine, plan for hospice upon DC after XRT complete. Pain relieved with use of PRN Dilaudid, will take Oramorph after discussion regarding potential benefit of long acting meds. Continue PRN Dilaudid. * SYMPTOMS: Back pain: due to progressive lymphoma and L5 pathologic fracture. Oramorph 15mg PO every 12 hours was restarted 12/12/16 with PRN Dilaudid with relief. Will monitor effect. Anxiety: Intermittent, denies today. Has PRN Xanax. Weakness: due to pathologic spine fracture secondary to lymphoma/ disease progression. Constipation: LBM 12/12/16. On Senna-S 2 PO BID, Miralax, Lactulose and MOM. Bowels complicated by bedbound status, meds and spinal disease. * Palliative care will continue to follow to assist with symptom management and further clarification of goals as needed. . Attestation To help prompt me to consider important information that might be impacting today's encounter and assessment, information from prior notes written by myself or my colleagues may have been "brought forward" into today's note. My signature on this note, however, is an attestation that I personally performed the exam, history, and/or decision-making noted today, and, unless otherwise indicated, the interactions with patient, family, and staff as well as the review of records all occurred today. I also attest that the listed assessment and stated plan reflect my best clinical judgment today based on the combination of historical information, prior notes, and today's exam/ interactions. When time spent is documented, it refers only to time spent today by the signer, or if indicated, combined time spent today by collaborating physician/nurse practitioner. SHARON TORRES Dec 12, 2016 18:42
[2016-12-12 20:00] VITALS: BP 165/82; PULSE 86; RESP 20; TEMP 98; O2SAT 98
[2016-12-13] MEDS: HYDROmorphone HCL PF 1 MG/ML VIAL IV PUSH PRN ×5 (03:57→20:28)
[2016-12-13 04:00] VITALS: BP 156/55; PULSE 77; RESP 20; TEMP 98.7; O2SAT 98
[2016-12-13] MEDS: LEVOTHYROXINE SODIUM 100 MCG TAB PO SCH (05:01)
[2016-12-13] MEDS: DOCUSATE SODIUM 50 MG/SENNA 8.6 MG TAB PO SCH ×2 (07:55→20:27)
[2016-12-13] MEDS: LACTULOSE SYRUP 20 GM/30 ML CUP PO SCH (07:55)
[2016-12-13] MEDS: PANTOPRAZOLE SOD 20 MG DELAYED RELEASE TAB PO SCH (07:55)
[2016-12-13] MEDS: MORPHINE SULFATE 15 MG CONTROLLED RELEASE TAB PO SCH ×2 (07:55→20:27)
[2016-12-13] MEDS: MAGNESIUM HYDROXIDE SUSP 30 ML CUP PO SCH ×2 (07:56→20:27)
[2016-12-13] MEDS: DEXAMETHASONE 4 MG TAB PO SCH ×2 (07:56→20:27)
[2016-12-13] MEDS: ENOXAPARIN SODIUM 40 MG/0.4 ML SYRINGE SQ SCH ×2 (07:56→08:07)
[2016-12-13] MEDS: GABAPENTIN 300 MG CAP PO SCH ×4 (07:56→12:55)
[2016-12-13] MEDS: POLYETHYLENE GLYCOL 17 GM PKG PO SCH (07:56)
[2016-12-13] MEDS: NYSTAT/DIPHENHY/LIDO MOUTHWASH (Adult) 120ML SWISH-SWAL SCH ×4 (07:57→20:29)
[2016-12-13 08:00] VITALS: BP 173/94; PULSE 75; RESP 16; TEMP 95.3; O2SAT 100
--- NOTE | 2016-12-13 10:22 | PD.ONC.PN ---
Subjective Subjective Remarks Afebrile overnight. Patient resting comfortably. Her pain is much better today. She did have a hard time sleeping last night, but only because the room was too bright. She is having daily bowel movements. Objective Data Date Time Temp Pulse Resp B/P Pulse Ox O2 Delivery O2 Flow Rate FiO2 12/13/16 08:00 95.3 75 16 173/94 100 12/13/16 04:00 98.7 77 20 156/55 98 12/13/16 00:00 12/12/16 20:00 98.0 86 20 165/82 98 12/12/16 16:00 97.0 70 17 137/76 99 12/12/16 12:00 96.7 72 16 150/81 98 12/13/16 12/13/16 12/13/16 07:00 15:00 23:00 Intake Total 240 ml Balance 240 ml Result Diagram: 12/11/16 1015 12/11/16 1015 Administered Medications Medications (Trade) Dose Ordered Sig/Louisa Route PRN Reason Start Time Stop Time Status Last Admin Dose Admin Enalaprilat (Vasotec Inj) 1.25 mg Q8H PRN IV PUSH SBP> OR = 180, DBP> OR = 100 11/21/16 10:45 12/09/16 05:26 Ondansetron HCl (Zofran Inj) 4 mg Q8HR PRN IV PUSH NAUSEA 11/21/16 10:45 11/27/16 08:30 Alprazolam (Xanax) 0.25 mg Q4H PRN PO ANXIETY 11/21/16 12:00 12/12/16 21:18 Levothyroxine Sodium (Synthroid) 100 mcg DAILY@0600 PO 11/22/16 06:00 12/13/16 05:01 Gabapentin (Neurontin) 300 mg TID PO 11/25/16 13:00 12/11/16 17:24 Pantoprazole Sodium (Protonix) 20 mg DAILY PO 11/28/16 09:00 12/13/16 07:55 Hydromorphone HCl (Dilaudid) 2 mg Q3H PRN PO PAIN SCALE 1 TO 5 11/28/16 12:15 12/12/16 06:35 Hydromorphone HCl (Dilaudid Pf Inj) 0.5 mg Q3HR PRN IV PUSH PAIN SCALE 6 TO 8 11/28/16 11:30 12/12/16 21:19 Multi-Ingredient Mouthwash/Gargle (Magic Mouthwash Adult Liq) 10 ml QID SWISH-SWAL 11/30/16 21:00 12/01/16 18:39 Bisacodyl (Dulcolax Supp) 10 mg DAILY PRN RECTAL CONSTIPATION 12/01/16 16:15 12/02/16 10:21 Enoxaparin Sodium (Lovenox Inj) 40 mg DAILY SQ 12/02/16 09:00 12/10/16 08:46 Senna/Docusate Sodium (Treasure-Colace) 2 tab BID PO 12/04/16 21:00 12/13/16 07:55 Dexamethasone (Decadron) 2 mg Q12HR PO 12/10/16 21:00 12/13/16 07:56 Magnesium Hydroxide (Milk Of Magnesia Liq) 30 ml BID PO 12/11/16 21:00 12/13/16 07:56 Morphine Sulfate (Oramorph Sr) 15 mg Q12HR PO 12/12/16 09:00 12/13/16 07:55 Lactulose (Lactulose Liq) 30 ml DAILY PO 12/12/16 09:00 12/13/16 07:55 Hydromorphone HCl (Dilaudid Pf Inj) 1 mg Q3HR PRN IV PUSH PAIN SCALE 9 TO 10 12/12/16 10:00 12/13/16 07:58 Objective Remarks GENERAL: Elderly female, lying in bed, sleeping on approach. SKIN: Warm and dry. HEAD: Normocephalic. EYES: No injection or drainage. NECK: Supple, trachea midline. CARDIOVASCULAR: Regular rate and rhythm. RESPIRATORY: Breath sounds equal bilaterally. No accessory muscle use. GASTROINTESTINAL: Abdomen soft, non-tender EXTREMITIES: No cyanosis. NEUROLOGICAL: aox3. normal speech. 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 currently receiving radiation. she has been offered chemotherapy but at this point does not want to be that aggressive. --PET scan, 10/24, showed intense uptake within L5 left transverse process with associated hairline pathologic fracture. --MRI lumbar spine showed severe compression fracture deformity of L5 with invagination of the superior inferior endplate and marrow edema. +retropulsion with mass effect on the left S1 nerve root. +mild compression fracture deformity of T12. --CT lumbar spine showed destructive process involving transverse process of L5 suspicious of neoplastic process. This appeared to be causing all her symptoms. (2) Pain management Status: Acute Plan: --Oramorph + PRN Dilaudid --radiation to spine started 11/26/16 (3) Non-Hodgkin lymphoma Status: Chronic Plan: History: --first treated with rituximab and Treanda --finished two years of maintenance Rituxan in January of 2014. --December 2015-->found to have progression of disease. treated with and Zydelig with Rituxan and then maintained on Zydelig --2016: CT showed low density masses in the retroperitoneum at the superior posterior left pelvis and the right pelvic sidewall. The --October 2016: PET scan showed these lesions were less prominent and not hypermetabolic. +hypermetabolic presacral lesion measured about 1.6 cm and the L5 hypermetabolic lesion. She --started on Rituxan and Revlimid about 2 weeks ago. Assessment 81y/o female with h/o follicular and hodgkin's lymphoma. admitted with severe lower back pain -History of Hodgkin lymphoma. She received six cycles of ABVD in 2006. She then received consolidation radiation in 2007. Plan 1. continue Oramorph + Dilaudid 2. continue bowel regimen 3. continue XRT, then plan remains to go to hospice. Attending Statement The exam, history, and the medical decision-making described in the above note were completed with the assistance of the mid-level provider. I reviewed and agree with the findings presented. I attest that I had a [id number] encounter with the patient on the same day, and personally performed and documented my assessment and findings in the medical record. Pain better controlled. +BM. Continue XRT. Continue to titrate pain meds. Problem Qualifiers (1) Non-Hodgkin lymphoma: Ledy Sneed Dec 13, 2016 10:22 Fredy Soni MD Dec 13, 2016 16:36
[2016-12-13 12:00] VITALS: BP 158/77; PULSE 68; RESP 16; TEMP 96.5; O2SAT 99
[2016-12-13 16:00] VITALS: BP 142/72; PULSE 73; RESP 16; TEMP 98.1; O2SAT 99
--- NOTE | 2016-12-13 16:42 | HHI.PR ---
Subjective Remarks no complains tolerated XRT session Objective Vitals Vital Signs Date Time Temp Pulse Resp B/P Pulse Ox O2 Delivery O2 Flow Rate FiO2 12/13/16 12:00 96.5 68 16 158/77 99 12/13/16 08:00 95.3 75 16 173/94 100 12/13/16 04:00 98.7 77 20 156/55 98 12/13/16 00:00 12/12/16 20:00 98.0 86 20 165/82 98 I/O 12/12/16 12/12/16 12/12/16 12/13/16 12/13/16 12/13/16 07:00 15:00 23:00 07:00 15:00 23:00 Intake Total 300 ml 360 ml 240 ml 240 ml 720 ml Balance 300 ml 360 ml 240 ml 240 ml 720 ml Intake Oral 300 ml 360 ml 240 ml 240 ml 720 ml # Voids 3 2 2 2 # Bowel Movements 1 1 1 Result Diagram: 12/11/16 1015 12/11/16 1015 Imaging Last Impressions Abdomen/Pelvis CT 12/11/16 0000 Signed Impressions: Service Date/Time: Sunday, December 11, 2016 16:55 - CONCLUSION: 1. Destruction left transverse process of L5 recently biopsied. There is also a moderate pathologic fracture of L5 vertebral body. Other fractures of the lumbar spine appear chronic. There is diffuse osteopenia. 2. Moderate to severe constipation of the transverse colon and to lesser extent the left colon. 3. No metastatic disease identified to the abdominal viscera. No retroperitoneal adenopathy. 4. Moderate coronary calcifications. Previous susana fixation proximal femora. Scarring and atrophy right kidney. 5. 2.9 cm abdominal aortic aneurysm as above. Roque Nelson MD Bone Biopsy CT 11/22/16 0600 Signed Impressions: Service Date/Time: October 10:41 - CONCLUSION: Uncomplicated CT guided biopsy. León Good MD Lumbar Spine CT 11/21/16 0000 Signed Impressions: Service Date/Time: Monday, November 21, 2016 10:19 - CONCLUSION: 1. Destructive process involving the transverse process of L5 suspicious for neoplastic process. This could be biopsied percutaneously. Quinton Robison MD FACR Lower Extremity CT 11/21/16 0000 Signed Impressions: Service Date/Time: Monday, November 21, 2016 10:19 - CONCLUSION: I do not see hip fracture although troch nails make conclusion of subtle fracture very difficult. Please see above discussion. Quinton Robison MD FACR Objective Remarks awake and alert lungs clear regular rhythm abdomen soft, nontender extremities- motor exam- - improving gross sensory intact Procedures bone biopsy ( L5). A/P Problem List: (1) Fracture of lumbar spine ICD Code: S32.009A Status: Acute Assessment and Plan Ms. Feng is an 81-year-old female with a history of Hodgkin's lymphoma and non- Hodgkin lymphoma presented to the emergency department due to increased low back pain. - T12/L5 pathologic fracture. 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 - oncology,neurosurgery following- radiation oncology ff- total 19 treatment sessions till 12/27 - ongoing PT- showing progress - Hospice cannot accept patient while patient is receiving radiation treatments. - Once adequate radiation therapy performed, patient can likely be discharged to hospice. XRT till 12/27 on Decadron- per Oncology- tapering PT consult - Constipation- Manual disimpaction 12/11 - large amount of hard stools S/P digital manual disimpaction 12/09- increase regimen - UTI -S/P Cipro. - diabetes mellitus - well controlled. Patient prefers not to check blood glucose. requested to change to regular diet - chronic renal insufficiency- stable - hypothyroidism; on levothyroxine DNR. Lovenox. under Hospice- DNR PT daily Problem Qualifiers (1) Fracture of lumbar spine: Qualified Code: S32.050A - Closed wedge compression fracture of fifth lumbar vertebra, initial encounter Stephani Pepe MD Dec 13, 2016 16:42
[2016-12-13 20:00] VITALS: BP 153/77; PULSE 77; RESP 18; TEMP 97.5; O2SAT 98
[2016-12-13] MEDS: ALPRAZolam 0.25 MG TAB PO PRN (20:27)
[2016-12-14 04:00] VITALS: BP 189/93; PULSE 72; RESP 22; O2SAT 95
[2016-12-14] MEDS: LEVOTHYROXINE SODIUM 100 MCG TAB PO SCH (05:42)
[2016-12-14] MEDS: ENALAPRILAT 1.25 MG/ML VIAL IV PUSH PRN (05:43)
[2016-12-14] MEDS: MAGNESIUM HYDROXIDE SUSP 30 ML CUP PO SCH ×3 (08:25→20:56)
[2016-12-14] MEDS: MORPHINE SULFATE 15 MG CONTROLLED RELEASE TAB PO SCH ×2 (08:25→20:53)
[2016-12-14] MEDS: PANTOPRAZOLE SOD 20 MG DELAYED RELEASE TAB PO SCH (08:25)
[2016-12-14] MEDS: LACTULOSE SYRUP 20 GM/30 ML CUP PO SCH (08:25)
[2016-12-14] MEDS: POLYETHYLENE GLYCOL 17 GM PKG PO SCH (08:25)
[2016-12-14] MEDS: DEXAMETHASONE 4 MG TAB PO SCH ×2 (08:25→20:53)
[2016-12-14] MEDS: GABAPENTIN 300 MG CAP PO SCH ×3 (08:26→15:25)
[2016-12-14] MEDS: ENOXAPARIN SODIUM 40 MG/0.4 ML SYRINGE SQ SCH (08:26)
[2016-12-14] MEDS: NYSTAT/DIPHENHY/LIDO MOUTHWASH (Adult) 120ML SWISH-SWAL SCH ×4 (08:26→20:54)
[2016-12-14] MEDS: DOCUSATE SODIUM 50 MG/SENNA 8.6 MG TAB PO SCH ×2 (08:26→20:53)
[2016-12-14 10:00] VITALS: BP 124/59; PULSE 70; RESP 20; TEMP 95.7
--- NOTE | 2016-12-14 10:32 | PD.ONC.PN ---
Subjective Subjective Remarks Afebrile overnight. Patient had some pain last night but is feeling improved today. She is eating breakfast. Excited that her friends are coming to visit her tomorrow. Objective Data Date Time Temp Pulse Resp B/P Pulse Ox O2 Delivery O2 Flow Rate FiO2 12/14/16 10:00 95.7 70 20 124/59 12/14/16 04:00 72 22 189/93 95 12/13/16 20:00 97.5 77 18 153/77 98 12/13/16 16:00 98.1 73 16 142/72 99 12/13/16 12:00 96.5 68 16 158/77 99 12/14/16 12/14/16 12/14/16 07:00 15:00 23:00 Output Total 950 ml Balance -950 ml Result Diagram: 12/11/16 1015 12/11/16 1015 Administered Medications Medications (Trade) Dose Ordered Sig/Louisa Route PRN Reason Start Time Stop Time Status Last Admin Dose Admin Enalaprilat (Vasotec Inj) 1.25 mg Q8H PRN IV PUSH SBP> OR = 180, DBP> OR = 100 11/21/16 10:45 12/14/16 05:43 Ondansetron HCl (Zofran Inj) 4 mg Q8HR PRN IV PUSH NAUSEA 11/21/16 10:45 11/27/16 08:30 Alprazolam (Xanax) 0.25 mg Q4H PRN PO ANXIETY 11/21/16 12:00 12/13/16 20:27 Levothyroxine Sodium (Synthroid) 100 mcg DAILY@0600 PO 11/22/16 06:00 12/14/16 05:42 Gabapentin (Neurontin) 300 mg TID PO 11/25/16 13:00 12/11/16 17:24 Pantoprazole Sodium (Protonix) 20 mg DAILY PO 11/28/16 09:00 12/14/16 08:25 Hydromorphone HCl (Dilaudid) 2 mg Q3H PRN PO PAIN SCALE 1 TO 5 11/28/16 12:15 12/12/16 06:35 Hydromorphone HCl (Dilaudid Pf Inj) 0.5 mg Q3HR PRN IV PUSH PAIN SCALE 6 TO 8 11/28/16 11:30 12/12/16 21:19 Multi-Ingredient Mouthwash/Gargle (Magic Mouthwash Adult Liq) 10 ml QID SWISH-SWAL 11/30/16 21:00 12/01/16 18:39 Bisacodyl (Dulcolax Supp) 10 mg DAILY PRN RECTAL CONSTIPATION 12/01/16 16:15 12/02/16 10:21 Enoxaparin Sodium (Lovenox Inj) 40 mg DAILY SQ 12/02/16 09:00 12/10/16 08:46 Senna/Docusate Sodium (Treasure-Colace) 2 tab BID PO 12/04/16 21:00 12/13/16 07:55 Dexamethasone (Decadron) 2 mg Q12HR PO 12/10/16 21:00 12/14/16 08:25 Magnesium Hydroxide (Milk Of Magnesia Liq) 30 ml BID PO 12/11/16 21:00 12/13/16 07:56 Morphine Sulfate (Oramorph Sr) 15 mg Q12HR PO 12/12/16 09:00 12/14/16 08:25 Lactulose (Lactulose Liq) 30 ml DAILY PO 12/12/16 09:00 12/13/16 07:55 Hydromorphone HCl (Dilaudid Pf Inj) 1 mg Q3HR PRN IV PUSH PAIN SCALE 9 TO 10 12/12/16 10:00 12/13/16 20:28 Objective Remarks GENERAL: Elderly female, supine in bed in nad. SKIN: Warm and dry. HEAD: Normocephalic. EYES: No injection or drainage. NECK: Supple, trachea midline. CARDIOVASCULAR: Regular rate and rhythm. RESPIRATORY: Breath sounds equal bilaterally. No accessory muscle use. GASTROINTESTINAL: Abdomen soft, non-tender EXTREMITIES: No cyanosis. NEUROLOGICAL: awake and alert, normal speech. 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 currently receiving radiation. she has been offered chemotherapy but at this point does not want to be that aggressive. --PET scan, 10/24, showed intense uptake within L5 left transverse process with associated hairline pathologic fracture. --MRI lumbar spine showed severe compression fracture deformity of L5 with invagination of the superior inferior endplate and marrow edema. +retropulsion with mass effect on the left S1 nerve root. +mild compression fracture deformity of T12. --CT lumbar spine showed destructive process involving transverse process of L5 suspicious of neoplastic process. This appeared to be causing all her symptoms. (2) Pain management Status: Acute Plan: --Oramorph + PRN Dilaudid --radiation to spine started 11/26/16 (3) Non-Hodgkin lymphoma Status: Chronic Plan: History: --first treated with rituximab and Treanda --finished two years of maintenance Rituxan in January of 2014. --December 2015-->found to have progression of disease. treated with and Zydelig with Rituxan and then maintained on Zydelig --2016: CT showed low density masses in the retroperitoneum at the superior posterior left pelvis and the right pelvic sidewall. The --October 2016: PET scan showed these lesions were less prominent and not hypermetabolic. +hypermetabolic presacral lesion measured about 1.6 cm and the L5 hypermetabolic lesion. She --started on Rituxan and Revlimid about 2 weeks ago. Assessment 81y/o female with h/o follicular and hodgkin's lymphoma. admitted with severe lower back pain -History of Hodgkin lymphoma. She received six cycles of ABVD in 2006. She then received consolidation radiation in 2007. Plan 1. continue XRT. plan is for hospice at discharge 2. continue pain management with oramorph + dilaudid. Attending Statement The exam, history, and the medical decision-making described in the above note were completed with the assistance of the mid-level provider. I reviewed and agree with the findings presented. I attest that I had a [id number] encounter with the patient on the same day, and personally performed and documented my assessment and findings in the medical record. Pain is stable. + BM. Continue XRT. Will discuss with next week regarding treatment. continue supportive care. Problem Qualifiers (1) Non-Hodgkin lymphoma: Ledy Sneed Dec 14, 2016 10:32 Fredy Soni MD Dec 14, 2016 16:38
[2016-12-14] MEDS: HYDROmorphone HCL PF 1 MG/ML VIAL IV PUSH PRN ×3 (10:33→16:31)
--- NOTE | 2016-12-14 10:54 | HHI.PR ---
Subjective Remarks no complains good formed BM Objective Vitals Vital Signs Date Time Temp Pulse Resp B/P Pulse Ox O2 Delivery O2 Flow Rate FiO2 12/14/16 10:00 95.7 70 20 124/59 12/14/16 04:00 72 22 189/93 95 12/13/16 20:00 97.5 77 18 153/77 98 12/13/16 16:00 98.1 73 16 142/72 99 12/13/16 12:00 96.5 68 16 158/77 99 I/O 12/13/16 12/13/16 12/13/16 12/14/16 12/14/16 12/14/16 07:00 15:00 23:00 07:00 15:00 23:00 Intake Total 240 ml 720 ml Output Total 950 ml Balance 240 ml 720 ml -950 ml Intake Oral 240 ml 720 ml Output Urine Total 950 ml # Voids 2 2 # Bowel Movements 1 Result Diagram: 12/11/16 1015 12/11/16 1015 Imaging Last Impressions Abdomen/Pelvis CT 12/11/16 0000 Signed Impressions: Service Date/Time: Sunday, December 11, 2016 16:55 - CONCLUSION: 1. Destruction left transverse process of L5 recently biopsied. There is also a moderate pathologic fracture of L5 vertebral body. Other fractures of the lumbar spine appear chronic. There is diffuse osteopenia. 2. Moderate to severe constipation of the transverse colon and to lesser extent the left colon. 3. No metastatic disease identified to the abdominal viscera. No retroperitoneal adenopathy. 4. Moderate coronary calcifications. Previous susana fixation proximal femora. Scarring and atrophy right kidney. 5. 2.9 cm abdominal aortic aneurysm as above. Roque Nelson MD Bone Biopsy CT 11/22/16 0600 Signed Impressions: Service Date/Time: October 10:41 - CONCLUSION: Uncomplicated CT guided biopsy. León Good MD Lumbar Spine CT 11/21/16 0000 Signed Impressions: Service Date/Time: Monday, November 21, 2016 10:19 - CONCLUSION: 1. Destructive process involving the transverse process of L5 suspicious for neoplastic process. This could be biopsied percutaneously. Quinton Robison MD FACR Lower Extremity CT 11/21/16 0000 Signed Impressions: Service Date/Time: Monday, November 21, 2016 10:19 - CONCLUSION: I do not see hip fracture although troch nails make conclusion of subtle fracture very difficult. Please see above discussion. Quinton Robison MD FACR Objective Remarks awake and alert lungs clear regular rhythm abdomen soft, nontender extremities- motor exam- - improving gross sensory intact Procedures bone biopsy ( L5). A/P Problem List: (1) Fracture of lumbar spine ICD Code: S32.009A Status: Acute Assessment and Plan Ms. Feng is an 81-year-old female with a history of Hodgkin's lymphoma and non- Hodgkin lymphoma presented to the emergency department due to increased low back pain. - T12/L5 pathologic fracture. 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 - oncology,neurosurgery following- radiation oncology ff- total 19 treatment sessions till 12/27 - ongoing PT- showing progress - Hospice cannot accept patient while patient is receiving radiation treatments. - Once adequate radiation therapy performed, patient can likely be discharged to hospice. XRT till 12/27 on Decadron- per Oncology- tapering PT ff - Constipation- Manual disimpaction 12/11 . 12/09 - large amount of hard stools + BM with current regimen continue to monitor - UTI -S/P Cipro. - diabetes mellitus - well controlled. Patient prefers not to check blood glucose. requested to change to regular diet - chronic renal insufficiency- stable - hypothyroidism; on levothyroxine DNR. Lovenox. under Hospice- DNR PT daily Problem Qualifiers (1) Fracture of lumbar spine: Qualified Code: S32.050A - Closed wedge compression fracture of fifth lumbar vertebra, initial encounter Stephani Pepe MD Dec 14, 2016 10:54
--- NOTE | 2016-12-14 15:54 | HHI.HCPN ---
Reason for visit a. To assist with evaluation and management of symptoms including: pain, constipation, weakness. b. To assist medical decision maker(s) with: better understanding of current medical conditions; weighing benefits/burdens of medical treatment options; making medical treatment decisions. . Subjective/Interval History Patient seen and examined in room. Friend, Rebecca at bedside. Patient awake and alert. She reports pain is improving with Oramorph 15 mg PO every 12 hours. She has had only one dose of PRN Dilaudid in the past 24 hours. She reports pain in back and left hip, leg and back were bad overnight, improving today. Rates pain 0 during my visit, though notes indicate rating pain scales to nurses 9 today. Advised also to continue daily bowel regimen due to spinal disease and increasing pain medication and bedbound status. Patient reports BM today. May require digital stimulation for bowels given destruction of lumbar spine. Vital signs stable. She desires continued radiation treatments. . Family/friend interactions see interval note Advance Directives Living Will: Copy in medical record Health Care Surrogate: Copy in medical record Advance Directive Specifics Date completed: 08/21/2016 . Health Care Surrogate(s): Primary Health Care Surrogate: Katlin Sim 1st alternate HCS: Tito Gaffney 2nd alternate: Greg Dailey . Documented care wishes: 5 wishes on chart with hand written instructions stating "no life support - do not try to keep me alive. No feeding tube, No CPR, surgery, blood transfusions, dialysis or anything to keep me alive." . Significant change in goals: NO CODE. Continue palliative XRT to spine. . Objective Vital Signs Date Time Temp Pulse Resp B/P Pulse Ox O2 Delivery O2 Flow Rate FiO2 12/14/16 10:00 95.7 70 20 124/59 12/14/16 04:00 72 22 189/93 95 12/13/16 20:00 97.5 77 18 153/77 98 12/13/16 16:00 98.1 73 16 142/72 99 Intake & Output 12/14/16 12/14/16 07:00 19:00 Output Total 950 ml Balance -950 ml Output Urine Total 950 ml Physical Exam CONSTITUTIONAL/GENERAL: This is an adequately nourished patient, in no apparent distress. SKIN: Pressure sore on left heel, not visualized today. Skin temperature appropriate. Not diaphoretic. CARDIOVASCULAR: Regular rate and rhythm without murmur. RESPIRATORY/CHEST: Symmetric, unlabored respirations. Clear to auscultation. GASTROINTESTINAL: Abdomen soft, non-tender, nondistended. No guarding. Bowel sounds present. GENITOURINARY: Without palpable bladder distension. MUSCULOSKELETAL: Extremities without clubbing, cyanosis, or edema. Bilateral LE weakness. Able to lift right leg off bed a few inches. Unable to lift left foot off bed, wiggles toes slightly. No mottling or clubbing. NEUROLOGICAL: Awake and alert. Follows commands. Cognitively sharp. . Diagnostic Tests Result Diagram: 12/11/16 1015 12/11/16 1015 Imaging Last Impressions Abdomen/Pelvis CT 12/11/16 0000 Signed Impressions: Service Date/Time: Sunday, December 11, 2016 16:55 - CONCLUSION: 1. Destruction left transverse process of L5 recently biopsied. There is also a moderate pathologic fracture of L5 vertebral body. Other fractures of the lumbar spine appear chronic. There is diffuse osteopenia. 2. Moderate to severe constipation of the transverse colon and to lesser extent the left colon. 3. No metastatic disease identified to the abdominal viscera. No retroperitoneal adenopathy. 4. Moderate coronary calcifications. Previous susana fixation proximal femora. Scarring and atrophy right kidney. 5. 2.9 cm abdominal aortic aneurysm as above. Roque Nelson MD Bone Biopsy CT 11/22/16 0600 Signed Impressions: Service Date/Time: October 10:41 - CONCLUSION: Uncomplicated CT guided biopsy. León Good MD Lumbar Spine CT 11/21/16 0000 Signed Impressions: Service Date/Time: Monday, November 21, 2016 10:19 - CONCLUSION: 1. Destructive process involving the transverse process of L5 suspicious for neoplastic process. This could be biopsied percutaneously. Quinton Robison MD FACR Lower Extremity CT 11/21/16 0000 Signed Impressions: Service Date/Time: Monday, November 21, 2016 10:19 - CONCLUSION: I do not see hip fracture although troch nails make conclusion of subtle fracture very difficult. Please see above discussion. Quinton Robison MD FACR . Procedures * 11/22/16 CT directed bone biopsy L5 pathology positive large B cell lymphoma, non- germinal center type. Assessment and Plan Disease Oriented Problem List: (1) Fracture of lumbar spine (2) Non-Hodgkin lymphoma (3) Pain management (4) Acute exacerbation of chronic low back pain (5) Hypothyroidism (6) Diabetes mellitus Symptom Scale: (1) Pain 0-10 Scale: 0 (2) Weakness 0-10 Scale: Unable to quantify (3) Constipation 0-10 Scale: Unable to quantify Comment: LBLien 12/14/16 Pertinent Non-Medical Issues Psychosocial: . Has 4 sons and 2 daughters. Spiritual: Yarsanism lilly. Legal: Notes indicate written advanced directives. Ethical issues impacting care: No known concerns at this time. . Important Contacts * Katlin Gasca, Daughter: [phone] . Prognosis Patient with progressive lymphoma that is not curable, now with pathologic fracture of L5 getting palliative radiation (20 planned tx) now bedbound. Unlikely she will be able to walk again. May be a candidate for palliative chemotherapy in the future per oncology depending on course. . Code Status: No Code Plan * Patient is currently capacitated to make her own health care decisions. Living Will (5 wishes) on chart with designated health care surrogate, daughter Katlin Sim. [place] DNR completed per pt request 11/28/16. * NO CODE - [place] DNR on chart to go with patient upon DC. * 11/30/16: Palliative care met with patient. Spoke with Dr. Hu he is unable to decrease number of XRT tx or increase dose as pt has previously had XRT to this area. Discussed with Dr. Polanco, he is unable to accept pt on hospice until after completion of palliative XRT. Patient unable to enroll in Hospice at this time. She has elected to continue palliative radiation to spine for now. She understands hospice can be elected once radiation is completed. Palliative care will continue to follow to assist with symptom management. Discussed with Hospice nurse, palliative care will notify when hospice services may be needed. * 12/14/16: Spoke with patient, she desires continued radiation treatments to spine, plan for hospice upon DC after XRT complete. Pain improving with Oramorph 15mg PO every 12 hours ATC with PRN Dilaudid. * SYMPTOMS: Back pain: due to progressive lymphoma and L5 pathologic fracture. Oramorph 15mg PO every 12 hours was restarted 12/12/16 with PRN Dilaudid with relief. Will monitor effect. Anxiety: Intermittent, denies today. Has PRN Xanax. Weakness: due to pathologic spine fracture secondary to lymphoma/ disease progression. Constipation: LBM 12/14/16. On Senna-S 2 PO BID, Miralax, Lactulose and MOM. Bowels complicated by bedbound status, meds and spinal disease. May require digital stimulation. * Palliative care will continue to follow to assist with symptom management and further clarification of goals as needed. . Attestation To help prompt me to consider important information that might be impacting today's encounter and assessment, information from prior notes written by myself or my colleagues may have been "brought forward" into today's note. My signature on this note, however, is an attestation that I personally performed the exam, history, and/or decision-making noted today, and, unless otherwise indicated, the interactions with patient, family, and staff as well as the review of records all occurred today. I also attest that the listed assessment and stated plan reflect my best clinical judgment today based on the combination of historical information, prior notes, and today's exam/ interactions. When time spent is documented, it refers only to time spent today by the signer, or if indicated, combined time spent today by collaborating physician/nurse practitioner. SHARON TORRES Dec 14, 2016 15:54
[2016-12-14 19:05] VITALS: BP 97/73; PULSE 75; RESP 20; TEMP 96.8; O2SAT 98
[2016-12-14 20:30] VITALS: BP 116/62; PULSE 78; RESP 20; TEMP 97.9; O2SAT 96
[2016-12-15] MEDS: LEVOTHYROXINE SODIUM 100 MCG TAB PO SCH (05:38)
[2016-12-15] MEDS: HYDROmorphone HCL 2 MG TAB PO PRN ×2 (05:39→10:26)
[2016-12-15 07:51] VITALS: BP 159/76; PULSE 130; RESP 20; TEMP 97.1; O2SAT 91
[2016-12-15] MEDS: GABAPENTIN 300 MG CAP PO SCH ×3 (09:00→17:48)
[2016-12-15] MEDS: PANTOPRAZOLE SOD 20 MG DELAYED RELEASE TAB PO SCH (09:00)
[2016-12-15] MEDS: MAGNESIUM HYDROXIDE SUSP 30 ML CUP PO SCH ×2 (09:00→20:25)
[2016-12-15] MEDS: POLYETHYLENE GLYCOL 17 GM PKG PO SCH (09:00)
[2016-12-15] MEDS: DEXAMETHASONE 4 MG TAB PO SCH ×2 (09:00→20:25)
[2016-12-15] MEDS: LACTULOSE SYRUP 20 GM/30 ML CUP PO SCH (09:00)
[2016-12-15] MEDS: NYSTAT/DIPHENHY/LIDO MOUTHWASH (Adult) 120ML SWISH-SWAL SCH ×4 (09:00→20:25)
[2016-12-15] MEDS: ENOXAPARIN SODIUM 40 MG/0.4 ML SYRINGE SQ SCH (09:00)
[2016-12-15] MEDS: MORPHINE SULFATE 15 MG CONTROLLED RELEASE TAB PO SCH ×2 (09:09→20:25)
[2016-12-15] MEDS: DOCUSATE SODIUM 50 MG/SENNA 8.6 MG TAB PO SCH ×2 (09:09→20:25)
[2016-12-15] MEDS: HYDROmorphone HCL PF 1 MG/ML VIAL IV PUSH PRN ×2 (11:27→18:00)
[2016-12-15 12:06] VITALS: BP 116/61; PULSE 70; RESP 20; TEMP 96.5; O2SAT 99
--- NOTE | 2016-12-15 14:38 | HHI.PR ---
Subjective Remarks Very pleasant lady laying in bed, denied acute complain, stated she had a bowel movement today Had a session of RT yesterday, plan to go for hospice when all arrangement done Objective Vitals Vital Signs Date Time Temp Pulse Resp B/P Pulse Ox O2 Delivery O2 Flow Rate FiO2 12/15/16 12:06 96.5 70 20 116/61 99 12/15/16 07:51 97.1 130 20 159/76 91 12/14/16 19:05 96.8 75 20 97/73 98 I/O 12/14/16 12/14/16 12/14/16 12/15/16 12/15/16 12/15/16 07:00 15:00 23:00 07:00 15:00 23:00 Intake Total 240 ml Output Total 950 ml 300 ml Balance -950 ml -60 ml Intake Oral 240 ml Output Urine Total 950 ml 300 ml Result Diagram: 12/11/16 1015 12/11/16 1015 Objective Remarks GENERAL: This is a well-nourished, well-developed patient, in no apparent distress. SKIN: No rashes, warm and dry HEAD: Atraumatic. Normocephalic. EYES: Pupils equal round and reactive. Extraocular motions intact. No scleral icterus. ENT: Nose without bleeding, or drainage, Airway patent. NECK: Trachea midline. Supple CARDIOVASCULAR: Regular rate and rhythm without murmurs, gallops, or rubs. RESPIRATORY: Fair air entry bilaterally. No wheezes, rales, or rhonchi. GASTROINTESTINAL: Abdomen soft, non-tender, nondistended. Positive bowel sounds MUSCULOSKELETAL: Extremities without clubbing, cyanosis, or edema. Pedal pulses appreciated NEUROLOGICAL: Awake and alert. Moves all extremity. Normal speech.no focal neurological deficit Procedures bone biopsy ( L5). A/P Problem List: (1) Fracture of lumbar spine ICD Code: S32.009A Status: Acute Assessment and Plan 12/15: No acute issue, she had a session of RT yesterday plan to go to hospice when all arrangement done A/P: Ms. Feng is an 81-year-old female with a history of Hodgkin's lymphoma and non- Hodgkin lymphoma presented to the emergency department due to increased low back pain. - T12/L5 pathologic fracture. 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 - oncology,neurosurgery following- radiation oncology ff- total 19 treatment sessions till 12/27 - ongoing PT- showing progress - Hospice cannot accept patient while patient is receiving radiation treatments. - Once adequate radiation therapy performed, patient can likely be discharged to hospice. XRT till 12/27 on Decadron- per Oncology- tapering PT ff - Constipation- Manual disimpaction 12/11 . 12/09 - large amount of hard stools + BM with current regimen continue to monitor - UTI -S/P Cipro. - diabetes mellitus - well controlled. Patient prefers not to check blood glucose. requested to change to regular diet - chronic renal insufficiency- stable - hypothyroidism; on levothyroxine DNR. Lovenox. under Hospice- DNR PT daily Discharge Planning To hospice with all arrangement done, case aide working on it Problem Qualifiers (1) Fracture of lumbar spine: Qualified Code: S32.050A - Closed wedge compression fracture of fifth lumbar vertebra, initial encounter Edith Pan MD Dec 15, 2016 14:38
[2016-12-15 16:09] VITALS: BP 151/71; PULSE 77; RESP 20; TEMP 98; O2SAT 98
[2016-12-15 20:30] VITALS: BP 143/86; PULSE 76; RESP 18; TEMP 97.1; O2SAT 99
[2016-12-16] MEDS: LEVOTHYROXINE SODIUM 100 MCG TAB PO SCH (06:24)
[2016-12-16] MEDS: HYDROmorphone HCL 2 MG TAB PO PRN (06:25)
[2016-12-16] MEDS: MORPHINE SULFATE 15 MG CONTROLLED RELEASE TAB PO SCH ×2 (08:32→20:38)
[2016-12-16] MEDS: DEXAMETHASONE 4 MG TAB PO SCH ×2 (08:32→20:37)
[2016-12-16] MEDS: POLYETHYLENE GLYCOL 17 GM PKG PO SCH (08:32)
[2016-12-16] MEDS: MAGNESIUM HYDROXIDE SUSP 30 ML CUP PO SCH ×2 (08:32→20:37)
[2016-12-16] MEDS: LACTULOSE SYRUP 20 GM/30 ML CUP PO SCH (08:32)
[2016-12-16] MEDS: GABAPENTIN 300 MG CAP PO SCH ×3 (08:32→17:57)
[2016-12-16] MEDS: DOCUSATE SODIUM 50 MG/SENNA 8.6 MG TAB PO SCH ×2 (08:33→20:37)
[2016-12-16] MEDS: ENOXAPARIN SODIUM 40 MG/0.4 ML SYRINGE SQ SCH (08:33)
[2016-12-16] MEDS: PANTOPRAZOLE SOD 20 MG DELAYED RELEASE TAB PO SCH (08:33)
[2016-12-16] MEDS: NYSTAT/DIPHENHY/LIDO MOUTHWASH (Adult) 120ML SWISH-SWAL SCH ×4 (08:33→20:38)
[2016-12-16 08:34] VITALS: BP 146/66; PULSE 72; RESP 18; TEMP 97.2; O2SAT 100
[2016-12-16] MEDS: HYDROmorphone HCL PF 1 MG/ML VIAL IV PUSH PRN ×2 (09:38→15:51)
[2016-12-16 12:36] VITALS: BP 119/75; PULSE 95; RESP 18; TEMP 97.6; O2SAT 99
--- NOTE | 2016-12-16 13:06 | HHI.PR ---
Subjective Remarks Seen and examined, afebrile, still in pain that require medication Objective Vitals Vital Signs Date Time Temp Pulse Resp B/P Pulse Ox O2 Delivery O2 Flow Rate FiO2 12/16/16 12:36 97.6 95 18 119/75 99 12/16/16 08:34 97.2 72 18 146/66 100 12/15/16 20:30 97.1 76 18 143/86 99 12/15/16 16:09 98.0 77 20 151/71 98 I/O 12/15/16 12/15/16 12/15/16 12/16/16 12/16/16 12/16/16 07:00 15:00 23:00 07:00 15:00 23:00 Intake Total 240 ml 400 ml Output Total 300 ml 800 ml Balance -60 ml -400 ml Intake Oral 240 ml 400 ml Output Urine Total 300 ml 800 ml # Bowel Movements 0 Objective Remarks GENERAL: This is a well-nourished, well-developed patient, in no apparent distress. SKIN: No rashes, warm and dry HEAD: Atraumatic. Normocephalic. EYES: Pupils equal round and reactive. Extraocular motions intact. No scleral icterus. ENT: Nose without bleeding, or drainage, Airway patent. NECK: Trachea midline. Supple CARDIOVASCULAR: Regular rate and rhythm without murmurs, gallops, or rubs. RESPIRATORY: Fair air entry bilaterally. No wheezes, rales, or rhonchi. GASTROINTESTINAL: Abdomen soft, non-tender, nondistended. Positive bowel sounds MUSCULOSKELETAL: Extremities without clubbing, cyanosis, or edema. Pedal pulses appreciated NEUROLOGICAL: Awake and alert. Moves all extremity. Normal speech.no focal neurological deficit Procedures bone biopsy ( L5). A/P Problem List: (1) Fracture of lumbar spine ICD Code: S32.009A Status: Acute Assessment and Plan 12/15: No acute issue, she had a session of RT yesterday plan to go to hospice when all arrangement done 12/16: Continue current care, further recommendation per oncology on Saturday, hospice at discharge A/P: Ms. Feng is an 81-year-old female with a history of Hodgkin's lymphoma and non- Hodgkin lymphoma presented to the emergency department due to increased low back pain. - T12/L5 pathologic fracture. 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 - oncology,neurosurgery following- radiation oncology ff- total 19 treatment sessions till 12/27 - ongoing PT- showing progress - Hospice cannot accept patient while patient is receiving radiation treatments. - Once adequate radiation therapy performed, patient can likely be discharged to hospice. XRT till 12/27 on Decadron- per Oncology- tapering PT ff - Constipation- Manual disimpaction 12/11 . 12/09 - large amount of hard stools + BM with current regimen continue to monitor - UTI -S/P Cipro. - diabetes mellitus - well controlled. Patient prefers not to check blood glucose. requested to change to regular diet - chronic renal insufficiency- stable - hypothyroidism; on levothyroxine DNR. Lovenox. under Hospice- DNR PT daily Discharge Planning To hospice with all arrangement done, binder caser working on it Problem Qualifiers (1) Fracture of lumbar spine: Qualified Code: S32.050A - Closed wedge compression fracture of fifth lumbar vertebra, initial encounter Edith Pan MD Dec 16, 2016 13:05
[2016-12-16 16:21] VITALS: BP 139/73; PULSE 90; RESP 18; TEMP 98.9; O2SAT 98
[2016-12-16 20:00] VITALS: BP 136/61; PULSE 95; RESP 20; TEMP 98.9; O2SAT 96
[2016-12-17] MEDS: LEVOTHYROXINE SODIUM 100 MCG TAB PO SCH (06:00)
[2016-12-17 07:50] VITALS: BP 120/69; PULSE 77; RESP 20; TEMP 96.4; O2SAT 97
[2016-12-17] MEDS: DOCUSATE SODIUM 50 MG/SENNA 8.6 MG TAB PO SCH (08:38)
[2016-12-17] MEDS: ENOXAPARIN SODIUM 40 MG/0.4 ML SYRINGE SQ SCH (08:39)
[2016-12-17] MEDS: GABAPENTIN 300 MG CAP PO SCH ×3 (08:39→18:00)
[2016-12-17] MEDS: DEXAMETHASONE 4 MG TAB PO SCH (08:40)
[2016-12-17] MEDS: PANTOPRAZOLE SOD 20 MG DELAYED RELEASE TAB PO SCH (08:40)
[2016-12-17] MEDS: MAGNESIUM HYDROXIDE SUSP 30 ML CUP PO SCH (08:41)
[2016-12-17] MEDS: NYSTAT/DIPHENHY/LIDO MOUTHWASH (Adult) 120ML SWISH-SWAL SCH ×4 (08:41→21:00)
[2016-12-17] MEDS: POLYETHYLENE GLYCOL 17 GM PKG PO SCH (08:41)
[2016-12-17] MEDS: LACTULOSE SYRUP 20 GM/30 ML CUP PO SCH (08:41)
[2016-12-17] MEDS: MORPHINE SULFATE 15 MG CONTROLLED RELEASE TAB PO SCH ×2 (08:41→21:00)
[2016-12-17] MEDS: HYDROmorphone HCL PF 1 MG/ML VIAL IV PUSH PRN (08:42)
[2016-12-17 11:20] VITALS: BP 116/65; PULSE 77; RESP 19; TEMP 96.2; O2SAT 96
--- NOTE | 2016-12-17 11:29 | PD.ONC.PN ---
Subjective Subjective Remarks Afebrile overnight. Patient reporting persistent breakthrough pain in the morning and evenings. she states she has a hard time asking for the pain medication. She reports a bowel movement on Saturday and states she has been refusing laxatives since then "to give myself a break." Objective Data Date Time Temp Pulse Resp B/P Pulse Ox O2 Delivery O2 Flow Rate FiO2 12/17/16 07:50 96.4 77 20 120/69 97 12/16/16 20:00 98.9 95 20 136/61 96 12/16/16 16:21 98.9 90 18 139/73 98 12/16/16 12:36 97.6 95 18 119/75 99 12/17/16 12/17/16 12/17/16 07:00 15:00 23:00 Output Total 300 ml Balance -300 ml Administered Medications Medications (Trade) Dose Ordered Sig/Louisa Route PRN Reason Start Time Stop Time Status Last Admin Dose Admin Enalaprilat (Vasotec Inj) 1.25 mg Q8H PRN IV PUSH SBP> OR = 180, DBP> OR = 100 11/21/16 10:45 12/14/16 05:43 Ondansetron HCl (Zofran Inj) 4 mg Q8HR PRN IV PUSH NAUSEA 11/21/16 10:45 11/27/16 08:30 Alprazolam (Xanax) 0.25 mg Q4H PRN PO ANXIETY 11/21/16 12:00 12/13/16 20:27 Levothyroxine Sodium (Synthroid) 100 mcg DAILY@0600 PO 11/22/16 06:00 12/16/16 06:24 Gabapentin (Neurontin) 300 mg TID PO 11/25/16 13:00 12/17/16 08:39 Pantoprazole Sodium (Protonix) 20 mg DAILY PO 11/28/16 09:00 12/17/16 08:40 Hydromorphone HCl (Dilaudid) 2 mg Q3H PRN PO PAIN SCALE 1 TO 5 11/28/16 12:15 12/16/16 06:25 Hydromorphone HCl (Dilaudid Pf Inj) 0.5 mg Q3HR PRN IV PUSH PAIN SCALE 6 TO 8 11/28/16 11:30 12/12/16 21:19 Multi-Ingredient Mouthwash/Gargle (Magic Mouthwash Adult Liq) 10 ml QID SWISH-SWAL 11/30/16 21:00 12/01/16 18:39 Bisacodyl (Dulcolax Supp) 10 mg DAILY PRN RECTAL CONSTIPATION 12/01/16 16:15 12/02/16 10:21 Enoxaparin Sodium (Lovenox Inj) 40 mg DAILY SQ 12/02/16 09:00 12/10/16 08:46 Senna/Docusate Sodium (Treasure-Colace) 2 tab BID PO 12/04/16 21:00 12/17/16 08:38 Dexamethasone (Decadron) 2 mg Q12HR PO 12/10/16 21:00 12/17/16 08:40 Magnesium Hydroxide (Milk Of Magnesia Liq) 30 ml BID PO 12/11/16 21:00 12/17/16 08:41 Polyethylene Glycol (Miralax) 17 gm DAILY PO 12/12/16 09:00 12/17/16 08:41 Morphine Sulfate (Oramorph Sr) 15 mg Q12HR PO 12/12/16 09:00 12/17/16 08:41 Lactulose (Lactulose Liq) 30 ml DAILY PO 12/12/16 09:00 12/17/16 08:41 Hydromorphone HCl (Dilaudid Pf Inj) 1 mg Q3HR PRN IV PUSH PAIN SCALE 9 TO 10 12/12/16 10:00 12/17/16 08:42 Objective Remarks GENERAL: Elderly female, lying in bed in nad. SKIN: Warm and dry. HEAD: Normocephalic. EYES: No injection or drainage. NECK: Supple, trachea midline. CARDIOVASCULAR: Regular rate and rhythm. RESPIRATORY: Breath sounds equal bilaterally. No accessory muscle use. GASTROINTESTINAL: Abdomen soft, non-tender EXTREMITIES: No cyanosis. NEUROLOGICAL: awake and alert, normal speech. moving all extremities. 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 Plan is for radiation in patient and then discharge to hospice. She was offered chemotherapy and does not want to be that aggressive. History: --first treated with rituximab and Treanda --finished two years of maintenance Rituxan in January of 2014. --December 2015-->found to have progression of disease. treated with and Zydelig with Rituxan and then maintained on Zydelig --2016: CT showed low density masses in the retroperitoneum at the superior posterior left pelvis and the right pelvic sidewall. The --October 2016: PET scan showed these lesions were less prominent and not hypermetabolic. +hypermetabolic presacral lesion measured about 1.6 cm and the L5 hypermetabolic lesion. She --started on Rituxan and Revlimid about 2 weeks ago. --PET scan, 10/24, showed intense uptake within L5 left transverse process with associated hairline pathologic fracture. --MRI lumbar spine showed severe compression fracture deformity of L5 with invagination of the superior inferior endplate and marrow edema. +retropulsion with mass effect on the left S1 nerve root. +mild compression fracture deformity of T12. --CT lumbar spine showed destructive process involving transverse process of L5 suspicious of neoplastic process. This appeared to be causing all her symptoms. (2) Pain management Status: Acute Plan: --Oramorph + PRN Dilaudid --radiation to spine started 11/26/16 Assessment 81y/o female with h/o follicular and hodgkin's lymphoma. admitted with severe lower back pain Plan 1. continue radiation treatment 2. continue pain management with oramorph and dilaudid 3. encourage patient to take lactulose as scheduled Attending Statement The exam, history, and the medical decision-making described in the above note were completed with the assistance of the mid-level provider. I reviewed and agree with the findings presented. I attest that I had a [id number] encounter with the patient on the same day, and personally performed and documented my assessment and findings in the medical record. Still has pain but comfortable this am. Continue XRT. Continue supportive care. Ledy Sneed Dec 17, 2016 11:29 Fredy Soni MD Dec 17, 2016 15:51
--- NOTE | 2016-12-17 13:38 | HHI.PR ---
Subjective Remarks Resting in bed denied pain Afebrile,Plan To discharge with hospice once radiation therapy is complete Objective Vitals Vital Signs Date Time Temp Pulse Resp B/P Pulse Ox O2 Delivery O2 Flow Rate FiO2 12/17/16 11:20 96.2 77 19 116/65 96 12/17/16 07:50 96.4 77 20 120/69 97 12/16/16 20:00 98.9 95 20 136/61 96 12/16/16 16:21 98.9 90 18 139/73 98 I/O 12/16/16 12/16/16 12/16/16 12/17/16 12/17/16 12/17/16 07:00 15:00 23:00 07:00 15:00 23:00 Intake Total 400 ml 240 ml Output Total 800 ml 400 ml 300 ml Balance -400 ml -160 ml -300 ml Intake Oral 400 ml 240 ml Output Urine Total 800 ml 400 ml 300 ml # Bowel Movements 0 0 Objective Remarks GENERAL: This is a well-nourished, well-developed patient, in no apparent distress. SKIN: No rashes, warm and dry HEAD: Atraumatic. Normocephalic. EYES: Pupils equal round and reactive. Extraocular motions intact. No scleral icterus. ENT: Nose without bleeding, or drainage, Airway patent. NECK: Trachea midline. Supple CARDIOVASCULAR: Regular rate and rhythm without murmurs, gallops, or rubs. RESPIRATORY: Fair air entry bilaterally. No wheezes, rales, or rhonchi. GASTROINTESTINAL: Abdomen soft, non-tender, nondistended. Positive bowel sounds MUSCULOSKELETAL: Extremities without clubbing, cyanosis, or edema. Pedal pulses appreciated NEUROLOGICAL: Awake and alert. Moves all extremity. Normal speech.no focal neurological deficit Procedures bone biopsy ( L5). A/P Problem List: (1) Fracture of lumbar spine ICD Code: S32.009A Status: Acute Assessment and Plan 12/15: No acute issue, she had a session of RT yesterday plan to go to hospice when all arrangement done 12/16: Continue current care, further recommendation per oncology on Saturday, hospice at discharge 12/17: Continue current carePlan: To discharge with hospice once radiation therapy is complete A/P: Ms. Feng is an 81-year-old female with a history of Hodgkin's lymphoma and non- Hodgkin lymphoma presented to the emergency department due to increased low back pain. - T12/L5 pathologic fracture. 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 - oncology,neurosurgery following- radiation oncology ff- total 19 treatment sessions till 12/27 - ongoing PT- showing progress - Hospice cannot accept patient while patient is receiving radiation treatments. - Once adequate radiation therapy performed, patient can likely be discharged to hospice. XRT till 12/27 on Decadron- per Oncology- tapering PT ff - Constipation- Manual disimpaction 12/11 . 12/09 - large amount of hard stools + BM with current regimen continue to monitor - UTI -S/P Cipro. - diabetes mellitus - well controlled. Patient prefers not to check blood glucose. requested to change to regular diet - chronic renal insufficiency- stable - hypothyroidism; on levothyroxine DNR. Lovenox. under Hospice- DNR PT daily Discharge Planning To hospice with all arrangement done, correctional casework specialist working on it Problem Qualifiers (1) Fracture of lumbar spine: Qualified Code: S32.050A - Closed wedge compression fracture of fifth lumbar vertebra, initial encounter Edith Pan MD Dec 17, 2016 13:38
[2016-12-17 15:45] VITALS: BP 133/82; PULSE 74; RESP 19; TEMP 97.7; O2SAT 96
[2016-12-18] MEDS: DOCUSATE SODIUM 50 MG/SENNA 8.6 MG TAB PO SCH ×2 (01:44→09:00)
[2016-12-18] MEDS: MAGNESIUM HYDROXIDE SUSP 30 ML CUP PO SCH ×2 (01:44→08:59)
[2016-12-18] MEDS: DEXAMETHASONE 4 MG TAB PO SCH ×3 (01:44→22:59)
[2016-12-18] MEDS: MORPHINE SULFATE 15 MG CONTROLLED RELEASE TAB PO SCH ×3 (01:44→22:59)
[2016-12-18] MEDS: ALPRAZolam 0.25 MG TAB PO PRN ×2 (01:45→22:59)
[2016-12-18] MEDS: LEVOTHYROXINE SODIUM 100 MCG TAB PO SCH (06:32)
[2016-12-18 07:46] VITALS: BP 131/75; PULSE 74; RESP 17; TEMP 97; O2SAT 96
[2016-12-18] MEDS: POLYETHYLENE GLYCOL 17 GM PKG PO SCH (08:59)
[2016-12-18] MEDS: LACTULOSE SYRUP 20 GM/30 ML CUP PO SCH (08:59)
[2016-12-18] MEDS: NYSTAT/DIPHENHY/LIDO MOUTHWASH (Adult) 120ML SWISH-SWAL SCH ×3 (09:00→18:00)
[2016-12-18] MEDS: ENOXAPARIN SODIUM 40 MG/0.4 ML SYRINGE SQ SCH (09:00)
[2016-12-18] MEDS: PANTOPRAZOLE SOD 20 MG DELAYED RELEASE TAB PO SCH (09:00)
[2016-12-18] MEDS: GABAPENTIN 300 MG CAP PO SCH ×3 (09:01→18:23)
[2016-12-18] MEDS: HYDROmorphone HCL PF 1 MG/ML VIAL IV PUSH PRN ×3 (10:31→23:00)
--- NOTE | 2016-12-18 10:36 | HHI.HCPN ---
Reason for visit a. To assist with evaluation and management of symptoms including: pain, constipation, weakness. b. To assist medical decision maker(s) with: better understanding of current medical conditions; weighing benefits/burdens of medical treatment options; making medical treatment decisions. . Subjective/Interval History Patient seen and examined in room. Katlin (daughter) at bedside. Patient awake and alert. She reports pain is overall better with Oramorph 15 mg PO every 12 hours, she is having to ask for PRN Dilaudid less. However she remains reluctant to ask for meds unless the pain is very bad. She has had only 2 doses of PRN Dilaudid 1mg in the past 24 hours. Her pain remains in back and left hip , leg describes as n intermittent, sharp pain. She feels radiation is helping her pain. Her bilateral LEs are essentially non functioning. Rates pain 8 during my visit, PRN Dilaudid requested. She seems to be refusing bowel regimen for fear of having to be cleaned up and needing a break. Her pain increases with movement. LBM recorded 12/13, pt indicates she had a BM today. Vital signs stable. She desires continued radiation treatments. Notes indicates she completed 07/15 radiation treatments on 12/17/16. Spoke with unit reactor operator, Zelalem. Left message for radiation therapist to return call regarding plan for radiation. Discussed with JONATHAN Murray medical oncology. . Family/friend interactions Lengthy discussion with patient and her daughter Katlin to review current plan of care, patient goals and plan upon DC. Patient desires hospice care center admission after discharge. She and her daughter feel SNF for rehab is not possible as her bilateral LE are essentially non functioning. We talked about the limitations of care center for symptom management and possible need for nursing home care depending on life expectancy, symptoms etc. They do not feel she can go home as family is unable to provide 24 hour care. Patient and her daughter are appreciate of time spent. They desire continued radiation at this time. . Advance Directives Living Will: Copy in medical record Health Care Surrogate: Copy in medical record Advance Directive Specifics Date completed: 08/21/2016 . Health Care Surrogate(s): Primary Health Care Surrogate: Katlin Sim 1st alternate HCS: Tito Gaffney 2nd alternate: Greg Dailey . Documented care wishes: 5 wishes on chart with hand written instructions stating "no life support - do not try to keep me alive. No feeding tube, No CPR, surgery, blood transfusions, dialysis or anything to keep me alive." . Significant change in goals: NO CODE. Desires to complete course of radiation. . Objective Vital Signs Date Time Temp Pulse Resp B/P Pulse Ox O2 Delivery O2 Flow Rate FiO2 12/18/16 07:46 97.0 74 17 131/75 96 12/17/16 15:45 97.7 74 19 133/82 96 12/17/16 11:20 96.2 77 19 116/65 96 Intake & Output 12/18/16 12/18/16 07:00 19:00 Output Total 700 ml Balance -700 ml Output Urine Total 700 ml Physical Exam CONSTITUTIONAL/GENERAL: This is an adequately nourished patient, in no apparent distress. SKIN: Pressure sore on left heel with small 1 cm light purple area noted, decreased in size. Skin temperature appropriate. Not diaphoretic. CARDIOVASCULAR: Regular rate and rhythm without murmur. RESPIRATORY/CHEST: Symmetric, unlabored respirations. Clear to auscultation. GASTROINTESTINAL: Abdomen soft, non-tender, nondistended. No guarding. Bowel sounds present. GENITOURINARY: Without palpable bladder distension. Bryan in place. MUSCULOSKELETAL: Extremities without clubbing, cyanosis, or edema. Bilateral LE weakness. Able to lift right leg off bed a few inches. Unable to lift left foot off bed, wiggles toes slightly. No mottling or clubbing. NEUROLOGICAL: Awake and alert. Follows commands. Cognitively sharp. . Diagnostic Tests Imaging Last Impressions Abdomen/Pelvis CT 12/11/16 0000 Signed Impressions: Service Date/Time: Sunday, December 11, 2016 16:55 - CONCLUSION: 1. Destruction left transverse process of L5 recently biopsied. There is also a moderate pathologic fracture of L5 vertebral body. Other fractures of the lumbar spine appear chronic. There is diffuse osteopenia. 2. Moderate to severe constipation of the transverse colon and to lesser extent the left colon. 3. No metastatic disease identified to the abdominal viscera. No retroperitoneal adenopathy. 4. Moderate coronary calcifications. Previous susana fixation proximal femora. Scarring and atrophy right kidney. 5. 2.9 cm abdominal aortic aneurysm as above. Roque Nelson MD Bone Biopsy CT 11/22/16 0600 Signed Impressions: Service Date/Time: October 10:41 - CONCLUSION: Uncomplicated CT guided biopsy. León Good MD Lumbar Spine CT 11/21/16 0000 Signed Impressions: Service Date/Time: Monday, November 21, 2016 10:19 - CONCLUSION: 1. Destructive process involving the transverse process of L5 suspicious for neoplastic process. This could be biopsied percutaneously. Quinton Robison MD FACR Lower Extremity CT 11/21/16 0000 Signed Impressions: Service Date/Time: Monday, November 21, 2016 10:19 - CONCLUSION: I do not see hip fracture although troch nails make conclusion of subtle fracture very difficult. Please see above discussion. Quinton Robison MD FACR . Procedures * 11/22/16 CT directed bone biopsy L5 pathology positive large B cell lymphoma, non- germinal center type. Assessment and Plan Disease Oriented Problem List: (1) Fracture of lumbar spine (2) Non-Hodgkin lymphoma (3) Pain management Comment: acute on chronic back pain, lumbar destruction secondary to cancer. . (4) Hypothyroidism (5) Diabetes mellitus Symptom Scale: (1) Pain 0-10 Scale: 0 (2) Weakness 0-10 Scale: Unable to quantify (3) Constipation 0-10 Scale: Unable to quantify Comment: LBM 12/18/16 Pertinent Non-Medical Issues Psychosocial: . Has 4 sons and 2 daughters. Spiritual: Caodaism lilly. Legal: Notes indicate written advanced directives. Ethical issues impacting care: No known concerns at this time. . Important Contacts * Katlin Gasca, Daughter: [phone] . Prognosis Patient with progressive lymphoma that is not curable, now with pathologic fracture of L5 getting palliative radiation (20 planned tx) now bedbound. Unlikely she will be able to walk again. May be a candidate for palliative chemotherapy in the future per oncology depending on course. . Code Status: No Code Plan * Patient is currently capacitated to make her own health care decisions. Living Will (5 wishes) on chart with designated health care surrogate, daughter Katlin Sim. [place] DNR completed per pt request 11/28/16. * NO CODE - [place] DNR on chart to go with patient upon DC. * 11/30/16: Palliative care met with patient. Spoke with Dr. Hu he is unable to decrease number of XRT tx or increase dose as pt has previously had XRT to this area. Discussed with Dr. Polanco, he is unable to accept pt on hospice until after completion of palliative XRT. Patient unable to enroll in Hospice at this time. She has elected to continue palliative radiation to spine for now. She understands hospice can be elected once radiation is completed. Palliative care will continue to follow to assist with symptom management. Discussed with Hospice nurse, palliative care will notify when hospice services may be needed. * 12/18/16: Spoke with patient, she desires continued radiation treatments to spine, plan for hospice upon DC after XRT complete. Pain improving with Oramorph 15mg PO every 12 hours ATC with PRN Dilaudid. * SYMPTOMS: Back pain: due to progressive lymphoma and L5 pathologic fracture. Oramorph 15mg PO every 12 hours was restarted 12/12/16 with PRN Dilaudid with relief. Will monitor effect. Anxiety: Intermittent, denies today. Has PRN Xanax. Weakness: due to pathologic spine fracture secondary to lymphoma/ disease progression. Constipation: LBM 12/18/16. On Senna-S 2 PO BID, Miralax, Lactulose and MOM. Bowels complicated by bedbound status, meds and spinal disease. May require digital stimulation. * Palliative care will continue to follow to assist with symptom management and further clarification of goals as needed. . Attestation To help prompt me to consider important information that might be impacting today's encounter and assessment, information from prior notes written by myself or my colleagues may have been "brought forward" into today's note. My signature on this note, however, is an attestation that I personally performed the exam, history, and/or decision-making noted today, and, unless otherwise indicated, the interactions with patient, family, and staff as well as the review of records all occurred today. I also attest that the listed assessment and stated plan reflect my best clinical judgment today based on the combination of historical information, prior notes, and today's exam/ interactions. When time spent is documented, it refers only to time spent today by the signer, or if indicated, combined time spent today by collaborating physician/nurse practitioner. . SHARON TORRES Dec 18, 2016 10:36
--- NOTE | 2016-12-18 11:09 | PD.ONC.PN ---
Subjective Subjective Remarks Afebrile overnight. Patient states " I feel good. I have no pain." She states she is going to have a BM today. Objective Data Date Time Temp Pulse Resp B/P Pulse Ox O2 Delivery O2 Flow Rate FiO2 12/18/16 07:46 97.0 74 17 131/75 96 12/17/16 15:45 97.7 74 19 133/82 96 12/17/16 11:20 96.2 77 19 116/65 96 12/18/16 12/18/16 12/18/16 07:00 15:00 23:00 Output Total 100 ml Balance -100 ml Administered Medications Medications (Trade) Dose Ordered Sig/Louisa Route PRN Reason Start Time Stop Time Status Last Admin Dose Admin Enalaprilat (Vasotec Inj) 1.25 mg Q8H PRN IV PUSH SBP> OR = 180, DBP> OR = 100 11/21/16 10:45 12/14/16 05:43 Ondansetron HCl (Zofran Inj) 4 mg Q8HR PRN IV PUSH NAUSEA 11/21/16 10:45 11/27/16 08:30 Alprazolam (Xanax) 0.25 mg Q4H PRN PO ANXIETY 11/21/16 12:00 12/18/16 01:45 Levothyroxine Sodium (Synthroid) 100 mcg DAILY@0600 PO 11/22/16 06:00 12/18/16 06:32 Gabapentin (Neurontin) 300 mg TID PO 11/25/16 13:00 12/18/16 09:01 Pantoprazole Sodium (Protonix) 20 mg DAILY PO 11/28/16 09:00 12/18/16 09:00 Hydromorphone HCl (Dilaudid) 2 mg Q3H PRN PO PAIN SCALE 1 TO 5 11/28/16 12:15 12/16/16 06:25 Hydromorphone HCl (Dilaudid Pf Inj) 0.5 mg Q3HR PRN IV PUSH PAIN SCALE 6 TO 8 11/28/16 11:30 12/12/16 21:19 Multi-Ingredient Mouthwash/Gargle (Magic Mouthwash Adult Liq) 10 ml QID SWISH-SWAL 11/30/16 21:00 12/01/16 18:39 Bisacodyl (Dulcolax Supp) 10 mg DAILY PRN RECTAL CONSTIPATION 12/01/16 16:15 12/02/16 10:21 Enoxaparin Sodium (Lovenox Inj) 40 mg DAILY SQ 12/02/16 09:00 12/10/16 08:46 Senna/Docusate Sodium (Treasure-Colace) 2 tab BID PO 12/04/16 21:00 12/18/16 01:44 Dexamethasone (Decadron) 2 mg Q12HR PO 12/10/16 21:00 12/18/16 09:01 Magnesium Hydroxide (Milk Of Magnesia Liq) 30 ml BID PO 12/11/16 21:00 12/18/16 01:44 Polyethylene Glycol (Miralax) 17 gm DAILY PO 12/12/16 09:00 12/17/16 08:41 Morphine Sulfate (Oramorph Sr) 15 mg Q12HR PO 12/12/16 09:00 12/18/16 09:00 Lactulose (Lactulose Liq) 30 ml DAILY PO 12/12/16 09:00 12/17/16 08:41 Hydromorphone HCl (Dilaudid Pf Inj) 1 mg Q3HR PRN IV PUSH PAIN SCALE 9 TO 10 12/12/16 10:00 12/18/16 10:31 Objective Remarks GENERAL: Elderly female, resting in bed. SKIN: Warm and dry. HEAD: Normocephalic. EYES: No injection or drainage. NECK: Supple, trachea midline. CARDIOVASCULAR: Regular rate and rhythm. RESPIRATORY: Breath sounds equal bilaterally. No accessory muscle use. GASTROINTESTINAL: Abdomen soft, non-tender EXTREMITIES: No cyanosis. NEUROLOGICAL: aox3. moving extremities. facial movements symmetric. 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 Plan is for radiation in patient and then discharge to hospice. She was offered chemotherapy and does not want to be that aggressive. History: --first treated with rituximab and Treanda --finished two years of maintenance Rituxan in January of 2014. --December 2015-->found to have progression of disease. treated with and Zydelig with Rituxan and then maintained on Zydelig --2016: CT showed low density masses in the retroperitoneum at the superior posterior left pelvis and the right pelvic sidewall. The --October 2016: PET scan showed these lesions were less prominent and not hypermetabolic. +hypermetabolic presacral lesion measured about 1.6 cm and the L5 hypermetabolic lesion. She --started on Rituxan and Revlimid about 2 weeks ago. --PET scan, 10/24, showed intense uptake within L5 left transverse process with associated hairline pathologic fracture. --MRI lumbar spine showed severe compression fracture deformity of L5 with invagination of the superior inferior endplate and marrow edema. +retropulsion with mass effect on the left S1 nerve root. +mild compression fracture deformity of T12. --CT lumbar spine showed destructive process involving transverse process of L5 suspicious of neoplastic process. This appeared to be causing all her symptoms. (2) Pain management Status: Acute Plan: --Oramorph + PRN Dilaudid --radiation to spine started 11/26/16 Assessment 81y/o female with h/o follicular and hodgkin's lymphoma. admitted with severe lower back pain Plan 1. pain management with oramorph and dilaudid 2. continue bowel regimen 3. d/c to hospice once XRT complete Attending Statement The exam, history, and the medical decision-making described in the above note were completed with the assistance of the mid-level provider. I reviewed and agree with the findings presented. I attest that I had a [id number] encounter with the patient on the same day, and personally performed and documented my assessment and findings in the medical record.Pain well controlled today. Continue XRT. She wants to go to hospice after completion of XRT. Ledy Sneed Dec 18, 2016 11:09 Fredy Soni MD Dec 18, 2016 17:50
[2016-12-18 11:38] VITALS: BP 135/73; PULSE 89; RESP 17; TEMP 98; O2SAT 98
--- NOTE | 2016-12-18 15:26 | HHI.PR ---
Subjective Remarks Going for radiation therapy today Plan for discharge once this done to hospice Objective Vitals Vital Signs Date Time Temp Pulse Resp B/P Pulse Ox O2 Delivery O2 Flow Rate FiO2 12/18/16 11:38 98.0 89 17 135/73 98 12/18/16 07:46 97.0 74 17 131/75 96 12/17/16 15:45 97.7 74 19 133/82 96 I/O 12/17/16 12/17/16 12/17/16 12/18/16 12/18/16 12/18/16 07:00 15:00 23:00 07:00 15:00 23:00 Intake Total 480 ml 240 ml Output Total 300 ml 200 ml 600 ml 100 ml 250 ml Balance -300 ml 280 ml -600 ml -100 ml -10 ml Intake Oral 480 ml 240 ml Output Urine Total 300 ml 200 ml 600 ml 100 ml 250 ml # Bowel Movements 0 0 1 Objective Remarks GENERAL: This is a well-nourished, well-developed patient, in no apparent distress. SKIN: No rashes, warm and dry HEAD: Atraumatic. Normocephalic. EYES: Pupils equal round and reactive. Extraocular motions intact. No scleral icterus. ENT: Nose without bleeding, or drainage, Airway patent. NECK: Trachea midline. Supple CARDIOVASCULAR: Regular rate and rhythm without murmurs, gallops, or rubs. RESPIRATORY: Fair air entry bilaterally. No wheezes, rales, or rhonchi. GASTROINTESTINAL: Abdomen soft, non-tender, nondistended. Positive bowel sounds MUSCULOSKELETAL: Extremities without clubbing, cyanosis, or edema. Pedal pulses appreciated NEUROLOGICAL: Awake and alert. Moves all extremity. Normal speech.no focal neurological deficit Procedures bone biopsy ( L5). A/P Problem List: (1) Fracture of lumbar spine ICD Code: S32.009A Status: Acute Assessment and Plan 12/15: No acute issue, she had a session of RT yesterday plan to go to hospice when all arrangement done 12/16: Continue current care, further recommendation per oncology on Saturday, hospice at discharge 12/17: Continue current carePlan: To discharge with hospice once radiation therapy is complete 12/18: Radiation therapy session today, plan to discharge when done with XRT A/P: Ms. Feng is an 81-year-old female with a history of Hodgkin's lymphoma and non- Hodgkin lymphoma presented to the emergency department due to increased low back pain. - T12/L5 pathologic fracture. 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 - oncology,neurosurgery following- radiation oncology ff- total 19 treatment sessions till 12/27 - ongoing PT- showing progress - Hospice cannot accept patient while patient is receiving radiation treatments. - Once adequate radiation therapy performed, patient can likely be discharged to hospice. XRT till 12/27 on Decadron- per Oncology- tapering PT ff - Constipation- Manual disimpaction 12/11 . 12/09 - large amount of hard stools + BM with current regimen continue to monitor - UTI -S/P Cipro. - diabetes mellitus - well controlled. Patient prefers not to check blood glucose. requested to change to regular diet - chronic renal insufficiency- stable - hypothyroidism; on levothyroxine DNR. Lovenox. under Hospice- DNR PT daily Discharge Planning To hospice with all arrangement done, housing case manager working on it Problem Qualifiers (1) Fracture of lumbar spine: Qualified Code: S32.050A - Closed wedge compression fracture of fifth lumbar vertebra, initial encounter Edith Pan MD Dec 18, 2016 15:26
[2016-12-18 15:43] VITALS: BP 134/78; PULSE 79; RESP 17; TEMP 97.2; O2SAT 98
[2016-12-19] MEDS: LEVOTHYROXINE SODIUM 100 MCG TAB PO SCH (04:42)
[2016-12-19 08:00] VITALS: BP 134/73; PULSE 66; RESP 18; TEMP 97; O2SAT 93
--- NOTE | 2016-12-19 08:14 | PD.ONC.PN ---
Subjective Subjective Remarks Pain is better controlled. +BM yesterday, Objective Data Date Time Temp Pulse Resp B/P Pulse Ox O2 Delivery O2 Flow Rate FiO2 12/18/16 15:43 97.2 79 17 134/78 98 12/18/16 11:38 98.0 89 17 135/73 98 12/19/16 12/19/16 12/19/16 07:00 15:00 23:00 Output Total 700 ml Balance -700 ml Administered Medications Medications (Trade) Dose Ordered Sig/Louisa Route PRN Reason Start Time Stop Time Status Last Admin Dose Admin Enalaprilat (Vasotec Inj) 1.25 mg Q8H PRN IV PUSH SBP> OR = 180, DBP> OR = 100 11/21/16 10:45 12/14/16 05:43 Ondansetron HCl (Zofran Inj) 4 mg Q8HR PRN IV PUSH NAUSEA 11/21/16 10:45 11/27/16 08:30 Alprazolam (Xanax) 0.25 mg Q4H PRN PO ANXIETY 11/21/16 12:00 12/18/16 22:59 Levothyroxine Sodium (Synthroid) 100 mcg DAILY@0600 PO 11/22/16 06:00 12/19/16 04:42 Gabapentin (Neurontin) 300 mg TID PO 11/25/16 13:00 12/18/16 18:23 Pantoprazole Sodium (Protonix) 20 mg DAILY PO 11/28/16 09:00 12/18/16 09:00 Hydromorphone HCl (Dilaudid) 2 mg Q3H PRN PO PAIN SCALE 1 TO 5 11/28/16 12:15 12/16/16 06:25 Hydromorphone HCl (Dilaudid Pf Inj) 0.5 mg Q3HR PRN IV PUSH PAIN SCALE 6 TO 8 11/28/16 11:30 12/12/16 21:19 Multi-Ingredient Mouthwash/Gargle (Magic Mouthwash Adult Liq) 10 ml QID SWISH-SWAL 11/30/16 21:00 12/01/16 18:39 Bisacodyl (Dulcolax Supp) 10 mg DAILY PRN RECTAL CONSTIPATION 12/01/16 16:15 12/02/16 10:21 Enoxaparin Sodium (Lovenox Inj) 40 mg DAILY SQ 4/9/17 09:00 12/10/16 08:46 Senna/Docusate Sodium (Treasure-Colace) 2 tab BID PO 12/04/16 21:00 12/18/16 01:44 Dexamethasone (Decadron) 2 mg Q12HR PO 12/10/16 21:00 12/18/16 22:59 Magnesium Hydroxide (Milk Of Magnesia Liq) 30 ml BID PO 12/11/16 21:00 12/18/16 01:44 Polyethylene Glycol (Miralax) 17 gm DAILY PO 12/12/16 09:00 12/17/16 08:41 Morphine Sulfate (Oramorph Sr) 15 mg Q12HR PO 12/12/16 09:00 12/18/16 22:59 Lactulose (Lactulose Liq) 30 ml DAILY PO 12/12/16 09:00 12/17/16 08:41 Hydromorphone HCl (Dilaudid Pf Inj) 1 mg Q3HR PRN IV PUSH PAIN SCALE 9 TO 10 12/12/16 10:00 12/18/16 23:00 Objective Remarks GENERAL: Well-nourished, well-developed patient. SKIN: Warm and dry. HEAD: Normocephalic. EYES: No scleral icterus. No injection or drainage. NECK: Supple, trachea midline. No JVD or lymphadenopathy. LYMPHATIC: No adenopathy. CARDIOVASCULAR: Regular rate and rhythm without murmurs. RESPIRATORY: Breath sounds equal bilaterally. No accessory muscle use. GASTROINTESTINAL: Abdomen soft, non-tender, nondistended. EXTREMITIES: No cyanosis, or edema. MUSCULOSKELETAL: Adequate muscle tone. Still has pain when moving her LLE. NEUROLOGICAL: No obvious focal deficit. Awake, alert, and oriented x3. PSYCHIATRIC: Appropriate mood and affect; insight and judgment normal. 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 Plan is for radiation in patient and then discharge to hospice. She was offered chemotherapy and does not want to be that aggressive. History: --first treated with rituximab and Treanda --finished two years of maintenance Rituxan in January of 2014. --December 2015-->found to have progression of disease. treated with and Zydelig with Rituxan and then maintained on Zydelig --2016: CT showed low density masses in the retroperitoneum at the superior posterior left pelvis and the right pelvic sidewall. The --October 2016: PET scan showed these lesions were less prominent and not hypermetabolic. +hypermetabolic presacral lesion measured about 1.6 cm and the L5 hypermetabolic lesion. She --started on Rituxan and Revlimid about 2 weeks ago. --PET scan, 10/24, showed intense uptake within L5 left transverse process with associated hairline pathologic fracture. --MRI lumbar spine showed severe compression fracture deformity of L5 with invagination of the superior inferior endplate and marrow edema. +retropulsion with mass effect on the left S1 nerve root. +mild compression fracture deformity of T12. --CT lumbar spine showed destructive process involving transverse process of L5 suspicious of neoplastic process. This appeared to be causing all her symptoms. (2) Pain management Status: Acute Plan: --Oramorph + PRN Dilaudid --radiation to spine started 11/26/16 Assessment 81y/o female with h/o follicular and hodgkin's lymphoma. admitted with severe lower back pain Plan 1. Continue to titrate pain meds. 2. continue bowel regimen 3. d/c to hospice once XRT complete 4. Will discuss with rad onc regarding pt's progress. Fredy Soni MD Dec 19, 2016 08:14
[2016-12-19] MEDS: MAGNESIUM HYDROXIDE SUSP 30 ML CUP PO SCH ×2 (09:00→21:00)
[2016-12-19] MEDS: LACTULOSE SYRUP 20 GM/30 ML CUP PO SCH (09:00)
[2016-12-19] MEDS: NYSTAT/DIPHENHY/LIDO MOUTHWASH (Adult) 120ML SWISH-SWAL SCH ×4 (09:00→21:00)
[2016-12-19] MEDS: ENOXAPARIN SODIUM 40 MG/0.4 ML SYRINGE SQ SCH (09:00)
[2016-12-19] MEDS: DOCUSATE SODIUM 50 MG/SENNA 8.6 MG TAB PO SCH ×2 (09:00→21:00)
[2016-12-19] MEDS: POLYETHYLENE GLYCOL 17 GM PKG PO SCH (09:00)
[2016-12-19] MEDS: GABAPENTIN 300 MG CAP PO SCH ×3 (09:29→17:34)
[2016-12-19] MEDS: DEXAMETHASONE 4 MG TAB PO SCH ×2 (09:30→23:19)
[2016-12-19] MEDS: PANTOPRAZOLE SOD 20 MG DELAYED RELEASE TAB PO SCH (09:30)
[2016-12-19] MEDS: MORPHINE SULFATE 15 MG CONTROLLED RELEASE TAB PO SCH ×2 (09:30→23:20)
[2016-12-19 10:07] LABS: AUTOMATED NEUTROPHIL # 7.2 TH/MM3 (1.8-7.7); BASOPHIL % 0.3 % (0.0-2.0); EOSINOPHIL % 0.3 % (0.0-4.0); HEMATOCRIT 40.8 % (35.0-46.0); LYMPH % 3.1 % (9.0-44.0); LYMPHOCYTE # 0.2 TH/MM3 (1.0-4.8); MEAN CELL VOLUME 90.3 FL (80.0-100.0); MEAN CORPUSCULAR HEMOGLOBIN 30.4 PG (27.0-34.0); MEAN CORPUSCULAR HGB CONC 33.6 % (32.0-36.0); MONO % 6.8 % (0.0-8.0); NEUT % 89.5 % (16.0-70.0); PLATELET COUNT 181 TH/MM3 (150-450); RED BLOOD COUNT 4.52 MIL/MM3 (4.00-5.30); RED CELL DISTRIBUTION WIDTH 17.5 % (11.6-17.2)
[2016-12-19 10:12] LABS: HEMO FLAGS AUTO DIFF
[2016-12-19 10:38] LABS: BICARBONATE 25.6 MEQ/L (21.0-32.0); POTASSIUM 4.2 MEQ/L (3.5-5.1)
[2016-12-19] MEDS: HYDROmorphone HCL PF 1 MG/ML VIAL IV PUSH PRN ×2 (11:33→17:26)
[2016-12-19 11:48] LABS: BANDS 13 % (0-6); METAMYELOCYTES 1 % (0-1); NEUTROPHIL # MANUAL DIFF 7.1 TH/MM3 (1.8-7.7); POLYS (SEG NEUTROPHILS) 75 % (16-70); WBC DIFF SAMPLE 100
[2016-12-19 11:49] LABS: PLATELET ESTIMATE SMEAR NORMAL (NORMAL); PLATELET MORPHOLOGY NORMAL (NORMAL); SCAN/DIFF FINAL DIFF MANUAL
[2016-12-19 12:00] VITALS: BP 137/73; PULSE 79; RESP 20; TEMP 97.5; O2SAT 99
[2016-12-19 16:00] VITALS: BP 160/78; PULSE 75; RESP 20; TEMP 97.5; O2SAT 96
--- NOTE | 2016-12-19 17:02 | HHI.PR ---
Subjective Remarks No acute issue today patient to be discharged to hospice once cleared I oncology and done with radiation sessions Objective Vitals Vital Signs Date Time Temp Pulse Resp B/P Pulse Ox O2 Delivery O2 Flow Rate FiO2 12/19/16 12:00 97.5 79 20 137/73 99 12/19/16 10:30 19 12/19/16 08:00 97.0 66 18 134/73 93 I/O 12/18/16 12/18/16 12/18/16 12/19/16 12/19/16 12/19/16 07:00 15:00 23:00 07:00 15:00 23:00 Intake Total 240 ml Output Total 100 ml 250 ml 700 ml Balance -100 ml -10 ml -700 ml Intake Oral 240 ml Output Urine Total 100 ml 250 ml 700 ml # Bowel Movements 1 Result Diagram: 12/19/1643 12/19/1643 Objective Remarks GENERAL: This is a well-nourished, well-developed patient, in no apparent distress. SKIN: No rashes, warm and dry HEAD: Atraumatic. Normocephalic. EYES: Pupils equal round and reactive. Extraocular motions intact. No scleral icterus. ENT: Nose without bleeding, or drainage, Airway patent. NECK: Trachea midline. Supple CARDIOVASCULAR: Regular rate and rhythm without murmurs, gallops, or rubs. RESPIRATORY: Fair air entry bilaterally. No wheezes, rales, or rhonchi. GASTROINTESTINAL: Abdomen soft, non-tender, nondistended. Positive bowel sounds MUSCULOSKELETAL: Extremities without clubbing, cyanosis, or edema. Pedal pulses appreciated NEUROLOGICAL: Awake and alert. Moves all extremity. Normal speech.no focal neurological deficit Procedures bone biopsy ( L5). A/P Problem List: (1) Fracture of lumbar spine ICD Code: S32.009A Status: Acute Assessment and Plan 12/15: No acute issue, she had a session of RT yesterday plan to go to hospice when all arrangement done 12/16: Continue current care, further recommendation per oncology on Saturday, hospice at discharge 12/17: Continue current carePlan: To discharge with hospice once radiation therapy is complete 12/18: Radiation therapy session today, plan to discharge when done with XRT 12/19: To be discharged to hospice radiation therapy sessions is completing cleared by oncology A/P: Ms. Feng is an 81-year-old female with a history of Hodgkin's lymphoma and non- Hodgkin lymphoma presented to the emergency department due to increased low back pain. - T12/L5 pathologic fracture. 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 - oncology,neurosurgery following- radiation oncology ff- total 19 treatment sessions till 12/27 - ongoing PT- showing progress - Hospice cannot accept patient while patient is receiving radiation treatments. - Once adequate radiation therapy performed, patient can likely be discharged to hospice. XRT till 12/27 on Decadron- per Oncology- tapering PT ff - Constipation- Manual disimpaction 12/11 . 12/09 - large amount of hard stools + BM with current regimen continue to monitor - UTI -S/P Cipro. - diabetes mellitus - well controlled. Patient prefers not to check blood glucose. requested to change to regular diet - chronic renal insufficiency- stable - hypothyroidism; on levothyroxine DNR. Lovenox. under Hospice- DNR PT daily Discharge Planning To hospice with all arrangement done, lining caser working on it Problem Qualifiers (1) Fracture of lumbar spine: Qualified Code: S32.050A - Closed wedge compression fracture of fifth lumbar vertebra, initial encounter Edith Pan MD Dec 19, 2016 17:02
[2016-12-19 20:00] VITALS: BP 166/76; PULSE 77; RESP 18; TEMP 97.7; O2SAT 97
[2016-12-19] MEDS: ALPRAZolam 0.25 MG TAB PO PRN (23:19)
[2016-12-20] MEDS: HYDROmorphone HCL PF 1 MG/ML VIAL IV PUSH PRN ×5 (05:59→20:20)
[2016-12-20] MEDS: LEVOTHYROXINE SODIUM 100 MCG TAB PO SCH (06:00)
[2016-12-20 08:00] VITALS: BP 162/78; PULSE 73; RESP 20; TEMP 96.3; O2SAT 98
[2016-12-20] MEDS: PANTOPRAZOLE SOD 20 MG DELAYED RELEASE TAB PO SCH (09:00)
[2016-12-20] MEDS: GABAPENTIN 300 MG CAP PO SCH ×2 (09:00→13:00)
[2016-12-20] MEDS: NYSTAT/DIPHENHY/LIDO MOUTHWASH (Adult) 120ML SWISH-SWAL SCH ×3 (09:00→20:15)
[2016-12-20] MEDS: DEXAMETHASONE 4 MG TAB PO SCH ×2 (09:00→18:32)
[2016-12-20] MEDS: ENOXAPARIN SODIUM 40 MG/0.4 ML SYRINGE SQ SCH (09:00)
[2016-12-20 12:00] VITALS: BP 190/96; PULSE 63; RESP 20; TEMP 96.5; O2SAT 100
[2016-12-20] MEDS: MORPHINE SULFATE 15 MG CONTROLLED RELEASE TAB PO SCH ×2 (12:02→20:20)
--- NOTE | 2016-12-20 15:13 | HHI.PR ---
Subjective Remarks Resting in bed comfortably, she had a radiation therapy session today Afebrile, plan to discharge with hospice once XRT is complete Objective Vitals Vital Signs Date Time Temp Pulse Resp B/P Pulse Ox O2 Delivery O2 Flow Rate FiO2 12/20/16 12:00 96.5 63 20 190/96 100 12/20/16 08:00 96.3 73 20 162/78 98 12/19/16 20:00 97.7 77 18 166/76 97 12/19/16 16:00 97.5 75 20 160/78 96 I/O 12/19/16 12/19/16 12/19/16 12/20/16 12/20/16 12/20/16 07:00 15:00 23:00 07:00 15:00 23:00 Output Total 700 ml 810 ml 150 ml 250 ml 500 ml Balance -700 ml -810 ml -150 ml -250 ml -500 ml Output Urine Total 700 ml 810 ml 150 ml 250 ml 500 ml # Bowel Movements 1 4 Result Diagram: 12/19/16 0943 12/19/1643 Objective Remarks GENERAL: This is a well-nourished, well-developed patient, in no apparent distress. SKIN: No rashes, warm and dry HEAD: Atraumatic. Normocephalic. EYES: Pupils equal round and reactive. Extraocular motions intact. No scleral icterus. ENT: Nose without bleeding, or drainage, Airway patent. NECK: Trachea midline. Supple CARDIOVASCULAR: Regular rate and rhythm without murmurs, gallops, or rubs. RESPIRATORY: Fair air entry bilaterally. No wheezes, rales, or rhonchi. GASTROINTESTINAL: Abdomen soft, non-tender, nondistended. Positive bowel sounds MUSCULOSKELETAL: Extremities without clubbing, cyanosis, or edema. Pedal pulses appreciated NEUROLOGICAL: Awake and alert. Moves all extremity. Normal speech.no focal neurological deficit Procedures bone biopsy ( L5). A/P Problem List: (1) Fracture of lumbar spine ICD Code: S32.009A Status: Acute Assessment and Plan 12/15: No acute issue, she had a session of RT yesterday plan to go to hospice when all arrangement done 12/16: Continue current care, further recommendation per oncology on Saturday, hospice at discharge 12/17: Continue current carePlan: To discharge with hospice once radiation therapy is complete 12/18: Radiation therapy session today, plan to discharge when done with XRT 12/19: To be discharged to hospice radiation therapy sessions is completing cleared by oncology 12/20: continue current care until XRT complete so patient can be discharged with hospice, oncology airplane mechanic and 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 difficile also patient refused take her blood pressure medication, I added amlodipine with Vasotec as needed A/P: Ms. Feng is an 81-year-old female with a history of Hodgkin's lymphoma and non- Hodgkin lymphoma presented to the emergency department due to increased low back pain. - T12/L5 pathologic fracture. 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 - oncology,neurosurgery following- radiation oncology ff- total 19 treatment sessions till 12/27 - ongoing PT- showing progress - Hospice cannot accept patient while patient is receiving radiation treatments. - Once adequate radiation therapy performed, patient can likely be discharged to hospice. XRT till 12/27 on Decadron- per Oncology- tapering PT ff - Constipation- Manual disimpaction 12/11 . 12/09 - large amount of hard stools + BM with current regimen continue to monitor - UTI -S/P Cipro. - diabetes mellitus - well controlled. Patient prefers not to check blood glucose. requested to change to regular diet - chronic renal insufficiency- stable - hypothyroidism; on levothyroxine DNR. Lovenox. under Hospice- DNR PT daily Discharge Planning To hospice with all arrangement done, case therapist working on it Problem Qualifiers (1) Fracture of lumbar spine: Qualified Code: S32.050A - Closed wedge compression fracture of fifth lumbar vertebra, initial encounter Edith Pan MD Dec 20, 2016 15:13
[2016-12-20 16:00] VITALS: BP 151/76; PULSE 84; RESP 20; TEMP 96.9; O2SAT 100
[2016-12-20] MEDS: amLODIPine BESYLATE 5 MG TAB PO SCH (16:15)
--- NOTE | 2016-12-20 17:07 | PD.ONC.PN ---
Subjective Subjective Remarks Pain better controlled. +BM. Objective Data Date Time Temp Pulse Resp B/P Pulse Ox O2 Delivery O2 Flow Rate FiO2 12/20/16 16:00 96.9 84 20 151/76 100 12/20/16 12:00 96.5 63 20 190/96 100 12/20/16 08:00 96.3 73 20 162/78 98 12/19/16 20:00 97.7 77 18 166/76 97 12/20/16 12/20/16 12/20/16 07:00 15:00 23:00 Output Total 250 ml 500 ml Balance -250 ml -500 ml Result Diagram: 12/19/1694212/19/16942 Administered Medications Medications (Trade) Dose Ordered Sig/Louisa Route PRN Reason Start Time Stop Time Status Last Admin Dose Admin Enalaprilat (Vasotec Inj) 1.25 mg Q8H PRN IV PUSH SBP> OR = 160, DBP> OR = 100 11/21/16 10:45 12/14/16 05:43 Ondansetron HCl (Zofran Inj) 4 mg Q8HR PRN IV PUSH NAUSEA 11/21/16 10:45 11/27/16 08:30 Alprazolam (Xanax) 0.25 mg Q4H PRN PO ANXIETY 11/21/16 12:00 12/19/16 23:19 Levothyroxine Sodium (Synthroid) 100 mcg DAILY@0600 PO 11/22/16 06:00 12/20/16 06:00 Gabapentin (Neurontin) 300 mg TID PO 11/25/16 13:00 12/19/16 17:34 Pantoprazole Sodium (Protonix) 20 mg DAILY PO 11/28/16 09:00 12/19/16 09:30 Hydromorphone HCl (Dilaudid) 2 mg Q3H PRN PO PAIN SCALE 1 TO 5 11/28/16 12:15 12/16/16 06:25 Hydromorphone HCl (Dilaudid Pf Inj) 0.5 mg Q3HR PRN IV PUSH PAIN SCALE 6 TO 8 11/28/16 11:30 12/12/16 21:19 Multi-Ingredient Mouthwash/Gargle (Magic Mouthwash Adult Liq) 10 ml QID SWISH-SWAL 11/30/16 21:00 12/01/16 18:39 Enoxaparin Sodium (Lovenox Inj) 40 mg DAILY SQ 12/02/16 09:00 12/10/16 08:46 Dexamethasone (Decadron) 2 mg Q12HR PO 12/10/16 21:00 12/19/16 23:19 Magnesium Hydroxide (Milk Of Beatrice Escobedo) 30 ml BID PO 12/11/16 21:00 12/18/16 01:44 Morphine Sulfate (Oramorph Sr) 15 mg Q12HR PO 12/12/16 09:00 12/20/16 12:02 Hydromorphone HCl (Dilaudid Pf Inj) 1 mg Q3HR PRN IV PUSH PAIN SCALE 9 TO 10 12/12/16 10:00 12/20/16 16:16 Objective Remarks GENERAL: Well-nourished, well-developed patient. Weaker. SKIN: Warm and dry. HEAD: Normocephalic. EYES: No scleral icterus. No injection or drainage. NECK: Supple, trachea midline. No JVD or lymphadenopathy. LYMPHATIC: No adenopathy. CARDIOVASCULAR: Regular rate and rhythm without murmurs. RESPIRATORY: Breath sounds equal bilaterally. No accessory muscle use. GASTROINTESTINAL: Abdomen soft, non-tender, nondistended. EXTREMITIES: No cyanosis, or edema. MUSCULOSKELETAL: Adequate muscle tone. Pain when moving LLE. NEUROLOGICAL: No obvious focal deficit. Awake, alert, and oriented x3. PSYCHIATRIC: Appropriate mood and affect; insight and judgment normal. 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 Plan is for radiation in patient and then discharge to hospice. She was offered chemotherapy and does not want to be that aggressive. --Discussed with , CT showed improvement of L4 lesion and has good response to XRT. History: --first treated with rituximab and Treanda --finished two years of maintenance Rituxan in January of 2014. --December 2015-->found to have progression of disease. treated with and Zydelig with Rituxan and then maintained on Zydelig --2016: CT showed low density masses in the retroperitoneum at the superior posterior left pelvis and the right pelvic sidewall. The --October 2016: PET scan showed these lesions were less prominent and not hypermetabolic. +hypermetabolic presacral lesion measured about 1.6 cm and the L5 hypermetabolic lesion. She --started on Rituxan and Revlimid about 2 weeks ago. --PET scan, 10/24, showed intense uptake within L5 left transverse process with associated hairline pathologic fracture. --MRI lumbar spine showed severe compression fracture deformity of L5 with invagination of the superior inferior endplate and marrow edema. +retropulsion with mass effect on the left S1 nerve root. +mild compression fracture deformity of T12. --CT lumbar spine showed destructive process involving transverse process of L5 suspicious of neoplastic process. This appeared to be causing all her symptoms. (2) Pain management Status: Acute Plan: --Oramorph + PRN Dilaudid --radiation to spine started 11/26/16 Assessment 81y/o female with h/o follicular and hodgkin's lymphoma. admitted with severe lower back pain Plan 1. Continue to titrate pain meds. 2. continue bowel regimen 3. d/c to hospice once XRT complete, she has about 6 more XRT to complete the course. 4. Discussed with . Fredy Soni MD Dec 20, 2016 17:07
[2016-12-20] MEDS: MAGNESIUM HYDROXIDE SUSP 30 ML CUP PO SCH (20:15)
[2016-12-20 20:32] VITALS: BP 151/70; PULSE 78; RESP 16; TEMP 97; O2SAT 97
[2016-12-20] MEDS: ALPRAZolam 0.25 MG TAB PO PRN (20:33)
[2016-12-21] MEDS: LEVOTHYROXINE SODIUM 100 MCG TAB PO SCH (06:52)
[2016-12-21] MEDS: HYDROmorphone HCL PF 1 MG/ML VIAL IV PUSH PRN ×4 (06:53→21:13)
[2016-12-21 08:00] VITALS: BP 151/78; PULSE 91; RESP 16; TEMP 96.9; O2SAT 94
[2016-12-21 08:08] LABS: BICARBONATE 27.7 MEQ/L (21.0-32.0); POTASSIUM 4.5 MEQ/L (3.5-5.1)
[2016-12-21] MEDS: PANTOPRAZOLE SOD 20 MG DELAYED RELEASE TAB PO SCH (08:17)
[2016-12-21] MEDS: DEXAMETHASONE 4 MG TAB PO SCH ×2 (08:17→21:11)
[2016-12-21] MEDS: amLODIPine BESYLATE 5 MG TAB PO SCH (08:18)
[2016-12-21] MEDS: MORPHINE SULFATE 15 MG CONTROLLED RELEASE TAB PO SCH ×2 (08:18→21:11)
[2016-12-21] MEDS: GABAPENTIN 300 MG CAP PO SCH ×3 (08:37→17:34)
[2016-12-21] MEDS: MAGNESIUM HYDROXIDE SUSP 30 ML CUP PO SCH ×2 (09:00→20:59)
[2016-12-21] MEDS: ENOXAPARIN SODIUM 40 MG/0.4 ML SYRINGE SQ SCH (09:00)
[2016-12-21] MEDS: NYSTAT/DIPHENHY/LIDO MOUTHWASH (Adult) 120ML SWISH-SWAL SCH ×4 (09:00→20:59)
[2016-12-21 12:00] VITALS: BP 132/66; PULSE 84; RESP 16; TEMP 97.9; O2SAT 94
--- NOTE | 2016-12-21 12:44 | HHI.PR ---
Subjective Remarks No acute issue afebrile and no nausea or vomiting she is going for radiation therapy today she still have 5 more after today Objective Vitals Vital Signs Date Time Temp Pulse Resp B/P Pulse Ox O2 Delivery O2 Flow Rate FiO2 12/21/16 09:20 19 12/21/16 08:00 96.9 91 16 151/78 94 12/20/16 20:32 97.0 78 16 151/70 97 12/20/16 16:00 96.9 84 20 151/76 100 I/O 12/20/16 12/20/16 12/20/16 12/21/16 12/21/16 12/21/16 07:00 15:00 23:00 07:00 15:00 23:00 Intake Total 360 ml Output Total 250 ml 500 ml 750 ml Balance -250 ml -500 ml -390 ml Intake Oral 360 ml Output Urine Total 250 ml 500 ml 750 ml # Bowel Movements 4 Result Diagram: 12/19/16 0943 12/21/16 0700 Objective Remarks GENERAL: This is a well-nourished, well-developed patient, in no apparent distress. SKIN: No rashes, warm and dry HEAD: Atraumatic. Normocephalic. EYES: Pupils equal round and reactive. Extraocular motions intact. No scleral icterus. ENT: Nose without bleeding, or drainage, Airway patent. NECK: Trachea midline. Supple CARDIOVASCULAR: Regular rate and rhythm without murmurs, gallops, or rubs. RESPIRATORY: Fair air entry bilaterally. No wheezes, rales, or rhonchi. GASTROINTESTINAL: Abdomen soft, non-tender, nondistended. Positive bowel sounds MUSCULOSKELETAL: Extremities without clubbing, cyanosis, or edema. Pedal pulses appreciated NEUROLOGICAL: Awake and alert. Moves all extremity. Normal speech.no focal neurological deficit Procedures bone biopsy ( L5). A/P Problem List: (1) Fracture of lumbar spine ICD Code: S32.009A Status: Acute Assessment and Plan 12/15: No acute issue, she had a session of RT yesterday plan to go to hospice when all arrangement done 12/16: Continue current care, further recommendation per oncology on Saturday, hospice at discharge 12/17: Continue current carePlan: To discharge with hospice once radiation therapy is complete 12/18: Radiation therapy session today, plan to discharge when done with XRT 12/19: To be discharged to hospice radiation therapy sessions is completing cleared by oncology 12/20: continue current care until XRT complete so patient can be discharged 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 difficile also patient refused take her blood pressure medication, I added amlodipine with Vasotec as needed 12/21: Continue monitoring blood pressure, consider increasing Norvasc needed, last day radiation therapy mostly on December 26 A/P: Ms. Feng is an 81-year-old female with a history of Hodgkin's lymphoma and non- Hodgkin lymphoma presented to the emergency department due to increased low back pain. - T12/L5 pathologic fracture. 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 - oncology,neurosurgery following- radiation oncology ff- total 19 treatment sessions till 12/27 - ongoing PT- showing progress - Hospice cannot accept patient while patient is receiving radiation treatments. - Once adequate radiation therapy performed, patient can likely be discharged to hospice. XRT till 12/27 on Decadron- per Oncology- tapering PT ff - Constipation- Manual disimpaction 12/11 . 12/09 - large amount of hard stools + BM with current regimen continue to monitor - UTI -S/P Cipro. - diabetes mellitus - well controlled. Patient prefers not to check blood glucose. requested to change to regular diet - chronic renal insufficiency- stable - hypothyroidism; on levothyroxine DNR. Lovenox. under Hospice- DNR PT daily Discharge Planning To hospice with all arrangement done, telephonic case manager working on it Problem Qualifiers (1) Fracture of lumbar spine: Qualified Code: S32.050A - Closed wedge compression fracture of fifth lumbar vertebra, initial encounter Edith Pan MD Dec 21, 2016 12:44
[2016-12-21 16:13] VITALS: BP 156/99; PULSE 86; RESP 20; TEMP 97.6; O2SAT 95
--- NOTE | 2016-12-21 16:44 | PD.ONC.PN ---
Subjective Subjective Remarks Pain controlled but still hurt when try to sit. Objective Data Date Time Temp Pulse Resp B/P Pulse Ox O2 Delivery O2 Flow Rate FiO2 12/21/16 16:13 97.6 86 20 156/99 95 12/21/16 12:00 97.9 84 16 132/66 94 12/21/16 09:20 19 12/21/16 08:00 96.9 91 16 151/78 94 12/20/16 20:32 97.0 78 16 151/70 97 12/21/16 12/21/16 12/21/16 07:00 15:00 23:00 Intake Total 360 ml 960 ml Output Total 750 ml 150 ml Balance -390 ml 810 ml Result Diagram: 12/19/16 0943 12/21/16 0700 Laboratory Results Laboratory Tests Test 12/21/16 07:00 Sodium Level 131 MEQ/L Potassium Level 4.5 MEQ/L Chloride Level 96 MEQ/L Carbon Dioxide Level 27.7 MEQ/L Anion Gap 7 MEQ/L Blood Urea Nitrogen 25 MG/DL Creatinine 0.62 MG/DL Estimat Glomerular Filtration 93 ML/MIN Rate Random Glucose 147 MG/DL Calcium Level 8.8 MG/DL Administered Medications Medications (Trade) Dose Ordered Sig/Louisa Route PRN Reason Start Time Stop Time Status Last Admin Dose Admin Enalaprilat (Vasotec Inj) 1.25 mg Q8H PRN IV PUSH SBP> OR = 160, DBP> OR = 100 11/21/16 10:45 12/14/16 05:43 Ondansetron HCl (Zofran Inj) 4 mg Q8HR PRN IV PUSH NAUSEA 11/21/16 10:45 11/27/16 08:30 Alprazolam (Xanax) 0.25 mg Q4H PRN PO ANXIETY 11/21/16 12:00 12/20/16 20:33 Levothyroxine Sodium (Synthroid) 100 mcg DAILY@0600 PO 11/22/16 06:00 12/21/16 06:52 Gabapentin (Neurontin) 300 mg TID PO 11/25/16 13:00 12/21/16 08:37 Pantoprazole Sodium (Protonix) 20 mg DAILY PO 11/28/16 09:00 12/21/16 08:17 Hydromorphone HCl (Dilaudid) 2 mg Q3H PRN PO PAIN SCALE 1 TO 5 11/28/16 12:15 12/16/16 06:25 Hydromorphone HCl (Dilaudid Pf Inj) 0.5 mg Q3HR PRN IV PUSH PAIN SCALE 6 TO 8 11/28/16 11:30 12/12/16 21:19 Multi-Ingredient Mouthwash/Gargle (Magic Mouthwash Adult Liq) 10 ml QID SWISH-SWAL 11/30/16 21:00 12/01/16 18:39 Enoxaparin Sodium (Lovenox Inj) 40 mg DAILY SQ 12/02/16 09:00 12/10/16 08:46 Dexamethasone (Decadron) 2 mg Q12HR PO 12/10/16 21:00 12/21/16 08:17 Magnesium Hydroxide (Milk Of Magnesia Liq) 30 ml BID PO 12/11/16 21:00 12/18/16 01:44 Morphine Sulfate (Oramorph Sr) 15 mg Q12HR PO 12/12/16 09:00 12/21/16 08:18 Hydromorphone HCl (Dilaudid Pf Inj) 1 mg Q3HR PRN IV PUSH PAIN SCALE 9 TO 10 12/12/16 10:00 12/21/16 10:02 Amlodipine Besylate (Norvasc) 5 mg DAILY PO 12/20/16 16:15 12/21/16 08:18 Objective Remarks GENERAL: Well-nourished, well-developed patient. Weak SKIN: Warm and dry. HEAD: Normocephalic. EYES: No scleral icterus. No injection or drainage. NECK: Supple, trachea midline. No JVD or lymphadenopathy. LYMPHATIC: No adenopathy. CARDIOVASCULAR: Regular rate and rhythm without murmurs. RESPIRATORY: Breath sounds equal bilaterally. No accessory muscle use. GASTROINTESTINAL: Abdomen soft, non-tender, nondistended. EXTREMITIES: No cyanosis, or edema. MUSCULOSKELETAL: Adequate muscle tone. NEUROLOGICAL: No obvious focal deficit. Awake, alert, and oriented x3. PSYCHIATRIC: Appropriate mood and affect; insight and judgment normal. 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 Plan is for radiation in patient and then discharge to hospice. She was offered chemotherapy and does not want to be that aggressive. --Discussed with , CT showed improvement of L4 lesion and has good response to XRT. History: --first treated with rituximab and Treanda --finished two years of maintenance Rituxan in January of 2014. --December 2015-->found to have progression of disease. treated with and Zydelig with Rituxan and then maintained on Zydelig --2016: CT showed low density masses in the retroperitoneum at the superior posterior left pelvis and the right pelvic sidewall. The --October 2016: PET scan showed these lesions were less prominent and not hypermetabolic. +hypermetabolic presacral lesion measured about 1.6 cm and the L5 hypermetabolic lesion. She --started on Rituxan and Revlimid about 2 weeks ago. --PET scan, 10/24, showed intense uptake within L5 left transverse process with associated hairline pathologic fracture. --MRI lumbar spine showed severe compression fracture deformity of L5 with invagination of the superior inferior endplate and marrow edema. +retropulsion with mass effect on the left S1 nerve root. +mild compression fracture deformity of T12. --CT lumbar spine showed destructive process involving transverse process of L5 suspicious of neoplastic process. This appeared to be causing all her symptoms. (2) Pain management Status: Acute Plan: --Oramorph + PRN Dilaudid --radiation to spine started 11/26/16 Assessment 81y/o female with h/o follicular and hodgkin's lymphoma. admitted with severe lower back pain Plan 1. Continue to titrate pain meds. 2. continue bowel regimen 3. d/c to hospice once XRT complete, she will complete XRT next week. Fredy Soni MD Dec 21, 2016 16:44
[2016-12-21 20:00] VITALS: BP 132/72; PULSE 87; RESP 18; TEMP 97.5; O2SAT 96
[2016-12-22] MEDS: HYDROmorphone HCL PF 1 MG/ML VIAL IV PUSH PRN ×3 (06:33→21:54)
[2016-12-22] MEDS: LEVOTHYROXINE SODIUM 100 MCG TAB PO SCH (06:33)
[2016-12-22 08:00] VITALS: BP 145/88; PULSE 77; RESP 18; TEMP 97.1; O2SAT 94
[2016-12-22] MEDS: ENOXAPARIN SODIUM 40 MG/0.4 ML SYRINGE SQ SCH (08:59)
[2016-12-22] MEDS: MAGNESIUM HYDROXIDE SUSP 30 ML CUP PO SCH ×2 (08:59→21:00)
[2016-12-22] MEDS: NYSTAT/DIPHENHY/LIDO MOUTHWASH (Adult) 120ML SWISH-SWAL SCH ×4 (09:00→21:00)
[2016-12-22] MEDS: MORPHINE SULFATE 15 MG CONTROLLED RELEASE TAB PO SCH ×2 (09:01→21:54)
[2016-12-22] MEDS: PANTOPRAZOLE SOD 20 MG DELAYED RELEASE TAB PO SCH (09:02)
[2016-12-22] MEDS: GABAPENTIN 300 MG CAP PO SCH ×4 (09:02→16:19)
[2016-12-22] MEDS: amLODIPine BESYLATE 5 MG TAB PO SCH (09:02)
[2016-12-22] MEDS: DEXAMETHASONE 4 MG TAB PO SCH ×2 (09:02→21:53)
[2016-12-22 12:00] VITALS: BP 148/80; PULSE 74; RESP 18; TEMP 96.8; O2SAT 94
--- NOTE | 2016-12-22 15:07 | HHI.PR ---
Subjective Remarks No acute issue continue XRT until complete and discharged with hospice Objective Vitals Vital Signs Date Time Temp Pulse Resp B/P Pulse Ox O2 Delivery O2 Flow Rate FiO2 12/22/16 12:00 96.8 74 18 148/80 94 12/22/16 08:00 97.1 77 18 145/88 94 12/21/16 20:00 97.5 87 18 132/72 96 12/21/16 16:13 97.6 86 20 156/99 95 I/O 12/21/16 12/21/16 12/21/16 12/22/16 12/22/16 12/22/16 07:00 15:00 23:00 07:00 15:00 23:00 Intake Total 360 ml 960 ml Output Total 750 ml 150 ml 800 ml Balance -390 ml 810 ml -800 ml Intake Oral 360 ml 960 ml Output Urine Total 750 ml 150 ml 800 ml # Bowel Movements 0 Result Diagram: 12/19/16 0943 12/21/16 0700 Objective Remarks GENERAL: This is a well-nourished, well-developed patient, in no apparent distress. SKIN: No rashes, warm and dry HEAD: Atraumatic. Normocephalic. EYES: Pupils equal round and reactive. Extraocular motions intact. No scleral icterus. ENT: Nose without bleeding, or drainage, Airway patent. NECK: Trachea midline. Supple CARDIOVASCULAR: Regular rate and rhythm without murmurs, gallops, or rubs. RESPIRATORY: Fair air entry bilaterally. No wheezes, rales, or rhonchi. GASTROINTESTINAL: Abdomen soft, non-tender, nondistended. Positive bowel sounds MUSCULOSKELETAL: Extremities without clubbing, cyanosis, or edema. Pedal pulses appreciated NEUROLOGICAL: Awake and alert. Moves all extremity. Normal speech.no focal neurological deficit Procedures bone biopsy ( L5). A/P Problem List: (1) Fracture of lumbar spine ICD Code: S32.009A Status: Acute Assessment and Plan 12/15: No acute issue, she had a session of RT yesterday plan to go to hospice when all arrangement done 12/16: Continue current care, further recommendation per oncology on Saturday, hospice at discharge 12/17: Continue current carePlan: To discharge with hospice once radiation therapy is complete 12/18: Radiation therapy session today, plan to discharge when done with XRT 12/19: To be discharged to hospice radiation therapy sessions is completing cleared by oncology 12/20: continue current care until XRT complete so patient can be discharged with hospice, 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 difficile also patient refused take her blood pressure medication, I added amlodipine with Vasotec as needed 12/21: Continue monitoring blood pressure, consider increasing Norvasc needed, last day radiation therapy mostly on December 2612/22: Continue current care, XRT ongoing sessions A/P: Ms. Feng is an 81-year-old female with a history of Hodgkin's lymphoma and non- Hodgkin lymphoma presented to the emergency department due to increased low back pain. - T12/L5 pathologic fracture. 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 - oncology,neurosurgery following- radiation oncology ff- total 19 treatment sessions till 12/27 - ongoing PT- showing progress - Hospice cannot accept patient while patient is receiving radiation treatments. - Once adequate radiation therapy performed, patient can likely be discharged to hospice. XRT till 12/27 on Decadron- per Oncology- tapering PT ff - Constipation- Manual disimpaction 12/11 . 12/09 - large amount of hard stools + BM with current regimen continue to monitor - UTI -S/P Cipro. - diabetes mellitus - well controlled. Patient prefers not to check blood glucose. requested to change to regular diet - chronic renal insufficiency- stable - hypothyroidism; on levothyroxine DNR. Lovenox. under Hospice- DNR PT daily Discharge Planning To hospice with all arrangement done, case maker working on it Problem Qualifiers (1) Fracture of lumbar spine: Qualified Code: S32.050A - Closed wedge compression fracture of fifth lumbar vertebra, initial encounter Edith Pan MD Dec 22, 2016 15:07
[2016-12-22] MEDS: HYDROmorphone HCL 2 MG TAB PO PRN (15:39)
[2016-12-22 16:00] VITALS: BP 110/68; PULSE 116; RESP 18; TEMP 97.1; O2SAT 98
[2016-12-22 22:21] VITALS: BP 150/77; PULSE 88; RESP 18; TEMP 98.1; O2SAT 96
[2016-12-23] MEDS: LEVOTHYROXINE SODIUM 100 MCG TAB PO SCH (05:45)
[2016-12-23 08:00] VITALS: BP 161/72; PULSE 84; RESP 16; TEMP 97.9; O2SAT 96
[2016-12-23] MEDS: amLODIPine BESYLATE 5 MG TAB PO SCH (08:32)
[2016-12-23] MEDS: MORPHINE SULFATE 15 MG CONTROLLED RELEASE TAB PO SCH ×2 (08:32→21:01)
[2016-12-23] MEDS: DEXAMETHASONE 4 MG TAB PO SCH ×2 (08:33→21:01)
[2016-12-23] MEDS: GABAPENTIN 300 MG CAP PO SCH ×4 (08:33→21:01)
[2016-12-23] MEDS: MAGNESIUM HYDROXIDE SUSP 30 ML CUP PO SCH ×2 (08:33→20:59)
[2016-12-23] MEDS: ENOXAPARIN SODIUM 40 MG/0.4 ML SYRINGE SQ SCH (08:33)
[2016-12-23] MEDS: PANTOPRAZOLE SOD 20 MG DELAYED RELEASE TAB PO SCH (08:33)
[2016-12-23] MEDS: NYSTAT/DIPHENHY/LIDO MOUTHWASH (Adult) 120ML SWISH-SWAL SCH ×4 (08:33→20:59)
[2016-12-23] MEDS: HYDROmorphone HCL PF 1 MG/ML VIAL IV PUSH PRN ×4 (08:35→21:03)
--- NOTE | 2016-12-23 14:54 | HHI.PR ---
Subjective Remarks Patient resting in bed comfortably No addition treatment today Blood pressure still not optimized will increase amlodipine Objective Vitals Vital Signs Date Time Temp Pulse Resp B/P Pulse Ox O2 Delivery O2 Flow Rate FiO2 12/23/16 08:00 97.9 84 16 161/72 96 12/22/16 22:21 98.1 88 18 150/77 96 12/22/16 16:00 97.1 116 18 110/68 98 I/O 12/22/16 12/22/16 12/22/16 12/23/16 12/23/16 12/23/16 07:00 15:00 23:00 07:00 15:00 23:00 Intake Total 240 ml Output Total 800 ml 400 ml 1800 ml Balance -800 ml 240 ml -400 ml -1800 ml Intake Oral 240 ml Output Urine Total 800 ml 400 ml 1800 ml # Bowel Movements 0 Result Diagram: 12/19/16 0943 12/21/16 0700 Objective Remarks GENERAL: This is a well-nourished, well-developed patient, in no apparent distress. SKIN: No rashes, warm and dry HEAD: Atraumatic. Normocephalic. EYES: Pupils equal round and reactive. Extraocular motions intact. No scleral icterus. ENT: Nose without bleeding, or drainage, Airway patent. NECK: Trachea midline. Supple CARDIOVASCULAR: Regular rate and rhythm without murmurs, gallops, or rubs. RESPIRATORY: Fair air entry bilaterally. No wheezes, rales, or rhonchi. GASTROINTESTINAL: Abdomen soft, non-tender, nondistended. Positive bowel sounds MUSCULOSKELETAL: Extremities without clubbing, cyanosis, or edema. Pedal pulses appreciated NEUROLOGICAL: Awake and alert. Moves all extremity. Normal speech.no focal neurological deficit Procedures bone biopsy ( L5). A/P Problem List: (1) Fracture of lumbar spine ICD Code: S32.009A Status: Acute Assessment and Plan 12/15: No acute issue, she had a session of RT yesterday plan to go to hospice when all arrangement done 12/16: Continue current care, further recommendation per oncology on Saturday, hospice at discharge 12/17: Continue current carePlan: To discharge with hospice once radiation therapy is complete 12/18: Radiation therapy session today, plan to discharge when done with XRT 12/19: To be discharged to hospice radiation therapy sessions is completing cleared by oncology 12/20: continue current care until XRT complete so patient can be discharged with hospice, 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 difficile also patient refused take her blood pressure medication, I added amlodipine with Vasotec as needed 12/21: Continue monitoring blood pressure, consider increasing Norvasc needed, last day radiation therapy mostly on December 2612/22: Continue current care, XRT ongoing sessions 12/23: Continue current care, blood pressure not optimized will increase amlodipine A/P: Ms. Feng is an 81-year-old female with a history of Hodgkin's lymphoma and non- Hodgkin lymphoma presented to the emergency department due to increased low back pain. - T12/L5 pathologic fracture. 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 - oncology,neurosurgery following- radiation oncology ff- total 19 treatment sessions till 12/27 - ongoing PT- showing progress - Hospice cannot accept patient while patient is receiving radiation treatments. - Once adequate radiation therapy performed, patient can likely be discharged to hospice. XRT till 12/27 on Decadron- per Oncology- tapering PT ff - Constipation- Manual disimpaction 12/11 . 12/09 - large amount of hard stools + BM with current regimen continue to monitor - UTI -S/P Cipro. - diabetes mellitus - well controlled. Patient prefers not to check blood glucose. requested to change to regular diet - chronic renal insufficiency- stable - hypothyroidism; on levothyroxine DNR. Lovenox. under Hospice- DNR PT daily Discharge Planning To hospice with all arrangement done, case sealer working on it Problem Qualifiers (1) Fracture of lumbar spine: Qualified Code: S32.050A - Closed wedge compression fracture of fifth lumbar vertebra, initial encounter Edith Pan MD Dec 23, 2016 14:54
[2016-12-23 15:59] VITALS: BP 126/73; PULSE 82; RESP 16; TEMP 98.4; O2SAT 96
[2016-12-23 20:25] VITALS: BP 129/81; PULSE 85; RESP 19; TEMP 97.4; O2SAT 98
[2016-12-24] MEDS: LEVOTHYROXINE SODIUM 100 MCG TAB PO SCH (05:40)
[2016-12-24] MEDS: HYDROmorphone HCL PF 1 MG/ML VIAL IV PUSH PRN ×3 (06:21→22:30)
[2016-12-24] MEDS: ENOXAPARIN SODIUM 40 MG/0.4 ML SYRINGE SQ SCH (08:59)
[2016-12-24] MEDS: NYSTAT/DIPHENHY/LIDO MOUTHWASH (Adult) 120ML SWISH-SWAL SCH ×4 (09:00→21:00)
[2016-12-24] MEDS: MAGNESIUM HYDROXIDE SUSP 30 ML CUP PO SCH ×3 (09:00→21:00)
[2016-12-24] MEDS: DEXAMETHASONE 4 MG TAB PO SCH ×2 (09:01→22:31)
[2016-12-24] MEDS: MORPHINE SULFATE 15 MG CONTROLLED RELEASE TAB PO SCH ×2 (09:02→22:32)
[2016-12-24] MEDS: PANTOPRAZOLE SOD 20 MG DELAYED RELEASE TAB PO SCH (09:02)
--- NOTE | 2016-12-24 10:04 | PD.ONC.PN ---
Subjective Subjective Remarks Afebrile overnight. Patient states she feels very well today. Denies pain. Objective Data Date Time Temp Pulse Resp B/P Pulse Ox O2 Delivery O2 Flow Rate FiO2 12/23/16 20:25 97.4 85 19 129/81 98 12/23/16 15:59 98.4 82 16 126/73 96 12/24/16 12/24/16 12/24/16 07:00 15:00 23:00 Output Total 200 ml Balance -200 ml Result Diagram: 12/21/16 0700 Administered Medications Medications (Trade) Dose Ordered Sig/Louisa Route PRN Reason Start Time Stop Time Status Last Admin Dose Admin Enalaprilat (Vasotec Inj) 1.25 mg Q8H PRN IV PUSH SBP> OR = 160, DBP> OR = 100 11/21/16 10:45 12/14/16 05:43 Ondansetron HCl (Zofran Inj) 4 mg Q8HR PRN IV PUSH NAUSEA 11/21/16 10:45 11/27/16 08:30 Alprazolam (Xanax) 0.25 mg Q4H PRN PO ANXIETY 11/21/16 12:00 12/20/16 20:33 Levothyroxine Sodium (Synthroid) 100 mcg DAILY@0600 PO 11/22/16 06:00 12/24/16 05:40 Gabapentin (Neurontin) 300 mg TID PO 11/25/16 13:00 12/23/16 21:01 Pantoprazole Sodium (Protonix) 20 mg DAILY PO 11/28/16 09:00 12/24/16 09:02 Hydromorphone HCl (Dilaudid) 2 mg Q3H PRN PO PAIN SCALE 1 TO 5 11/28/16 12:15 12/22/16 15:39 Hydromorphone HCl (Dilaudid Pf Inj) 0.5 mg Q3HR PRN IV PUSH PAIN SCALE 6 TO 8 11/28/16 11:30 12/12/16 21:19 Multi-Ingredient Mouthwash/Gargle (Magic Mouthwash Adult Liq) 10 ml QID SWISH-SWAL 11/30/16 21:00 12/01/16 18:39 Enoxaparin Sodium (Lovenox Inj) 40 mg DAILY SQ 12/02/16 09:00 12/10/16 08:46 Dexamethasone (Decadron) 2 mg Q12HR PO 12/10/16 21:00 12/24/16 09:01 Magnesium Hydroxide (Milk Of Beatrice Escobedo) 30 ml BID PO 12/11/16 21:00 12/24/16 09:02 Morphine Sulfate (Oramorph Sr) 15 mg Q12HR PO 12/12/16 09:00 12/24/16 09:02 Hydromorphone HCl (Dilaudid Pf Inj) 1 mg Q3HR PRN IV PUSH PAIN SCALE 9 TO 10 12/12/16 10:00 12/24/16 06:21 Amlodipine Besylate (Norvasc) 10 mg DAILY PO 12/24/16 09:00 12/24/16 09:03 Objective Remarks GENERAL: Pleasant elderly female, supine in bed, appears comfortable. SKIN: Warm and dry. HEAD: Normocephalic. EYES: No injection or drainage. NECK: Supple, trachea midline. CARDIOVASCULAR: Regular rate and rhythm. RESPIRATORY: anterior keller clear. GASTROINTESTINAL: Abdomen soft, non-tender EXTREMITIES: No cyanosis. NEUROLOGICAL: awake and alert, normal speech. 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 Plan is for radiation in patient and then discharge to hospice. She was offered chemotherapy and does not want to be that aggressive. --Discussed with , CT showed improvement of L4 lesion and has good response to XRT. History: --first treated with rituximab and Treanda --finished two years of maintenance Rituxan in January of 2014. --December 2015-->found to have progression of disease. treated with and Zydelig with Rituxan and then maintained on Zydelig --2016: CT showed low density masses in the retroperitoneum at the superior posterior left pelvis and the right pelvic sidewall. The --October 2016: PET scan showed these lesions were less prominent and not hypermetabolic. +hypermetabolic presacral lesion measured about 1.6 cm and the L5 hypermetabolic lesion. She --started on Rituxan and Revlimid about 2 weeks ago. --PET scan, 10/24, showed intense uptake within L5 left transverse process with associated hairline pathologic fracture. --MRI lumbar spine showed severe compression fracture deformity of L5 with invagination of the superior inferior endplate and marrow edema. +retropulsion with mass effect on the left S1 nerve root. +mild compression fracture deformity of T12. --CT lumbar spine showed destructive process involving transverse process of L5 suspicious of neoplastic process. This appeared to be causing all her symptoms. (2) Pain management Status: Acute Plan: --Oramorph + PRN Dilaudid --radiation to spine started 11/26/16 Assessment 81y/o female with h/o follicular and hodgkin's lymphoma. admitted with severe lower back pain Plan 1. continue pain regimen--pain well controlled 2. continue XRT, then d/c to hospice. Attending Statement The exam, history, and the medical decision-making described in the above note were completed with the assistance of the mid-level provider. I reviewed and agree with the findings presented. I attest that I had a [id number] encounter with the patient on the same day, and personally performed and documented my assessment and findings in the medical record. pain is controlled. Will complete XRT this week. Will d/c to hospice after that. Ledy Sneed December 24, 2016 10:04 Fredy Soni MD December 24, 2016 15:43
[2016-12-24 12:52] VITALS: BP 108/63; PULSE 79; RESP 18; TEMP 97.4; O2SAT 92
[2016-12-24] MEDS: GABAPENTIN 300 MG CAP PO SCH ×2 (13:00→17:06)
[2016-12-24] MEDS: HYDROmorphone HCL 2 MG TAB PO PRN (14:19)
--- NOTE | 2016-12-24 15:34 | HHI.PR ---
Subjective Remarks Stable, awaiting completing XRT on Saturday Objective Vitals Vital Signs Date Time Temp Pulse Resp B/P Pulse Ox O2 Delivery O2 Flow Rate FiO2 12/24/16 12:52 97.4 79 18 108/63 92 12/23/16 20:25 97.4 85 19 129/81 98 12/23/16 15:59 98.4 82 16 126/73 96 I/O 12/23/16 12/23/16 12/23/16 12/24/16 12/24/16 12/24/16 06:59 14:59 22:59 06:59 14:59 22:59 Intake Total 240 ml Output Total 1800 ml 350 ml 200 ml Balance -1800 ml -110 ml -200 ml Intake Oral 240 ml Output Urine Total 1800 ml 350 ml 200 ml # Bowel Movements 2 Result Diagram: 12/21/16 0700 Objective Remarks GENERAL: This is a well-nourished, well-developed patient, in no apparent distress. SKIN: No rashes, warm and dry HEAD: Atraumatic. Normocephalic. EYES: Pupils equal round and reactive. Extraocular motions intact. No scleral icterus. ENT: Nose without bleeding, or drainage, Airway patent. NECK: Trachea midline. Supple CARDIOVASCULAR: Regular rate and rhythm without murmurs, gallops, or rubs. RESPIRATORY: Fair air entry bilaterally. No wheezes, rales, or rhonchi. GASTROINTESTINAL: Abdomen soft, non-tender, nondistended. Positive bowel sounds MUSCULOSKELETAL: Extremities without clubbing, cyanosis, or edema. Pedal pulses appreciated NEUROLOGICAL: Awake and alert. Moves all extremity. Normal speech.no focal neurological deficit Procedures bone biopsy ( L5). A/P Problem List: (1) Fracture of lumbar spine ICD Code: S32.009A Status: Acute Assessment and Plan 12/15: No acute issue, she had a session of RT yesterday plan to go to hospice when all arrangement done 12/16: Continue current care, further recommendation per oncology on Saturday, hospice at discharge 12/17: Continue current carePlan: To discharge with hospice once radiation therapy is complete 12/18: Radiation therapy session today, plan to discharge when done with XRT 12/19: To be discharged to hospice radiation therapy sessions is completing cleared by oncology 12/20: continue current care until XRT complete so patient can be discharged with hospice, oncology pcat instructor and 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 difficile also patient refused take her blood pressure medication, I added amlodipine with Vasotec as needed 12/21: Continue monitoring blood pressure, consider increasing Norvasc needed, last day radiation therapy mostly on December 2612/22: Continue current care, XRT ongoing sessions 12/23: Continue current care, blood pressure not optimized will increase amlodipine 12/24: Continue current care, discharge with hospice once completing XRT on Saturday A/P: Ms. Feng is an 81-year-old female with a history of Hodgkin's lymphoma and non- Hodgkin lymphoma presented to the emergency department due to increased low back pain. - T12/L5 pathologic fracture. 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 - oncology,neurosurgery following- radiation oncology ff- total 19 treatment sessions till 12/27 - ongoing PT- showing progress - Hospice cannot accept patient while patient is receiving radiation treatments. - Once adequate radiation therapy performed, patient can likely be discharged to hospice. XRT till 12/27 on Decadron- per Oncology- tapering PT ff - Constipation- Manual disimpaction 12/11 . 12/09 - large amount of hard stools + BM with current regimen continue to monitor - UTI -S/P Cipro. - diabetes mellitus - well controlled. Patient prefers not to check blood glucose. requested to change to regular diet - chronic renal insufficiency- stable - hypothyroidism; on levothyroxine DNR. Lovenox. under Hospice- DNR PT daily Discharge Planning To hospice with all arrangement done, test case developer working on it Problem Qualifiers (1) Fracture of lumbar spine: Qualified Code: S32.050A - Closed wedge compression fracture of fifth lumbar vertebra, initial encounter Edith Pan MD December 24, 2016 15:34
[2016-12-24 16:20] VITALS: BP 112/67; PULSE 79; RESP 18; TEMP 97.3; O2SAT 98
[2016-12-24 21:45] VITALS: BP 115/66; PULSE 98; RESP 19; TEMP 98.6; O2SAT 97
[2016-12-25] MEDS: LEVOTHYROXINE SODIUM 100 MCG TAB PO SCH (05:26)
[2016-12-25 08:00] VITALS: BP 116/68; PULSE 75; RESP 17; TEMP 96.2; O2SAT 99
[2016-12-25] MEDS: PANTOPRAZOLE SOD 20 MG DELAYED RELEASE TAB PO SCH (09:00)
[2016-12-25] MEDS: MAGNESIUM HYDROXIDE SUSP 30 ML CUP PO SCH ×2 (09:00→20:59)
[2016-12-25] MEDS: NYSTAT/DIPHENHY/LIDO MOUTHWASH (Adult) 120ML SWISH-SWAL SCH ×4 (09:00→20:59)
[2016-12-25] MEDS: ENOXAPARIN SODIUM 40 MG/0.4 ML SYRINGE SQ SCH (09:00)
[2016-12-25] MEDS: DEXAMETHASONE 4 MG TAB PO SCH ×2 (09:02→20:58)
[2016-12-25] MEDS: GABAPENTIN 300 MG CAP PO SCH ×3 (09:02→17:17)
[2016-12-25] MEDS: MORPHINE SULFATE 15 MG CONTROLLED RELEASE TAB PO SCH ×2 (09:02→20:58)
[2016-12-25 12:00] VITALS: BP 126/59; PULSE 77; RESP 17; TEMP 96.9; O2SAT 99
--- NOTE | 2016-12-25 12:13 | PD.ONC.PN ---
Subjective Subjective Remarks Afebrile overnight. Patient resting comfortably without complaint. She states her pain is well controlled. Objective Data Date Time Temp Pulse Resp B/P Pulse Ox O2 Delivery O2 Flow Rate FiO2 12/25/16 08:00 96.2 75 17 116/68 99 12/25/16 00:00 12/24/16 21:45 98.6 98 19 115/66 97 12/24/16 16:20 97.3 79 18 112/67 98 12/24/16 12:52 97.4 79 18 108/63 92 12/25/16 12/25/16 12/25/16 07:00 15:00 23:00 Intake Total 300 ml Output Total 100 ml Balance 200 ml Result Diagram: 12/21/16 0700 Administered Medications Medications (Trade) Dose Ordered Sig/Louisa Route PRN Reason Start Time Stop Time Status Last Admin Dose Admin Enalaprilat (Vasotec Inj) 1.25 mg Q8H PRN IV PUSH SBP> OR = 160, DBP> OR = 100 11/21/16 10:45 12/14/16 05:43 Ondansetron HCl (Zofran Inj) 4 mg Q8HR PRN IV PUSH NAUSEA 11/21/16 10:45 11/27/16 08:30 Alprazolam (Xanax) 0.25 mg Q4H PRN PO ANXIETY 11/21/16 12:00 12/20/16 20:33 Levothyroxine Sodium (Synthroid) 100 mcg DAILY@0600 PO 11/22/16 06:00 12/25/16 05:26 Gabapentin (Neurontin) 300 mg TID PO 11/25/16 13:00 12/25/16 09:02 Pantoprazole Sodium (Protonix) 20 mg DAILY PO 11/28/16 09:00 12/24/16 09:02 Hydromorphone HCl (Dilaudid) 2 mg Q3H PRN PO PAIN SCALE 1 TO 5 11/28/16 12:15 12/24/16 14:19 Hydromorphone HCl (Dilaudid Pf Inj) 0.5 mg Q3HR PRN IV PUSH PAIN SCALE 6 TO 8 11/28/16 11:30 12/12/16 21:19 Multi-Ingredient Mouthwash/Gargle (Magic Mouthwash Adult Liq) 10 ml QID SWISH-SWAL 4/7/17 21:00 12/01/16 18:39 Enoxaparin Sodium (Lovenox Inj) 40 mg DAILY SQ 12/02/16 09:00 12/10/16 08:46 Dexamethasone (Decadron) 2 mg Q12HR PO 12/10/16 21:00 12/25/16 09:02 Magnesium Hydroxide (Milk Of Beatrice Liq) 30 ml BID PO 12/11/16 21:00 12/18/16 01:44 Morphine Sulfate (Oramorph Sr) 15 mg Q12HR PO 12/12/16 09:00 12/25/16 09:02 Hydromorphone HCl (Dilaudid Pf Inj) 1 mg Q3HR PRN IV PUSH PAIN SCALE 9 TO 10 12/12/16 10:00 12/24/16 22:30 Amlodipine Besylate (Norvasc) 10 mg DAILY PO 12/24/16 09:00 12/24/16 09:03 Objective Remarks GENERAL: Pleasant female, lying in bed, sleeping on approach SKIN: Warm and dry. HEAD: Normocephalic. EYES: No injection or drainage. NECK: Supple, trachea midline. CARDIOVASCULAR: Regular rate and rhythm. RESPIRATORY: anterior keller clear. GASTROINTESTINAL: Abdomen soft, non-tender EXTREMITIES: No cyanosis. NEUROLOGICAL: awake and alert, normal speech. Assessment/Plan Problem List: (1) B-cell lymphoma Status: Acute Plan: --will finish XRT this week, then home with hospice. --Discussed with , CT showed improvement of L4 lesion and has good response to XRT. History: --first treated with rituximab and Treanda --finished two years of maintenance Rituxan in January of 2014. --December 2015-->found to have progression of disease. treated with and Zydelig with Rituxan and then maintained on Zydelig --2016: CT showed low density masses in the retroperitoneum at the superior posterior left pelvis and the right pelvic sidewall. The --October 2016: PET scan showed these lesions were less prominent and not hypermetabolic. +hypermetabolic presacral lesion measured about 1.6 cm and the L5 hypermetabolic lesion. She --started on Rituxan and Revlimid about 2 weeks ago. --PET scan, 10/24, showed intense uptake within L5 left transverse process with associated hairline pathologic fracture. --MRI lumbar spine showed severe compression fracture deformity of L5 with invagination of the superior inferior endplate and marrow edema. +retropulsion with mass effect on the left S1 nerve root. +mild compression fracture deformity of T12. --CT lumbar spine showed destructive process involving transverse process of L5 suspicious of neoplastic process. This appeared to be causing all her symptoms. (2) Pain management Status: Acute Plan: --Oramorph + PRN Dilaudid --radiation to spine started 11/26/16 Assessment 81y/o female with h/o follicular and hodgkin's lymphoma. admitted with severe lower back pain Plan 1. once XRT complete, ok to d/c to hospice 2. continue supportive care Attending Statement The exam, history, and the medical decision-making described in the above note were completed with the assistance of the mid-level provider. I reviewed and agree with the findings presented. I attest that I had a [id number] encounter with the patient on the same day, and personally performed and documented my assessment and findings in the medical record. Pain controlled but still has pain when try to sit up. She will finish the XRT later this week. She will go to hospice after that. Ledy Sneed December 25, 2016 12:13 Fredy Soni MD December 25, 2016 17:11
[2016-12-25] MEDS: HYDROmorphone HCL PF 1 MG/ML VIAL IV PUSH PRN ×3 (13:04→20:59)
--- NOTE | 2016-12-25 15:08 | HHI.PR ---
Subjective Remarks Patient just came from radiation therapy session, she is pleasant awake alert no complain Objective Vitals Vital Signs Date Time Temp Pulse Resp B/P Pulse Ox O2 Delivery O2 Flow Rate FiO2 12/25/16 12:00 96.9 77 17 126/59 99 12/25/16 08:00 96.2 75 17 116/68 99 12/25/16 00:00 12/24/16 21:45 98.6 98 19 115/66 97 12/24/16 16:20 97.3 79 18 112/67 98 I/O 12/24/16 12/24/16 12/24/16 12/25/16 12/25/16 12/25/16 07:00 15:00 23:00 07:00 15:00 23:00 Intake Total 500 ml 300 ml 180 ml Output Total 200 ml 500 ml 100 ml 425 ml Balance -200 ml 0 ml 200 ml -245 ml Intake Oral 500 ml 300 ml 180 ml Output Urine Total 200 ml 500 ml 100 ml 425 ml # Bowel Movements 0 0 0 Result Diagram: 12/21/16 0700 Objective Remarks GENERAL: This is a well-nourished, well-developed patient, in no apparent distress. SKIN: No rashes, warm and dry HEAD: Atraumatic. Normocephalic. EYES: Pupils equal round and reactive. Extraocular motions intact. No scleral icterus. ENT: Nose without bleeding, or drainage, Airway patent. NECK: Trachea midline. Supple CARDIOVASCULAR: Regular rate and rhythm without murmurs, gallops, or rubs. RESPIRATORY: Fair air entry bilaterally. No wheezes, rales, or rhonchi. GASTROINTESTINAL: Abdomen soft, non-tender, nondistended. Positive bowel sounds MUSCULOSKELETAL: Extremities without clubbing, cyanosis, or edema. Pedal pulses appreciated NEUROLOGICAL: Awake and alert. Moves all extremity. Normal speech.no focal neurological deficit Procedures bone biopsy ( L5). A/P Problem List: (1) Fracture of lumbar spine ICD Code: S32.009A Status: Acute Assessment and Plan 12/15: No acute issue, she had a session of RT yesterday plan to go to hospice when all arrangement done 12/16: Continue current care, further recommendation per oncology on Saturday, hospice at discharge 12/17: Continue current carePlan: To discharge with hospice once radiation therapy is complete 12/18: Radiation therapy session today, plan to discharge when done with XRT 12/19: To be discharged to hospice radiation therapy sessions is completing cleared by oncology 12/20: continue current care until XRT complete so patient can be discharged with hospice, oncology certified wellness program manager and 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 difficile also patient refused take her blood pressure medication, I added amlodipine with Vasotec as needed 12/21: Continue monitoring blood pressure, consider increasing Norvasc needed, last day radiation therapy mostly on December 2612/22: Continue current care, XRT ongoing sessions 12/23: Continue current care, blood pressure not optimized will increase amlodipine 12/24: Continue current care, discharge with hospice once completing XRT on Monday 12/25: Patient just came from radiation therapy session, continue current care A/P: Ms. Feng is an 81-year-old female with a history of Hodgkin's lymphoma and non- Hodgkin lymphoma presented to the emergency department due to increased low back pain. - T12/L5 pathologic fracture. 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 - oncology,neurosurgery following- radiation oncology ff- total 19 treatment sessions till 12/27 - ongoing PT- showing progress - Hospice cannot accept patient while patient is receiving radiation treatments. - Once adequate radiation therapy performed, patient can likely be discharged to hospice. XRT till 12/27 on Decadron- per Oncology- tapering PT ff - Constipation- Manual disimpaction 12/11 . 12/09 - large amount of hard stools + BM with current regimen continue to monitor - UTI -S/P Cipro. - diabetes mellitus - well controlled. Patient prefers not to check blood glucose. requested to change to regular diet - chronic renal insufficiency- stable - hypothyroidism; on levothyroxine DNR. Lovenox. under Hospice- DNR PT daily Discharge Planning To hospice with all arrangement done, case management assistant working on it Problem Qualifiers (1) Fracture of lumbar spine: Qualified Code: S32.050A - Closed wedge compression fracture of fifth lumbar vertebra, initial encounter Edith Pan MD December 25, 2016 15:08
[2016-12-25 16:00] VITALS: BP 119/65; PULSE 71; RESP 16; TEMP 97.7; O2SAT 100
[2016-12-25 21:00] VITALS: BP 125/62; PULSE 90; RESP 18; TEMP 97.5; O2SAT 100
[2016-12-26] MEDS: LEVOTHYROXINE SODIUM 100 MCG TAB PO SCH (06:51)
[2016-12-26] MEDS: HYDROmorphone HCL PF 1 MG/ML VIAL IV PUSH PRN ×3 (06:52→17:07)
[2016-12-26 08:26] VITALS: BP 133/78; PULSE 84; RESP 18; TEMP 96.5; O2SAT 98
[2016-12-26] MEDS: GABAPENTIN 300 MG CAP PO SCH ×3 (08:46→17:50)
[2016-12-26] MEDS: PANTOPRAZOLE SOD 20 MG DELAYED RELEASE TAB PO SCH (08:46)
[2016-12-26] MEDS: DEXAMETHASONE 4 MG TAB PO SCH ×2 (08:46→20:19)
[2016-12-26] MEDS: MORPHINE SULFATE 15 MG CONTROLLED RELEASE TAB PO SCH ×2 (08:46→20:19)
[2016-12-26] MEDS: MAGNESIUM HYDROXIDE SUSP 30 ML CUP PO SCH ×2 (08:47→20:13)
[2016-12-26] MEDS: NYSTAT/DIPHENHY/LIDO MOUTHWASH (Adult) 120ML SWISH-SWAL SCH ×4 (08:48→20:13)
[2016-12-26] MEDS: ENOXAPARIN SODIUM 40 MG/0.4 ML SYRINGE SQ SCH (11:18)
[2016-12-26] MEDS ORDERED: NEUR300C PO (11:55)
[2016-12-26] MEDS ORDERED: PANT20 PO (11:55)
[2016-12-26] MEDS ORDERED: AMLO10 PO (11:55)
[2016-12-26] MEDS ORDERED: DEXA4TAB PO (11:55)
--- NOTE | 2016-12-26 12:01 | HHI.DS ---
Discharge Summary Admission Date Nov 21, 2016 at 10:40 Discharge Date: December 27, 2016 Admitting Diagnosis lumbar spine fracture. Intractable pain. (1) Fracture of lumbar spine ICD Code: S32.009A Diagnosis: Principal Procedures bone biopsy ( L5). Brief History - From Admission patient is a 81 y/o female with history of non-hodgkin's lymphoma who presented to ER with low back pain. she says that she fell about a month ago and started to have some flip pain at the time. she says that her pain has been getting worse since then. she was seen by neurosurgery about a week ago and is supposed to have a neurosurgery follow-up this week.she was seen in ER few days ago and was discharged with pain medications and muscle relaxant. she says that the pain got worse despite taking the pain medications. she had a recent f/u with her radiation oncologist and had a PET-scan and MRI of the lumbar spine which revealed T12/ L5 fracture. she says that the pain started in the back and ' shoots down' to the left leg. she has some weakness of the left leg. she denies any urine or stool incontinence. PE at Discharge GENERAL: This is a well-nourished, well-developed patient, in no apparent distress. SKIN: No rashes, warm and dry HEAD: Atraumatic. Normocephalic. EYES: Pupils equal round and reactive. Extraocular motions intact. No scleral icterus. ENT: Nose without bleeding, or drainage, Airway patent. NECK: Trachea midline. Supple CARDIOVASCULAR: Regular rate and rhythm without murmurs, gallops, or rubs. RESPIRATORY: Fair air entry bilaterally. No wheezes, rales, or rhonchi. GASTROINTESTINAL: Abdomen soft, non-tender, nondistended. Positive bowel sounds MUSCULOSKELETAL: Extremities without clubbing, cyanosis, or edema. Pedal pulses appreciated NEUROLOGICAL: Awake and alert. Moves all extremity. Normal speech.no focal neurological deficit Hospital Course Ms. Feng is an 81-year-old female with a history of Hodgkin's lymphoma and non- Hodgkin lymphoma presented to the emergency department due to increased low back pain. admitted for T12/L5 pathologic fracture. 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 oncology,neurosurgery following- radiation oncology ff- total 19 treatment sessions till 12/27 ongoing PT- showing progress,Hospice cannot accept patient while patient is receiving radiation treatments. Once adequate radiation therapy performed, patient can likely be discharged to hospice. on Decadron- per Oncology- tapering Constipation- Manual disimpaction 12/11 . 12/09 - large amount of hard stools improved with current regimen Patient finished her last XRT session today, to be discharged with hospice service Pt Condition on Discharge: Stable Discharge Disposition: Hospice/Med Facility Discharge Time: <= 30 minutes Discharge Instructions DIET: Follow Instructions for: Heart Healthy Diet, Diabetic Diet Activities you can perform: See Additionl Instruction Other Activity Instructions: per hospice team New Medications: Amlodipine (Norvasc) 10 Mg Tab 10 MG PO DAILY htn #30 TAB Dexamethasone (Dexamethasone) 4 Mg Tab 2 MG PO Q12HR taper #20 TAB Gabapentin (Neurontin) 300 Mg Cap 300 MG PO TID Pain Management #90 CAP Pantoprazole (Protonix) 20 Mg Tab 20 MG PO DAILY gi #30 TAB Continued Medications: Alprazolam (Alprazolam) 0.25 Mg Tab 0.25 MG PO Q4H PRN ANXIETY Ref 0 TAB Glimepiride (Glimepiride) 2 Mg Tab 2 MG PO DAILY Take with breakfast or first main meal Blood Sugar Management #30 Ref 0 TAB Levothyroxine (Levothyroxine) 100 Mcg Tab 100 MCG PO DAILY Thyroid #30 Ref 0 TAB Edith Pan MD December 26, 2016 12:01
--- NOTE | 2016-12-26 12:09 | PD.ONC.PN ---
Subjective Subjective Remarks Pain better controlled. Will finish XRT tomorrow. +BM. Objective Data Date Time Temp Pulse Resp B/P Pulse Ox O2 Delivery O2 Flow Rate FiO2 12/26/16 08:26 96.5 84 18 133/78 98 12/25/16 21:00 97.5 90 18 125/62 100 12/25/16 16:00 97.7 71 16 119/65 100 12/26/16 12/26/16 12/26/16 07:00 15:00 23:00 Intake Total 400 ml Output Total 200 ml Balance 200 ml Administered Medications Medications (Trade) Dose Ordered Sig/Louisa Route PRN Reason Start Time Stop Time Status Last Admin Dose Admin Enalaprilat (Vasotec Inj) 1.25 mg Q8H PRN IV PUSH SBP> OR = 160, DBP> OR = 100 11/21/16 10:45 12/14/16 05:43 Ondansetron HCl (Zofran Inj) 4 mg Q8HR PRN IV PUSH NAUSEA 11/21/16 10:45 11/27/16 08:30 Alprazolam (Xanax) 0.25 mg Q4H PRN PO ANXIETY 11/21/16 12:00 12/20/16 20:33 Levothyroxine Sodium (Synthroid) 100 mcg DAILY@0600 PO 11/22/16 06:00 12/26/16 06:51 Gabapentin (Neurontin) 300 mg TID PO 11/25/16 13:00 12/26/16 08:46 Pantoprazole Sodium (Protonix) 20 mg DAILY PO 11/28/16 09:00 12/26/16 08:46 Hydromorphone HCl (Dilaudid) 2 mg Q3H PRN PO PAIN SCALE 1 TO 5 11/28/16 12:15 12/24/16 14:19 Hydromorphone HCl (Dilaudid Pf Inj) 0.5 mg Q3HR PRN IV PUSH PAIN SCALE 6 TO 8 11/28/16 11:30 12/12/16 21:19 Multi-Ingredient Mouthwash/Gargle (Magic Mouthwash Adult Liq) 10 ml QID SWISH-SWAL 11/30/16 21:00 12/01/16 18:39 Enoxaparin Sodium (Lovenox Inj) 40 mg DAILY SQ 12/02/16 09:00 12/26/16 11:18 Dexamethasone (Decadron) 2 mg Q12HR PO 12/10/16 21:00 12/26/16 08:46 Magnesium Hydroxide (Milk Of Beatrice Escobedo) 30 ml BID PO 12/11/16 21:00 12/18/16 01:44 Morphine Sulfate (Oramorph Sr) 15 mg Q12HR PO 12/12/16 09:00 12/26/16 08:46 Hydromorphone HCl (Dilaudid Pf Inj) 1 mg Q3HR PRN IV PUSH PAIN SCALE 9 TO 10 12/12/16 10:00 12/26/16 11:19 Amlodipine Besylate (Norvasc) 10 mg DAILY PO 12/24/16 09:00 12/26/16 08:46 Objective Remarks GENERAL: Well-nourished, well-developed patient. SKIN: Warm and dry. HEAD: Normocephalic. EYES: No scleral icterus. No injection or drainage. NECK: Supple, trachea midline. No JVD or lymphadenopathy. LYMPHATIC: No adenopathy. CARDIOVASCULAR: Regular rate and rhythm without murmurs. RESPIRATORY: Breath sounds equal bilaterally. No accessory muscle use. GASTROINTESTINAL: Abdomen soft, non-tender, nondistended. EXTREMITIES: No cyanosis, or edema. MUSCULOSKELETAL: Adequate muscle tone. NEUROLOGICAL: No obvious focal deficit. Awake, alert, and oriented x3. PSYCHIATRIC: Appropriate mood and affect; insight and judgment normal. Assessment/Plan Problem List: (1) B-cell lymphoma Status: Acute Plan: --will finish XRT this week, then home with hospice. --Discussed with , CT showed improvement of L4 lesion and has good response to XRT. History: --first treated with rituximab and Treanda --finished two years of maintenance Rituxan in January of 2014. --December 2015-->found to have progression of disease. treated with and Zydelig with Rituxan and then maintained on Zydelig --2016: CT showed low density masses in the retroperitoneum at the superior posterior left pelvis and the right pelvic sidewall. The --October 2016: PET scan showed these lesions were less prominent and not hypermetabolic. +hypermetabolic presacral lesion measured about 1.6 cm and the L5 hypermetabolic lesion. She --started on Rituxan and Revlimid about 2 weeks ago. --PET scan, 10/24, showed intense uptake within L5 left transverse process with associated hairline pathologic fracture. --MRI lumbar spine showed severe compression fracture deformity of L5 with invagination of the superior inferior endplate and marrow edema. +retropulsion with mass effect on the left S1 nerve root. +mild compression fracture deformity of T12. --CT lumbar spine showed destructive process involving transverse process of L5 suspicious of neoplastic process. This appeared to be causing all her symptoms. (2) Pain management Status: Acute Plan: --Oramorph + PRN Dilaudid --radiation to spine started 11/26/16 Assessment 81y/o female with h/o follicular and hodgkin's lymphoma. admitted with severe lower back pain Plan 1. Will complete XRT tomorrow, ok to d/c to hospice once complete XRT 2. continue supportive care Fredy Soni MD December 26, 2016 12:09
[2016-12-26 12:50] VITALS: BP 134/70; PULSE 82; RESP 18; TEMP 96.2; O2SAT 98
--- NOTE | 2016-12-26 12:53 | HHI.PR ---
Subjective Remarks Stable in bed after XRT today Plan: For discharge, patient to decide on disposition with hospice Objective Vitals Vital Signs Date Time Temp Pulse Resp B/P Pulse Ox O2 Delivery O2 Flow Rate FiO2 12/26/16 12:50 96.2 82 18 134/70 98 12/26/16 08:26 96.5 84 18 133/78 98 12/25/16 21:00 97.5 90 18 125/62 100 12/25/16 16:00 97.7 71 16 119/65 100 I/O 12/25/16 12/25/16 12/25/16 12/26/16 12/26/16 12/26/16 07:00 15:00 23:00 07:00 15:00 23:00 Intake Total 300 ml 180 ml 800 ml 400 ml Output Total 100 ml 425 ml 100 ml 200 ml Balance 200 ml -245 ml 700 ml 200 ml Intake Oral 300 ml 180 ml 800 ml 400 ml Output Urine Total 100 ml 425 ml 100 ml 200 ml # Bowel Movements 0 0 0 1 Objective Remarks GENERAL: This is a well-nourished, well-developed patient, in no apparent distress. SKIN: No rashes, warm and dry HEAD: Atraumatic. Normocephalic. EYES: Pupils equal round and reactive. Extraocular motions intact. No scleral icterus. ENT: Nose without bleeding, or drainage, Airway patent. NECK: Trachea midline. Supple CARDIOVASCULAR: Regular rate and rhythm without murmurs, gallops, or rubs. RESPIRATORY: Fair air entry bilaterally. No wheezes, rales, or rhonchi. GASTROINTESTINAL: Abdomen soft, non-tender, nondistended. Positive bowel sounds MUSCULOSKELETAL: Extremities without clubbing, cyanosis, or edema. Pedal pulses appreciated NEUROLOGICAL: Awake and alert. Moves all extremity. Normal speech.no focal neurological deficit Procedures bone biopsy ( L5). A/P Problem List: (1) Fracture of lumbar spine ICD Code: S32.009A Status: Acute Assessment and Plan 12/15: No acute issue, she had a session of RT yesterday plan to go to hospice when all arrangement done 12/16: Continue current care, further recommendation per oncology on Saturday, hospice at discharge 12/17: Continue current carePlan: To discharge with hospice once radiation therapy is complete 12/18: Radiation therapy session today, plan to discharge when done with XRT 12/19: To be discharged to hospice radiation therapy sessions is completing cleared by oncology 12/20: continue current care until XRT complete so patient can be discharged with hospice, 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 difficile also patient refused take her blood pressure medication, I added amlodipine with Vasotec as needed 12/21: Continue monitoring blood pressure, consider increasing Norvasc needed, last day radiation therapy mostly on December 2612/22: Continue current care, XRT ongoing sessions 12/23: Continue current care, blood pressure not optimized will increase amlodipine 12/24: Continue current care, discharge with hospice once completing XRT on Monday 12/25: Patient just came from radiation therapy session, continue current care 12/26: Plan for discharge post last session of XRT A/P: Ms. Feng is an 81-year-old female with a history of Hodgkin's lymphoma and non- Hodgkin lymphoma presented to the emergency department due to increased low back pain. - T12/L5 pathologic fracture. 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 - oncology,neurosurgery following- radiation oncology ff- total 19 treatment sessions till 12/27 - ongoing PT- showing progress - Hospice cannot accept patient while patient is receiving radiation treatments. - Once adequate radiation therapy performed, patient can likely be discharged to hospice. XRT till 12/27 on Decadron- per Oncology- tapering PT ff - Constipation- Manual disimpaction 12/11 . 12/09 - large amount of hard stools + BM with current regimen continue to monitor - UTI -S/P Cipro. - diabetes mellitus - well controlled. Patient prefers not to check blood glucose. requested to change to regular diet - chronic renal insufficiency- stable - hypothyroidism; on levothyroxine DNR. Lovenox. under Hospice- DNR PT daily Discharge Planning To hospice with all arrangement done, supervisor case loading working on it Problem Qualifiers (1) Fracture of lumbar spine: Qualified Code: S32.050A - Closed wedge compression fracture of fifth lumbar vertebra, initial encounter Edith Pan MD December 26, 2016 12:53
[2016-12-26 16:22] VITALS: BP 111/69; PULSE 95; RESP 18; TEMP 96.7; O2SAT 96
[2016-12-26 20:00] VITALS: BP 121/67; PULSE 81; RESP 16; TEMP 95.9; O2SAT 94
[2016-12-27] MEDS: LEVOTHYROXINE SODIUM 100 MCG TAB PO SCH (06:51)
--- NOTE | 2016-12-27 07:49 | PD.ONC.PN ---
Subjective Subjective Remarks Pain controlled. Sleepy this am. No abdominal pain. Objective Data Date Time Temp Pulse Resp B/P Pulse Ox O2 Delivery O2 Flow Rate FiO2 12/26/16 20:00 95.9 81 16 121/67 94 12/26/16 16:22 96.7 95 18 111/69 96 12/26/16 12:50 96.2 82 18 134/70 98 12/26/16 08:26 96.5 84 18 133/78 98 12/27/16 12/27/16 12/27/16 07:00 15:00 23:00 Output Total 300 ml Balance -300 ml Administered Medications Medications (Trade) Dose Ordered Sig/Louisa Route PRN Reason Start Time Stop Time Status Last Admin Dose Admin Enalaprilat (Vasotec Inj) 1.25 mg Q8H PRN IV PUSH SBP> OR = 160, DBP> OR = 100 11/21/16 10:45 12/14/16 05:43 Ondansetron HCl (Zofran Inj) 4 mg Q8HR PRN IV PUSH NAUSEA 11/21/16 10:45 11/27/16 08:30 Alprazolam (Xanax) 0.25 mg Q4H PRN PO ANXIETY 11/21/16 12:00 12/20/16 20:33 Levothyroxine Sodium (Synthroid) 100 mcg DAILY@0600 PO 11/22/16 06:00 12/27/16 06:51 Gabapentin (Neurontin) 300 mg TID PO 11/25/16 13:00 12/26/16 17:50 Pantoprazole Sodium (Protonix) 20 mg DAILY PO 11/28/16 09:00 12/26/16 08:46 Hydromorphone HCl (Dilaudid) 2 mg Q3H PRN PO PAIN SCALE 1 TO 5 11/28/16 12:15 12/24/16 14:19 Hydromorphone HCl (Dilaudid Pf Inj) 0.5 mg Q3HR PRN IV PUSH PAIN SCALE 6 TO 8 11/28/16 11:30 12/12/16 21:19 Multi-Ingredient Mouthwash/Gargle (Magic Mouthwash Adult Liq) 10 ml QID SWISH-SWAL 11/30/16 21:00 12/01/16 18:39 Enoxaparin Sodium (Lovenox Inj) 40 mg DAILY SQ 12/02/16 09:00 12/26/16 11:18 Dexamethasone (Decadron) 2 mg Q12HR PO 12/10/16 21:00 12/26/16 20:19 Magnesium Hydroxide (Milk Of Beatrice Escobedo) 30 ml BID PO 12/11/16 21:00 12/18/16 01:44 Morphine Sulfate (Oramorph Sr) 15 mg Q12HR PO 12/12/16 09:00 12/26/16 20:19 Hydromorphone HCl (Dilaudid Pf Inj) 1 mg Q3HR PRN IV PUSH PAIN SCALE 9 TO 10 12/12/16 10:00 12/26/16 17:07 Amlodipine Besylate (Norvasc) 10 mg DAILY PO 12/24/16 09:00 12/26/16 08:46 Objective Remarks GENERAL: Well-nourished, well-developed patient. Weak. SKIN: Warm and dry. HEAD: Normocephalic. EYES: No scleral icterus. No injection or drainage. NECK: Supple, trachea midline. No JVD or lymphadenopathy. LYMPHATIC: No adenopathy. CARDIOVASCULAR: Regular rate and rhythm without murmurs. RESPIRATORY: Breath sounds equal bilaterally. No accessory muscle use. GASTROINTESTINAL: Abdomen soft, non-tender, nondistended. EXTREMITIES: No cyanosis, or edema. MUSCULOSKELETAL: Adequate muscle tone. NEUROLOGICAL: No obvious focal deficit. Awake, alert, and oriented x3. PSYCHIATRIC: Appropriate mood and affect; insight and judgment normal. Assessment/Plan Problem List: (1) B-cell lymphoma Status: Acute Plan: --will finish XRT today, then home with hospice. --Discussed with , CT showed improvement of L4 lesion and has good response to XRT. History: --first treated with rituximab and Treanda --finished two years of maintenance Rituxan in January of 2014. --December 2015-->found to have progression of disease. treated with and Zydelig with Rituxan and then maintained on Zydelig --2016: CT showed low density masses in the retroperitoneum at the superior posterior left pelvis and the right pelvic sidewall. The --October 2016: PET scan showed these lesions were less prominent and not hypermetabolic. +hypermetabolic presacral lesion measured about 1.6 cm and the L5 hypermetabolic lesion. She --started on Rituxan and Revlimid about 2 weeks ago. --PET scan, 10/24, showed intense uptake within L5 left transverse process with associated hairline pathologic fracture. --MRI lumbar spine showed severe compression fracture deformity of L5 with invagination of the superior inferior endplate and marrow edema. +retropulsion with mass effect on the left S1 nerve root. +mild compression fracture deformity of T12. --CT lumbar spine showed destructive process involving transverse process of L5 suspicious of neoplastic process. This appeared to be causing all her symptoms. (2) Pain management Status: Acute Plan: --Oramorph + PRN Dilaudid --radiation to spine started 11/26/16 Assessment 81y/o female with h/o follicular and hodgkin's lymphoma. admitted with severe lower back pain Plan 1. Will complete XRT today, but nursing staff reported that pt completed XRT yesterday. They will check with Rad onc. 2. Await palliative care meds to evaluate pt again and possibly d/c to hospice care center. 3. Discussed with nursing staff regarding plan. 4. Discussed with pt's daughter and told them to inform pt's daughter regarding d/c plan. 5. Continue supportive care. Fredy Soni MD December 27, 2016 07:49
[2016-12-27 08:19] VITALS: BP 142/72; PULSE 66; RESP 20; TEMP 95.5; O2SAT 96
[2016-12-27] MEDS: GABAPENTIN 300 MG CAP PO SCH ×3 (08:45→17:06)
[2016-12-27] MEDS: DEXAMETHASONE 4 MG TAB PO SCH ×2 (08:45→22:30)
[2016-12-27] MEDS: NYSTAT/DIPHENHY/LIDO MOUTHWASH (Adult) 120ML SWISH-SWAL SCH ×3 (08:50→21:43)
[2016-12-27] MEDS: MAGNESIUM HYDROXIDE SUSP 30 ML CUP PO SCH ×2 (08:50→21:43)
[2016-12-27] MEDS: PANTOPRAZOLE SOD 20 MG DELAYED RELEASE TAB PO SCH (08:50)
[2016-12-27] MEDS: MORPHINE SULFATE 15 MG CONTROLLED RELEASE TAB PO SCH ×2 (08:54→22:30)
[2016-12-27] MEDS: ENOXAPARIN SODIUM 40 MG/0.4 ML SYRINGE SQ SCH (09:00)
--- NOTE | 2016-12-27 10:18 | HHI.PR ---
Subjective Remarks Patient laying in bed today she told me she did not have radiation therapy today , she still want to talk to her about further disposition which basically is with hospice either facility or home Objective Vitals Vital Signs Date Time Temp Pulse Resp B/P Pulse Ox O2 Delivery O2 Flow Rate FiO2 12/27/16 08:19 95.5 66 20 142/72 96 12/26/16 20:00 95.9 81 16 121/67 94 12/26/16 16:22 96.7 95 18 111/69 96 12/26/16 12:50 96.2 82 18 134/70 98 I/O 12/26/16 12/26/16 12/26/16 12/27/16 12/27/16 12/27/16 07:00 15:00 23:00 07:00 15:00 23:00 Intake Total 400 ml Output Total 200 ml 700 ml 300 ml Balance 200 ml -700 ml -300 ml Intake Oral 400 ml Output Urine Total 200 ml 700 ml 300 ml # Bowel Movements 1 2 Objective Remarks GENERAL: This is a well-nourished, well-developed patient, in no apparent distress. SKIN: No rashes, warm and dry HEAD: Atraumatic. Normocephalic. EYES: Pupils equal round and reactive. Extraocular motions intact. No scleral icterus. ENT: Nose without bleeding, or drainage, Airway patent. NECK: Trachea midline. Supple CARDIOVASCULAR: Regular rate and rhythm without murmurs, gallops, or rubs. RESPIRATORY: Fair air entry bilaterally. No wheezes, rales, or rhonchi. GASTROINTESTINAL: Abdomen soft, non-tender, nondistended. Positive bowel sounds MUSCULOSKELETAL: Extremities without clubbing, cyanosis, or edema. Pedal pulses appreciated NEUROLOGICAL: Awake and alert. Moves all extremity. Normal speech.no focal neurological deficit Procedures bone biopsy ( L5). A/P Problem List: (1) Fracture of lumbar spine ICD Code: S32.009A Status: Acute Assessment and Plan 12/15: No acute issue, she had a session of RT yesterday plan to go to hospice when all arrangement done 12/16: Continue current care, further recommendation per oncology on Saturday, hospice at discharge 12/17: Continue current carePlan: To discharge with hospice once radiation therapy is complete 12/18: Radiation therapy session today, plan to discharge when done with XRT 12/19: To be discharged to hospice radiation therapy sessions is completing cleared by oncology 12/20: continue current care until XRT complete so patient can be discharged with hospice, 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 difficile also patient refused take her blood pressure medication, I added amlodipine with Vasotec as needed 12/21: Continue monitoring blood pressure, consider increasing Norvasc needed, last day radiation therapy mostly on December 2612/22: Continue current care, XRT ongoing sessions 12/23: Continue current care, blood pressure not optimized will increase amlodipine 12/24: Continue current care, discharge with hospice once completing XRT on Monday 12/25: Patient just came from radiation therapy session, continue current care 12/26: Plan for discharge post last session of XRT 12/27 medically stable to be discharged either home with hospice or to hospice facility, discharge order placed pending patient decision A/P: Ms. Feng is an 81-year-old female with a history of Hodgkin's lymphoma and non- Hodgkin lymphoma presented to the emergency department due to increased low back pain. - T12/L5 pathologic fracture. 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 - oncology,neurosurgery following- radiation oncology ff- total 19 treatment sessions till 12/27 - ongoing PT- showing progress - Hospice cannot accept patient while patient is receiving radiation treatments. - Once adequate radiation therapy performed, patient can likely be discharged to hospice. XRT till 12/27 on Decadron- per Oncology- tapering PT ff - Constipation- Manual disimpaction 12/11 . 12/09 - large amount of hard stools + BM with current regimen continue to monitor - UTI -S/P Cipro. - diabetes mellitus - well controlled. Patient prefers not to check blood glucose. requested to change to regular diet - chronic renal insufficiency- stable - hypothyroidism; on levothyroxine DNR. Lovenox. under Hospice- DNR PT daily Discharge Planning To hospice with all arrangement done, dependency case manager working on it Problem Qualifiers (1) Fracture of lumbar spine: Qualified Code: S32.050A - Closed wedge compression fracture of fifth lumbar vertebra, initial encounter Edith Pan MD December 27, 2016 10:18
[2016-12-27] MEDS: HYDROmorphone HCL PF 1 MG/ML VIAL IV PUSH PRN ×2 (11:28→17:06)
[2016-12-27 12:19] VITALS: BP 121/64; PULSE 89; RESP 18; TEMP 96.9; O2SAT 100
[2016-12-27 16:53] VITALS: BP 115/73; PULSE 92; RESP 18; TEMP 96.1; O2SAT 99
[2016-12-27 20:00] VITALS: BP 100/58; PULSE 76; RESP 16; TEMP 96.7; O2SAT 97
[2016-12-28] MEDS: LEVOTHYROXINE SODIUM 100 MCG TAB PO SCH (05:21)
[2016-12-28] MEDS: MORPHINE SULFATE 15 MG CONTROLLED RELEASE TAB PO SCH (08:19)
[2016-12-28] MEDS: DEXAMETHASONE 4 MG TAB PO SCH (08:20)
[2016-12-28] MEDS: MAGNESIUM HYDROXIDE SUSP 30 ML CUP PO SCH (08:20)
[2016-12-28] MEDS: GABAPENTIN 300 MG CAP PO SCH ×3 (08:20→17:00)
[2016-12-28] MEDS: PANTOPRAZOLE SOD 20 MG DELAYED RELEASE TAB PO SCH (08:20)
--- NOTE | 2016-12-28 08:25 | PD.ONC.PN ---
Subjective Subjective Remarks Feels tired and weak, wants to go to hospice. Objective Data Date Time Temp Pulse Resp B/P Pulse Ox O2 Delivery O2 Flow Rate FiO2 12/27/16 20:00 96.7 76 16 100/58 97 12/27/16 16:53 96.1 92 18 115/73 99 12/27/16 12:19 96.9 89 18 121/64 100 12/28/16 12/28/16 12/28/16 07:00 15:00 23:00 Output Total 300 ml Balance -300 ml Administered Medications Medications (Trade) Dose Ordered Sig/Louisa Route PRN Reason Start Time Stop Time Status Last Admin Dose Admin Enalaprilat (Vasotec Inj) 1.25 mg Q8H PRN IV PUSH SBP> OR = 160, DBP> OR = 100 11/21/16 10:45 12/14/16 05:43 Ondansetron HCl (Zofran Inj) 4 mg Q8HR PRN IV PUSH NAUSEA 11/21/16 10:45 11/27/16 08:30 Alprazolam (Xanax) 0.25 mg Q4H PRN PO ANXIETY 11/21/16 12:00 12/20/16 20:33 Levothyroxine Sodium (Synthroid) 100 mcg DAILY@0600 PO 11/22/16 06:00 12/28/16 05:21 Gabapentin (Neurontin) 300 mg TID PO 11/25/16 13:00 12/27/16 17:06 Pantoprazole Sodium (Protonix) 20 mg DAILY PO 11/28/16 09:00 12/27/16 08:50 Hydromorphone HCl (Dilaudid) 2 mg Q3H PRN PO PAIN SCALE 1 TO 5 11/28/16 12:15 12/24/16 14:19 Hydromorphone HCl (Dilaudid Pf Inj) 0.5 mg Q3HR PRN IV PUSH PAIN SCALE 6 TO 8 11/28/16 11:30 12/12/16 21:19 Multi-Ingredient Mouthwash/Gargle (Magic Mouthwash Adult Liq) 10 ml QID SWISH-SWAL 11/30/16 21:00 12/01/16 18:39 Enoxaparin Sodium (Lovenox Inj) 40 mg DAILY SQ 12/02/16 09:00 12/26/16 11:18 Dexamethasone (Decadron) 2 mg Q12HR PO 12/10/16 21:00 12/27/16 08:45 Magnesium Hydroxide (Milk Of Beatrice Escobedo) 30 ml BID PO 12/11/16 21:00 12/18/16 01:44 Morphine Sulfate (Oramorph Sr) 15 mg Q12HR PO 12/12/16 09:00 12/27/16 08:54 Hydromorphone HCl (Dilaudid Pf Inj) 1 mg Q3HR PRN IV PUSH PAIN SCALE 9 TO 10 12/12/16 10:00 12/27/16 17:06 Amlodipine Besylate (Norvasc) 10 mg DAILY PO 12/24/16 09:00 12/27/16 08:44 Objective Remarks GENERAL: Well-nourished, well-developed patient. Weak. SKIN: Warm and dry. HEAD: Normocephalic. EYES: No scleral icterus. No injection or drainage. NECK: Supple, trachea midline. No JVD or lymphadenopathy. LYMPHATIC: No adenopathy. CARDIOVASCULAR: Regular rate and rhythm without murmurs. RESPIRATORY: Breath sounds equal bilaterally. No accessory muscle use. GASTROINTESTINAL: Abdomen soft, non-tender, nondistended. EXTREMITIES: No cyanosis, or edema. MUSCULOSKELETAL: Adequate muscle tone. NEUROLOGICAL: No obvious focal deficit. Awake, alert, and oriented x3. PSYCHIATRIC: Appropriate mood and affect; insight and judgment normal. Assessment/Plan Problem List: (1) B-cell lymphoma Status: Acute Plan: --Completed XRT. Pain stable. Pt does not want further treatment, Wants to go to hospice. --Discussed with , CT showed improvement of L4 lesion and has good response to XRT. History: --first treated with rituximab and Treanda --finished two years of maintenance Rituxan in January of 2014. --December 2015-->found to have progression of disease. treated with and Zydelig with Rituxan and then maintained on Zydelig --2016: CT showed low density masses in the retroperitoneum at the superior posterior left pelvis and the right pelvic sidewall. The --October 2016: PET scan showed these lesions were less prominent and not hypermetabolic. +hypermetabolic presacral lesion measured about 1.6 cm and the L5 hypermetabolic lesion. She --started on Rituxan and Revlimid about 2 weeks ago. --PET scan, 10/24, showed intense uptake within L5 left transverse process with associated hairline pathologic fracture. --MRI lumbar spine showed severe compression fracture deformity of L5 with invagination of the superior inferior endplate and marrow edema. +retropulsion with mass effect on the left S1 nerve root. +mild compression fracture deformity of T12. --CT lumbar spine showed destructive process involving transverse process of L5 suspicious of neoplastic process. This appeared to be causing all her symptoms. (2) Pain management Status: Acute Plan: --Oramorph + PRN Dilaudid --radiation to spine started 11/26/16 Assessment 81y/o female with h/o follicular and hodgkin's lymphoma. admitted with severe lower back pain Plan 1. Pt completed XRT and does not want further tx. 2. Await hospice placement. Hopefully transfer to care center today. 3. Continue supportive care. Fredy Soni MD December 28, 2016 08:25
[2016-12-28 08:27] VITALS: BP 132/71; PULSE 79; RESP 22; TEMP 97; O2SAT 97
[2016-12-28] MEDS: NYSTAT/DIPHENHY/LIDO MOUTHWASH (Adult) 120ML SWISH-SWAL SCH ×2 (08:31→13:00)
[2016-12-28] MEDS: ENOXAPARIN SODIUM 40 MG/0.4 ML SYRINGE SQ SCH (09:00)
[2016-12-28] MEDS: HYDROmorphone HCL PF 1 MG/ML VIAL IV PUSH PRN ×2 (13:18→16:53)
--- NOTE | 2016-12-28 13:38 | HHI.PR ---
Subjective Remarks Went for radiation today. No events overnight, plan for DC to hospice later today. Objective Vitals Vital Signs Date Time Temp Pulse Resp B/P Pulse Ox O2 Delivery O2 Flow Rate FiO2 12/28/16 08:27 97.0 79 22 132/71 97 12/27/16 20:00 96.7 76 16 100/58 97 12/27/16 16:53 96.1 92 18 115/73 99 I/O 12/27/16 12/27/16 12/27/16 12/28/16 12/28/16 12/28/16 07:00 15:00 23:00 07:00 15:00 23:00 Intake Total 240 ml Output Total 300 ml 850 ml 300 ml Balance -300 ml -610 ml -300 ml Intake Oral 240 ml Output Urine Total 300 ml 850 ml 300 ml # Voids 2 # Bowel Movements 2 1 Imaging Last Impressions Abdomen/Pelvis CT 12/11/16 0000 Signed Impressions: Service Date/Time: Sunday, December 11, 2016 16:55 - CONCLUSION: 1. Destruction left transverse process of L5 recently biopsied. There is also a moderate pathologic fracture of L5 vertebral body. Other fractures of the lumbar spine appear chronic. There is diffuse osteopenia. 2. Moderate to severe constipation of the transverse colon and to lesser extent the left colon. 3. No metastatic disease identified to the abdominal viscera. No retroperitoneal adenopathy. 4. Moderate coronary calcifications. Previous susana fixation proximal femora. Scarring and atrophy right kidney. 5. 2.9 cm abdominal aortic aneurysm as above. Roque Nelson MD Bone Biopsy CT 11/22/16 0600 Signed Impressions: Service Date/Time: October 10:41 - CONCLUSION: Uncomplicated CT guided biopsy. León Good MD Lumbar Spine CT 11/21/16 0000 Signed Impressions: Service Date/Time: Monday, November 21, 2016 10:19 - CONCLUSION: 1. Destructive process involving the transverse process of L5 suspicious for neoplastic process. This could be biopsied percutaneously. Quinton Robison MD FACR Lower Extremity CT 11/21/16 0000 Signed Impressions: Service Date/Time: Monday, November 21, 2016 10:19 - CONCLUSION: I do not see hip fracture although troch nails make conclusion of subtle fracture very difficult. Please see above discussion. Quinton Robison MD FACR Objective Remarks GENERAL: This is a well-nourished, well-developed patient, in no apparent distress. SKIN: No rashes, warm and dry HEAD: Atraumatic. Normocephalic. EYES: Pupils equal round and reactive. Extraocular motions intact. No scleral icterus. ENT: Nose without bleeding, or drainage, Airway patent. NECK: Trachea midline. Supple CARDIOVASCULAR: Regular rate and rhythm without murmurs, gallops, or rubs. RESPIRATORY: Fair air entry bilaterally. No wheezes, rales, or rhonchi. GASTROINTESTINAL: Abdomen soft, non-tender, nondistended. Positive bowel sounds MUSCULOSKELETAL: Extremities without clubbing, cyanosis, or edema. Pedal pulses appreciated NEUROLOGICAL: Awake and alert. Moves all extremity. Normal speech.no focal neurological deficit Procedures bone biopsy ( L5). A/P Problem List: (1) Fracture of lumbar spine ICD Code: S32.009A Status: Acute Assessment and Plan 12/15: No acute issue, she had a session of RT yesterday plan to go to hospice when all arrangement done 12/16: Continue current care, further recommendation per oncology on Saturday, hospice at discharge 12/17: Continue current carePlan: To discharge with hospice once radiation therapy is complete 12/18: Radiation therapy session today, plan to discharge when done with XRT 12/19: To be discharged to hospice radiation therapy sessions is completing cleared by oncology 12/20: continue current care until XRT complete so patient can be discharged with hospice, 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 difficile also patient refused take her blood pressure medication, I added amlodipine with Vasotec as needed 12/21: Continue monitoring blood pressure, consider increasing Norvasc needed, last day radiation therapy mostly on December 2612/22: Continue current care, XRT ongoing sessions 12/23: Continue current care, blood pressure not optimized will increase amlodipine 12/24: Continue current care, discharge with hospice once completing XRT on Monday 12/25: Patient just came from radiation therapy session, continue current care 12/26: Plan for discharge post last session of XRT 12/27 medically stable to be discharged either home with hospice or to hospice facility, discharge order placed pending patient decision A/P: Ms. Feng is an 81-year-old female with a history of Hodgkin's lymphoma and non- Hodgkin lymphoma presented to the emergency department due to increased low back pain. - T12/L5 pathologic fracture. 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 - oncology,neurosurgery following- radiation oncology ff- total 19 treatment sessions till 12/27 - ongoing PT- showing progress - Hospice cannot accept patient while patient is receiving radiation treatments. - Once adequate radiation therapy performed, patient can likely be discharged to hospice. XRT till 12/27 on Decadron- per Oncology- tapering PT ff - Constipation- Manual disimpaction 12/11 . 12/09 - large amount of hard stools + BM with current regimen continue to monitor - UTI -S/P Cipro. - diabetes mellitus - well controlled. Patient prefers not to check blood glucose. requested to change to regular diet - chronic renal insufficiency- stable - hypothyroidism; on levothyroxine DNR. Lovenox. under Hospice- DNR PT daily Discharge Planning To hospice when arrangements done, field case manager following Problem Qualifiers (1) Fracture of lumbar spine: Qualified Code: S32.050A - Closed wedge compression fracture of fifth lumbar vertebra, initial encounter Moriah Bautista MD December 28, 2016 13:38
== END 2016-12-28 17:46 | disposition hospice, inpatient (51) | DRG 824 ==
LOC: NEPE 09:28 → NEDA 10:40 → N05A 17:01
PROVIDERS: ADMIT Internal Medicine; ATTEND Hospitalist
PROC: 0QB03ZX Excision of Lumbar Vertebra, Percutaneous Approach, Diagnostic (ICD-10-PCS; principal; 2016-11-22)
PROC: DP0C3ZZ Beam Radiation of Other Bone using Electrons (ICD-10-PCS; 2016-11-26)
DX: C85.19 Unspecified B-cell lymphoma, extranodal and solid organ sites (principal); M84.58XA Pathological fracture in neoplastic disease, other specified site, initial encounter for fracture; E11.22 Type 2 diabetes mellitus with diabetic chronic kidney disease; N39.0 Urinary tract infection, site not specified; G89.3 Neoplasm related pain (acute) (chronic); I12.9 Hypertensive chronic kidney disease with stage 1 through stage 4 chronic kidney disease, or unspecified chronic kidney disease; E03.9 Hypothyroidism, unspecified; N18.9 Chronic kidney disease, unspecified; K59.00 Constipation, unspecified; M81.0 Age-related osteoporosis without current pathological fracture; L89.621 Pressure ulcer of left heel, stage 1; M19.90 Unspecified osteoarthritis, unspecified site; Z51.5 Encounter for palliative care; M48.06 Spinal stenosis, lumbar region; R19.7 Diarrhea, unspecified; Z85.71 Personal history of Hodgkin lymphoma; Z92.3 Personal history of irradiation; Z88.2 Allergy status to sulfonamides; Z79.84 Long term (current) use of oral hypoglycemic drugs; M54.32 Sciatica, left side
CPT/HCPCS: 20225; 72131; 73700; 74177; 77012; 77014; 77300; 77301; 77336; 77338; 77386; 77387; 77427; 80048; 80053; 80307; 81001; 82948; 83615; 85007; 85025; 85027; 85610; 85730; 87086; 88305; 88307; 88341; 88342; 88377; 96374; 96375; 99152; 99153; 99232; 99283; J0696; J1170; J1650; J1815; J2212; J2250; J2270; J2405; J3010; J8540; Q9967